=== PATIENT | male | born 1930 | race Caucasian/White ===

== ENCOUNTER → 2016-09-20 | Outpatient (CLI) | payer BC ==
[~2016-09-20] MED LIST: ALBU18002 INH; APIX1TAB3 PO; ASPEC81 PO; AZIT500T26 PO; Allegra PO; CHOL20009 PO; CRD30 PO; CYCL0.052 OP; DUTA0.5C PO; FEXO1TAB49 PO; FLNIN/ NAE; LEVO112T2 PO; MOME220A INH; MULT-190 PO; NTRSLP4 SL; OPTIRAY 320 IV PRN; POLY1SOL6 OP; POLYSOL4 OP; PRED0.12 OPL; TRMCR130WC TOP; Vit D PO; [UNRECOGNIZED DRUG - CODE] PO
--- NOTE | 2016-09-20 13:29 | DIAGNOSTIC IMAGING REPORT ---
CHEST CT WITH CONTRAST CT DOSE: HISTORY: Lymphoma CT TECHNIQUE: Multiaxial CT images of the chest were performed following the intravenous administration of contrast. COMPARISON: 15/10/2014 FINDINGS: The lungs are clear. The mediastinal vascular structures are within normal limits. No mediastinal or hilar lymphadenopathy. No pleural effusion or pneumothorax. Limited views of the upper abdomen demonstrate a normal liver and spleen. IMPRESSION: No significant abnormality identified within the chest. Improved from the prior study. Electronically signed by: Topher Mead M.D. 09/20/2016 1:28 PM Dictated Date/Time: 09/20/2016 1:20 PM
--- NOTE | 2016-09-20 14:01 | DIAGNOSTIC IMAGING REPORT ---
ABDOMEN AND PELVIS CT WITH IV AND ORAL CONTRAST CT DOSE: 643.14 mGy.cm HISTORY: Lymphoma. TECHNIQUE: Multiaxial CT images of the abdomen and pelvis were performed following the use of intravenous and oral contrast. COMPARISON STUDY: Abdomen and pelvis CT 04/19/2015. FINDINGS: The pericardial effusion and trace left pleural effusion have resolved. The heart remains borderline enlarged. There is a right total hip arthroplasty. No suspicious lytic or blastic osseous lesions. Cholecystectomy. There are few stable subcentimeter hypodense lesions within the liver. These are too small to characterize. The spleen is top normal in size measuring 12.5 cm in length. Small rind of soft tissue/fluid along the lateral aspect of the spleen remains unchanged. The adrenal glands and pancreas are unremarkable. Bilateral renal cysts are again noted. Stable mild prominence of the left intrahepatic bile ducts. No retroperitoneal or mesenteric lymphadenopathy. No pelvic or inguinal lymphadenopathy. Mild bladder wall thickening with a few bladder diverticula. This is likely chronic. Evidence for prior right inguinal hernia repair. The prostate gland is mildly enlarged. Colonic diverticulosis. No bowel wall thickening or obstruction. IMPRESSION: 1. The pericardial effusion and trace left pleural effusion have resolved in the interval. 2. Otherwise, no significant change within the appearance of the abdomen/pelvis. 3. Small rind of soft tissue/fluid along the lateral aspect of the spleen remains stable. 4. No lymphadenopathy within the abdomen or pelvis. Electronically signed by: Nate Lomeli M.D. 09/20/2016 2:00 PM Dictated Date/Time: 09/20/2016 1:52 PM
== END | disposition home or self-care (01) ==
LOC: C.CTS 12:40
PROVIDERS: ATTEND Nurse Practitioner Family
DX: C85.10 Unspecified B-cell lymphoma, unspecified site (principal)

== ENCOUNTER 2016-10-01 13:30 | Observation (INO) | payer BC ==
[~2016-10-01] VITALS: Ht 190.5 cm; Wt 78.9 kg
[~2016-10-01 13:30] MED LIST changes: -ALBU18002 INH; -APIX1TAB3 PO; -AZIT500T26 PO; -CHOL20009 PO; -CRD30 PO; -CYCL0.052 OP; -FEXO1TAB49 PO; -FLNIN/ NAE; -MOME220A INH; -MULT-190 PO; -OPTIRAY 320 IV PRN; -POLY1SOL6 OP; -[UNRECOGNIZED DRUG - CODE] PO
[2016-10-01] MEDS ORDERED: ASPIRIN 81 MG CHEW PO STA (13:49)
[2016-10-01] MEDS ORDERED: FLNIN/ NAE (13:57)
[2016-10-01] MEDS ORDERED: MOME220A INH (13:57)
[2016-10-01] MEDS ORDERED: CHOL20009 PO (13:57)
[2016-10-01] MEDS ORDERED: FEXO1TAB49 PO (13:57)
[2016-10-01] MEDS ORDERED: POLY1SOL6 OP (13:57)
[2016-10-01] MEDS ORDERED: [UNRECOGNIZED DRUG - CODE] PO (13:57)
[2016-10-01] MEDS ORDERED: ALBU18002 INH (13:57)
[2016-10-01 14:06] LABS: BASO % 0.2 %; BASO ABS # 0.01 K/uL (0-0.2); COMPLETE YES; EOS % 14.2 %; HEMATOCRIT 43.6 % (42-52); IG% 0.7 %; LYMPH % 19.9 %; LYMPH ABS # 0.88 K/uL (1.2-3.4); MEAN CELL VOLUME 92.2 fL (80-100); MEAN CORPUSCULAR HEMOGLOBIN 32.8 pg (25-34); MEAN CORPUSCULAR HGB CONC 35.6 g/dl (32-36); MEAN PLATELET VOLUME 9.6 fL (7.4-10.4); MONO % 12.6 %; NEUT % 52.4 %; PLATELET COUNT 101 K/uL (130-400); RED BLOOD COUNT 4.73 M/uL (4.7-6.1); WHITE BLOOD COUNT 4.43 K/uL (4.8-10.8)
--- NOTE | 2016-10-01 14:14 | DIAGNOSTIC IMAGING REPORT ---
CHEST ONE VIEW PORTABLE CLINICAL HISTORY: Atypical chest pain COMPARISON STUDY: 11/29/2015 FINDINGS: The heart is the upper limits of normal in size. There is no failure. There is no focal pulmonary consolidation. There are no pleural effusions. Degenerative changes are present within the shoulders.[ IMPRESSION: No active disease in the chest. Electronically signed by: Isra Patel M.D. 10/01/2016 2:13 PM Dictated Date/Time: 10/01/2016 2:09 PM
[2016-10-01 14:26] LABS: BLOOD UREA NITROGEN 11 mg/dl (7-18); BUN/CREATININE RATIO 12.9 (10-20); CALCIUM 9.5 mg/dl (8.5-10.1); CARBON DIOXIDE 30 mmol/L (21-32); CHLORIDE 102 mmol/L (98-107); CREATININE 0.85 mg/dl (0.60-1.40); GLUCOSE 93 mg/dl (70-99); POTASSIUM 3.9 mmol/L (3.5-5.1); SODIUM 140 mmol/L (136-145)
[2016-10-01 14:31] LABS: CKMB/CK RATIO 6.1 (0-3.0)
[2016-10-01] MEDS ORDERED: ALUMINUM/MAGNESIUM/SIMETH (MAALOX MAX) 30 ML UDC PO PRN (15:30)
[2016-10-01] MEDS ORDERED: MoRPHine SULFATE 2 MG/ML CARP IV PRN (15:30)
[2016-10-01] MEDS ORDERED: POLYETHYLENE (MIRALAX) 17 GM PACK PO PRN (15:30)
[2016-10-01] MEDS ORDERED: ALBUTEROL HFA 8 GM INHALER INH PRN (15:30)
[2016-10-01] MEDS ORDERED: NITROGLYCERIN 0.4 MG SL PER TAB CHARGE SL PRN ×2 (15:30)
[2016-10-01] MEDS ORDERED: ZOLPIDEM TARTRATE 5 MG TAB PO PRN (15:30)
[2016-10-01] MEDS ORDERED: MAGNESIUM HYDROXIDE SUSP 30 ML UDC PO PRN (15:30)
[2016-10-01] MEDS ORDERED: ONDANSETRON INJ 2 MG/ML 2 ML VIAL IV PRN (15:30)
[2016-10-01] MEDS ORDERED: ACETAMINOPHEN 325 MG TAB PO PRN (15:30)
--- NOTE | 2016-10-01 15:42 | History and Physical ---
History & Physical Date of Service Oct 01, 2016. History & Physical chest pain, Aflutter, rate controlled, [id number]
--- NOTE | 2016-10-01 15:56 | EMERGENCY ROOM VISIT NOTE ---
History Report prepared by Nelson: Mariajose West Under the Supervision of: Dr. Hero Mendoza D.O. First contact with patient: 13:38 Chief Complaint: CARDIAC ASSESSMENT Stated Complaint: HEART PROBLEMS/NOT FUCTIONING NORMALLY SENT BY DOC History of Present Illness The patient is an 86 year old male who presents to the Emergency Room with complaints of intermittent chest pain that has been going on for the last several months. He currently rates his discomfort as a 1/10 in severity. The patient states that for the past several months he has been noticing intermittent left sided chest pain with exertion. He states that he has become short of breath with exertion as well. The patient notes that occasionally he notes pain radiating into his left arm, but denies it radiating into his jaw. He states that he experiences this discomfort every other day or less, but notes that his roman has become more frequent. The patient attributed his discomfort to his diet. He describes his discomfort as a burning pain. The patient states that he has been feeling lightheaded with changing position. He states that the last time he had the chest pain was yesterday. The patient states that he has a history of a previous CT in January 2015, noting that his discomfort today feels similar to his discomfort with his CT. The patient states that he went to his PCP's office today and mentioned his recent symptoms , and states that after having an EKG done he was found to be in atrial flutter. The patient denies any history of diabetes, hypertension or a previous stroke. Pt denies headache, change in vision, fevers, runny nose, cough, cold, chest pain, shortness of breath, nausea, vomiting, diarrhea, pain with urination, and melena. Source of History: patient Onset: last several months Position: chest Symptom Intensity: 1/10 Quality: burning Timing: intermittent Modifying Factors (Worsening): exertion Associated Symptoms: + SOB Note: Associated Symptoms: lightheaded with change in position Review of Systems See HPI for pertinent positives & negatives. A total of 10 systems reviewed and were otherwise negative. 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 (15) Venous Thrombosis Nos Family History Cancer Heart disease Hypertension Social History Smoking Status: Never Smoker Alcohol Use: none Drug Use: none Marital Status: Housing Status: lives with family Occupation Status: retired Current/Historical Medications Scheduled Aspirin (Aspirin EC Low Dose), 81 MG PO QAM Cholecalciferol (Vitamin D), 2,000 UNIT PO DAILY Dutasteride (Avodart), 0.5 MG PO HS Fexofenadine Hcl (Adriana Allergy), 180 MG PO DAILY Fluticasone Propionate (Fluticasone Propionate), 2 SPRAY GISELL DAILY Levothyroxine Sodium (Levo-T), 100 MCG PO DAILY Mometasone Furoate (Inhalation (Asmanex Twisthaler 120 Me), 1 PUFF INH BID Polyethylene Glycol-Propylene (Systane Ultra), 1 DROPS OP TID Prednisolone Acetate (Ophth) (Pred Mild 0.12%), 1 DROP OPL Q2D Scheduled PRN Albuterol Sulfate (Proair Respiclick), 2 PUFF INH Q4 PRN for SOB/Wheezing Nitroglycerin (Nitrostat), 0.4 MG SL UD PRN for Chest Pain Allergies Coded Allergies: Penicillins (Verified Allergy, Intermediate, Rash, 10/01/16) RASH Rofecoxib (Verified Allergy, Intermediate, Rash, 10/01/16) RASH Codeine (Verified Allergy, Unknown, 2000 codeine after gallbladder sug = rash, red, & swelled up, 10/01/16) Meperidine (Verified Allergy, Unknown, 10/01/16) Statins (Unverified Allergy, Unknown, unknown, 10/01/16) Physical Exam Vital Signs Date Time Temp Pulse Resp B/P Pulse Ox O2 Delivery O2 Flow Rate FiO2 10/01/16 15:31 67 18 119/74 97 Room Air 10/01/16 14:36 74 18 129/60 95 Room Air 10/01/16 14:02 95 Room Air 10/01/16 13:56 69 10/01/16 13:45 73 18 123/72 96 Room Air 10/01/16 13:45 95 Room Air 10/01/16 13:35 36.4 85 18 141/84 97 Room Air Physical Exam GENERAL: Standing in room, alert, well appearing, well nourished, no distress, non-toxic EYE EXAM: normal conjunctiva. OROPHARYNX: no exudate, no erythema, lips, buccal mucosa, and tongue normal and mucous membranes are moist NECK: supple, no nuchal rigidity, no adenopathy, non-tender LUNGS: Clear to auscultation. Normal chest wall mechanics HEART: Systolic ejection murmur. S1 normal and S2 normal ABDOMEN: abdomen soft, non-tender, normo-active bowel sounds, no masses, no rebound or guarding. BACK: Back is symmetrical on inspection and there is no deformity, no midline tenderness, no CVA tenderness. SKIN: no rashes and no bruising UPPER EXTREMITIES: upper extremities are grossly normal. LOWER EXTREMITIES: Faint pitting edema in the left lower quadrant NEURO EXAM: Normal sensorium, cranial nerves II-XII grossly intact, normal speech, no gross weakness of arms, no gross weakness of legs. Medical Decision & Procedures ER Provider Diagnostic Interpretation: Xray results per the radiologist and my interpretation. Other results have been interpreted by the radiologist and reviewed by me. CHEST ONE VIEW PORTABLE CLINICAL HISTORY: Atypical chest pain COMPARISON STUDY: 11/29/2015 FINDINGS: The heart is the upper limits of normal in size. There is no failure. There is no focal pulmonary consolidation. There are no pleural effusions. Degenerative changes are present within the shoulders.[ IMPRESSION: No active disease in the chest. Electronically signed by: Isra Patel M.D. 10/01/2016 2:13 PM Dictated Date/Time: 10/01/2016 2:09 PM Laboratory Results 10/01/16 14:00 Red Blood Count 4.73, Mean Corpuscular Volume 92.2, Mean Corpuscular Hemoglobin 32.8, Mean Corpuscular Hemoglobin Concent 35.6, Mean Platelet Volume 9.6, Neutrophils (%) (Auto) 52.4, Lymphocytes (%) (Auto) 19.9, Monocytes (%) (Auto) 12.6, Eosinophils (%) (Auto) 14.2, Basophils (%) (Auto) 0.2, Neutrophils # (Auto ) 2.32, Lymphocytes # (Auto) 0.88, Monocytes # (Auto) 0.56, Eosinophils # (Auto ) 0.63, Basophils # (Auto) 0.01 10/01/16 14:00 Test 10/01/16 14:00 White Blood Count 4.43 K/uL (4.8-10.8) Red Blood Count 4.73 M/uL (4.7-6.1) Hemoglobin 15.5 g/dL (14.0-18.0) Hematocrit 43.6 % (42-52) Mean Corpuscular Volume 92.2 fL (80-100) Mean Corpuscular Hemoglobin 32.8 pg (25-34) Mean Corpuscular Hemoglobin Concent 35.6 g/dl (32-36) Platelet Count 101 K/uL (130-400) Mean Platelet Volume 9.6 fL (7.4-10.4) Neutrophils (%) (Auto) 52.4 % Lymphocytes (%) (Auto) 19.9 % Monocytes (%) (Auto) 12.6 % Eosinophils (%) (Auto) 14.2 % Basophils (%) (Auto) 0.2 % Neutrophils # (Auto) 2.32 K/uL (1.4-6.5) Lymphocytes # (Auto) 0.88 K/uL (1.2-3.4) Monocytes # (Auto) 0.56 K/uL (0.11-0.59) Eosinophils # (Auto) 0.63 K/uL (0-0.5) Basophils # (Auto) 0.01 K/uL (0-0.2) RDW Standard Deviation 45.6 fL (36.4-46.3) RDW Coefficient of Variation 13.4 % (11.5-14.5) Immature Granulocyte % (Auto) 0.7 % Immature Granulocyte # (Auto) 0.03 K/uL (0.00-0.02) Anion Gap 8.0 mmol/L (3-11) Est Creatinine Clear Calc Drug Dose 73.8 ml/min Estimated GFR () 91.4 Estimated GFR (Non- 78.9 BUN/Creatinine Ratio 12.9 (10-20) Calcium Level 9.5 mg/dl (8.5-10.1) Total Creatine Kinase 41 U/L (39-308) Creatine Kinase MB 2.5 ng/ml (0.5-3.6) Creatine Kinase MB Ratio 6.1 (0-3.0) Troponin I < 0.015 ng/ml (0-0.045) Laboratory results per my review. Medications Administered Medications (Trade) Dose Ordered Sig/Rosario Route Start Time Stop Time Status Last Admin Dose Admin Aspirin (Aspirin Chew) 324 mg NOW STAT PO 10/01/16 13:49 10/01/16 13:50 DC 10/01/16 14:19 324 MG ECG Indication: chest pain Rate (beats per minute): 62 Rhythm: atrial flutter (variable block) Findings: Q waves (Septal), other (normal axis) ED Course ED COURSE: Vital signs were reviewed and showed normal vitals The patients medical record was reviewed The above diagnostic studies were performed and reviewed. ED treatments and interventions as stated above. 1339: The patient was evaluated in room A2. A complete history and physical examination was performed. 1349: Ordered Aspirin 324 mg PO. 1353: I discussed the patients case with Dr. Shultz, Family Medicine. He states that he wants the patient evaluated in the hospital for a cardiac work up. 1445: Upon reevaluation, the patient is resting comfortably.I discussed my findings with the patient and he understands and agrees with the treatment plan. Based on the patients age, coexisting illnesses, exam and lab findings the decision to treat as an inpatient was made. The patient remained stable while under my care. The patient will be evaluated for further management. 1506: I discussed the patients case with Dr. Lui [facility]. He is going to evaluate the patient for further treatment. 1507: I reevaluated the patient and he is in agreement with the treatment plan. Medical Decision Differential diagnoses includes but is not limited to acute coronary syndrome, myocardial infarction, pericarditis, pulmonary embolus, aortic dissection, pneumonia, pneumothorax, musculoskeletal, shingles, esophageal. Patient is an 86-year-old male referred in by his primary care doctor for worsening exertional chest pain and shortness of breath which feels like his previous CT over the past several weeks. He was also found to be in new onset A. fib flutter with variable block. Patient has no other complaints at this time. EKG does show a flutter with variable block. Labs show no significant leukocytosis or anemia. BMP along with troponin were negative. CK-MB was slightly elevated at 6.1. Patient is no other complaints at this time and he was admitted to internal medicine following an unremarkable chest x-ray. Consults Time Called: [phone] Consulting Physician: Dr. Shultz, Family Medicine Returned Call: [phone] I discussed the patients case with Dr. Shultz Family Medicine. He states that he wants the patient evaluated in the hospital for a cardiac work up. Additional Consults: Time Called: 1445 Consulted Physician: GABRIELLE Smith Returned Call: [phone] Additional Comments: I discussed the patients case with GABRIELLE Smith. He is going to evaluate the patient for further treatment. Impression Primary Impression: New onset atrial flutter Additional Impression: Exertional chest pain Scribe Attestation The scribe's documentation has been prepared under my direction and personally reviewed by me in its entirety. I confirm that the note above accurately reflects all work, treatment, procedures, and medical decision making performed by me. Departure Information Dispostion Being Evaluated By Hospitalist Ganesh Rodriguez D.O. Pulmonary (PCP) Patient Instructions [facility] Problem Qualifiers
[2016-10-01 16:00] LABS: INR 1.1 (0.9-1.1); PROTHROMBIN TIME (PATIENT) 11.6 SECONDS (9.0-12.0)
[2016-10-01] MEDS ORDERED: IV FLUIDS COMPLETED PRN (16:00)
[2016-10-01 16:13] VITALS: BP 132/69; PULSE 73; TEMP 36.4; O2SAT 98; Ht 190.5 cm; Wt 78.9 kg
[2016-10-01] MEDS ORDERED: ENOXAPARIN 40 MG/0.4 ML SYR SC SCH (18:00)
--- NOTE | 2016-10-01 18:14 | HISTORY & PHYSICAL EXAMINATION ---
DATE OF ADMISSION: 10/01/2016 This is level 3 observation H\T\P, 31 minutes. CHIEF COMPLAINT: Chest pain. HISTORY OF PRESENT ILLNESS: The patient is an 86-year-old white male with a significant past medical history of CAD, AL, GERD, dyslipidemia, hypertension, non-Hodgkins lymphoma, spinal stenosis, venous thrombosis, total hip replacement, coming into the hospital Emergency Room from PCP's office because of the above chief complaint. The patient reported he has been feeling intermittent chest pain, has been going on for several months. When he was in the Emergency Room the rate of pain was 1/10. In the past several months has feeling of intermittent left chest pain with exertion. He also becomes short of breath with exertion as well. He reported the chest pain occasionally radiation into his left arm, but denied any radiation to the neck or jaw. He reports almost experience discomfort every other day. Recently become more frequent. He described it as burning uncomfortable pain. Associated with mild lightheaded. When change position. Last time had chest pain was yesterday. He reported history of AL in the year of 2014. Today, he was seen in the PCP's office with the above symptoms. EKG was done which shows A-flutter. Therefore, coming to the hospital Emergency Room. When I interviewed with the patient, he is awake, alert and oriented, confirmed me the above information. Denied fever or chills. Denied cough, sputum, shortness of breath. Denied chest pain now. Denied nausea, vomiting, abdominal pain, diarrhea, or constipation. Denied dysuria, urgency, or frequencies. Denied facial droop, slurry speeches or local weakness. Denies skin rashes. REVIEW OF SYSTEMS: Please see HPI, otherwise 14-point organ system review were negative. PAST MEDICAL HISTORY: Include MIs, ACS, appendectomy, cholecystectomy, chronic proctitis, cornea transplant, cystic kidney disease, GERD, dyslipidemia, hypertension, non-Hodgkins lymphoma, spinal stenosis, total hip replacement, venous thrombosis. FAMILY HISTORY: Include cancer, heart disease and hypertension. SOCIAL HISTORY: Denied alcohol abuse disorder, denied illicit drug abuse. Denied tobacco abuse. The patient is , live with . in the bedside. CURRENT MEDICATIONS: Include aspirin 81 mg p.o. daily, vitamin D 2000 international units p.o. daily, Avodart 0.5 mg p.o. at bedtime, Adriana 180 mg p.o. daily, fluticasone 2 sprays every day, Levothyroxine 100 mcg p.o. daily, Asmanex 1 puff inhaled b.i.d., Systane 1 drop OP t.i.d., prednisolone acetate 1 drop OPL q. 2 days, albuterol ProAir two puffs inhaled q. 4 hours p.r.n. for shortness of breath and wheezing, nitroglycerin 0.4 mg sublingually use as directed p.r.n. for chest pain. ALLERGIES: PENICILLIN, ROFECOXIB, CODEINE, MEPERIDINE, STATIN. PHYSICAL EXAMINATION: VITAL SIGNS: Temperature is 36, pulse 85, respiration rate 18, blood pressure 141/84, pulse ox was 97% on room air. GENERAL: The patient is a white male, awake, alert and oriented, looking his age, is smart, sharp, conversational, follows all commands. No acute distress. HEAD: Normocephalic. EYES: Pupils equal, round responds to light. EARS: Normal. NOSE: Normal. NECK: Supple. Thyroid no enlargement. Trachea midline. No thyroid enlargement. No JVD. LUNGS: Decreased breathing sounds. There was no wheezing, rhonchi or crackles. HEART: Having systolic ejection murmur. S1, S2. ABDOMEN: Soft, nontender. Bowel sound was positive. BACK: Is symmetric. CVA was nontender. Skin has no rashes. UPPER AND LOWER EXTREMITIES: No swelling. Homans sign was negative. Calf was nontender. There was no clubbing, no cyanosis. Pulse was positive and symmetric. NEUROLOGICAL EVALUATION: Cranial nerves II through XII was intact. There was no local deficits. Moves upper and lower extremities. LABORATORY STUDIES: WBC 4.4, hemoglobin 15, platelet 101. Sodium 140, potassium 3.9, BUN 11, creatinine 0.8. Blood glucose 93. Troponin less than 0.015. EKG shows A-flutter, rate at 62 beats per minute. IMAGING STUDIES: Chest x-ray, no acute disease. ASSESSMENT AND PLAN: An 86-year-old white male with the conditions below: 1. Chest pain intermittent, comes and goes with atrial flutter was identified. There was no history of atrial flutter documented 2. Hypothyroidism. 3. Benign prostatic hypertrophy. 4. History of coronary artery disease myocardial infarction. 5. History of gastroesophageal reflux disease, dyslipidemia, non-Hodgkin's disease. 6. History of venous thrombosis. PLAN: Will be kept in observation tele monitor to rule out ACS. We will check cardiac enzyme troponin x2 sets more. Will have his cardiology consultation. I did order stress echo if cardiac enzyme troponin was negative x2 and if agreeable with automotive quality manager. The patient has new identified A-flutter discussed, about the stroke prevention. Risk and benefit of possible anticoagulation and choice of medications. The patient is think about it. He said he will talk to automotive quality manager to make a final decision. I feel possible Eliquis is one good option for him. His last echo was in 2014, LVEF was normal. If we think about his CHADS2-VASc score is 3, adjusted year risk of stroke is 3.2% per year, for now we do not know echo result yet. Therefore, we will need to continue to follow up. We will continue home medication. I will check TSH as well. For the hypothyroidism, we will continue levothyroxine. For possible asthma we will continue current inhaler. I will check fasting lipid panels to follow up tomorrow. Discussed with the patient and about the care plan, I answered all the questions, I did order n.p.o. midnight and stress echo if agree with dobutamine stress test if agree with automotive quality manager. ANJANA
[2016-10-01 19:31] VITALS: BP 125/73; PULSE 63; TEMP 36.7; O2SAT 99
[2016-10-01 20:00] VITALS: O2SAT 99
[2016-10-01] MEDS: MOMETASONE FUROATE 14 PUFF/1 INHALER INH SCH (20:13)
[2016-10-01] MEDS: ARTIFICIAL TEARS OP SOLN OP SCH ×2 (20:16)
[2016-10-01] MEDS ORDERED: DUTASTERIDE 0.5 MG CAP PO SCH (21:00)
[2016-10-01 22:03] LABS: CKMB/CK RATIO 5.7 (0-3.0)
[2016-10-01 23:59] VITALS: BP 103/55; PULSE 61; TEMP 36.5; O2SAT 96; O2SAT 99
[2016-10-02] VITALS (7 sets, daily range): BP systolic 111–130; BP diastolic 60–65; PULSE 64–90; TEMP 36.5–36.9; O2SAT 96–99
[2016-10-02] MEDS ORDERED: LEVOTHYROXINE 100 MCG TAB PO SCH (06:00)
[2016-10-02 06:56] LABS: BLOOD UREA NITROGEN 10 mg/dl (7-18); BUN/CREATININE RATIO 12.9 (10-20); CALCIUM 8.4 mg/dl (8.5-10.1); CARBON DIOXIDE 30 mmol/L (21-32); CHLORIDE 105 mmol/L (98-107); CHOLESTEROL 174 mg/dl (0-200); GLUCOSE 96 mg/dl (70-99); MAGNESIUM 2.2 mg/dl (1.8-2.4); POTASSIUM 4.1 mmol/L (3.5-5.1); SODIUM 144 mmol/L (136-145); TRIGLYCERIDES 147 mg/dl (0-150); VERY LOW DENSITY LIPOPROT CALC 29 mg/dl
[2016-10-02 07:00] LABS: CHOLESTEROL/HDL RATIO 4.8; HDL CHOLESTEROL 36 mg/dl; LDL CHOLESTEROL CALCULATED 109 mg/dl
[2016-10-02] MEDS ORDERED: METOPROLOL TARTRATE 1 MG/ML VIAL ONE (08:51)
[2016-10-02] MEDS ORDERED: ATROPINE SULFATE 0.1 MG/ML 5ML SYR ONE (08:51)
[2016-10-02] MEDS ORDERED: DOBUTamine HCL 12.5 MG/ML 20 ML VIAL ONE (08:51)
[2016-10-02] MEDS ORDERED: FLUTICASONE PROPIONATE NA SPR 16 GM BTL NAE SCH (09:00)
[2016-10-02] MEDS ORDERED: CHOLECALCIFEROL 1000 INTER.UNIT TAB PO SCH (09:00)
[2016-10-02] MEDS ORDERED: PANTOprazole SOD 40 MG TAB PO SCH (09:00)
[2016-10-02] MEDS ORDERED: FEXOFENADINE HCL 180 MG TAB PO SCH (09:00)
[2016-10-02] MEDS ORDERED: ASPIRIN 325 MG ECTAB PO SCH (09:00)
[2016-10-02] MEDS ORDERED: DILTIAZEM HCL 30 MG TAB PO ONE (09:21)
[2016-10-02] MEDS ORDERED: APIXABAN 2.5 MG TAB PO ONE (09:30)
[2016-10-02] MEDS: MOMETASONE FUROATE 14 PUFF/1 INHALER INH SCH (10:19)
[2016-10-02] MEDS: ARTIFICIAL TEARS OP SOLN OP SCH ×4 (10:31→14:05)
--- NOTE | 2016-10-02 10:36 | CARDIOLOGY CONSULTATION REPORT ---
DATE OF CONSULTATION: 10/02/2016 DATE OF CONSULTATION: 10/02/2016. REASON FOR CONSULTATION: 1. Chest pain in a patient with coronary artery disease. 2. Newly diagnosed atrial flutter. HISTORY OF PRESENT ILLNESS: Mr. Rivera is very pleasant and active 86-year-old white male who is well known to Dr. Almodovar and myself from both inpatient and outpatient visits. He has a history of B-cell non-Hodgkin's lymphoma, dyslipidemia, hypertension, chronic thrombocytopenia, and CAD with chronic stable angina pectoris. The patient's cardiac history dates back to 02/08/2015 when he presented to [facility] complaining of prolonged left sided chest pressure which radiated into his arm and lasted for 1-2 hours. No associated symptoms. Subsequently his troponin I level went from 0.169 ng/mL up to 3.80 ng/mL and also had an elevation of his CK and CK-MB levels. He was diagnosed with NSTEMI, but due to the fact that his EF was normal, no regional wall motion abnormalities were present, HI was completed, and he had thrombocytopenia ppresent -- further invasive workup was not undertaken. The patient did not want to undergo cardiac catheterization. Therefore he was started on the appropriate medical management and has been maintained on medical management since that time (although he developed a severe rash with metoprolol which forced the discontinuance of his beta josh and does not tolerate statins). The patient presented to his primary care physicians office yesterday for a routine check up. At that time he mentioned intermittent left sided exertional chest pain which had been present for several months, with some mild exertional dyspnea as well. Occasionally his chest pain radiated to his left arm, but did not radiate to this neck or jaw. It did not occur at rest, and was only associated with exertion. No prolonged episodes, lasted for only minutes at a time. In his PCP's office, he was noted to have newly diagnosed atrial flutter with a reasonably well controlled ventricular response rate. The patient as subsequently referred to the ER and admitted for further evaluation. Thus far his cardiac enzymes are negative. He remains in atrial flutter with a ventricular response rate in the 80s and 90s. He denies any further chest discomfort. His breathing is at baseline. He specifically denies any angina pectoris at the present time, shortness of breath, dyspnea on exertion, or any chest discomfort whatsoever. He has not had any syncope or near syncope. He denies any nausea, vomiting, diaphoresis, or dyspnea. The patient offers no other complaints or concerns. Denies any symptoms suggestive of stroke or mini stroke. He has not had any orthopnea or PND. No sensation of palpitations or tachypalpitations. MEDICATIONS: 1. Aspirin 325 mg daily. 2. Adriana 180 mg daily. 3. Flonase 2 sprays each nostril daily. 4. Vitamin D 2000 IU daily. 5. Protonix 40 mg daily. 6. Levothyroxine 100 mcg daily. 7. Asmanex 220 mcg 1 puff b.i.d. 8. Artificial Tears t.i.d. 9. Avodart 0.5 mg at bedtime. ALLERGIES: 1. METOPROLOL CAUSED A SEVERE RASH. 2. CODEINE. 3. MEPERIDINE. 4. PENICILLIN. 5. ROFECOXIB. 6. STATIN MEDICATIONS. PAST MEDICAL HISTORY: 1. B-cell non-Hodgkin's lymphoma. 2. Dyslipidemia. 3. Hypertension. 4. CAD status post NSTEMI 02/08/2015. 5. Chronic thrombocytopenia. 6. Has never had a cardiac cauterization. 7. Stress echocardiogram 02/10/2015 showed normal baseline LVEF 60% to 65%, moderate concentric LVH, mild to moderate aortic stenosis, mild AI, moderate pulmonic insufficiency, trace MR, trace TR. The patient exercised for 3 minutes and 45 seconds on a standard Juarez protocol obtaining 5.5 METS and 93% MPHR. No EKG change with exercise. Post stress echocardiogram suggested mid to distal LAD territory ischemia. 8. Asthma. 9. BPH. 10. Hearing loss. 11. History of remote CVA. 12. History of right inguinal hernia. 13. Hypothyroidism. 14. History of appendectomy. 15. History of blepharoplasty upper eyelid. 16. History of cataract surgery. 17. Status post cholecystectomy. 18. History of corneal transplant. 19. History of hip replacement. SOCIAL HISTORY: The patient is and lives with his locally. 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 He is a life-long nonsmoker. He drinks alcohol occasionally. FAMILY HISTORY: Significant for hypertension. PHYSICAL EXAMINATION: VITAL SIGNS: Temperature is 36.9 degrees Celsius, pulse is 85 to 90 and slightly irregular, respiratory rate is 16 and unlabored, blood pressure is 110/61. SpO2 is 99% on room air. GENERAL: The patient is in no acute distress. HEAD, EYES, EARS, NOSE, AND THROAT: Head is atraumatic, normocephalic. EOMs intact. Sclerae are anicteric. Face is symmetric. No perioral cyanosis. Mucous membranes moist. NECK: Without thyromegaly, adenopathy, or JVD. Carotid upstrokes are +2 bilaterally without obvious bruits. CHEST AND LUNGS: Clear to auscultation throughout all lung garza. No wheezes, rales, or rhonchi. CARDIOVASCULAR: S1 and S2 are slightly irregular with a grade I/ basal systolic murmur which radiates into the upper chest and left sternal border. No diastolic murmurs appreciated. No obvious gallops or rubs. PMI is nondisplaced. No lifts, heaves, or thrills. No abdominal aortic or renal bruits. ABDOMINAL EXAMINATION: Bowel sounds are present. No masses, organomegaly or tenderness. EXTREMITIES: Are without clubbing, cyanosis, or edema. Intact posterior tibial pulses bilaterally. Normal radial pulses bilaterally. NEUROLOGIC EXAMINATION: The patient is awake, alert and oriented, pleasant and cooperative. Answers questions appropriately. Speech is clear. Normal movement in all 4 extremities. Echocardiogram is pending. LABORATORY DATA: White blood cell count is 4.43. Hemoglobin 15.5 grams/dL, hematocrit 43.6%, platelet count is 101,000. Sodium is 144 mmol/L, potassium 4.1 mmol/L, BUN is 10 mg/dL, creatinine 0.80 mg/dL, random glucose is 96 mg/dL, magnesium level is 2.2 mg/dL. Total CKs are 23, 30, and 41 units per liter with respective CK-MBs of 1.6, 1.7 and 2.5 ng/mL. Troponin I is less than 0.015 ng/mL x3. TSH normal at 0.455. Total cholesterol is 174 with a HDL of 36 mg/dL and LDL of 109 mg/dL. Chest x-ray shows no acute processes. Current telemetry monitoring reveals atrial flutter with variable 3:1 and 4:1 AV conduction with rates relatively well controlled with good response rate. ASSESSMENT: 1. Left sided chest pain in a patient with known coronary artery disease, negative cardiac enzymes. 2. Newly diagnosed Atrial Flutter. 3. Mild to moderate aortic stenosis, mild aortic insufficiency, moderate PI-compensated 4. Moderate concentric left ventricular hypertrophy. 5. Mildly dilated left atrium on previous echocardiogram. 6. Preserved left ventricular systolic function. 7. Mid to distal left anterior descending territory ischemia on stress echocardiogram January 2015. 8. Currently asymptomatic. 9. No signs or symptoms of stroke or mini stroke. 10. No signs or symptoms of congestive heart failure. PLAN: 1. Discussed with Dr. De La Vega who will also meet with the patient. 2. I had a long discussion with the patient today regarding what atrial flutter is, and various treatment strategies. 3. As we do not know the duration of his atrial flutter, would recommend adding a negative chronotropic medication and anticoagulating for a minimum of 3.5 to 4 weeks before attempting any active cardioversion. 4. Begin Diltiazem 30 mg p.o. q. 6 hours to help control ventricular response rate. 5. Begin Eliquis 5 mg b.i.d. today. 6. Discontinue Lovenox after Eliquis is started. 7. He warned of potential side effects of these medications. 8. Echocardiogram will be done today. 9. We will plan on having the patient ambulate in the hallway today and if he remains asymptomatic, he is stable for discharge to home later today. 10. We will plan on following up with him in 3-4 weeks to discuss further treatment of underlying atrial dysrhythmia and to arrange for cardioversion. 11. The patient and his 's questions were answered to their satisfaction. 12. Our office will contact the patient with a hospital follow up appointment. Attending Agree with Mr. Ramos's assessment and plan. The patient demonstrated a significant bradycardia after one dose of diltiazem. That medication will be placed on hold. Stable for d/c. Follow up with Dr. Almodovar and Mr. Ramos. [facility] HOSPITALPhilippe
[2016-10-02] MEDS ORDERED: APIX1TAB3 PO (11:01)
[2016-10-02] MEDS ORDERED: CRD30 PO (11:01)
--- NOTE | 2016-10-02 11:13 | Discharge Instructions ---
Discharge Instructions Date of Service Oct 02, 2016. Admission Reason for Admission: Chest Pain, Aflutter, Rate Controlled Discharge Discharge Diagnosis / Problem: New atrial flutter, rates controlled Discharge Goals Goal(s): Improve function, Therapeutic intervention (plan for cardioversion) Activity Recommendations Activity Limitations: resume your previous activity Lifting Limitations: none Exercise/Sports Limitations: none May Resume Sexual Activity: when tolerated Shower/Bathe: no limitations Driving or Machine Use: no limitations . Instructions / Follow-Up Instructions / Follow-Up Medications: - ELIQUIS: 5mg twice a day, this is to thin your blood and prevent stroke in the setting of atrial flutter A script was sent to pharmacy for Diltiazem, however, after talking with Dr. De La Vega, we decided to NOT use this medications, do not fill this script Atrial flutter: this is a new diagnosis for you. Fortunately your HR is well controlled. Cardiology plans to attempt a cardioversion (shock your heart back to normal rhythm) but they need to wait 3-4 weeks while your blood is thin. You will follow up with cardiology in 3-4 weeks FOLLOW UP - call for follow up with Dr. Anderson in 5-7 days to discuss new diagnosis and treatment plan - you should receive a call from cardiology for follow up appointment in several weeks, if you do not hear from them in a few days, please call to get appointment Current Hospital Diet Patient's current hospital diet: AHA Diet (Heart Healthy) Discharge Diet Recommended Diet: AHA Diet (Heart Healthy) Pending Studies Studies pending at discharge: no Laboratory Results Last Resulted CBC 10/01/16 14:00 Red Blood Count 4.73, Mean Corpuscular Volume 92.2, Mean Corpuscular Hemoglobin 32.8, Mean Corpuscular Hemoglobin Concent 35.6, Mean Platelet Volume 9.6, Neutrophils (%) (Auto) 52.4, Lymphocytes (%) (Auto) 19.9, Monocytes (%) (Auto) 12.6, Eosinophils (%) (Auto) 14.2, Basophils (%) (Auto) 0.2, Neutrophils # (Auto ) 2.32, Lymphocytes # (Auto) 0.88, Monocytes # (Auto) 0.56, Eosinophils # (Auto ) 0.63, Basophils # (Auto) 0.01 Last Resulted BMP 10/02/16 06:10 Lipid Panel Test 10/02/16 06:10 Range/Units Triglycerides Level 147 0-150 mg/dl Cholesterol Level 174 0-200 mg/dl HDL Cholesterol 36 mg/dl Cholesterol/HDL Ratio 4.8 LDL Cholesterol, Calculated 109 mg/dl Medical Emergencies . Who to Call and When: Medical Emergencies: If at any time you feel your situation is an emergency, please call 911 immediately. . Non-Emergent Contact Non-Emergency issues call your: Primary Care Provider, Plant Packer Call Non-Emergent contact if: you have any medication questions . . "Provider Documentation" section prepared by Alexis Collins. VTE Core Measure Inpt VTE Proph given/why not?: Enoxaparin (Lovenox) [place] Drug Monitoring Program Search Results: no issues identified
[2016-10-02] MEDS ORDERED: DILTIAZEM HCL 30 MG TAB PO SCH (12:00)
--- NOTE | 2016-10-02 12:41 | ECHOCARDIOGRAM REPORT ---
*NOTICE TO RECEIVING [employer]Y This information is strictly Confidential and protected under [place] law. [place] law prohibits you from making any further disclosure of this information unless further disclosure is expressly permitted by the written consent of the person to whom it pertains or is authorized by law. A general authorization for the release of medical or other information is not sufficient for this purpose. Hospital accepts no responsibility if the information is made available to any other person, INCLUDING THE PATIENT. Interpretation Summary * Name: ILDEFONSO GUERRERO Study Date: 10/02/2016 09:31 AM BP: 111/61 mmHg * Patient Location: [facility] HR: 86 * : 1930 (M/d/yyyy) Gender: Male Height: 75 in * Age: 86 yrs Ethnicity: [place] Weight: 184 lb * Ordering Physician: Anthony Lui * Referring Physician: Ganesh Anderson D.O. Pulmonary * Performed By: Sulema Burks RDCS * * Reason For Study: A-flutter, CAD * BSA: 2.1 m2 * -- Conclusions -- * Left ventricular systolic function is normal. * No regional wall motion abnormalities noted. * Ejection Fraction = 55-60%. * There is mild concentric left ventricular hypertrophy. * Mild aortic regurgitation. * There is mild to moderate mitral regurgitation. * There is mild to moderate tricuspid regurgitation. Procedure Details * A complete two-dimensional transthoracic echocardiogram was performed (2D, M-mode, Doppler and color flow Doppler). Left Ventricle * The left ventricle is normal in size. * There is mild concentric left ventricular hypertrophy. * Left ventricular systolic function is normal. * Ejection Fraction = 55-60%. * No regional wall motion abnormalities noted. Right Ventricle * The right ventricle is normal size. * The right ventricular systolic function is normal as assessed by tricuspid annular plane systolic excursion (TAPSE) (normal >1.5 cm). Atria * The left atrium is moderately dilated. * The right atrium is mildly dilated. * No ASD detected; PFO is not assessed. Mitral Valve * The mitral valve is normal in structure and function. * There is mild to moderate mitral regurgitation. Tricuspid Valve * The tricuspid valve anatomy is normal. * There is mild to moderate tricuspid regurgitation. * Right ventricular systolic pressure is elevated at 30-40mmHg. Aortic Valve * The aortic valve is tricuspid. The leaflet thickness if normal. There is no aortic stenosis, and no significant insufficiency. * The aortic valve opens well. * Aortic valve sclerosis moderate, without significant aortic valvular stenosis. * Mild aortic regurgitation. Pulmonic Valve * The pulmonary valve is not well seen, but the Doppler examination is normal without significant regurgitation or stenosis. * Mild pulmonic valvular regurgitation. Great Vessels * The aortic root is normal size. * The pulmonary is not well visualized. Pericardium/Pleural * There is no pericardial effusion. Great Vessels * Normal inferior vena cava size and collapsability with sniff indicates a normal right atrial pressure of 3 mmHg MMode 2D Measurements and Calculations IVSd 1.2 cm LVIDd 4.1 cm LVIDs 2.8 cm LVPWd 1.3 cm IVS/LVPW 0.96 FS 32.2 % EDV(Teich) 74.4 ml ESV(Teich) 29.1 ml EF(Teich) 60.9 % EDV(cubed) 69.1 ml ESV(cubed) 21.5 ml EF(cubed) 68.8 % LV mass(C)d 177.6 grams LV mass(C)dI 83.9 grams/m\S\2 SV(Teich) 45.3 ml SI(Teich) 21.4 ml/m\S\2 SV(cubed) 47.6 ml SI(cubed) 22.5 ml/m\S\2 Ao root diam 2.9 cm Ao root area 6.5 cm\S\2 ACS 1.2 cm LA dimension 4.0 cm asc Aorta Diam 3.0 cm LA/Ao 1.4 LVOT diam 2.0 cm LVOT area 3.1 cm\S\2 LVAd ap4 23.1 cm\S\2 LVLd ap4 7.3 cm EDV(MOD-sp4) 59.8 ml EDV(sp4-el) 61.8 ml LVAs ap4 13.3 cm\S\2 LVLs ap4 6.3 cm ESV(MOD-sp4) 23.0 ml ESV(sp4-el) 23.6 ml EF(MOD-sp4) 61.5 % EF(sp4-el) 61.8 % LVAd ap2 24.8 cm\S\2 LVLd ap2 7.7 cm EDV(MOD-sp2) 69.8 ml EDV(sp2-el) 67.5 ml LVAs ap2 14.8 cm\S\2 LVLs ap2 6.6 cm ESV(MOD-sp2) 29.6 ml ESV(sp2-el) 28.4 ml EF(MOD-sp2) 57.6 % EF(sp2-el) 57.9 % LVLd %diff 5.2 % EDV(MOD-bp) 65.8 ml LVLs %diff 3.7 % ESV(MOD-bp) 26.1 ml EF(MOD-bp) 60.3 % SV(MOD-sp4) 36.8 ml SI(MOD-sp4) 17.4 ml/m\S\2 SV(MOD-sp2) 40.2 ml SI(MOD-sp2) 19.0 ml/m\S\2 SV(MOD-bp) 39.7 ml SI(MOD-bp) 18.7 ml/m\S\2 SV(sp4-el) 38.2 ml SI(sp4-el) 18.0 ml/m\S\2 SV(sp2-el) 39.1 ml SI(sp2-el) 18.5 ml/m\S\2 Doppler Measurements and Calculations MV E max demetrius 68.9 cm/sec MV dec time 0.28 sec Ao V2 max 161.6 cm/sec Ao max PG 10.4 mmHg Ao max PG (full) 9.1 mmHg Ao V2 mean 123.7 cm/sec Ao mean PG 6.8 mmHg Ao V2 VTI 30.4 cm AMELIA(V,A) 1.1 cm\S\2 AMELIA(V,D) 1.1 cm\S\2 AI max demetrius 360.1 cm/sec AI max PG 51.9 mmHg AI dec slope 159.3 cm/sec\S\2 AI P1/2t 662.3 msec LV V1 max PG 1.3 mmHg LV V1 max 57.0 cm/sec MR max demetrius 467.6 cm/sec MR max PG 87.5 mmHg MR mean demetrius 377.2 cm/sec MR mean PG 62.9 mmHg MR VTI 136.2 cm SV(Ao) 196.9 ml SI(Ao) 92.9 ml/m\S\2 PA V2 max 64.7 cm/sec PA max PG 1.7 mmHg PA acc slope 311.6 cm/sec\S\2 PA acc time 0.17 sec PI max demetrius 207.2 cm/sec PI max PG 17.2 mmHg PI dec slope 157.9 cm/sec\S\2 PI P1/2t 384.3 msec TR max demetrius 213.3 cm/sec PA pr(Accel) 1.9 mmHg
--- NOTE | 2016-10-02 13:49 | Discharge Summary ---
Discharge Summary Date of Service Oct 02, 2016. Discharge Summary Admission Date: Oct 01, 2016 at 15:26 Discharge Date: Oct 02, 2016 Discharge Disposition: Home Principal Diagnosis: Atrial flutter, new onset Problems/Secondary Diagnoses: H/o CAD with KS Chest pain BPH GERD h/o Non-Hodgkin's lymphoma Immunizations: Have You Had Influenza Vaccine: Yes Influenza Vaccine Date: May 12, 2006 History of Tetanus Vaccine?: Yes History of Pneumococcal: Yes Pneumococcal Date: May 12, 2006 History of Hepatitis B Vaccine: No Procedures: Echocardiogram - normal EF, mild Aortic regurgitation, mild MR Consultations: Cardiology - Dr De La Vega Medication Reconciliation New Medications: Apixaban (Eliquis) 5 Mg Tab 5 MG PO BID for 30 Days, #60 TAB Continued Medications: Albuterol Sulfate (Proair Respiclick) 108 Mcg/Act Aer 2 PUFF INH Q4 PRN for SOB/Wheezing Aspirin (Aspirin EC Low Dose) 81 Mg Ectab 81 MG PO QAM for 30 Days, 3 Refills Cholecalciferol (Vitamin D) 2,000 Unit Tab 2000 UNIT PO DAILY Dutasteride (Avodart) 0.5 Mg Cap 0.5 MG PO HS, CAP Fexofenadine Hcl (Adriana Allergy) 180 Mg Tab 180 MG PO DAILY, TAB Fluticasone Propionate (Fluticasone Propionate) 120 Sprays/6000 Mcg Inha 2 SPRAY GISELL DAILY, #16 Levothyroxine Sodium (Levo-T) 100 Mcg Tab 100 MCG PO DAILY Mometasone Furoate (Inhalation (Asmanex Twisthaler 120 Me) 220 Mcg/Inh Aer 1 PUFF INH BID Nitroglycerin (Nitrostat) 0.4 Mg/1 Tab Subl 0.4 MG SL UD PRN for Chest Pain, #10 Polyethylene Glycol-Propylene (Systane Ultra) 1 Annette Annette 1 DROPS OP TID, #15 ML 1 Refill Prednisolone Acetate (Ophth) (Pred Mild 0.12%) 0.12 % Aye 1 DROP OPL Q2D Discharge Exam Patient without chest pain, no complaints, eating well. Ambulated around the RN station without any chest pain or dyspnea. On the monitor his HR dropped into the 30-40's while resting, no symptoms. Discussed with cardiology, recommended holding on the plan to start Diltiazem. Will go home on Eliquis. Review of Systems: Constitutional: No chills, No fatigue, No fever, No problem reported, No sweats, No weakness, No weight loss Eyes: No diplopia, No discharge, No eye pain, No problem reported, No redness, No worsening of vision ENT: No dental problems, No hearing loss, No nasal symptoms, No problem reported, No sore throat, No tinnitus, No trouble swallowing, No unusual epistaxis Respiratory: No cough, No dyspnea at rest, No dyspnea on exertion, No hemoptysis, No problem reported, No shortness of breath, No sputum, No wheezing Cardiovascular: No PND, No chest pain, No claudication, No edema, No orthopnea, No palpitations, No problem reported Abdomen: No GI bleeding, No constipation, No diarrhea, No nausea, No pain, No problem reported, No vomiting Musculoskeletal: No calf pain, No joint pain, No muscle pain, No problem reported, No swelling Genitourinary - Male: No dysuria, No hematuria, No urinary frequency, No urinary urgency Neurologic: No balance problems, No memory loss, No numbness/tingling, No paralysis, No problem reported, No vertigo, No weakness Psychiatric: No anhedonism, No anxiety, No depression symptoms, No insomnia , No problem reported, No substance abuse Endocrine: No excessive thirst, No excessive urination, No fatigue, No problem reported Hematologic / Lymphatic: No abnormal bleeding/bruising, No clotting problems , No night sweats, No problem reported, No swollen lymph nodes Integumentary: No bleeding, No color change, No itch, No new/changing skin lesions, No problem reported, No rash Physical Exam: General Appearance: WD/WN, no apparent distress Eyes: normal inspection, EOMI, sclerae normal ENT: normal ENT inspection, hearing grossly normal, pharynx normal Neck: supple, no adenopathy, no JVD, trachea midline Respiratory/Chest: chest non-tender, lungs clear, normal breath sounds, no respiratory distress, no accessory muscle use Cardiovascular: no edema, no gallop, no JVD, no murmur, normal peripheral pulses, + irregularly irregular (occasional irregular beat, normal rate) Abdomen / GI: normal bowel sounds, non tender, soft, no organomegaly Extremities: normal inspection, no calf tenderness, normal capillary refill , no pedal edema, normal range of motion, pelvis stable Neurologic/Psychiatric: electromechanical engineer II-XII nml as tested, no motor/sensory deficits , alert, normal mood/affect, normal reflexes, oriented x 3 Skin: normal color, warm/dry, no rash Lymphatic: no adenopathy Hospital Course 86 yo male with history of CAD with an KS, presented with some chest pain. Found to be in atrial flutter on EKG which was a new diagnosis, never had RVR, rates in the 70-80's on admission. Observed on telemetry, no episodes of RVR, troponin negative x 3. Evaluated by cardiology, recommended anticoagulation and will consider cardioversion in 3-4 weeks. - Atrial flutter, rate controlled was started on Cardizem 30mg q6, however, had some bradycardia in 30-40's after only one dose d/w cardiology, decided against adding Cardizem, patient has beta josh allergy so options limited at risk for stroke, will anticoagulate with Eliquis 5mg BID plan to follow up with cardiology in 3-4 weeks to discuss cardioversion echocardiogram: normal EF, mild aortic regurgitation, mild MR - Chest pain: no evidence of ischemia, troponin negative x 3, no ischemic changes on EKG GERD, dyslipidemia, non-Hodgkin's lymphoma, hypothyroidism, BPH: all chronic and stable d/c home with cardiology follow up Total Time Spent: Greater than 30 minutes This includes examination of the patient, discharge planning, medication reconciliation, and communication with other providers. Discharge Instructions Please refer to the electronic Patient Visit Report (Discharge Instructions) for additional information. Follow-Up Dr. De La Vega in 3-4 weeks Additional Copies To Alex De La Vega M.D.; Ganesh Anderson D.O. Pulmonary
[2016-10-02] MEDS ORDERED: AVODART - ORDER AWAITING ACTION SCH (16:00)
[2016-10-02] MEDS ORDERED: APIXABAN 2.5 MG TAB PO SCH (21:00)
== END 2016-10-02 15:29 | disposition home or self-care (01) ==
LOC: ENRESERVDT → ENRESERVTM → C.EDB 13:33 → C.2E 15:26
PROVIDERS: ADMIT Hospitalist; ATTEND Internal Medicine
DX: I48.92 Unspecified atrial flutter (principal); I25.10 Atherosclerotic heart disease of native coronary artery without angina pectoris; C85.90 Non-Hodgkin lymphoma, unspecified, unspecified site; E78.5 Hyperlipidemia, unspecified; I10 Essential (primary) hypertension; K21.9 Gastro-esophageal reflux disease without esophagitis; E03.9 Hypothyroidism, unspecified; N40.0 Benign prostatic hyperplasia without lower urinary tract symptoms; D69.6 Thrombocytopenia, unspecified; I25.2 Old myocardial infarction; Z79.82 Long term (current) use of aspirin; Z88.5 Allergy status to narcotic agent; Z88.0 Allergy status to penicillin; Z86.73 Personal history of transient ischemic attack (TIA), and cerebral infarction without residual deficits; Z86.718 Personal history of other venous thrombosis and embolism; Z90.49 Acquired absence of other specified parts of digestive tract; Z96.649 Presence of unspecified artificial hip joint; Z94.7 Corneal transplant status

== ENCOUNTER → 2017-01-09 | Outpatient (CLI) | payer BC ==
[~2017-01-09] MED LIST changes: +ALBU18002 INH; +APIX1TAB3 PO; +AZIT500T26 PO; -Allegra PO; +CHOL20009 PO; +CYCL0.052 OP; +FEXO1TAB49 PO; +FLNIN/ NAE; -LEVO112T2 PO; +MOME220A INH; +MULT-190 PO; +POLY1SOL6 OP; -POLYSOL4 OP; -TRMCR130WC TOP; -Vit D PO; +[UNRECOGNIZED DRUG - CODE] PO
[2017-01-09 12:15] LABS: HEMATOCRIT 43.2 % (42-52); MEAN CELL VOLUME 92.9 fL (80-100); MEAN CORPUSCULAR HGB CONC 33.3 g/dl (32-36); MEAN PLATELET VOLUME 10.3 fL (7.4-10.4); PLATELET COUNT 104 K/uL (130-400); RED BLOOD COUNT 4.65 M/uL (4.7-6.1); WHITE BLOOD COUNT 5.54 K/uL (4.8-10.8)
[2017-01-09 12:25] LABS: ALT/SGPT 19 U/L (12-78); AST/SGOT 17 U/L (15-37); BLOOD UREA NITROGEN 13 mg/dl (7-18); BUN/CREATININE RATIO 17.3 (10-20); CALCIUM 8.6 mg/dl (8.5-10.1); CARBON DIOXIDE 29 mmol/L (21-32); CHLORIDE 106 mmol/L (98-107); CREATININE 0.77 mg/dl (0.60-1.40); GLUCOSE 85 mg/dl (70-99); POTASSIUM 4.2 mmol/L (3.5-5.1); SODIUM 141 mmol/L (136-145)
[2017-01-09 12:36] LABS: ALB/GLOB RATIO 1.3 (0.9-2); ALKALINE PHOSPHATASE 90 U/L (45-117); THYROID STIMULATING HORMONE 0.315 uIu/ml (0.300-4.500)
== END | disposition home or self-care (01) ==
LOC: C.LAB1850 10:56
PROVIDERS: ATTEND Physician Assistant
DX: R53.83 Other fatigue (principal)

== ENCOUNTER 2017-02-20 04:34 | Emergency (ER) | payer BC ==
[~2017-02-20] VITALS: Ht 190.5 cm; Wt 80.8 kg
[~2017-02-20 04:34] MED LIST changes: -APIX1TAB3 PO; -AZIT500T26 PO; -CYCL0.052 OP; -MULT-190 PO
[2017-02-20 04:36] VITALS: Ht 190.5 cm; Wt 80.8 kg
[2017-02-20 04:53] VITALS: O2SAT 98
--- NOTE | 2017-02-20 05:05 | EMERGENCY ROOM VISIT NOTE ---
History Report prepared by Nelson: Silas Cooper Under the Supervision of: Dr. Brittany Nathan D.O. First contact with patient: 04:47 Chief Complaint: COUGH Stated Complaint: TERRIBLE COUGH,PAINS IN CHEST,HEADACHE History of Present Illness The patient is an 86 year old male who presents to the Emergency Room with complaints of a persistent cough that the patient has been dealing with for the past 12 days. The patient states that the cough was initially producing a mucous , but is non-producing over the past couple of days. He also complains of pain in his chest, central abdomen, and right upper quadrant when he does strain to cough. These pains are only present with the cough. He also notes experiencing some shortness of breath upon exertion over the past couple of days, especially while walking up the steps. He denies any vomiting, or smoking history. The patient has had pneumonia in the past. He also has a history of atrial fibrillation and started Eliquis and Baby Aspirin two months ago. Source of History: patient Onset: 12 days Position: chest Quality: other (Cough) Timing: other (Persistent) Associated Symptoms: + chest pain, + SOB, + abdominal pain, No vomiting Review of Systems See HPI for pertinent positives & negatives. A total of 10 systems reviewed and were otherwise negative. 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 (15) Venous Thrombosis Nos Family History Cancer Heart disease Hypertension Social History Smoking Status: Never Smoker Alcohol Use: none Drug Use: none Marital Status: Housing Status: lives with family Occupation Status: retired Current/Historical Medications Scheduled Apixaban (Eliquis), 5 MG PO BID Aspirin (Aspirin EC Low Dose), 81 MG PO QAM Azithromycin (Zithromax), 500 MG PO DAILY Cholecalciferol (Vitamin D), 2,000 UNIT PO DAILY Cyclosporine (Ophth) (Restasis), 1 DROP OP BID Dutasteride (Avodart), 0.5 MG PO HS Fexofenadine Hcl (Adriana Allergy), 180 MG PO DAILY Fluticasone Propionate (Fluticasone Propionate), 2 SPRAY GISELL DAILY Levothyroxine Sodium (Levo-T), 100 MCG PO DAILY Mometasone Furoate (Inhalation (Asmanex Twisthaler 120 Me), 1 PUFF INH BID Ocuvite Preservision (Ocuvite Preservision), 1 TAB PO BID Polyethylene Glycol-Propylene (Systane Ultra), 1 DROPS OP BID Prednisolone Acetate (Ophth) (Pred Mild 0.12%), 1 DROP OPL 3XWK Scheduled PRN Albuterol Sulfate (Proair Respiclick), 2 PUFF INH Q4 PRN for SOB/Wheezing Nitroglycerin (Nitrostat), 0.4 MG SL UD PRN for Chest Pain Allergies Coded Allergies: Penicillins (Verified Allergy, Intermediate, Rash, 02/20/17) RASH Rofecoxib (Verified Allergy, Intermediate, Rash, 02/20/17) RASH Codeine (Verified Allergy, Unknown, 2000 codeine after gallbladder sug = rash, red, & swelled up, 02/20/17) Meperidine (Verified Allergy, Unknown, 02/20/17) Statins (Unverified Allergy, Unknown, unknown, 02/20/17) Physical Exam Vital Signs Date Time Temp Pulse Resp B/P (MAP) Pulse Ox O2 Delivery O2 Flow Rate FiO2 02/20/17 06:16 71 18 109/66 97 Room Air 02/20/17 06:00 37.5 02/20/17 05:36 97 124/75 96 02/20/17 05:19 71 22 98 02/20/17 05:04 74 23 98 02/20/17 05:01 124/55 02/20/17 04:53 98 Nasal Cannula 2.0 02/20/17 04:52 97 02/20/17 04:50 97 Room Air 02/20/17 04:50 101 02/20/17 04:49 87 24 95 02/20/17 04:47 127/67 02/20/17 04:45 97 Room Air 02/20/17 04:36 37.4 100 20 115/64 93 Room Air Physical Exam HEENT: Head - normocephalic and atraumatic Pupils are equal, round, and reactive to light. Extraocular eye muscles are intact, and sclera are anicteric. Nose - moist nasal mucosa without discharge. Mouth - moist buccal mucosa. Oropharynx is nonerythematous and there is no tonsillar exudate or edema noted. Neck: Supple; no JVD, nuchal rigidity, cervical lymphadenopathy, or auscultated bruits. Heart: Regular rate and rhythm. There is a normal S1 and S2 with no murmurs, clicks, or gallops appreciated. Lungs: There are rhonchi in the left upper and lower lung garza. Abdomen: Soft, completely nontender, nondistended, with good bowel sounds. There are no palpable pulsatile masses or hepatosplenomegaly. There is no guarding, rigidity, or rebound noted. Extremities: No evidence of cyanosis, clubbing, or edema. There are easily palpable peripheral pulses. Skin: warm and dry with good turgor and no rashes. Medical Decision & Procedures ER Provider Diagnostic Interpretation: Radiology results as stated below per my review and the radiologist's interpretation: 2 VIEW CHEST X-RAY: No cardiomegaly, no obvious pulmonary infiltrates. Unchanged from Nov, 2015. Laboratory Results 02/20/17 05:00 Red Blood Count 4.38, Mean Corpuscular Volume 91.8, Mean Corpuscular Hemoglobin 30.4, Mean Corpuscular Hemoglobin Concent 33.1, Mean Platelet Volume 10.6, Neutrophils (%) (Auto) 62.8, Lymphocytes (%) (Auto) 15.2, Monocytes (%) (Auto) 18.3, Eosinophils (%) (Auto) 3.1, Basophils (%) (Auto) 0.2, Neutrophils # (Auto ) 3.06, Lymphocytes # (Auto) 0.74, Monocytes # (Auto) 0.89, Eosinophils # (Auto ) 0.15, Basophils # (Auto) 0.01 02/20/17 05:00 Test 02/20/17 05:00 02/20/17 05:15 White Blood Count 4.87 K/uL (4.8-10.8) Red Blood Count 4.38 M/uL (4.7-6.1) Hemoglobin 13.3 g/dL (14.0-18.0) Hematocrit 40.2 % (42-52) Mean Corpuscular Volume 91.8 fL (80-100) Mean Corpuscular Hemoglobin 30.4 pg (25-34) Mean Corpuscular Hemoglobin Concent 33.1 g/dl (32-36) Platelet Count 104 K/uL (130-400) Mean Platelet Volume 10.6 fL (7.4-10.4) Neutrophils (%) (Auto) 62.8 % Lymphocytes (%) (Auto) 15.2 % Monocytes (%) (Auto) 18.3 % Eosinophils (%) (Auto) 3.1 % Basophils (%) (Auto) 0.2 % Neutrophils # (Auto) 3.06 K/uL (1.4-6.5) Lymphocytes # (Auto) 0.74 K/uL (1.2-3.4) Monocytes # (Auto) 0.89 K/uL (0.11-0.59) Eosinophils # (Auto) 0.15 K/uL (0-0.5) Basophils # (Auto) 0.01 K/uL (0-0.2) RDW Standard Deviation 44.8 fL (36.4-46.3) RDW Coefficient of Variation 13.3 % (11.5-14.5) Immature Granulocyte % (Auto) 0.4 % Immature Granulocyte # (Auto) 0.02 K/uL (0.00-0.02) Toxic Vacuolation 1+ Prothrombin Time 12.7 SECONDS (9.0-12.0) Prothromb Time International Ratio 1.2 (0.9-1.1) Activated Partial Thromboplast Time 30.0 SECONDS (21.0-31.0) Partial Thromboplastin Ratio 1.2 Anion Gap 3.0 mmol/L (3-11) Est Creatinine Clear Calc Drug Dose 69.7 ml/min Estimated GFR () 90.6 Estimated GFR (Non- 78.1 BUN/Creatinine Ratio 19.5 (10-20) Calcium Level 8.7 mg/dl (8.5-10.1) Total Bilirubin 0.7 mg/dl (0.2-1) Aspartate Amino Transf (AST/SGOT) 13 U/L (15-37) Alanine Aminotransferase (ALT/SGPT) 17 U/L (12-78) Alkaline Phosphatase 85 U/L (45-117) Total Protein 6.3 gm/dl (6.4-8.2) Albumin 3.4 gm/dl (3.4-5.0) Globulin 2.9 gm/dl (2.5-4.0) Albumin/Globulin Ratio 1.2 (0.9-2) Bedside Lactic Acid Venous 0.75 mmol/L (0.90-1.70) Laboratory results per my review. Medications Administered Medications (Trade) Dose Ordered Sig/Rosario Route Start Time Stop Time Status Last Admin Dose Admin Azithromycin (Zithromax Tab) 500 mg NOW STAT PO 02/20/17 06:15 02/20/17 06:16 DC 02/20/17 06:23 500 MG ECG Indication: SOB/dyspnea Rate (beats per minute): 73 Rhythm: atrial flutter (varying block) Findings: no acute ischemic change, no ectopy ED Course 0451: Past medical records reviewed. The patient was evaluated in room B6. A complete history and physical exam was performed. Laboratory studies were drawn as above. A septic protocol was performed. The patient had chest x-ray which was unremarkable. 0605: The patient's repeat temperature was 37.5 degrees. 0613: Upon reevaluation, the patient is feeling well. I discussed findings and results with him. He will get a dosage of Zitrhomax and is ready to go home. He verbalized agreement of the treatment plan. The patient was discharged home. 0615: Ordered Zithromax Tab 500 mg PO. Medical Decision The patient is an 86 year old male who presents to the Emergency Department for a persistent cough. Differential Diagnosis includes; Pneumonia, bronchitis, empyema, and sepsis. Laboratory Results were reviewed and show; No Leukocytosis, mild anemia with hemoglobin of 13.3, normal lactic acid, glucose of 108, normal renal functions and LFTs, INR 12.2 Chest x-ray revealed no evidence of an acute pulmonary infiltrate or pneumonia. His symptoms seemed consistent with acute bronchitis. Because the symptoms have been ongoing for quite some time, we will start him on a Zithromax Tri- Иван. The patient is scheduled to see Dr. Cobos as an outpatient in February. I've asked him to keep that appointment. If his symptoms worsen in anyway, he was encouraged to return to the emergency department. Medication Reconcilliation Current Medication List: was personally reviewed by me Blood Pressure Screening Patient's blood pressure: Normal blood pressure Impression Primary Impression: Acute bronchitis Scribe Attestation The scribe's documentation has been prepared under my direction and personally reviewed by me in its entirety. I confirm that the note above accurately reflects all work, treatment, procedures, and medical decision making performed by me. Departure Information Dispostion Home / Self-Care Prescriptions Azithromycin (Zithromax) 500 Mg Tab 500 MG PO DAILY, #2 TAB Prov: Brittany Nathan D.O. 02/20/17 Referrals No Doctor, Assigned (PCP) Forms HOME CARE DOCUMENTATION FORM, IMPORTANT VISIT INFORMATION Patient Instructions My [facility] Additional Instructions Rest Take zithromax daily for next 2 days starting tomorrow. Return to the ER for any worsening symptoms such as increased shortness of breath, fever, or weakness follow up with Dr. Cobos.
[2017-02-20 05:29] LABS: HEMATOCRIT 40.2 % (42-52); MEAN CELL VOLUME 91.8 fL (80-100); MEAN CORPUSCULAR HEMOGLOBIN 30.4 pg (25-34); MEAN CORPUSCULAR HGB CONC 33.1 g/dl (32-36); MEAN PLATELET VOLUME 10.6 fL (7.4-10.4); PLATELET COUNT 104 K/uL (130-400); RED BLOOD COUNT 4.38 M/uL (4.7-6.1); WHITE BLOOD COUNT 4.87 K/uL (4.8-10.8)
[2017-02-20 05:40] LABS: INR 1.2 (0.9-1.1); PARTIAL THROMBOPLASTIN RATIO 1.2; PROTHROMBIN TIME (PATIENT) 12.7 SECONDS (9.0-12.0)
[2017-02-20 05:43] LABS: BUN/CREATININE RATIO 19.5 (10-20); CALCIUM 8.7 mg/dl (8.5-10.1); CREATININE 0.87 mg/dl (0.60-1.40); POTASSIUM 4.3 mmol/L (3.5-5.1)
[2017-02-20 05:46] LABS: ALB/GLOB RATIO 1.2 (0.9-2)
[2017-02-20 06:00] VITALS: TEMP 37.5
[2017-02-20] MEDS ORDERED: CYCL0.052 OP (06:04)
[2017-02-20] MEDS ORDERED: MULT-190 PO (06:04)
[2017-02-20] MEDS ORDERED: APIX1TAB3 PO (06:04)
[2017-02-20] MEDS ORDERED: AZITHROMYCIN 250 MG TAB PO STA (06:15)
[2017-02-20 06:16] VITALS: BP 109/66; PULSE 71; O2SAT 97
[2017-02-20 06:16] LABS: BASO % 0.2 %; BASO ABS # 0.01 K/uL (0-0.2); COMPLETE YES; EOS % 3.1 %; IG% 0.4 %; LYMPH % 15.2 %; LYMPH ABS # 0.74 K/uL (1.2-3.4); MONO % 18.3 %; NEUT % 62.8 %; VACUOLIZATION 1+
[2017-02-20] MEDS ORDERED: AZIT500T26 PO (06:22)
--- NOTE | 2017-02-20 06:32 | DIAGNOSTIC IMAGING REPORT ---
CHEST 2 VIEWS ROUTINE CLINICAL HISTORY: sob dyspnea COMPARISON STUDY: 10/01/2016 FINDINGS: The bones soft tissues and hemidiaphragms are normal. The cardiomediastinal silhouette is normal. The lungs are clear. The pulmonary vasculature is normal. IMPRESSION: Negative chest. The above report was generated using voice recognition software. It may contain grammatical, syntax or spelling errors. Electronically signed by: Topher Mead M.D. 02/20/2017 6:31 AM Dictated Date/Time: 02/20/2017 6:26 AM
== END 2017-02-20 06:32 | disposition home or self-care (01) ==
LOC: C.EDB 04:36
DX: J20.9 Acute bronchitis, unspecified (principal); Z87.01 Personal history of pneumonia (recurrent); I48.91 Unspecified atrial fibrillation; Z79.01 Long term (current) use of anticoagulants; Z79.82 Long term (current) use of aspirin; Z90.49 Acquired absence of other specified parts of digestive tract; Z94.7 Corneal transplant status; K21.9 Gastro-esophageal reflux disease without esophagitis; E78.5 Hyperlipidemia, unspecified; I10 Essential (primary) hypertension; Z85.72 Personal history of non-Hodgkin lymphomas; Z96.649 Presence of unspecified artificial hip joint; Z86.718 Personal history of other venous thrombosis and embolism; Z80.9 Family history of malignant neoplasm, unspecified; Z82.49 Family history of ischemic heart disease and other diseases of the circulatory system; Z79.899 Other long term (current) drug therapy

== ENCOUNTER → 2017-05-01 | Outpatient (CLI) | payer BC ==
[~2017-05-01] MED LIST changes: +APIX1TAB3 PO; +AZIT500T26 PO; +CYCL0.052 OP; +MULT-190 PO
--- NOTE | 2017-05-01 16:32 | ECHOCARDIOGRAM REPORT ---
*NOTICE TO RECEIVING [employer] This information is strictly Confidential and protected under [place] law. [place] law prohibits you from making any further disclosure of this information unless further disclosure is expressly permitted by the written consent of the person to whom it pertains or is authorized by law. A general authorization for the release of medical or other information is not sufficient for this purpose. Hospital accepts no responsibility if the information is made available to any other person, INCLUDING THE PATIENT. Interpretation Summary * Name: ILDEFONSO GUERRERO Study Date: 05/01/2017 01:26 PM BP: 114/63 mmHg * Patient Location: [facility] HR: 78 * : 1930 (M/d/yyyy) Gender: Male Height: 75 in * Age: 86 yrs Ethnicity: [place] Weight: 159 lb * Ordering Physician: Alex Guevara * Referring Physician: Alex Guevara * Performed By: Mariajose Stevens RDCS * * Reason For Study: AFIB, COUGH, HTN * BSA: 2.0 m2 * Normal biventricular systolic function. * Moderate concentric left ventricular hypertrophy. * Moderate left and mild right atrial dilatation. * Mild calcific aortic stenosis. * Mild aortic regurgitation. * Mild to moderate pulmonic regurgitation. * Moderate mitral and tricuspid regurgitation. * Mild elevation estimated right ventricular systolic pressure. * Normal central venous pressure. * Compared to an echocardiogram of October 02, 2016 there is no significant interval change. The echocardiogram on October 02, 2016 was performed for new onset atrial flutter. The patient is in atrial flutter on this current study. * -- Conclusions -- * Aortic valve sclerosis moderate, without significant aortic valvular stenosis. Procedure Details * A complete two-dimensional transthoracic echocardiogram was performed (2D, M-mode, Doppler and color flow Doppler). Left Ventricle * The left ventricle is normal in size. * There is moderate concentric left ventricular hypertrophy. * Ejection Fraction = 55-60%. * Left ventricular systolic function is normal. * The left ventricular wall motion is normal. Right Ventricle * The right ventricular systolic function is normal as assessed by tricuspid annular plane systolic excursion (TAPSE) (normal >1.5 cm). Atria * The left atrium is moderately dilated. * The right atrium is mildly dilated. * No ASD detected; PFO is not assessed. Mitral Valve * There is mild mitral annular calcification. * There is no mitral valve stenosis. * There is moderate mitral regurgitation. Tricuspid Valve * The tricuspid valve is normal. * There is no tricuspid stenosis. * There is moderate tricuspid regurgitation. * Right ventricular systolic pressure is elevated at 30-40mmHg. Aortic Valve * The aortic valve is trileaflet. * The aortic valve opens well. * Aortic valve sclerosis moderate, without significant aortic valvular stenosis. * Mild valvular aortic stenosis. * Mild aortic regurgitation. Pulmonic Valve * The pulmonic valve is not well seen, but is grossly normal. * There is no pulmonic valvular stenosis. * Mild to moderate pulmonic valvular regurgitation. Great Vessels * The aortic root is normal size. Pericardium/Pleural * There is no pericardial effusion. Great Vessels * Normal inferior vena cava diameter and respiratory variation suggests normal central venous pressure. MMode 2D Measurements and Calculations IVSd 1.5 cm IVSs 1.7 cm LVIDd 4.2 cm LVIDs 2.9 cm LVPWd 1.5 cm LVPWs 1.9 cm IVS/LVPW 0.99 FS 29.2 % EDV(Teich) 76.9 ml ESV(Teich) 33.5 ml EF(Teich) 56.5 % EDV(cubed) 72.1 ml ESV(cubed) 25.6 ml EF(cubed) 64.6 % % IVS thick 13.1 % % LVPW thick 24.3 % LV mass(C)d 243.3 grams LV mass(C)dI 122.2 grams/m\S\2 LV mass(C)s 205.6 grams LV mass(C)sI 103.3 grams/m\S\2 SV(Teich) 43.5 ml SI(Teich) 21.8 ml/m\S\2 SV(cubed) 46.6 ml SI(cubed) 23.4 ml/m\S\2 Ao root diam 3.1 cm Ao root area 7.5 cm\S\2 LA dimension 5.1 cm LA/Ao 1.7 LVAd ap4 25.6 cm\S\2 LVLd ap4 7.4 cm EDV(MOD-sp4) 74.6 ml EDV(sp4-el) 75.6 ml LVAs ap4 16.1 cm\S\2 LVLs ap4 6.2 cm ESV(MOD-sp4) 37.6 ml ESV(sp4-el) 35.6 ml EF(MOD-sp4) 49.5 % EF(sp4-el) 52.8 % LVAd ap2 31.3 cm\S\2 LVLd ap2 9.1 cm EDV(MOD-sp2) 87.3 ml EDV(sp2-el) 91.2 ml LVAs ap2 19.7 cm\S\2 LVLs ap2 8.1 cm ESV(MOD-sp2) 39.7 ml ESV(sp2-el) 40.4 ml EF(MOD-sp2) 54.6 % EF(sp2-el) 55.7 % LVLd %diff 18.9 % EDV(MOD-bp) 88.6 ml LVLs %diff 23.6 % ESV(MOD-bp) 44.2 ml EF(MOD-bp) 50.1 % SV(MOD-sp4) 36.9 ml SI(MOD-sp4) 18.5 ml/m\S\2 SV(MOD-sp2) 47.6 ml SI(MOD-sp2) 23.9 ml/m\S\2 SV(MOD-bp) 44.4 ml SI(MOD-bp) 22.3 ml/m\S\2 SV(sp4-el) 39.9 ml SI(sp4-el) 20.1 ml/m\S\2 SV(sp2-el) 50.8 ml SI(sp2-el) 25.5 ml/m\S\2 Doppler Measurements and Calculations MV E max demetrius 83.4 cm/sec MV dec time 0.19 sec Ao V2 max 192.7 cm/sec Ao max PG 14.9 mmHg Ao max PG (full) 12.9 mmHg AI max demetrius 407.7 cm/sec AI max PG 66.5 mmHg AI dec slope 200.4 cm/sec\S\2 AI P1/2t 595.9 msec LV V1 max PG 2.0 mmHg LV V1 max 69.8 cm/sec TR max demetrius 259.3 cm/sec
== END | disposition home or self-care (01) ==
LOC: C.CPL 13:21
PROVIDERS: ATTEND Internal Medicine Pulmonary Disease
DX: I48.91 Unspecified atrial fibrillation (principal); R05 Cough; I10 Essential (primary) hypertension

== ENCOUNTER → 2017-07-12 | Outpatient (CLI) | payer BC ==
[~2017-07-12] MED LIST changes: +ASPI-232 PO; +DEXA6TAB PO; +DXM/4 PO; +MAGN400C2 PO; +NTRGSL/4 UT; +XRL10 PO
[2017-07-12 17:03] LABS: INR 1.1 (0.9-1.1); PARTIAL THROMBOPLASTIN RATIO 1.1; PROTHROMBIN TIME (PATIENT) 11.5 SECONDS (9.0-12.0)
[2017-07-12 18:15] LABS: HEMATOCRIT 34.6 % (42-52); MEAN CELL VOLUME 89.6 fL (80-100); MEAN CORPUSCULAR HEMOGLOBIN 29.5 pg (25-34); MEAN CORPUSCULAR HGB CONC 32.9 g/dl (32-36); PLATELET COUNT 9 K/uL (130-400); RED BLOOD COUNT 3.86 M/uL (4.7-6.1); WHITE BLOOD COUNT 5.77 K/uL (4.8-10.8)
[2017-07-12 18:16] LABS: BASO % 0.5 %; BASO ABS # 0.03 K/uL (0-0.2); COMPLETE YES; EOS % 9.9 %; IG% 1.4 %; LYMPH % 15.6 %; MONO % 14.2 %; NEUT % 58.4 %; PLT ESTIMATE SIGNIFIC DECREASED
== END | disposition home or self-care (01) ==
LOC: C.LABBC 13:43
PROVIDERS: ATTEND Internal Medicine
DX: D69.6 Thrombocytopenia, unspecified (principal)

== ENCOUNTER 2017-07-15 12:21 | Inpatient (IN) | payer BC, OTHER ==
[~2017-07-15] VITALS: Ht 190.5 cm; Wt 79.2 kg
[~2017-07-15 12:21] MED LIST changes: -ASPI-232 PO; -DEXA6TAB PO; -DXM/4 PO; -MAGN400C2 PO; -NTRGSL/4 UT; -XRL10 PO
[2017-07-15 12:25] VITALS: Ht 190.5 cm; Wt 79.2 kg
[2017-07-15 13:28] LABS: HEMATOCRIT 34.2 % (42-52); MEAN CELL VOLUME 89.5 fL (80-100); MEAN CORPUSCULAR HEMOGLOBIN 29.6 pg (25-34); RED BLOOD COUNT 3.82 M/uL (4.7-6.1); WHITE BLOOD COUNT 5.05 K/uL (4.8-10.8)
[2017-07-15 13:41] LABS: BUN/CREATININE RATIO 22.8 (10-20); CALCIUM 9.2 mg/dl (8.5-10.1); CREATININE 0.79 mg/dl (0.60-1.40); POTASSIUM 4.1 mmol/L (3.5-5.1)
[2017-07-15 13:42] LABS: PLATELET COUNT 4 K/uL (130-400)
[2017-07-15 13:49] LABS: BASO % 0.4 %; BASO ABS # 0.02 K/uL (0-0.2); COMPLETE YES; EOS % 10.7 %; IG% 0.6 %; LARGE PLATELETS 3+; LYMPH % 15.2 %; LYMPH ABS # 0.77 K/uL (1.2-3.4); MONO % 14.1 %; PLT ESTIMATE SIGNIFIC DECREASED
[2017-07-15] MEDS ORDERED: DEXAMETHASONE **PF** INJ 10 MG/ML VIAL PO SCH (14:15)
[2017-07-15] MEDS ORDERED: XRL10 PO (14:17)
[2017-07-15] MEDS ORDERED: MAGN400C2 PO (14:17)
[2017-07-15] MEDS ORDERED: ASPI-232 PO (14:20)
[2017-07-15] MEDS ORDERED: NTRGSL/4 UT (14:24)
[2017-07-15] MEDS ORDERED: ACETAMINOPHEN 325 MG TAB PO PRN (15:15)
[2017-07-15] MEDS ORDERED: ONDANSETRON INJ 2 MG/ML 2 ML VIAL IV PRN (15:15)
[2017-07-15] MEDS ORDERED: MAGNESIUM HYDROXIDE SUSP 30 ML UDC PO PRN (15:15)
[2017-07-15] MEDS ORDERED: POLYETHYLENE (MIRALAX) 17 GM PACK PO PRN (15:15)
[2017-07-15] MEDS ORDERED: ALUMINUM/MAGNESIUM/SIMETH (MAALOX MAX) 30 ML UDC PO PRN (15:15)
--- NOTE | 2017-07-15 15:51 | History and Physical ---
History & Physical Date & Time of Service: Jul 15, 2017 at 15:27 Chief Complaint: Abnormal Lab Work - Ref By Primary Care Physician: Gus Cobos M.D. History of Present Illness Source: patient Mr. Rivera is an 86 year old gentleman with a past medical history of non- Hodgkin's lymphoma, atrial flutter, dyslipidemia, hypertension, CAD s/p NSTEMI ( January 2015) who was sent to [facility] due to thrombocytopenia. His PCP checked his platelet count last week due to the fact that Mr. Rivera had multiple bruises over his hands and arms, and was bleeding from his mouth. His platelet count last week was 9000, it was rechecked this morning at the [facility] lab and was found to be 5000, and then rechecked again in the ED and found to be 4000. He is also on aspirin and apixaban daily for his rate controlled atrial flutter. Mr. Rivera states that other than the bruising, he feels well. He denies hemoptysis, hematemesis, hematuria or melena. He states he normally has bruising over his hands and arms, but that this is the worst it has ever been. Of note, Mr. Rivera has a history of non-Hodgkin's lymphoma that was diagnosed 6 -7 years ago. He received rituxin for 2 and a half years and at this time had a low platelet count as well. He states this is the lowest his platelets have ever been. He was seeing Dr. Guevara in the outpatient setting to work up his new onset breathing problems that occurred after a recent bout of bronchitis, and had just been placed on 2L of oxygen overnight. Dr. Guevara had ordered a PET scan, but unfortunately Mr. Rivera's insurance denied this request. Past Medical/Surgical History Medical Problems: (1) ACS (acute coronary syndrome) Status: Resolved (2) Acute generalized exanthematous pustulosis Status: Resolved (3) Appendectomy Status: Resolved (4) Cholecystectomy Status: Resolved (5) Chronic prostatitis Status: Chronic (6) Corneal transplant Status: Resolved (7) Cystic Kidney Disease, Unspecified Status: Resolved (8) Esophageal Reflux Status: Chronic (9) Hyperlipidemia Nec/Nos Status: Chronic (10) Hypertension Status: Chronic (11) Non-Hodgkin's lymphoma Status: Chronic (12) Spinal stenosis Status: Chronic (13) Total replacement of hip Status: Resolved (14) Venous Thrombosis Nos Status: Resolved Family History Cancer Heart disease Hypertension Social History Smoking Status: Never Smoker Drug Use: none Marital Status: Housing status: lives with family Occupational Status: retired Immunizations History of Influenza Vaccine: Yes Influenza Vaccine Date: May 12, 2006 History of Tetanus Vaccine?: Yes History of Pneumococcal: Yes Pneumococcal Date: May 12, 2006 History of Hepatitis B Vaccine: No Multi-Drug Resistant Organisms History of MDRO: No Allergies Coded Allergies: Penicillins (Verified Allergy, Intermediate, Rash, 07/15/17) RASH Rofecoxib (Verified Allergy, Intermediate, Rash, 07/15/17) RASH Codeine (Verified Allergy, Unknown, 2000 codeine after gallbladder sug = rash, red, & swelled up, 07/15/17) Meperidine (Verified Allergy, Unknown, 02/20/17) Statins (Unverified Allergy, Unknown, unknown, 07/15/17) Home Medications Scheduled Aspirin (Aspir-81), 1 TAB PO DAILY Cholecalciferol (Vitamin D), 2,000 UNIT PO DAILY Cyclosporine (Ophth) (Restasis), 1 DROP OP BID Dutasteride (Avodart), 0.5 MG PO HS Fexofenadine Hcl (Adriana Allergy), 180 MG PO PM Fluticasone Propionate (Fluticasone Propionate), 2 SPRAY GISELL DAILY Levothyroxine Sodium (Levo-T), 100 MCG PO DAILY Magnesium Oxide (Magnesium Oxide), 1 CAP PO DAILY Nitroglycerin (Nitrostat), 0.4 MG UT PRN Ocuvite Preservision (Ocuvite Preservision), 1 TAB PO PM Polyethylene Glycol-Propylene (Systane Ultra), 1 DROPS OP BID Prednisolone Acetate (Ophth) (Pred Mild 0.12%), 1 DROP OPL 3XWK Rivaroxaban (Xarelto), 1 TAB PO DAILY Scheduled PRN Albuterol Sulfate (Proair Respiclick), 2 PUFF INH Q4 PRN for SOB/Wheezing Review of Systems Constitutional: No fever, No chills Respiratory: No cough, No sputum, No wheezing, No shortness of breath Cardiovascular: No chest pain Abdomen: No pain, No nausea, No vomiting, No diarrhea, No constipation Genitourinary - Male: No hematuria Hematologic / Lymphatic: + abnormal bleeding/bruising Physical Exam Vital Signs Date Time Temp Pulse Resp B/P (MAP) Pulse Ox O2 Delivery O2 Flow Rate FiO2 07/15/17 15:06 63 17 130/66 97 07/15/17 14:00 83 19 131/63 96 07/15/17 12:25 36.3 99 20 123/74 100 Room Air General Appearance: WD/WN, no apparent distress, + pertinent finding (several bruises over hands and arms) Respiratory/Chest: chest non-tender, lungs clear, normal breath sounds, no respiratory distress, no accessory muscle use Cardiovascular: regular rate, rhythm, no edema, no gallop, no JVD, no murmur, normal peripheral pulses Abdomen/GI: normal bowel sounds, non tender, soft, no organomegaly, no pulsatile mass Back: normal inspection, no CVA tenderness Extremities/Musculoskelatal: no calf tenderness, normal capillary refill, no pedal edema Neurologic/Psych: alert, normal mood/affect, oriented x 3 Diagnostics Laboratory Results Results Past 24 Hours Test 07/15/17 13:05 Range/Units White Blood Count 5.05 4.8-10.8 K/uL Red Blood Count 3.82 4.7-6.1 M/uL Hemoglobin 11.3 14.0-18.0 g/dL Hematocrit 34.2 42-52 % Mean Corpuscular Volume 89.5 80-100 fL Mean Corpuscular Hemoglobin 29.6 25-34 pg Mean Corpuscular Hemoglobin Concent 33.0 32-36 g/dl Platelet Count 4 130-400 K/uL Neutrophils (%) (Auto) 59.0 % Lymphocytes (%) (Auto) 15.2 % Monocytes (%) (Auto) 14.1 % Eosinophils (%) (Auto) 10.7 % Basophils (%) (Auto) 0.4 % Neutrophils # (Auto) 2.98 1.4-6.5 K/uL Lymphocytes # (Auto) 0.77 1.2-3.4 K/uL Monocytes # (Auto) 0.71 0.11-0.59 K/uL Eosinophils # (Auto) 0.54 0-0.5 K/uL Basophils # (Auto) 0.02 0-0.2 K/uL RDW Standard Deviation 50.1 36.4-46.3 fL RDW Coefficient of Variation 15.7 11.5-14.5 % Immature Granulocyte % (Auto) 0.6 % Immature Granulocyte # (Auto) 0.03 0.00-0.02 K/uL Platelet Estimate SIGNIFIC DECREASED Large Platelets 3+ Sodium Level 140 136-145 mmol/L Potassium Level 4.1 3.5-5.1 mmol/L Chloride Level 105 98-107 mmol/L Carbon Dioxide Level 30 21-32 mmol/L Anion Gap 5.0 3-11 mmol/L Blood Urea Nitrogen 18 7-18 mg/dl Creatinine 0.79 0.60-1.40 mg/dl Est Creatinine Clear Calc Drug Dose 75.2 ml/min Estimated GFR () 94.2 Estimated GFR (Non- 81.3 BUN/Creatinine Ratio 22.8 10-20 Random Glucose 94 70-99 mg/dl Calcium Level 9.2 8.5-10.1 mg/dl Total Bilirubin 0.7 0.2-1 mg/dl Direct Bilirubin 0.2 0-0.2 mg/dl Aspartate Amino Transf (AST/SGOT) 18 15-37 U/L Alanine Aminotransferase (ALT/SGPT) 18 12-78 U/L Alkaline Phosphatase 93 45-117 U/L Total Protein 6.3 6.4-8.2 gm/dl Albumin 3.5 3.4-5.0 gm/dl Lipase 79 73-393 U/L Impression Assessment and Plan Mr. Rivera is an 86 year old gentleman with a past medical history of non- Hodgkin's lymphoma, atrial flutter, dyslipidemia, hypertension, CAD s/p NSTEMI ( January 2015) who was sent to [facility] due to thrombocytopenia. Thrombocytopenia - thank you to Dr. 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 - peripheral smear unremarkable except for low platelets - dexamethasone 40mg daily x 4 days - if he has any acute episodes of bleeding - IVIg - hold antiplatelet and anticoagulants - platelets currently 4000, will monitor with daily CBCs CAD s/p ACS - hold aspirin Atrial flutter - hold xarelto BPH - continue dutasteride Allergies - continue fexofenadine and flonase spray Respiratory symptoms - continue pro-air - continue overnight oxygen at 2L Hypothyroidism - continue levothyroxine Code: Level 3 - full, no mechanical ventilation DVT prophylaxis: SCDs Disposition: admitted to telemetry Resident Physician Supervision Note: I interviewed and examined the patient. Discussed with Dr. Jagdeep Fajardo and agree with findings and plan as documented in the note. Any exceptions or clarifications are listed here: None This patient is treated for non-Hodgkin's lymphoma followed by Dr. Fleming. He's been followed as an outpatient for declining platelet count and he's been having some purpura and bruising but no melena epistaxis or gingival bleeding. He was called after repeat outpatient testing showed his platelet count to be 5000 in the ER was 4000. In the ER is given dexamethasone. Vital signs are otherwise stable This patient has some purpura on his ears his lip is mucosal membranes his Kwasi exam is regular lungs are clear abdomen is normoactive bowel sounds and soft Symptomatically from cytopenia with concern for ITP, patient will have eczema at the zone will have his antiplatelet and anticoagulants held for which he usually takes for cardiovascular past history. We'll follow his platelet count and consult Dr. Fleming Documented By: Dennis Heath VTE Prophylaxis VTE Risk Assessment Done? Y/N: Yes Risk Level: Low Given or contraindicated: Contraindicated Resident Tracking Resident Involvement: Resident Care Provided Care Provided: Adult Hospital Medicine
--- NOTE | 2017-07-15 16:30 | EMERGENCY ROOM VISIT NOTE ---
History Report prepared by Nelson: Dennis Montano Under the Supervision of: Dash WashingtonO. First contact with patient: 12:42 Chief Complaint: ABNORMAL LABS Stated Complaint: ABNORMAL LAB WORK - REF BY History of Present Illness The patient is a 86 year old male who presents to the Emergency Room with complaints of thrombocytopenia. Patient is a history of non-Hodgkin's lymphoma and has not been treated for the past 3 years. He has been in remission. Recently he had blood work and his platelets were in the low teens. This was repeated today and was 5. Patient has been having bruising and bleeding from his gums. He does take a Xa inhibitor but stopped taking this 5 days ago. Patient denies any chest pain, shortness breath, nausea vomiting or diarrhea. No blood in stool. No headaches or change in vision. Source of History: patient Quality: other (thrombocytopenia) Associated Symptoms: No headache, No chest pain, No SOB, No nausea Review of Systems See HPI for pertinent positives & negatives. A total of 10 systems reviewed and were otherwise negative. 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 (18) Venous Thrombosis Nos Family History Cancer Heart disease Hypertension Social History Smoking Status: Never Smoker Alcohol Use: none Drug Use: none Marital Status: Housing Status: lives with family Occupation Status: retired Current/Historical Medications Scheduled Aspirin (Aspir-81), 1 TAB PO DAILY Cholecalciferol (Vitamin D), 2,000 UNIT PO DAILY Cyclosporine (Ophth) (Restasis), 1 DROP OP BID Dutasteride (Avodart), 0.5 MG PO HS Fexofenadine Hcl (Adriana Allergy), 180 MG PO PM Fluticasone Propionate (Fluticasone Propionate), 2 SPRAY GISELL DAILY Levothyroxine Sodium (Levo-T), 100 MCG PO DAILY Magnesium Oxide (Magnesium Oxide), 1 CAP PO DAILY Nitroglycerin (Nitrostat), 0.4 MG UT PRN Ocuvite Preservision (Ocuvite Preservision), 1 TAB PO PM Polyethylene Glycol-Propylene (Systane Ultra), 1 DROPS OP BID Prednisolone Acetate (Ophth) (Pred Mild 0.12%), 1 DROP OPL 3XWK Rivaroxaban (Xarelto), 1 TAB PO DAILY Scheduled PRN Albuterol Sulfate (Proair Respiclick), 2 PUFF INH Q4 PRN for SOB/Wheezing Allergies Coded Allergies: Penicillins (Verified Allergy, Intermediate, Rash, 07/15/17) RASH Rofecoxib (Verified Allergy, Intermediate, Rash, 07/15/17) RASH Codeine (Verified Allergy, Unknown, 2000 codeine after gallbladder sug = rash, red, & swelled up, 07/15/17) Meperidine (Verified Allergy, Unknown, 02/20/17) Statins (Unverified Allergy, Unknown, unknown, 07/15/17) Physical Exam Vital Signs Date Time Temp Pulse Resp B/P (MAP) Pulse Ox O2 Delivery O2 Flow Rate FiO2 07/15/17 15:06 63 17 130/66 97 07/15/17 14:00 83 19 131/63 96 07/15/17 12:25 36.3 99 20 123/74 100 Room Air Physical Exam GENERAL: Sitting up in bed, alert, chronically-ill appearing, well nourished, no distress, non-toxic EYE EXAM: normal conjunctiva. OROPHARYNX: no exudate, no erythema, lips, buccal mucosa, and tongue normal and mucous membranes are moist NECK: supple, no nuchal rigidity, no adenopathy, non-tender LUNGS: Clear to auscultation. Normal chest wall mechanics HEART: Systolic ejaculatory murmur, S1 normal and S2 normal ABDOMEN: abdomen soft, non-tender, normo-active bowel sounds, no masses, no rebound or guarding. BACK: Back is symmetrical on inspection and there is no deformity, no midline tenderness, no CVA tenderness. SKIN: Emits fusion UPPER EXTREMITIES: upper extremities are grossly normal. LOWER EXTREMITIES: No pitting edema. NEURO EXAM: Normal sensorium, cranial nerves II-XII grossly intact, normal speech, no gross weakness of arms, no gross weakness of legs. Medical Decision & Procedures Laboratory Results 07/15/17 13:05 Red Blood Count 3.82, Mean Corpuscular Volume 89.5, Mean Corpuscular Hemoglobin 29.6, Mean Corpuscular Hemoglobin Concent 33.0, Neutrophils (%) (Auto) 59.0, Lymphocytes (%) (Auto) 15.2, Monocytes (%) (Auto) 14.1, Eosinophils (%) (Auto) 10.7, Basophils (%) (Auto) 0.4, Neutrophils # (Auto) 2.98, Lymphocytes # (Auto) 0.77, Monocytes # (Auto) 0.71, Eosinophils # (Auto) 0.54, Basophils # (Auto) 0.02 07/15/17 13:05 Test 07/15/17 13:05 White Blood Count 5.05 K/uL (4.8-10.8) Red Blood Count 3.82 M/uL (4.7-6.1) Hemoglobin 11.3 g/dL (14.0-18.0) Hematocrit 34.2 % (42-52) Mean Corpuscular Volume 89.5 fL (80-100) Mean Corpuscular Hemoglobin 29.6 pg (25-34) Mean Corpuscular Hemoglobin Concent 33.0 g/dl (32-36) Platelet Count 4 K/uL (130-400) Neutrophils (%) (Auto) 59.0 % Lymphocytes (%) (Auto) 15.2 % Monocytes (%) (Auto) 14.1 % Eosinophils (%) (Auto) 10.7 % Basophils (%) (Auto) 0.4 % Neutrophils # (Auto) 2.98 K/uL (1.4-6.5) Lymphocytes # (Auto) 0.77 K/uL (1.2-3.4) Monocytes # (Auto) 0.71 K/uL (0.11-0.59) Eosinophils # (Auto) 0.54 K/uL (0-0.5) Basophils # (Auto) 0.02 K/uL (0-0.2) RDW Standard Deviation 50.1 fL (36.4-46.3) RDW Coefficient of Variation 15.7 % (11.5-14.5) Immature Granulocyte % (Auto) 0.6 % Immature Granulocyte # (Auto) 0.03 K/uL (0.00-0.02) Platelet Estimate SIGNIFIC DECREASED Large Platelets 3+ Anion Gap 5.0 mmol/L (3-11) Est Creatinine Clear Calc Drug Dose 75.2 ml/min Estimated GFR () 94.2 Estimated GFR (Non- 81.3 BUN/Creatinine Ratio 22.8 (10-20) Calcium Level 9.2 mg/dl (8.5-10.1) Total Bilirubin 0.7 mg/dl (0.2-1) Direct Bilirubin 0.2 mg/dl (0-0.2) Aspartate Amino Transf (AST/SGOT) 18 U/L (15-37) Alanine Aminotransferase (ALT/SGPT) 18 U/L (12-78) Alkaline Phosphatase 93 U/L (45-117) Total Protein 6.3 gm/dl (6.4-8.2) Albumin 3.5 gm/dl (3.4-5.0) Lipase 79 U/L (73-393) Laboratory results per my review. Medications Administered Medications (Trade) Dose Ordered Sig/Rosario Route Start Time Stop Time Status Last Admin Dose Admin Dexamethasone Sodium Phosphate (Dexamethasone Inj Pf) 40 mg ONE PO 07/15/17 14:15 07/15/17 17:29 DC 07/15/17 15:07 40 MG ED Course ED COURSE: Vital signs were reviewed and appeared normal. The patients medical record was reviewed The above diagnostic studies were performed and reviewed. ED treatments and interventions as stated above. 1248: The patient was evaluated in room C4. A complete history and physical examination was performed. 1347: I checked up on the patient and he is resting comfortably. 1415: Dexamethasone Sodium Phosphate 40mg PO 1500: Upon reevaluation, the patient is resting comfortably.I discussed my findings with the patient and he understands and agrees with the treatment plan. Based on the patients age, coexisting illnesses, exam and lab findings the decision to treat as an inpatient was made. The patient remained stable while under my care. The patient will be evaluated for further management. Medical Decision Differential Diagnosis includes but is not limited to dehydration, stroke, anemia, hypoglycemia, hyponatremia, hypernatremia, urinary tract infection, pneumonia, bronchitis, sepsis, gastroenteritis, additional abdominal pathology, metabolic abnormalities and infections. Patient is an 86-year-old male who is referred in by PCP for thrombocytopenia. He has a past medical history of non-Hodgkin's lymphoma and has been in remission for the past 3 years. No recent chemotherapy. He notes he has been bleeding from the gums intermittently and increased bruising. He stopped his Xa inhibitor for the past 5 days. Patient has no other complaints at this time. CBC shows a mild anemia at 11. Thrombocytopenia 4. BMP all within LFTs , bilirubin lipase is normal. Question ITP but uncertain at this time. Discussed with hematology. Recommended IV steroids. Patient was updated bedside. Discussed with internal medicine. Patient was admitted for further workup. Medication Reconcilliation Current Medication List: was personally reviewed by me Blood Pressure Screening Patient's blood pressure: Normal blood pressure Blood pressure disposition: Did not require urgent referral Consults Time Called: 1420 Consulting Physician: Dr. Amada ANTHONY Returned Call: [phone] I reviewed the patient's case with Dr. Amada ANTHONY. She will evaluate the patient for further management. Impression Primary Impression: Thrombocytopenia Additional Impression: Anemia Scribe Attestation The scribe's documentation has been prepared under my direction and personally reviewed by me in its entirety. I confirm that the note above accurately reflects all work, treatment, procedures, and medical decision making performed by me. Departure Information Dispostion Being Evaluated By Hospitalist (Dr. Amada ANTHONY) Referrals Gus Cobos M.D. (PCP) Forms HOME CARE DOCUMENTATION FORM, IMPORTANT VISIT INFORMATION, WORK / SCHOOL INSTRUCTIONS Patient Instructions My [facility] Problem Qualifiers Additional Impression: Anemia Anemia type: unspecified type Qualified Codes: D64.9 - Anemia, unspecified
[2017-07-15 16:39] VITALS: BP 127/66; PULSE 78; TEMP 36.5; O2SAT 96
[2017-07-15] MEDS ORDERED: NITROGLYCERIN 0.4 MG SL PER TAB CHARGE UT SCH (17:00)
[2017-07-15] MEDS ORDERED: ALBUTEROL HFA 8 GM INHALER INH PRN (17:00)
--- NOTE | 2017-07-15 17:19 | Oncology Consultation ---
Oncology/Heme Consultation Date of Consultation: Jul 15, 2017. Attending Physician: Dennis Heath M.D. Reason for Consultation: Thrombocytopenia History of Marginal Zone lymphoma History of Present Illness Mr. 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 He was treated with Cladribine and Rituxan for 4 cycles and then 2 years of maintenance Rituxan. He completed all therapy in late 2013. His platelets have been consistently low since his diagnosis, mostly ranging from 74-104 up until January of this year. Interestingly, his platelet counts had actually been low for years prior to his lymphoma diagnosis, as far back as 2005, and a CT of his abdomen from 2007 revealed marked splenomegaly and lymphadenopathy, suggesting this disease had actually been present for many years before he was finally diagnosed and treated in 2011. His PCP ordered blood work last week because of easy bruising and a recent history of oral "blood blisters." It revealed a platelet count of 9K. Repeat today revealed a platelet count of 4K and so he was sent to the ER. He is not bleeding at present, though he does have scattered petechiae on his legs bilaterally. He reports a few months' history of increasing fatigue and weakness. He denies any night sweats, lymphadenopathy, or pain. He's gradually lost around 30 lb over the last few years, since his lymphoma diagnosis, but has not noted an acute change recently. He also denies any infectious or inflammatory symptoms. Past Medical/Surgical History Medical Problems: (1) Acute bronchitis Status: Acute (2) Exertional chest pain Status: Acute (3) New onset atrial flutter Status: Acute Family History Cancer Heart disease Hypertension Social History Smoking Status: Never Smoker Drug Use: none Marital Status: Housing Status: lives with family Occupation Status: retired Allergies Coded Allergies: Penicillins (Verified Allergy, Intermediate, Rash, 07/15/17) RASH Rofecoxib (Verified Allergy, Intermediate, Rash, 07/15/17) RASH Codeine (Verified Allergy, Unknown, 2000 codeine after gallbladder sug = rash, red, & swelled up, 07/15/17) Meperidine (Verified Allergy, Unknown, 02/20/17) Statins (Unverified Allergy, Unknown, unknown, 07/15/17) Home Medications Scheduled Aspirin (Aspir-81), 1 TAB PO DAILY Cholecalciferol (Vitamin D), 2,000 UNIT PO DAILY Cyclosporine (Ophth) (Restasis), 1 DROP OP BID Dutasteride (Avodart), 0.5 MG PO HS Fexofenadine Hcl (Adriana Allergy), 180 MG PO PM Fluticasone Propionate (Fluticasone Propionate), 2 SPRAY GISELL DAILY Levothyroxine Sodium (Levo-T), 100 MCG PO DAILY Magnesium Oxide (Magnesium Oxide), 1 CAP PO DAILY Nitroglycerin (Nitrostat), 0.4 MG UT PRN Ocuvite Preservision (Ocuvite Preservision), 1 TAB PO PM Polyethylene Glycol-Propylene (Systane Ultra), 1 DROPS OP BID Prednisolone Acetate (Ophth) (Pred Mild 0.12%), 1 DROP OPL 3XWK Rivaroxaban (Xarelto), 1 TAB PO DAILY Scheduled PRN Albuterol Sulfate (Proair Respiclick), 2 PUFF INH Q4 PRN for SOB/Wheezing Current Inpatient Medications Current Inpatient Medications Medications (Trade) Dose Ordered Sig/Rosario Route Start Time Stop Time Status Last Admin Dose Admin Dexamethasone Sodium Phosphate (Dexamethasone Inj Pf) 40 mg ONE PO 07/15/17 14:15 08/14/17 14:14 07/15/17 15:07 40 MG Acetaminophen (Tylenol Tab) 650 mg Q4H PRN PO 07/15/17 15:15 08/14/17 15:14 Al Hydrox/Mg Hydrox/Simethicone (Maalox Max Susp) 15 ml Q4H PRN PO 07/15/17 15:15 08/14/17 15:14 Magnesium Hydroxide (Milk Of Magnesia Susp) 30 ml Q12H PRN PO 07/15/17 15:15 08/14/17 15:14 Ondansetron HCl (Zofran Inj) 4 mg Q6H PRN IV 07/15/17 15:15 08/14/17 15:14 Polyethylene (Miralax Powder Packet) 17 gm DAILY PRN PO 07/15/17 15:15 08/14/17 15:14 Fexofenadine HCl (Adriana Tab) 180 mg PM PO 07/15/17 21:00 08/14/17 20:59 UNV Fluticasone Propionate (Flonase Nasal [place]) DAILY GISELL 07/16/17 09:00 08/15/17 08:59 UNV Levothyroxine Sodium (Synthroid Tab) 100 mcg DAILY PO 07/16/17 09:00 08/15/17 08:59 UNV Nitroglycerin (Nitrostat Tab) 0.4 mg PRN UT 07/15/17 17:00 08/14/17 16:59 UNV Multivitamins/ Minerals (Multivitamin W/ Minerals Tab) 1 tab PM PO 07/15/17 21:00 08/14/17 20:59 UNV Non-Formulary Medication (Albuterol Sulfate (Proair Respiclick)) 2 puff Q4 PRN INH 07/15/17 17:00 08/14/17 16:59 UNV Non-Formulary Medication (Cholecalciferol (Vitamin D)) 2,000 unit DAILY PO 07/16/17 09:00 08/15/17 08:59 UNV Non-Formulary Medication (Cyclosporine (Ophth) (Restasis)) 1 drop BID OP 07/15/17 21:00 08/14/17 20:59 UNV Non-Formulary Medication (Dutasteride (Avodart)) 0.5 mg HS PO 07/15/17 21:00 08/14/17 20:59 UNV Non-Formulary Medication (Magnesium Oxide ) 1 cap DAILY PO 07/16/17 09:00 08/15/17 08:59 UNV Non-Formulary Medication (Polyethylene Glycol-Propylene (Systane Ultra)) 1 drops BID OP 07/15/17 21:00 08/14/17 20:59 UNV Non-Formulary Medication (Prednisolone Acetate (Ophth) (Pred Mild 0.12%)) 1 drop 3XWK OPL 07/15/17 17:00 08/14/17 16:59 UNV Dexamethasone Sodium Phosphate (Decadron Inj) 40 mg DAILY IV 07/16/17 09:00 07/19/17 08:59 UNV Review of Systems Constitutional: + weight loss, + fatigue, No fever, No chills ENT: + problem reported (oral "blood blisters"), No unusual epistaxis Respiratory: No cough, No shortness of breath, No hemoptysis Cardiovascular: No chest pain Abdomen: No pain, No nausea, No GI bleeding Genitourinary - Male: No hematuria, No dysuria Hematologic / Lymphatic: + abnormal bleeding/bruising, No swollen lymph nodes, No night sweats Physical Exam Date Time Temp Pulse Resp B/P (MAP) Pulse Ox O2 Delivery O2 Flow Rate FiO2 07/15/17 16:39 36.5 78 22 127/66 (86) 96 Room Air 07/15/17 16:25 80 17 128/64 96 07/15/17 15:06 63 17 130/66 97 07/15/17 14:00 83 19 131/63 96 07/15/17 12:25 36.3 99 20 123/74 100 Room Air General Appearance: no apparent distress, + thin, + pertinent finding ( comfortable elderly gentleman) Eyes: EOMI ENT: pharynx normal Respiratory/Chest: lungs clear Cardiovascular: regular rate, rhythm, no murmur Abdomen/GI: non tender, soft Extremities/Musculoskelatal: no pedal edema Neurologic/Psych: alert, oriented x 3 Skin: + pertinent finding (large ecchymoses on his hands and arms, scattered petechiae on his legs bilaterally) Lymphatic: no adenopathy Laboratory Results Last 24 Hours Test 07/15/17 13:05 White Blood Count 5.05 K/uL Red Blood Count 3.82 M/uL Hemoglobin 11.3 g/dL Hematocrit 34.2 % Mean Corpuscular Volume 89.5 fL Mean Corpuscular Hemoglobin 29.6 pg Mean Corpuscular Hemoglobin Concent 33.0 g/dl Platelet Count 4 K/uL Neutrophils (%) (Auto) 59.0 % Lymphocytes (%) (Auto) 15.2 % Monocytes (%) (Auto) 14.1 % Eosinophils (%) (Auto) 10.7 % Basophils (%) (Auto) 0.4 % Neutrophils # (Auto) 2.98 K/uL Lymphocytes # (Auto) 0.77 K/uL Monocytes # (Auto) 0.71 K/uL Eosinophils # (Auto) 0.54 K/uL Basophils # (Auto) 0.02 K/uL RDW Standard Deviation 50.1 fL RDW Coefficient of Variation 15.7 % Immature Granulocyte % (Auto) 0.6 % Immature Granulocyte # (Auto) 0.03 K/uL Platelet Estimate SIGNIFIC DECREASED Large Platelets 3+ Sodium Level 140 mmol/L Potassium Level 4.1 mmol/L Chloride Level 105 mmol/L Carbon Dioxide Level 30 mmol/L Anion Gap 5.0 mmol/L Blood Urea Nitrogen 18 mg/dl Creatinine 0.79 mg/dl Est Creatinine Clear Calc Drug Dose 75.2 ml/min Estimated GFR () 94.2 Estimated GFR (Non- 81.3 BUN/Creatinine Ratio 22.8 Random Glucose 94 mg/dl Calcium Level 9.2 mg/dl Total Bilirubin 0.7 mg/dl Direct Bilirubin 0.2 mg/dl Aspartate Amino Transf (AST/SGOT) 18 U/L Alanine Aminotransferase (ALT/SGPT) 18 U/L Alkaline Phosphatase 93 U/L Total Protein 6.3 gm/dl Albumin 3.5 gm/dl Lipase 79 U/L Assessment & Plan Mr. Rivera is an 86 year old man with a history of marginal zone lymphoma with splenomegaly treated in 2011 with R-cladribine followed by 2 years of Rituxan maintenance. He has been chronically thrombocytopenic, both before treatment and following, likely related to splenomegaly. He presented to his PCP with large ecchymoses on his hands and a history of oral bleeding. A CBC revealed a platelet count of 9K which was repeated today, revealing 4K platelets. His other counts are normal and he does not appear to be actively bleeding. 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 His peripheral smear was notable for low platelets but otherwise was unremarkable. I suggested the ER start an empiric course of Dexamethasone 40 mg daily for 4 days. If he should start to bleed, I would give him an urgent dose of IVIg. I would also obviously hold his antiplatelet and anticoagulant agents. I would not transfuse platelets, as such transfusions are ineffective in ITP. However, in a life-threatening emergency, I would consider it as a temporizing measure to allow another intervention, like IVIg, to work. As for the trigger for his ITP, it may be related to relapse of his lymphoma. This is supported by gradually increasing fatigue and modest constitutional symptoms. Once he is stabilized, I would arrange for CTs of his chest, abdomen, and pelvis to evaluate for progressive lymphadenopathy.
[2017-07-15 17:24] VITALS: O2SAT 98
[2017-07-15 18:22] LABS: URINE APPEARANCE CLEAR (CLEAR); URINE BILIRUBIN NEG (NEG); URINE COLOR YELLOW; URINE EPITHELIAL CELL AUTO 0-5 /lpf (0-5); URINE NITRITE NEG (NEG); URINE PH 6.5 (4.5-7.5); URINE SPECIFIC GRAVITY 1.017 (1.000-1.030); UROBILINOGEN NEG (NEG); ZZUR CULT IF INDIC CLEAN CATCH NO
[2017-07-15 18:24] LABS: MANUAL MICROSCOPIC REQUIRED? NO; REVIEW REQ? NO
[2017-07-15 18:27] VITALS: O2SAT 98
[2017-07-15 19:30] VITALS: BP 131/68; PULSE 72; TEMP 36.5; O2SAT 92
[2017-07-15] MEDS: PREDNISOLONE ACETATE SCH (20:30)
[2017-07-15] MEDS: ARTIFICIAL TEARS OP SOLN OP SCH ×2 (21:00)
[2017-07-15] MEDS: FEXOFENADINE HCL 180 MG TAB PO SCH (21:41)
[2017-07-15] MEDS: CEROVITE ADV FORMULA TAB PO SCH (21:41)
[2017-07-15 23:33] VITALS: BP 114/69; PULSE 80; TEMP 36.5; O2SAT 97
[2017-07-16] MEDS: PREDNISOLONE ACETATE SCH
[2017-07-16 03:50] VITALS: BP 106/52; PULSE 80; TEMP 36.8; O2SAT 97
[2017-07-16] MEDS: LEVOTHYROXINE 100 MCG TAB PO SCH (05:47)
[2017-07-16 07:23] VITALS: BP 124/66; PULSE 83; TEMP 36.6; O2SAT 96
[2017-07-16 08:03] LABS: INR 1.1 (0.9-1.1); PROTHROMBIN TIME (PATIENT) 11.7 SECONDS (9.0-12.0)
[2017-07-16 08:15] LABS: HEMATOCRIT 34.8 % (42-52); MEAN CORPUSCULAR HEMOGLOBIN 29.4 pg (25-34); RED BLOOD COUNT 3.91 M/uL (4.7-6.1); WHITE BLOOD COUNT 6.57 K/uL (4.8-10.8)
[2017-07-16 08:20] LABS: PLATELET COUNT 13 K/uL (130-400)
[2017-07-16 08:21] LABS: COMPLETE YES; IG% 6.2 %; LARGE PLATELETS 1+; LYMPH % 10.5 %; LYMPH ABS # 0.69 K/uL (1.2-3.4); NEUT % 78.3 %; PLT ESTIMATE SIGNIFIC DECREASED
[2017-07-16] MEDS: FLUTICASONE PROPIONATE NA SPR 16 GM BTL NAE SCH (08:53)
[2017-07-16] MEDS ORDERED: DEXAMETHASONE SOD INJ 4 MG/ML 5 ML VIAL IV SCH (09:00)
--- NOTE | 2017-07-16 09:12 | Family Medicine Progress Note ---
Progress Note Date of Service Jul 16, 2017. Subjective Pt evaluation today including: conversation w/ patient, physical exam, chart review, lab review, review of inpatient medication list Pain: No pain reported PO Intake: Tolerating PO intake Voiding: no voiding problems Mr. Rivera reports he feels well today. He states he has not had any more episodes of gum bleeding or bleeding elsewhere overnight. He denies chest pain, SOB, n/v, or abdominal pain. Constitutional: No fever, No chills Respiratory: No cough, No sputum, No wheezing, No shortness of breath Cardiovascular: No chest pain Abdomen: No pain, No nausea, No vomiting, No diarrhea, No constipation All Other Systems: Reviewed and Negative Medications Current Inpatient Medications Medications (Trade) Dose Ordered Sig/Rosario Route Start Time Stop Time Status Last Admin Dose Admin Acetaminophen (Tylenol Tab) 650 mg Q4H PRN PO 07/15/17 15:15 08/14/17 15:14 Al Hydrox/Mg Hydrox/Simethicone (Maalox Max Susp) 15 ml Q4H PRN PO 07/15/17 15:15 08/14/17 15:14 Magnesium Hydroxide (Milk Of Magnesia Susp) 30 ml Q12H PRN PO 07/15/17 15:15 08/14/17 15:14 Ondansetron HCl (Zofran Inj) 4 mg Q6H PRN IV 07/15/17 15:15 08/14/17 15:14 Polyethylene (Miralax Powder Packet) 17 gm DAILY PRN PO 07/15/17 15:15 08/14/17 15:14 Fexofenadine HCl (Adriana Tab) 180 mg PM PO 07/15/17 21:00 08/14/17 20:59 07/15/17 21:41 180 MG Fluticasone Propionate (Flonase Nasal [place]) 1 sprays DAILY GISELL 07/16/17 09:00 08/15/17 08:59 Levothyroxine Sodium (Synthroid Tab) 100 mcg DAILYBB PO 07/16/17 06:00 08/15/17 05:59 07/16/17 05:47 100 MCG Nitroglycerin (Nitrostat Tab) 0.4 mg PRN UT 07/15/17 17:00 08/14/17 16:59 Multivitamins/ Minerals (Multivitamin W/ Minerals Tab) 1 tab PM PO 07/15/17 21:00 08/14/17 20:59 07/15/17 21:41 1 TAB Albuterol (Ventolin Hfa Inhaler) 2 puffs Q4 PRN INH 07/15/17 17:00 08/14/17 16:59 Cholecalciferol (Vitamin D Tab) 2,000 inter.unit DAILY PO 07/16/17 09:00 08/15/17 08:59 Miscellaneous Information (Order Awaiting Action) 1 ea QS N/A 07/15/17 20:30 08/14/17 20:29 Magnesium Oxide (Mag-Ox Tab) 400 mg DAILY PO 07/16/17 09:00 08/15/17 08:59 Artificial Tears (Artificial Tears) 1 drops BID OP 07/15/17 21:00 08/14/17 20:59 07/15/17 21:00 1 DROPS Dexamethasone Sodium Phosphate 40 mg/Dextrose 54 ml @ 50 mls/hr DAILY@0900 IV 07/16/17 09:00 07/18/17 10:05 Cyclosporine (Restasis) 1 drops BID OPB 07/16/17 09:00 08/15/17 08:59 Objective Vital Signs Date Time Temp Pulse Resp B/P (MAP) Pulse Ox O2 Delivery O2 Flow Rate FiO2 07/16/17 08:00 Room Air 07/16/17 07:23 36.6 83 16 124/66 (85) 96 07/16/17 04:00 Room Air 07/16/17 03:50 36.8 80 18 106/52 (70) 97 Room Air 07/15/17 23:59 Room Air 07/15/17 23:33 36.5 80 17 114/69 (84) 97 Room Air 07/15/17 19:35 Room Air 07/15/17 19:30 36.5 72 20 131/68 (89) 92 Room Air 07/15/17 18:27 98 Room Air 07/15/17 17:24 98 Room Air 07/15/17 16:39 36.5 78 22 127/66 (86) 96 Room Air 07/15/17 16:25 80 17 128/64 96 07/15/17 15:06 63 17 130/66 97 07/15/17 14:00 83 19 131/63 96 07/15/17 12:25 36.3 99 20 123/74 100 Room Air Physical Exam General Appearance: WD/WN, no apparent distress Respiratory/Chest: chest non-tender, lungs clear, normal breath sounds, no respiratory distress, no accessory muscle use Cardiovascular: regular rate, rhythm, no edema, no gallop, no JVD, no murmur Abdomen: normal bowel sounds, non tender, soft, no organomegaly, no pulsatile mass Extremities: + pertinent finding (bruising over hands and arms) Laboratory Results Last 24 Hours Test 07/15/17 13:05 07/15/17 18:05 07/16/17 07:33 White Blood Count 5.05 K/uL 6.57 K/uL Red Blood Count 3.82 M/uL 3.91 M/uL Hemoglobin 11.3 g/dL 11.5 g/dL Hematocrit 34.2 % 34.8 % Mean Corpuscular Volume 89.5 fL 89.0 fL Mean Corpuscular Hemoglobin 29.6 pg 29.4 pg Mean Corpuscular Hemoglobin Concent 33.0 g/dl 33.0 g/dl Platelet Count 4 K/uL 13 K/uL Neutrophils (%) (Auto) 59.0 % 78.3 % Lymphocytes (%) (Auto) 15.2 % 10.5 % Monocytes (%) (Auto) 14.1 % 5.0 % Eosinophils (%) (Auto) 10.7 % 0.0 % Basophils (%) (Auto) 0.4 % 0.0 % Neutrophils # (Auto) 2.98 K/uL 5.14 K/uL Lymphocytes # (Auto) 0.77 K/uL 0.69 K/uL Monocytes # (Auto) 0.71 K/uL 0.33 K/uL Eosinophils # (Auto) 0.54 K/uL 0.00 K/uL Basophils # (Auto) 0.02 K/uL 0.00 K/uL RDW Standard Deviation 50.1 fL 49.5 fL RDW Coefficient of Variation 15.7 % 15.5 % Immature Granulocyte % (Auto) 0.6 % 6.2 % Immature Granulocyte # (Auto) 0.03 K/uL 0.41 K/uL Platelet Estimate SIGNIFIC DECREASED SIGNIFIC DECREASED Large Platelets 3+ 1+ Sodium Level 140 mmol/L Potassium Level 4.1 mmol/L Chloride Level 105 mmol/L Carbon Dioxide Level 30 mmol/L Anion Gap 5.0 mmol/L Blood Urea Nitrogen 18 mg/dl Creatinine 0.79 mg/dl Est Creatinine Clear Calc Drug Dose 75.2 ml/min Estimated GFR () 94.2 Estimated GFR (Non- 81.3 BUN/Creatinine Ratio 22.8 Random Glucose 94 mg/dl Calcium Level 9.2 mg/dl Total Bilirubin 0.7 mg/dl Direct Bilirubin 0.2 mg/dl Aspartate Amino Transf (AST/SGOT) 18 U/L Alanine Aminotransferase (ALT/SGPT) 18 U/L Alkaline Phosphatase 93 U/L Total Protein 6.3 gm/dl Albumin 3.5 gm/dl Lipase 79 U/L Urine Color YELLOW Urine Appearance CLEAR Urine pH 6.5 Urine Specific [place] 1.017 Urine Protein NEG Urine Glucose (UA) NEG Urine Ketones NEG Urine Occult Blood NEG Urine Nitrite NEG Urine Bilirubin NEG Urine Urobilinogen NEG Urine Leukocyte Esterase NEG Urine WBC (Auto) 1-5 /hpf Urine RBC (Auto) 0-4 /hpf Urine Hyaline Casts (Auto) 0 /lpf Urine Epithelial Cells (Auto) 0-5 /lpf Urine Bacteria (Auto) NEG Prothrombin Time 11.7 SECONDS Prothromb Time International Ratio 1.1 Assessment and Plan Mr. Rivera is an 86 year old gentleman with a past medical history of non- Hodgkin's lymphoma, atrial flutter, dyslipidemia, hypertension, CAD s/p NSTEMI ( January 2015) who was sent to [facility] due to thrombocytopenia. Thrombocytopenia - thank you to Dr. 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 - continue dexamethasone 40mg daily x 4 days - today is day 2 - if he has any acute episodes of bleeding - IVIg - hold antiplatelet and anticoagulants - CT thorax, abdomen and pelvis ordered to check for adenopathy given history of non-Hodgkin's lymphoma - platelets improved from 4 to 13, will monitor with daily CBCs - blood sugar checks AC and HS while on high dose steroids CAD s/p ACS - hold aspirin Atrial flutter - hold xarelto BPH - continue dutasteride Allergies - continue fexofenadine and flonase spray Respiratory symptoms - continue pro-air - continue overnight oxygen at 2L Hypothyroidism - continue levothyroxine Code: Level 3 - full, no mechanical ventilation DVT prophylaxis: SCDs Disposition: stable for transfer to med/surg Resident Physician Supervision Note: I interviewed and examined the patient. Discussed with Dr. Jagdeep Fajardo and agree with findings and plan as documented in the note. Any exceptions or clarifications are listed here: None this pt is feeling well, has no bruising or bleeding, platelet count has risen with steroids, oncology feels peripheral smear is most consistent with ITP vitals are stable no new purpura, car is regular, lungs are clear Likely ITP in setting of NHL, will continue decadron, hold xarelto and aspirin, oncology is recommending CT of Chest abdomen and pelvis Documented By: Dennis Heath Resident Tracking Resident Involvement: Resident Care Provided Care Provided: Adult Hospital Medicine
[2017-07-16] MEDS: ARTIFICIAL TEARS OP SOLN OP SCH ×4 (09:30→20:01)
[2017-07-16] MEDS: DEXAMETHASONE INJ 40 MG in DEXTROSE 5% 50ML 50 ML IV SCH (09:31)
[2017-07-16] MEDS: [UNRECOGNIZED DRUG - OTHER] OPB SCH ×2 (09:31→20:01)
[2017-07-16] MEDS: CHOLECALCIFEROL 1000 INTER.UNIT TAB PO SCH (09:31)
[2017-07-16] MEDS: MAGNESIUM OXIDE 400 MG TAB PO SCH (09:31)
[2017-07-16 11:48] VITALS: BP 107/57; PULSE 84; TEMP 36.8; O2SAT 96
--- NOTE | 2017-07-16 13:24 | Hematology/Oncology Prog Note ---
Hematology/Onc Progress Note Date of Service Jul 16, 2017. Diagnoses Thrombocytopenia History of marginal zone lymphoma Medications Medications Administered Medications (Trade) Dose Ordered Sig/Rosario Route Start Time Stop Time Status Last Admin Dose Admin Dexamethasone Sodium Phosphate (Dexamethasone Inj Pf) 40 mg ONE PO 07/15/17 14:15 07/15/17 17:29 DC 07/15/17 15:07 40 MG Fexofenadine HCl (Adriana Tab) 180 mg PM PO 07/15/17 21:00 08/14/17 20:59 07/15/17 21:41 180 MG Levothyroxine Sodium (Synthroid Tab) 100 mcg DAILYBB PO 07/16/17 06:00 08/15/17 05:59 07/16/17 05:47 100 MCG Multivitamins/ Minerals (Multivitamin W/ Minerals Tab) 1 tab PM PO 07/15/17 21:00 08/14/17 20:59 07/15/17 21:41 1 TAB Cholecalciferol (Vitamin D Tab) 2,000 inter.unit DAILY PO 07/16/17 09:00 08/15/17 08:59 07/16/17 09:31 2,000 INTER.UNIT Magnesium Oxide (Mag-Ox Tab) 400 mg DAILY PO 07/16/17 09:00 08/15/17 08:59 07/16/17 09:31 400 MG Artificial Tears (Artificial Tears) 1 drops BID OP 07/15/17 21:00 08/14/17 20:59 07/16/17 09:30 1 DROPS Dexamethasone Sodium Phosphate 40 mg/Dextrose 54 ml @ 50 mls/hr DAILY@0900 IV 07/16/17 09:00 07/18/17 10:05 07/16/17 09:31 50 MLS/HR Cyclosporine (Restasis) 1 drops BID OPB 07/16/17 09:00 08/15/17 08:59 07/16/17 09:31 1 DROPS Subjective Mr. Rivera looks good today. He had no bleeding or new bruising overnight. He remains fatigued, but has no other localizing symptoms. Review of Systems: Constitutional: + weakness, + fatigue, No fever, No chills Eyes: No worsening of vision ENT: No unusual epistaxis Respiratory: No cough, No hemoptysis Cardiovascular: No chest pain Abdomen: No pain, No GI bleeding Male : No dysuria, No hematuria Heme: + abnormal bleeding/bruising, No swollen lymph nodes, No night sweats Vital Signs Vital Signs Past 12 Hours Date Time Temp Pulse Resp B/P (MAP) Pulse Ox O2 Delivery O2 Flow Rate FiO2 07/16/17 12:00 Room Air 07/16/17 11:48 36.8 84 18 107/57 (74) 96 07/16/17 08:00 Room Air 07/16/17 07:23 36.6 83 16 124/66 (85) 96 07/16/17 04:00 Room Air 07/16/17 03:50 36.8 80 18 106/52 (70) 97 Room Air Physical Exam Constitutional: General Apperance: too thin Level of Distress: NAD Psychiatric: Mental Status: active & alert Orientation: oriented except where noted ENMT: pharynx normal Lungs: Auscuitation: breath sounds normal Cardiovascular: Heart Auscultation: RRR Abdomen: Inspection & Palpation: soft, no tenderness, guarding & rebound Extremities: no edema Laboratory Last 24 Hours Test 07/15/17 18:05 07/16/17 07:33 Urine Color YELLOW Urine Appearance CLEAR Urine pH 6.5 Urine Specific [place] 1.017 Urine Protein NEG Urine Glucose (UA) NEG Urine Ketones NEG Urine Occult Blood NEG Urine Nitrite NEG Urine Bilirubin NEG Urine Urobilinogen NEG Urine Leukocyte Esterase NEG Urine WBC (Auto) 1-5 /hpf Urine RBC (Auto) 0-4 /hpf Urine Hyaline Casts (Auto) 0 /lpf Urine Epithelial Cells (Auto) 0-5 /lpf Urine Bacteria (Auto) NEG White Blood Count 6.57 K/uL Red Blood Count 3.91 M/uL Hemoglobin 11.5 g/dL Hematocrit 34.8 % Mean Corpuscular Volume 89.0 fL Mean Corpuscular Hemoglobin 29.4 pg Mean Corpuscular Hemoglobin Concent 33.0 g/dl Platelet Count 13 K/uL Neutrophils (%) (Auto) 78.3 % Lymphocytes (%) (Auto) 10.5 % Monocytes (%) (Auto) 5.0 % Eosinophils (%) (Auto) 0.0 % Basophils (%) (Auto) 0.0 % Neutrophils # (Auto) 5.14 K/uL Lymphocytes # (Auto) 0.69 K/uL Monocytes # (Auto) 0.33 K/uL Eosinophils # (Auto) 0.00 K/uL Basophils # (Auto) 0.00 K/uL RDW Standard Deviation 49.5 fL RDW Coefficient of Variation 15.5 % Immature Granulocyte % (Auto) 6.2 % Immature Granulocyte # (Auto) 0.41 K/uL Platelet Estimate SIGNIFIC DECREASED Large Platelets 1+ Prothrombin Time 11.7 SECONDS Prothromb Time International Ratio 1.1 Assessment & Plan Today is day 2/4 of high-dose dexamethasone and his platelet count is up a bit. We should continue it for now. In the meantime, given his history of MZL, his constitutional symptoms, and new-onset ITP, I'm concerned this may represent a relapse of his lymphoma. Please get a CT of his chest, abdomen, and pelvis to evaluate for adenopathy. Otherwise, continue with supportive care as needed. Once his platelets are above 30K and he is not bleeding, he could potentially leave.
[2017-07-16] MEDS ORDERED: OPTIRAY 320 IV PRN (14:45)
[2017-07-16 15:13] VITALS: BP 109/58; PULSE 76; TEMP 36.8; O2SAT 98
[2017-07-16 16:14] VITALS: BP 117/61; PULSE 87; TEMP 36.1; O2SAT 95
[2017-07-16 16:15] VITALS: O2SAT 95
--- NOTE | 2017-07-16 18:32 | DIAGNOSTIC IMAGING REPORT ---
CT OF THE CHEST WITH IV CONTRAST CLINICAL HISTORY: Lymphoma. Anemia. Evaluate for adenopathy. COMPARISON STUDY: Chest CT September 20, 2016 and chest radiograph February 20, 2017. TECHNIQUE: Following IV administration of 119 mL of Optiray-320, helical axial images of the chest were obtained. Sagittal and coronal reconstructions were viewed as well as maximal intensity projections on an independent 3-D workstation. A dose lowering technique was utilized adhering to the principles of ALARA. CT DOSE: 887.35 mGycm FINDINGS: No enlarged axillary, mediastinal or hilar lymph nodes are present. The heart is moderately enlarged. There is extensive coronary artery calcification. There is no pericardial effusion. No pneumothorax is present. There is a trace left pleural effusion. Scattered mild tree-in-bud nodules within the right upper lobe, right middle lobe and right lower lobe are noted. No suspicious thyroid nodules are present. There are no suspicious osseous lesions. The abdomen and pelvis will be reported separately however, a rind of soft tissue along the lateral capsule of the spleen remains unchanged. IMPRESSION: 1. No evidence of recurrent lymphoma within the chest. No thoracic lymphadenopathy. 2. Trace left pleural effusion. 3. Minimal multifocal tree-in-bud nodules within the right lung which favors bronchiolitis. Electronically signed by: Sharan Fisher M.D. 07/16/2017 6:30 PM Dictated Date/Time: 07/16/2017 6:20 PM
--- NOTE | 2017-07-16 18:46 | DIAGNOSTIC IMAGING REPORT ---
CT OF THE ABDOMEN AND PELVIS WITH CONTRAST CLINICAL HISTORY: History of lymphoma. Evaluate for adenopathy. COMPARISON STUDY: CT of the abdomen and pelvis September 20, 2016. TECHNIQUE: Following IV administration of 119 mL of Optiray-320, axial images of the abdomen and pelvis were obtained from the lung bases to the proximal femurs. Images were reviewed in the axial, sagittal, and coronal planes. IV contrast was administered without complication. A dose lowering technique was utilized adhering to the principles of ALARA. Oral contrast was administered. FINDINGS: The chest will be reported separately. However, there are mild tree-in-bud nodules within the right middle and right lower lobes which favors bronchiolitis. No pneumatosis, free air or portal venous gas is present. Several subcentimeter hepatic lesions likely reflect cysts. There is no significant biliary ductal dilatation status post cholecystectomy. A thin rind of soft tissue along the lateral capsule the spleen is unchanged. Borderline splenomegaly is unchanged. The adrenal glands and pancreas are unremarkable. Numerous bilateral renal cysts are noted as well as scarring within the lower pole of the left kidney. There is a 4 mm right renal calculus. The bladder wall is thickened and irregular with trabeculations. The prostate is enlarged. The findings may reflect chronic bladder obstruction. There is a possible 1.7 cm lesion within the left posterior aspect of the bladder at the insertion of the left ureter without significant hydronephrosis. A right hip arthroplasty is noted. This colonic diverticulosis without evidence for acute diverticulitis. No abdominal or pelvic lymphadenopathy is present. Sensitivity for detection of mucosal lesions is diminished given CT technique. IMPRESSION: 1. No abdominal or pelvic lymphadenopathy. 2. No change in a thin rind of hypodense soft tissue along the lateral capsule of the spleen since prior study. This suggests treated lymphoma. 3. Possible 1.7 cm partially calcified lesion within the left posterior aspect of the bladder at the insertion of the left ureter. This could reflect a urothelial lesion and urologic consultation for consideration for cystoscopy is recommended. 4. Minimal tree-in-bud nodules within the right middle and lower lobes which suggests bronchitis. 5. Chronic bladder wall irregularity and trabeculation, possibly on the basis of bladder outlet obstruction given prostate enlargement. Electronically signed by: Sharan Fisher M.D. 07/16/2017 6:45 PM Dictated Date/Time: 07/16/2017 6:30 PM
[2017-07-16] MEDS: FEXOFENADINE HCL 180 MG TAB PO SCH (20:02)
[2017-07-16] MEDS: CEROVITE ADV FORMULA TAB PO SCH (20:03)
[2017-07-17 00:01] VITALS: BP 109/66; PULSE 63; TEMP 36.3; O2SAT 98
[2017-07-17] MEDS: LEVOTHYROXINE 100 MCG TAB PO SCH (06:30)
[2017-07-17 07:22] VITALS: BP 108/61; PULSE 63; TEMP 36.5; O2SAT 99
[2017-07-17] MEDS: MAGNESIUM OXIDE 400 MG TAB PO SCH (07:38)
[2017-07-17] MEDS: CHOLECALCIFEROL 1000 INTER.UNIT TAB PO SCH (07:38)
[2017-07-17] MEDS: [UNRECOGNIZED DRUG - OTHER] OPB SCH (07:38)
[2017-07-17] MEDS: ARTIFICIAL TEARS OP SOLN OP SCH ×2 (07:38)
[2017-07-17] MEDS: FLUTICASONE PROPIONATE NA SPR 16 GM BTL NAE SCH (07:39)
[2017-07-17 08:00] VITALS: O2SAT 99
[2017-07-17] MEDS: DEXAMETHASONE INJ 40 MG in DEXTROSE 5% 50ML 50 ML IV SCH (08:07)
[2017-07-17 08:47] LABS: HEMATOCRIT 34.2 % (42-52); MEAN CELL VOLUME 90.5 fL (80-100); MEAN CORPUSCULAR HEMOGLOBIN 29.4 pg (25-34); MEAN CORPUSCULAR HGB CONC 32.5 g/dl (32-36); RED BLOOD COUNT 3.78 M/uL (4.7-6.1); WHITE BLOOD COUNT 6.94 K/uL (4.8-10.8)
[2017-07-17] MEDS ORDERED: PREDNISOLONE ACETATE 0.12% OP SCH ×2 (09:00)
[2017-07-17 09:08] LABS: BASO % 0.1 %; BASO ABS # 0.01 K/uL (0-0.2); COMPLETE YES; LYMPH ABS # 0.97 K/uL (1.2-3.4); MEAN PLATELET VOLUME 11.4 fL (7.4-10.4); MONO % 13.5 %; NEUT % 67.4 %; PLATELET COUNT 33 K/uL (130-400); PLT ESTIMATE DECREASED
[2017-07-17 10:48] VITALS: BP 108/61; PULSE 63; TEMP 36.5; O2SAT 99
--- NOTE | 2017-07-17 11:07 | Discharge Instructions ---
Discharge Instructions Date of Service Jul 17, 2017. Admission Reason for Admission: Anemia, Non-Hodgkin Lymphoma, Discharge Discharge Diagnosis / Problem: Low Platelets Discharge Goals Goal(s): Improve disease control Activity Recommendations Activity Limitations: resume your previous activity . Instructions / Follow-Up Instructions / Follow-Up You were admitted to [facility] due to a platelet count of 4,000, which is very low. You were seen by our elastic assembler, Dr. Fleming, who felt your low platelet count was due to to a condition called ITP (immune thrombocytopenic purpura) as opposed to a relapse of your non-Hodgkin's lymphoma. You were treated with 3 days of IV dexamethasone, which is a steroid that helps stop the destruction of your platelets and allows you to make new platelets. You will be discharged on one more dose of oral steroids that you can take tomorrow. Your platelet count nehemiah from 4000 to 33,000 while in the hospital. Please have a repeat CBC on Saturday to ensure that your platelet count has continued to improve. We have also scheduled you for follow up appointments with Dr. Cobos and Dr. Fleming next week. In the interim, please do not take your Xarelto, aspirin or any anti- inflammatory medications such as ibuprofen/Advil as this can thin your blood. If you require pain medication, Tylenol is safe to take. Lastly, we discussed your CT scan results. There was no sign of enlarged lymph nodes to suggest a return of your non-Hodgkin's lymphoma however you did have a small lesion in your bladder. We recommend that you see your urologist in the clinic to further investigate this. If you have any episodes of bleeding, whether you're coughing up blood, throwing up blood, have blood in your stools or are bleeding from your nose or mouth, please seek medical attention. Current Hospital Diet Patient's current hospital diet: AHA Diet (Heart Healthy) Discharge Diet Recommended Diet: Regular Diet Pending Studies Studies pending at discharge: no Medical Emergencies . Who to Call and When: Medical Emergencies: If at any time you feel your situation is an emergency, please call 911 immediately. . Non-Emergent Contact Non-Emergency issues call your: Primary Care Provider . . "Provider Documentation" section prepared by Jagdeep Fajardo. . VTE Core Measure Inpt VTE Proph given/why not?: Contraindicated
[2017-07-17] MEDS ORDERED: DEXA6TAB PO (11:12)
[2017-07-17] MEDS ORDERED: DXM/4 PO (11:24)
--- NOTE | 2017-07-17 17:46 | Discharge Summary ---
Discharge Summary Date of Service Jul 17, 2017. Discharge Summary Admission Date: Jul 15, 2017 at 15:14 Discharge Date: Jul 17, 2017 Discharge Disposition: Home Principal Diagnosis: Thrombocytopenia Immunizations: Have You Had Influenza Vaccine: Yes Influenza Vaccine Date: May 12, 2006 History of Tetanus Vaccine?: Yes History of Pneumococcal: Yes Pneumococcal Date: May 12, 2006 History of Hepatitis B Vaccine: No Procedures: CT OF THE CHEST WITH IV CONTRAST CLINICAL HISTORY: Lymphoma. Anemia. Evaluate for adenopathy. COMPARISON STUDY: Chest CT September 20, 2016 and chest radiograph February 20, 2017. TECHNIQUE: Following IV administration of 119 mL of Optiray-320, helical axial images of the chest were obtained. Sagittal and coronal reconstructions were viewed as well as maximal intensity projections on an independent 3-D workstation. A dose lowering technique was utilized adhering to the principles of ALARA. CT DOSE: 887.35 mGycm FINDINGS: No enlarged axillary, mediastinal or hilar lymph nodes are present. The heart is moderately enlarged. There is extensive coronary artery calcification. There is no pericardial effusion. No pneumothorax is present. There is a trace left pleural effusion. Scattered mild tree-in-bud nodules within the right upper lobe, right middle lobe and right lower lobe are noted. No suspicious thyroid nodules are present. There are no suspicious osseous lesions. The abdomen and pelvis will be reported separately however, a rind of soft tissue along the lateral capsule of the spleen remains unchanged. IMPRESSION: 1. No evidence of recurrent lymphoma within the chest. No thoracic lymphadenopathy. 2. Trace left pleural effusion. 3. Minimal multifocal tree-in-bud nodules within the right lung which favors bronchiolitis. CT OF THE ABDOMEN AND PELVIS WITH CONTRAST CLINICAL HISTORY: History of lymphoma. Evaluate for adenopathy. COMPARISON STUDY: CT of the abdomen and pelvis September 20, 2016. TECHNIQUE: Following IV administration of 119 mL of Optiray-320, axial images of the abdomen and pelvis were obtained from the lung bases to the proximal femurs. Images were reviewed in the axial, sagittal, and coronal planes. IV contrast was administered without complication. A dose lowering technique was utilized adhering to the principles of ALARA. Oral contrast was administered. FINDINGS: The chest will be reported separately. However, there are mild tree-in-bud nodules within the right middle and right lower lobes which favors bronchiolitis. No pneumatosis, free air or portal venous gas is present. Several subcentimeter hepatic lesions likely reflect cysts. There is no significant biliary ductal dilatation status post cholecystectomy. A thin rind of soft tissue along the lateral capsule the spleen is unchanged. Borderline splenomegaly is unchanged. The adrenal glands and pancreas are unremarkable. Numerous bilateral renal cysts are noted as well as scarring within the lower pole of the left kidney. There is a 4 mm right renal calculus. The bladder wall is thickened and irregular with trabeculations. The prostate is enlarged. The findings may reflect chronic bladder obstruction. There is a possible 1.7 cm lesion within the left posterior aspect of the bladder at the insertion of the left ureter without significant hydronephrosis. A right hip arthroplasty is noted. This colonic diverticulosis without evidence for acute diverticulitis. No abdominal or pelvic lymphadenopathy is present. Sensitivity for detection of mucosal lesions is diminished given CT technique. IMPRESSION: 1. No abdominal or pelvic lymphadenopathy. 2. No change in a thin rind of hypodense soft tissue along the lateral capsule of the spleen since prior study. This suggests treated lymphoma. 3. Possible 1.7 cm partially calcified lesion within the left posterior aspect of the bladder at the insertion of the left ureter. This could reflect a urothelial lesion and urologic consultation for consideration for cystoscopy is recommended. 4. Minimal tree-in-bud nodules within the right middle and lower lobes which suggests bronchitis. 5. Chronic bladder wall irregularity and trabeculation, possibly on the basis of bladder outlet obstruction given prostate enlargement. Consultations: Hematology/Oncology - Dr. Fleming Medication Reconciliation New Medications: Dexamethasone (Decadron) 4 Mg Tab 40 MG PO UD for 1 Day, #10 TAB Please take 40mg on 07/18/2017. Continued Medications: Albuterol Sulfate (Proair Respiclick) 108 Mcg/Act Aer 2 PUFF INH Q4 PRN for SOB/Wheezing Cholecalciferol (Vitamin D) 2,000 Unit Tab 2000 UNIT PO DAILY Cyclosporine (Ophth) (Restasis) 0.05 % Emu 1 DROP OP BID, BTL Dutasteride (Avodart) 0.5 Mg Cap 0.5 MG PO HS, CAP Fexofenadine Hcl (Adriana Allergy) 180 Mg Tab 180 MG PO PM, TAB Fluticasone Propionate (Fluticasone Propionate) 120 Sprays/6000 Mcg Inha 2 SPRAY GISELL DAILY, #16 Levothyroxine Sodium (Levo-T) 100 Mcg Tab 100 MCG PO DAILY Magnesium Oxide (Magnesium Oxide) 400 Mg Cap 1 CAP PO DAILY for 90 Days, #90 CAP 3 Refills Nitroglycerin (Nitrostat) 0.4 Mg Tab 0.4 MG UT PRN, BTL Ocuvite Preservision (Ocuvite Preservision) 1 Tab Tab 1 TAB PO PM, TAB Polyethylene Glycol-Propylene (Systane Ultra) 1 Annette Annette 1 DROPS OP BID, 1 Refill Prednisolone Acetate (Ophth) (Pred Mild 0.12%) 0.12 % Aye 1 DROP OPL 3XWK USE ON MON/SAT/FRI Discontinued Medications: Aspirin (Aspir-81) 81 Mg Tab 1 TAB PO DAILY Rivaroxaban (Xarelto) 10 Mg Tab 1 TAB PO DAILY for 7 Days, #7 TAB Discharge Exam Mr. Rivera reports he feels well today. He denies any new episodes of bleeding, chest pain, SOB, n/v. Review of Systems: Constitutional: No fever, No chills ENT: No unusual epistaxis Cardiovascular: No chest pain Abdomen: No pain, No nausea, No vomiting Genitourinary - Male: No hematuria Physical Exam: General Appearance: WD/WN, no apparent distress Respiratory/Chest: chest non-tender, lungs clear, normal breath sounds, no respiratory distress, no accessory muscle use Cardiovascular: regular rate, rhythm, no edema, no gallop, no JVD, no murmur , normal peripheral pulses Abdomen / GI: normal bowel sounds, non tender, soft, no organomegaly, no pulsatile mass Extremities: + pertinent finding (multiple bruises over arms ) Hospital Course Mr. Rivera is an 86 year old gentleman with a past medical history of non- Hodgkin's lymphoma, atrial flutter, dyslipidemia, hypertension, CAD s/p NSTEMI ( January 2015) who was sent to [facility] due to thrombocytopenia. Thrombocytopenia - Hematology/Oncology (Dr. Fleming) was consulted - likely due to ITP - peripheral smear unremarkable except for low platelets - dexamethasone 40mg daily x 4 days - he was given IV for first 3 days and discharged home on 1 dose of oral dexamethasone - platelets were initially 4000 and then came up to 33,000 - CBC on 07/23 to ensure his platelets remain stable, and CBC weekly after that - close follow up with Dr. Cobos and Dr. Fleming in clinic - CT scan of chest/abdomen/pelvis did not show lymphadenopathy to suggest recurrence of his non-Hodgkin's lymphoma Bladder Lesion - His CT abdomen revealed a lesion in his bladder that requires urological follow up - this was discussed with the patient CAD s/p ACS - hold aspirin - will defer decision to PCP as to when to restart based on platelet levels Atrial flutter - hold xarelto - will defer decision to PCP as to when to restart based on platelet levels BPH - continue dutasteride Allergies - continue fexofenadine and flonase spray Respiratory symptoms - continue pro-air - continue overnight oxygen at 2L Hypothyroidism - continue levothyroxine He was told to return to the emergency department if he developed any acute episodes of bleeding. Total Time Spent: Greater than 30 minutes This includes examination of the patient, discharge planning, medication reconciliation, and communication with other providers. Discharge Instructions Please refer to the electronic Patient Visit Report (Discharge Instructions) for additional information. Additional Copies To Gus Cobos M.D. Resident Tracking Resident Involvement: Resident Care Provided Care Provided: Adult [facility]
== END 2017-07-17 13:18 | disposition home or self-care (01) | DRG 813 ==
LOC: C.EDB 12:24 → C.2T 15:14 → ENRESERV 15:40 → C.MS4W 07-16 16:00
PROVIDERS: ADMIT Internal Medicine; ATTEND Internal Medicine
DX: D69.3 Immune thrombocytopenic purpura (principal); I48.92 Unspecified atrial flutter; N18.9 Chronic kidney disease, unspecified; Z85.72 Personal history of non-Hodgkin lymphomas; N32.9 Bladder disorder, unspecified; I12.9 Hypertensive chronic kidney disease with stage 1 through stage 4 chronic kidney disease, or unspecified chronic kidney disease; Z94.7 Corneal transplant status; Z96.649 Presence of unspecified artificial hip joint; Z88.0 Allergy status to penicillin; I25.10 Atherosclerotic heart disease of native coronary artery without angina pectoris; I25.2 Old myocardial infarction; N40.0 Benign prostatic hyperplasia without lower urinary tract symptoms; E03.9 Hypothyroidism, unspecified; Z79.01 Long term (current) use of anticoagulants; E78.5 Hyperlipidemia, unspecified

== ENCOUNTER → 2017-07-15 | Outpatient (CLI) | payer BC ==
[2017-07-15 10:05] LABS: ALT/SGPT 17 U/L (12-78); BLOOD UREA NITROGEN 15 mg/dl (7-18); BUN/CREATININE RATIO 19.8 (10-20); CALCIUM 9.1 mg/dl (8.5-10.1); CARBON DIOXIDE 31 mmol/L (21-32); CHLORIDE 104 mmol/L (98-107); CREATININE 0.76 mg/dl (0.60-1.40); GLUCOSE 101 mg/dl (70-99); POTASSIUM 4.1 mmol/L (3.5-5.1); SODIUM 140 mmol/L (136-145)
[2017-07-15 10:08] LABS: ALB/GLOB RATIO 1.2 (0.9-2); ALKALINE PHOSPHATASE 92 U/L (45-117); AST/SGOT 16 U/L (15-37)
[2017-07-15 10:17] LABS: MEAN CELL VOLUME 90.9 fL (80-100); MEAN CORPUSCULAR HEMOGLOBIN 29.5 pg (25-34); MEAN CORPUSCULAR HGB CONC 32.5 g/dl (32-36); RED BLOOD COUNT 3.96 M/uL (4.7-6.1); WHITE BLOOD COUNT 5.52 K/uL (4.8-10.8)
[2017-07-15 10:30] LABS: PLATELET COUNT 5 K/uL (130-400)
[2017-07-15 10:31] LABS: BASO % 0.4 %; BASO ABS # 0.02 K/uL (0-0.2); COMPLETE YES; EOS % 10.5 %; IG% 1.1 %; LYMPH % 19.7 %; LYMPH ABS # 1.09 K/uL (1.2-3.4); NEUT % 56.3 %; PLT ESTIMATE SIGNIFIC DECREASED
== END | disposition home or self-care (01) ==
LOC: C.LAB 07:02
PROVIDERS: ATTEND Internal Medicine
DX: C85.10 Unspecified B-cell lymphoma, unspecified site (principal); I10 Essential (primary) hypertension; R53.83 Other fatigue

== ENCOUNTER → 2017-07-23 | Outpatient (CLI) | payer BC ==
[~2017-07-23] MED LIST changes: -APIX1TAB3 PO; -ASPEC81 PO; -AZIT500T26 PO; +MAGN400C2 PO; -MOME220A INH; +NTRGSL/4 UT; -NTRSLP4 SL
[2017-07-23 09:36] LABS: HEMATOCRIT 39.4 % (42-52); MEAN CORPUSCULAR HEMOGLOBIN 29.8 pg (25-34); RED BLOOD COUNT 4.33 M/uL (4.7-6.1); WHITE BLOOD COUNT 6.74 K/uL (4.8-10.8)
[2017-07-23 09:42] LABS: MEAN CORPUSCULAR HGB CONC 32.7 g/dl (32-36); MEAN PLATELET VOLUME 9.8 fL (7.4-10.4); PLATELET COUNT 89 K/uL (130-400)
[2017-07-23 09:59] LABS: PLT ESTIMATE DECREASED
== END | disposition home or self-care (01) ==
LOC: C.LAB 09:23
PROVIDERS: ATTEND Physician Assistant Medical
DX: D69.6 Thrombocytopenia, unspecified (principal)

== ENCOUNTER → 2017-07-31 | Outpatient (CLI) | payer BC ==
[~2017-07-31] MED LIST changes: -CYCL0.052 OP; +CYCL0.052 OPB; +DXM4 PO; +LEVO-366 PO; +NITR1CAP33 PO; -POLY1SOL6 OP; +POLY1SOL6 OPB; +TRMO2580 TOP
[2017-07-31 14:18] LABS: HEMOGLOBIN 12.1 g/dL (14.0-18.0); MEAN CORPUSCULAR HEMOGLOBIN 29.3 pg (25-34); MEAN CORPUSCULAR HGB CONC 31.8 g/dl (32-36); RED CELL DISTRIBUTION WIDTH CV 15.4 % (11.5-14.5); RED CELL DISTRIBUTION WIDTH SD 52.2 fL (36.4-46.3); WHITE BLOOD COUNT 5.46 K/uL (4.8-10.8)
[2017-07-31 14:20] LABS: MEAN PLATELET VOLUME 11.8 fL (7.4-10.4); PLATELET COUNT 57 K/uL (130-400)
[2017-07-31 14:38] LABS: BASO % 0.2 %; BASO ABS # 0.01 K/uL (0-0.2); EOS % 7.9 %; EOS ABS # 0.43 K/uL (0-0.5); IG# 0.03 K/uL (0.00-0.02); LYMPH % 13.6 %; LYMPH ABS # 0.74 K/uL (1.2-3.4); MONO % 12.8 %; NEUT ABS # 3.55 K/uL (1.4-6.5)
== END | disposition home or self-care (01) ==
LOC: C.LABBC 09:22
PROVIDERS: ATTEND Internal Medicine Hematology & Oncology
DX: C85.10 Unspecified B-cell lymphoma, unspecified site (principal)

== ENCOUNTER → 2017-08-07 | Outpatient (CLI) | payer BC ==
[~2017-08-07] MED LIST changes: +CYCL0.052 OP; -CYCL0.052 OPB; -DXM4 PO; -LEVO-366 PO; -NITR1CAP33 PO; +POLY1SOL6 OP; -POLY1SOL6 OPB; -TRMO2580 TOP
[2017-08-07 11:04] LABS: HEMATOCRIT 37.1 % (42-52); MEAN CELL VOLUME 91.6 fL (80-100); MEAN CORPUSCULAR HEMOGLOBIN 29.6 pg (25-34); MEAN CORPUSCULAR HGB CONC 32.3 g/dl (32-36); RED CELL DISTRIBUTION WIDTH CV 14.9 % (11.5-14.5); RED CELL DISTRIBUTION WIDTH SD 50.6 fL (36.4-46.3); WHITE BLOOD COUNT 4.77 K/uL (4.8-10.8)
[2017-08-07 11:09] LABS: MEAN PLATELET VOLUME 11.1 fL (7.4-10.4); PLATELET COUNT 57 K/uL (130-400)
== END | disposition home or self-care (01) ==
LOC: C.LABBC 07:31
PROVIDERS: ATTEND Physician Assistant Medical
DX: D69.6 Thrombocytopenia, unspecified (principal)

== ENCOUNTER → 2017-08-14 | Outpatient (CLI) | payer BC ==
[2017-08-14 13:16] LABS: HEMATOCRIT 39.7 % (42-52); HEMOGLOBIN 12.6 g/dL (14.0-18.0); MEAN CORPUSCULAR HEMOGLOBIN 28.6 pg (25-34); MEAN CORPUSCULAR HGB CONC 31.7 g/dl (32-36); RED CELL DISTRIBUTION WIDTH CV 14.5 % (11.5-14.5); RED CELL DISTRIBUTION WIDTH SD 47.8 fL (36.4-46.3)
[2017-08-14 13:18] LABS: MEAN PLATELET VOLUME 11.8 fL (7.4-10.4); PLATELET COUNT 31 K/uL (130-400)
== END | disposition home or self-care (01) ==
LOC: C.LABBC 09:13
PROVIDERS: ATTEND Physician Assistant Medical
DX: D69.6 Thrombocytopenia, unspecified (principal)

== ENCOUNTER 2017-08-28 18:06 | Emergency (ER) | payer BC ==
[~2017-08-28] VITALS: Ht 190.5 cm; Wt 78.6 kg
[2017-08-28 18:12] VITALS: Ht 190.5 cm; Wt 78.6 kg
[2017-08-28] MEDS ORDERED: SODIUM CHLORIDE 0.9% 1000ML 1,000 ML IV STA (18:22)
[2017-08-28] MEDS ORDERED: ACETAMINOPHEN 325 MG TAB PO STA (18:22)
--- NOTE | 2017-08-28 18:26 | EMERGENCY ROOM VISIT NOTE ---
History Report prepared by Nelson: Yuki Longoria Under the Supervision of: Dr. Romel Penaloza M.D. First contact with patient: 18:12 Chief Complaint: FLU LIKE SX Stated Complaint: FLU LIKE SX History of Present Illness The patient is an 87 year old white male with a past medical history of ACS, anemia, hypertension, non-Hodgkin's Lymphoma, who presents to the ED with a cc of flu like symptoms beginning approximately 1 week ago. He was brought to the ED via EMS. Positive cough, fever, chills. Negative chest pain, shortness of breath, abdominal pain, diarrhea or urinary symptoms. His states he was very shaky and developed a fever this afternoon, so they called EMS. The patient has not been on any recent antibiotics. He denies any recent sick contacts. 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 A total of ten systems were reviewed and were otherwise negative. 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 (18) Venous Thrombosis Nos Family History Cancer Heart disease Hypertension Social History Smoking Status: Never Smoker Alcohol Use: none Drug Use: none Marital Status: Housing Status: lives with family Occupation Status: retired Current/Historical Medications Scheduled Cholecalciferol (Vitamin D), 2,000 UNIT PO DAILY Cyclosporine (Ophth) (Restasis), 1 DROP OP BID Dutasteride (Avodart), 0.5 MG PO HS Fexofenadine Hcl (Adriana Allergy), 180 MG PO PM Fluticasone Propionate (Fluticasone Propionate), 2 SPRAY GISELL DAILY Levofloxacin (Levaquin), 750 MG PO DAILY Levothyroxine Sodium (Levo-T), 100 MCG PO DAILY Magnesium Oxide (Magnesium Oxide), 1 CAP PO DAILY Nitroglycerin (Nitrostat), 0.4 MG UT PRN Ocuvite Preservision (Ocuvite Preservision), 1 TAB PO PM Polyethylene Glycol-Propylene (Systane Ultra), 1 DROPS OP BID Prednisolone Acetate (Ophth) (Pred Mild 0.12%), 1 DROP OPL 3XWK Scheduled PRN Albuterol Sulfate (Proair Respiclick), 2 PUFF INH Q4 PRN for SOB/Wheezing Allergies Coded Allergies: Penicillins (Verified Allergy, Intermediate, Rash, 07/15/17) RASH Rofecoxib (Verified Allergy, Intermediate, Rash, 07/15/17) RASH Codeine (Verified Allergy, Unknown, 2000 codeine after gallbladder sug = rash, red, & swelled up, 07/15/17) Meperidine (Verified Allergy, Unknown, 02/20/17) Statins (Unverified Allergy, Unknown, unknown, 07/15/17) Physical Exam Vital Signs Date Time Temp Pulse Resp B/P (MAP) Pulse Ox O2 Delivery O2 Flow Rate FiO2 08/28/17 19:52 38.7 84 18 102/53 92 Room Air 08/28/17 19:19 95 08/28/17 19:08 94 Room Air 08/28/17 18:12 39.6 98 20 139/61 88 Room Air Physical Exam GENERAL: Awake, alert, well-appearing, NAD, appears stated age, NT HENT: Normocephalic, atraumatic. EYES: Normal conjunctiva. Sclera non-icteric. NECK: Supple. No nuchal rigidity. FROM. RESPIRATORY: CTAB, no rhonchi, wheezing, crackles CARDIAC: RRR, no MRG ABDOMEN: Soft, NTND, BS+, non-surgical abdomen MSK: No chest wall TTP, no LE edema NEURO: GCS 15, CN 2-12 intact, moves all 4s on command SKIN: No rash or jaundice noted. Medical Decision & Procedures ER Provider Diagnostic Interpretation: Radiology results as stated below per my review and radiologist interpretation: CHEST ONE VIEW PORTABLE HISTORY: Evaluate Fever/Sepsis COMPARISON: Chest 02/20/2017. FINDINGS: No pleural effusions. No pneumothorax. The heart is normal in size. The left lung is clear. Patchy airspace opacity within the right medial lung base. IMPRESSION: There is a new right medial lung base airspace opacity consistent with a pneumonia. Recommend one month chest x-ray follow-up to ensure resolution. Electronically signed by: Nate Lomeli M.D. 08/28/2017 6:43 PM Laboratory Results 08/28/17 18:15 Red Blood Count 4.63, Mean Corpuscular Volume 87.0, Mean Corpuscular Hemoglobin 28.5, Mean Corpuscular Hemoglobin Concent 32.8, Mean Platelet Volume 10.8, Neutrophils (%) (Auto) 76.9, Lymphocytes (%) (Auto) 9.4, Monocytes (%) (Auto) 10.3, Eosinophils (%) (Auto) 2.5, Basophils (%) (Auto) 0.2, Neutrophils # (Auto ) 3.35, Lymphocytes # (Auto) 0.41, Monocytes # (Auto) 0.45, Eosinophils # (Auto ) 0.11, Basophils # (Auto) 0.01 08/28/17 18:15 Test 08/28/17 18:15 08/28/17 18:40 08/28/17 19:05 White Blood Count 4.36 K/uL (4.8-10.8) Red Blood Count 4.63 M/uL (4.7-6.1) Hemoglobin 13.2 g/dL (14.0-18.0) Hematocrit 40.3 % (42-52) Mean Corpuscular Volume 87.0 fL (80-100) Mean Corpuscular Hemoglobin 28.5 pg (25-34) Mean Corpuscular Hemoglobin Concent 32.8 g/dl (32-36) Platelet Count 92 K/uL (130-400) Mean Platelet Volume 10.8 fL (7.4-10.4) Neutrophils (%) (Auto) 76.9 % Lymphocytes (%) (Auto) 9.4 % Monocytes (%) (Auto) 10.3 % Eosinophils (%) (Auto) 2.5 % Basophils (%) (Auto) 0.2 % Neutrophils # (Auto) 3.35 K/uL (1.4-6.5) Lymphocytes # (Auto) 0.41 K/uL (1.2-3.4) Monocytes # (Auto) 0.45 K/uL (0.11-0.59) Eosinophils # (Auto) 0.11 K/uL (0-0.5) Basophils # (Auto) 0.01 K/uL (0-0.2) RDW Standard Deviation 45.4 fL (36.4-46.3) RDW Coefficient of Variation 14.2 % (11.5-14.5) Immature Granulocyte % (Auto) 0.7 % Immature Granulocyte # (Auto) 0.03 K/uL (0.00-0.02) Platelet Estimate DECREASED Prothrombin Time 11.7 SECONDS (9.0-12.0) Prothromb Time International Ratio 1.1 (0.9-1.1) Activated Partial Thromboplast Time 26.4 SECONDS (21.0-31.0) Partial Thromboplastin Ratio 1.0 Anion Gap 5.0 mmol/L (3-11) Est Creatinine Clear Calc Drug Dose 64.3 ml/min Estimated GFR () 88.7 Estimated GFR (Non- 76.5 BUN/Creatinine Ratio 15.2 (10-20) Calcium Level 9.1 mg/dl (8.5-10.1) Total Bilirubin 0.6 mg/dl (0.2-1) Direct Bilirubin 0.2 mg/dl (0-0.2) Aspartate Amino Transf (AST/SGOT) 13 U/L (15-37) Alanine Aminotransferase (ALT/SGPT) 15 U/L (12-78) Alkaline Phosphatase 88 U/L (45-117) Troponin I < 0.015 ng/ml (0-0.045) Total Protein 6.9 gm/dl (6.4-8.2) Albumin 3.4 gm/dl (3.4-5.0) Lipase 68 U/L (73-393) Influenza Type A Antigen Neg for Influ A (NEG) Influenza Type B Antigen Neg for Influ B (NEG) Venous Blood pH 7.47 (7.36-7.41) Venous Blood Partial Pressure CO2 36 mmHg (38.0-50.0) Venous Blood Partial Pressure O2 49 mmHg Venous Blood HCO3 25 mmol/L Venous Blood Oxygen Saturation 84.0 % Venous Blood Base Excess 1.9 mEq/L Lactic Acid Level 1.3 mmol/L (0.4-2.0) Urine Color YELLOW Urine Appearance CLEAR (CLEAR) Urine pH 5.5 (4.5-7.5) Urine Specific [place] 1.016 (1.000-1.030) Urine Protein NEG (NEG) Urine Glucose (UA) NEG (NEG) Urine Ketones TRACE (NEG) Urine Occult Blood 2+ (NEG) Urine Nitrite NEG (NEG) Urine Bilirubin NEG (NEG) Urine Urobilinogen NEG (NEG) Urine Leukocyte Esterase NEG (NEG) Urine WBC (Auto) 1-5 /hpf (0-5) Urine RBC (Auto) 10-30 /hpf (0-4) Urine Hyaline Casts (Auto) 0 /lpf (0-5) Urine Epithelial Cells (Auto) 0-5 /lpf (0-5) Urine Bacteria (Auto) NEG (NEG) Laboratory results reviewed by me Medications Administered Medications (Trade) Dose Ordered Sig/Rosario Route Start Time Stop Time Status Last Admin Dose Admin Sodium Chloride 1,000 ml @ 999 mls/hr Q1H1M STAT IV 08/28/17 18:22 08/28/17 19:22 DC 08/28/17 19:04 999 MLS/HR Acetaminophen (Tylenol Tab) 650 mg NOW STAT PO 08/28/17 18:22 08/28/17 18:25 DC 08/28/17 19:01 650 MG Levofloxacin (Levaquin Tab) 750 mg NOW STAT PO 08/28/17 19:41 08/28/17 19:44 DC 08/28/17 19:54 750 MG ECG Indication: weakness Rate (beats per minute): 91 Rhythm: sinus rhythm Findings: 1st degree AV block, other (normal QRS and QTC, questionable depression in lead 2, not in contiguous leads) Change: This patients EKG was interpreted by me. ED Course 1816: The patient was evaluated in room A2. A complete history and physical exam was performed. 1934: I reevaluated the patient. He is feeling well and feels ready to go home. 2024: I revaluated the patient. He is resting comfortably. I discussed his results and discharge instructions and he verbalized complete understanding and agreement. Medical Decision The patient is an 87 year old white male with a past medical history of ACS, anemia, hypertension, non-Hodgkin's Lymphoma, who presents to the ED with a cc of flu like symptoms beginning approximately 1 week ago. Triage Nursing notes reviewed. The patient's presentation and history were concerning for fever. Differential diagnosis: Etiologies such as viral syndrome, otitis, pharyngitis, pneumonia, influenza, meningitis, urinary tract infection, sepsis, bacteremia, as well as others were entertained. Patient was seen and evaluated the bedside. Patient is a prior history of non- Hodgkin's lymphoma but is in remission. Patient of note was complaining of some what he described shakes which may be interpreted as Reiger's. Patient did have fever here. Patient was complaining of some flulike symptoms. Patient had a noted pneumonia seen on chest x-ray. Patient white blood cell count was 4000. His other lower torso is fairly unremarkable. Patient's heart rate improved and does not require any oxygen at the bedside. I did discuss inpatient versus outpatient treatment with close follow-up. Patient has a curb 65 score 1 given his age. Believe the patient is suitable for patient follow up and treatment. Patient was given a prescription as well as a first dose of antibiotics or hospital. Patient was given strict follow-up, discharge, and return precautions. All questions were answered. Patient was deemed suitable for outpatient follow-up at this time. Patient agreed with the plan of care and was safely discharged home. The chart was completed utilizing doo Speech voice recognition software. Grammatical errors, random word insertions, pronoun errors, and incomplete sentences are an occasional consequence of this system due to software limitations, ambient noise, and hardware issues. Any formal questions or concerns about the content, text, or information contained within the body of this dictation should be directly addressed to the physician for clarification. Medication Reconcilliation Current Medication List: was personally reviewed by me Blood Pressure Screening Patient's blood pressure: Low blood pressure Impression Primary Impression: Pneumonia Scribe Attestation The scribe's documentation has been prepared under my direction and personally reviewed by me in its entirety. I confirm that the note above accurately reflects all work, treatment, procedures, and medical decision making performed by me. Departure Information Dispostion Home / Self-Care Prescriptions Levofloxacin (Levaquin) 500 Mg Tab 750 MG PO DAILY for 7 Days, #11 TAB Prov: Romel Penaloza M.D. 08/28/17 Referrals Gus Cobos M.D. (PCP) Patient Instructions Deep Breathing, My [facility], Pneumonia Additional Instructions Please return to the emergency department if you have worsening or recurrent symptoms not amenable to at-home treatment. Please call for a follow-up appointment with her primary care physician. Please take your medications as prescribed. If you have other concerns and/or complaints please feel free to also call your primary care physician's office or return the ED for further evaluation, management, and treatment. Please follow-up with your primary care physician. If you have worsening symptoms please return to the emergency department. You may take tylenol 650 mg every 6 hours as needed for pain/fever. Take your medications as prescribed. If taking an antibiotic consider taking a probiotic and/or eating yogurt, but at the least, please take with food as it can cause upset stomach. If culture results are not available at discharge, if they are positive for concern of infection, you will be informed of the results as soon as they are available. If you were seen between 11pm and 7AM all radiology reads will be re-read by our in house staff. If any major discrepancies are discovered, you will be notified. You have been examined and treated today on an emergency basis only. This is not a substitute for, or an effort to provide, complete comprehensive medical care. It is impossible to recognize and treat all injuries or illnesses in a single emergency department visit. It is therefore important that you follow up closely with [facility], your PCP, and/or your specialist(s). Call as soon as possible for an appointment. Thank you for your time and consideration. I look forward to speaking with you again soon. Please don't hesitate to call us if you have any questions.
[2017-08-28 18:38] LABS: HEMATOCRIT 40.3 % (42-52); HEMOGLOBIN 13.2 g/dL (14.0-18.0); MEAN CORPUSCULAR HEMOGLOBIN 28.5 pg (25-34); MEAN CORPUSCULAR HGB CONC 32.8 g/dl (32-36); RED CELL DISTRIBUTION WIDTH CV 14.2 % (11.5-14.5); RED CELL DISTRIBUTION WIDTH SD 45.4 fL (36.4-46.3); WHITE BLOOD COUNT 4.36 K/uL (4.8-10.8)
--- NOTE | 2017-08-28 18:44 | DIAGNOSTIC IMAGING REPORT ---
CHEST ONE VIEW PORTABLE HISTORY: Evaluate Fever/Sepsis COMPARISON: Chest 02/20/2017. FINDINGS: No pleural effusions. No pneumothorax. The heart is normal in size. The left lung is clear. Patchy airspace opacity within the right medial lung base. IMPRESSION: There is a new right medial lung base airspace opacity consistent with a pneumonia. Recommend one month chest x-ray follow-up to ensure resolution. Electronically signed by: Nate Lomeli M.D. 08/28/2017 6:43 PM Dictated Date/Time: 08/28/2017 6:40 PM
[2017-08-28 18:57] LABS: ALBUMIN 3.4 gm/dl (3.4-5.0); ALT/SGPT 15 U/L (12-78); AST/SGOT 13 U/L (15-37); BASO % 0.2 %; BASO ABS # 0.01 K/uL (0-0.2); BLOOD UREA NITROGEN 14 mg/dl (7-18); CALCIUM 9.1 mg/dl (8.5-10.1); CARBON DIOXIDE 29 mmol/L (21-32); EOS % 2.5 %; EOS ABS # 0.11 K/uL (0-0.5); GLUCOSE 101 mg/dl (70-99); IG# 0.03 K/uL (0.00-0.02); LIPASE 68 U/L (73-393); LYMPH % 9.4 %; LYMPH ABS # 0.41 K/uL (1.2-3.4); MEAN PLATELET VOLUME 10.8 fL (7.4-10.4); MONO % 10.3 %; MONO ABS # 0.45 K/uL (0.11-0.59); NEUT % 76.9 %; NEUT ABS # 3.35 K/uL (1.4-6.5); PLATELET COUNT 92 K/uL (130-400); POTASSIUM 4.1 mmol/L (3.5-5.1); SODIUM 135 mmol/L (136-145)
[2017-08-28 19:01] LABS: ALKALINE PHOSPHATASE 88 U/L (45-117); TOTAL PROTEIN 6.9 gm/dl (6.4-8.2)
[2017-08-28 19:02] LABS: INFLUENZA B ANTIGEN Neg for Influ B (NEG)
[2017-08-28 19:03] LABS: INR 1.1 (0.9-1.1); PTT PATIENT 26.4 SECONDS (21.0-31.0)
[2017-08-28 19:08] VITALS: O2SAT 94
[2017-08-28] MEDS ORDERED: CEFTRIAXONE SOD INJ 1 GM ADDVIAL IV STA (19:31)
[2017-08-28] MEDS ORDERED: LEVOFLOXACIN 250 MG TAB PO STA (19:41)
[2017-08-28] MEDS ORDERED: AZITHROMYCIN 250 MG TAB PO ONE (19:45)
[2017-08-28 19:52] VITALS: BP 102/53; PULSE 84; TEMP 38.7; O2SAT 92
[2017-08-28] MEDS ORDERED: LEVO-366 PO (20:16)
== END 2017-08-28 20:35 | disposition home or self-care (01) ==
LOC: EDBD 18:06 → C.EDA 18:07
DX: J18.9 Pneumonia, unspecified organism (principal); I24.9 Acute ischemic heart disease, unspecified; N18.9 Chronic kidney disease, unspecified; K21.9 Gastro-esophageal reflux disease without esophagitis; R78.5 Finding of other psychotropic drug in blood; I10 Essential (primary) hypertension; C85.90 Non-Hodgkin lymphoma, unspecified, unspecified site; Z82.49 Family history of ischemic heart disease and other diseases of the circulatory system

== ENCOUNTER → 2017-09-02 | Outpatient (CLI) | payer BC ==
[~2017-09-02] MED LIST changes: +LEVO-366 PO
--- NOTE | 2017-09-02 12:27 | DIAGNOSTIC IMAGING REPORT ---
CHEST 2 VIEWS ROUTINE CLINICAL HISTORY: D69.3 Idiopathic thrombocytopenic [id number] Community acquire dyspnea COMPARISON STUDY: 08/28/2017 FINDINGS: Infiltrate medial right base similar as compared to the prior study. Lungs otherwise show moderate emphysematous change. Diaphragms smooth. Costophrenic angles are sharp. IMPRESSION: Parenchymal infiltrate medial right base unchanged from the prior study. A 4 week follow-up is suggested. The above report was generated using voice recognition software. It may contain grammatical, syntax or spelling errors. Electronically signed by: Topher Mead M.D. 09/02/2017 12:25 PM Dictated Date/Time: 09/02/2017 12:24 PM
[2017-09-02 13:27] LABS: HEMATOCRIT 40.5 % (42-52); MEAN CELL VOLUME 88.4 fL (80-100); MEAN CORPUSCULAR HEMOGLOBIN 28.4 pg (25-34); MEAN CORPUSCULAR HGB CONC 32.1 g/dl (32-36); RED CELL DISTRIBUTION WIDTH CV 14.2 % (11.5-14.5); RED CELL DISTRIBUTION WIDTH SD 46.2 fL (36.4-46.3); WHITE BLOOD COUNT 4.21 K/uL (4.8-10.8)
[2017-09-02 13:30] LABS: MEAN PLATELET VOLUME 10.4 fL (7.4-10.4); PLATELET COUNT 96 K/uL (130-400)
== END | disposition home or self-care (01) ==
LOC: C.LABBC 10:28
PROVIDERS: ATTEND Physician Assistant Medical
DX: J18.9 Pneumonia, unspecified organism (principal); D69.3 Immune thrombocytopenic purpura

== ENCOUNTER 2017-09-30 14:32 | Inpatient (IN) | payer BC, OTHER ==
[~2017-09-30] VITALS: Ht 190.5 cm; Wt 78.8 kg
[~2017-09-30 14:32] MED LIST changes: -DXM4 PO
[2017-09-30] MEDS ORDERED: METHYLPREDNISOLONE IV 80 MG in SYRINGE 0 ML IV STA (15:20)
[2017-09-30 16:06] LABS: INR 1.1 (0.9-1.1); PTT PATIENT 28.9 SECONDS (21.0-31.0)
[2017-09-30 16:27] LABS: POTASSIUM 4.1 mmol/L (3.5-5.1)
[2017-09-30 16:30] LABS: ALBUMIN 3.4 gm/dl (3.4-5.0); CALCIUM 8.6 mg/dl (8.5-10.1); CREATININE 0.77 mg/dl (0.60-1.40); TOTAL PROTEIN 6.4 gm/dl (6.4-8.2)
[2017-09-30] MEDS ORDERED: PNEUMOCOCCAL POLYSACCHARIDES 25 MCG/0.5 ML VIAL/SYR IM. ONE (18:00)
[2017-09-30] MEDS ORDERED: INFLUENZA VIRUS QUAD VACCINE 0.5 ML SYR IM. ONE (18:00)
--- NOTE | 2017-09-30 19:02 | History and Physical ---
History & Physical Date & Time of Service: Sep 30, 2017 at 19:02 Chief Complaint: Platelets Primary Care Physician: Gus Cobos M.D. History of Present Illness Source: patient 87 yo patient with history of ITP around [place] of this past year returns to the ED due to abnomarl labs. He reports that his paltelet count is now 3000. Yesterday he noticed "blood blisters in his mouth. And he notices petechia around his legs and right arm. He denies any otehr symptoms of fatigues, headache, neck pain, chest pain, SOB, N/V melena, hematochezia. He is not taking any medicine for this condition currently. Past Medical/Surgical History (1) ACS (acute coronary syndrome) Status: Resolved (2) Acute generalized exanthematous pustulosis Status: Resolved (3) Appendectomy Status: Resolved (4) Cholecystectomy Status: Resolved (5) Chronic prostatitis Status: Chronic (6) Corneal transplant Status: Resolved (7) Cystic Kidney Disease, Unspecified Status: Resolved (8) Esophageal Reflux Status: Chronic (9) Hyperlipidemia Nec/Nos Status: Chronic (10) Hypertension Status: Chronic (11) Non-Hodgkin's lymphoma Status: Chronic (12) Spinal stenosis Status: Chronic (13) Total replacement of hip Status: Resolved (14) Venous Thrombosis Nos Status: Resolved (15) Bladder cancer Family History Cancer Heart disease Hypertension Social History Smoking Status: Never Smoker Drug Use: none Marital Status: Housing status: lives with family Occupational Status: retired Immunizations History of Influenza Vaccine: Yes Influenza Vaccine Date: May 12, 2006 History of Tetanus Vaccine?: Yes History of Pneumococcal: Yes Pneumococcal Date: May 12, 2006 History of Hepatitis B Vaccine: No Allergies Coded Allergies: Linezolid (Unverified Allergy, Intermediate, ., 09/30/17) Penicillins (Verified Allergy, Intermediate, Rash, 09/30/17) RASH Rofecoxib (Verified Allergy, Intermediate, Rash, 09/30/17) RASH Codeine (Verified Allergy, Unknown, 2000 codeine after gallbladder sug = rash, red, & swelled up, 09/30/17) Meperidine (Verified Allergy, Unknown, 09/30/17) Statins (Unverified Allergy, Unknown, unknown, 09/30/17) Home Medications Scheduled Cholecalciferol (Vitamin D), 2,000 UNIT PO DAILY Cyclosporine (Ophth) (Restasis), 1 DROP OPB BID Dutasteride (Avodart), 0.5 MG PO HS Fexofenadine Hcl (Adriana Allergy), 180 MG PO DAILY Fluticasone Propionate (Fluticasone Propionate), 2 SPRAY GISELL DAILY Levothyroxine Sodium (Levo-T), 100 MCG PO DAILY Magnesium Oxide (Magnesium Oxide), 1 CAP PO DAILY Nitroglycerin (Nitrostat), 0.4 MG UT PRN Ocuvite Preservision (Ocuvite Preservision), 1 TAB PO PM Polyethylene Glycol-Propylene (Systane Ultra), 1 DROPS OPB BID Prednisolone Acetate (Ophth) (Pred Mild 0.12%), 1 DROP OPL 3XWK Scheduled PRN Albuterol Sulfate (Proair Respiclick), 2 PUFF INH Q4 PRN for SOB/Wheezing Review of Systems Constitutional: No fever, No chills Eyes: No worsening of vision ENT: No hearing loss Respiratory: No cough Cardiovascular: No chest pain Abdomen: No pain Musculoskeletal: No joint pain Genitourinary - Male: No hematuria Neurologic: No memory loss Psychiatric: No depression symptoms Endocrine: No fatigue Hematologic / Lymphatic: + abnormal bleeding/bruising Integumentary: + new/changing skin lesions, + bleeding, No rash Allergic / Immunologic: No environmental allergies Physical Exam Vital Signs Date Time Temp Pulse Resp B/P (MAP) Pulse Ox O2 Delivery O2 Flow Rate FiO2 09/30/17 18:12 67 18 149/84 96 Room Air 09/30/17 17:05 60 18 141/71 96 Room Air 09/30/17 16:21 67 09/30/17 15:41 64 20 117/62 97 Room Air 09/30/17 15:17 97 Room Air 09/30/17 14:34 36.3 105 18 155/87 96 Room Air General Appearance: WD/WN, no apparent distress Head: normocephalic Eyes: normal inspection ENT: normal ENT inspection, + pertinent finding (small petechia noticed in mouth) Neck: supple, no adenopathy Respiratory/Chest: chest non-tender, lungs clear, normal breath sounds Cardiovascular: no edema, no JVD, no murmur, + irregularly irregular Abdomen/GI: normal bowel sounds, non tender, soft Extremities/Musculoskelatal: normal inspection Neurologic/Psych: alert, oriented x 3 Skin: normal color, + pertinent finding (petechia noticed on right arm and bilateral legs. No active bleeding noted) Lymphatic: no adenopathy Diagnostics Laboratory Results Results Past 24 Hours Test 09/30/17 15:38 09/30/17 15:46 Range/Units Prothrombin Time 12.0 9.0-12.0 SECONDS Prothromb Time International Ratio 1.1 0.9-1.1 Activated Partial Thromboplast Time 28.9 21.0-31.0 SECONDS Partial Thromboplastin Ratio 1.1 Sodium Level 140 136-145 mmol/L Potassium Level 4.1 3.5-5.1 mmol/L Chloride Level 105 98-107 mmol/L Carbon Dioxide Level 29 21-32 mmol/L Anion Gap 6.0 3-11 mmol/L Blood Urea Nitrogen 13 7-18 mg/dl Creatinine 0.77 0.60-1.40 mg/dl Est Creatinine Clear Calc Drug Dose 77.4 ml/min Estimated GFR () 94.6 Estimated GFR (Non- 81.6 BUN/Creatinine Ratio 16.6 10-20 Random Glucose 84 70-99 mg/dl Calcium Level 8.6 8.5-10.1 mg/dl Magnesium Level 2.3 1.8-2.4 mg/dl Total Bilirubin 0.7 0.2-1 mg/dl Direct Bilirubin 0.2 0-0.2 mg/dl Aspartate Amino Transf (AST/SGOT) 19 15-37 U/L Alanine Aminotransferase (ALT/SGPT) 20 12-78 U/L Alkaline Phosphatase 105 45-117 U/L Total Protein 6.4 6.4-8.2 gm/dl Albumin 3.4 3.4-5.0 gm/dl Lipase 88 73-393 U/L Thyroid Stimulating Hormone (TSH) 0.785 0.300-4.500 uIu/ml Urine Color YELLOW Urine Appearance CLEAR CLEAR Urine pH 6.5 4.5-7.5 Urine Specific [place] 1.014 1.000-1.030 Urine Protein NEG NEG Urine Glucose (UA) NEG NEG Urine Ketones NEG NEG Urine Occult Blood 1+ NEG Urine Nitrite NEG NEG Urine Bilirubin NEG NEG Urine Urobilinogen NEG NEG Urine Leukocyte Esterase NEG NEG Urine WBC (Auto) 1-5 0-5 /hpf Urine RBC (Auto) 5-10 0-4 /hpf Urine Hyaline Casts (Auto) 0 0-5 /lpf Urine Epithelial Cells (Auto) 0-5 0-5 /lpf Urine Bacteria (Auto) NEG NEG Microbiology Results 09/30/17 Urine Culture, Received Pending Impression Assessment and Plan Assessment and Plan Mr. Rivera is an 86 year old gentleman with a past medical history of non- Hodgkin's lymphoma, atrial flutter, dyslipidemia, hypertension, CAD s/p NSTEMI ( January 2015) who was sent to [facility] due to thrombocytopenia. 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 currently a level 1. DVT prophylaxis: none currently Disposition: admitted to telemetry Advanced Directives Existing Advance Directive: No Existing Living Will: No Existing Power of Industrial Automation Specialist: No Existing Health Care Proxy: No Resuscitation Status VTE Prophylaxis Will order VTE Prophylaxis: No Reason for no VTE drug order: Contraindicated Reason no Mechanical VTE Order: Contraindicated
--- NOTE | 2017-09-30 19:17 | EMERGENCY ROOM VISIT NOTE ---
History Report prepared by Nelson: Vandana Boggs Under the Supervision of: Dr. Josh Buckner M.D. First contact with patient: 14:43 Chief Complaint: ABNORMAL LABS Stated Complaint: PLATELETS History of Present Illness The patient is a 87 year old male who presents to the Emergency Room with complaints of abnormal labs. 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 His platelet count is low at around 3000. He said this happened once over [place]. Yesterday he noticed some blood blisters in his mouth and some discoloration on his right arm. He took no medication for his symptoms. He feels well otherwise. Pt denies LOC, headache, fevers, chills, diaphoresis, visual changes, neck pain, chest pain, breathing difficulties, nausea, vomiting, abdominal pain, back pain, melena, hematochezia, urinary symptoms, numbness, weakness, lymphadenopathy, rash, or other complaints. 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 Review of Systems See HPI for pertinent positives and negatives. A total of ten systems were reviewed and were otherwise negative. 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 (19) Venous Thrombosis Nos Family History Cancer Heart disease Hypertension Social History Smoking Status: Never Smoker Alcohol Use: none Drug Use: none Marital Status: Housing Status: lives with family Occupation Status: retired Current/Historical Medications Scheduled Cholecalciferol (Vitamin D), 2,000 UNIT PO DAILY Cyclosporine (Ophth) (Restasis), 1 DROP OPB BID Dutasteride (Avodart), 0.5 MG PO HS Fexofenadine Hcl (Adriana Allergy), 180 MG PO DAILY Fluticasone Propionate (Fluticasone Propionate), 2 SPRAY GISELL DAILY Levothyroxine Sodium (Levo-T), 100 MCG PO DAILY Magnesium Oxide (Magnesium Oxide), 1 CAP PO DAILY Nitroglycerin (Nitrostat), 0.4 MG UT PRN Ocuvite Preservision (Ocuvite Preservision), 1 TAB PO PM Polyethylene Glycol-Propylene (Systane Ultra), 1 DROPS OPB BID Prednisolone Acetate (Ophth) (Pred Mild 0.12%), 1 DROP OPL 3XWK Scheduled PRN Albuterol Sulfate (Proair Respiclick), 2 PUFF INH Q4 PRN for SOB/Wheezing Allergies Coded Allergies: Linezolid (Unverified Allergy, Intermediate, ., 09/30/17) Penicillins (Verified Allergy, Intermediate, Rash, 09/30/17) RASH Rofecoxib (Verified Allergy, Intermediate, Rash, 09/30/17) RASH Codeine (Verified Allergy, Unknown, 2000 codeine after gallbladder sug = rash, red, & swelled up, 09/30/17) Meperidine (Verified Allergy, Unknown, 09/30/17) Statins (Unverified Allergy, Unknown, unknown, 09/30/17) Physical Exam Vital Signs Date Time Temp Pulse Resp B/P (MAP) Pulse Ox O2 Delivery O2 Flow Rate FiO2 09/30/17 18:12 67 18 149/84 96 Room Air 09/30/17 17:05 60 18 141/71 96 Room Air 09/30/17 16:21 67 09/30/17 15:41 64 20 117/62 97 Room Air 09/30/17 15:17 97 Room Air 09/30/17 14:34 36.3 105 18 155/87 96 Room Air Physical Exam GENERAL: Awake, alert, well-appearing, in no distress HENT: Normocephalic, atraumatic. Oropharynx unremarkable. Blood spots in the mouth. EYES: Normal conjunctiva. Sclera non-icteric. NECK: Supple. No nuchal rigidity. FROM. No masses. RESPIRATORY: Clear to auscultation. No wheezes. CARDIAC: Irregular rate. Normal rhythm. No murmurs. No rubs. Extremities warm and well perfused. Pulses equal. No JVD. GI: Soft, non-distended. No tenderness to palpation. No rebound or guarding. No masses. RECTAL: Deferred. MUSCULOSKELETAL: Atraumatic. Chest examination reveals no tenderness. The back is symmetrical on inspection without obvious abnormality. There is no CVA tenderness to palpation. No joint edema. LOWER EXTREMITIES: Calves are equal size bilaterally and non-tender. No edema. No discoloration. NEURO: Normal sensorium. No sensory or motor deficits noted. SKIN: Bruising to the right forearm. Scattered petechiae on the lower extremities. Medical Decision & Procedures Laboratory Results 09/30/17 15:38 Test 09/30/17 15:38 09/30/17 15:46 Prothrombin Time 12.0 SECONDS (9.0-12.0) Prothromb Time International Ratio 1.1 (0.9-1.1) Activated Partial Thromboplast Time 28.9 SECONDS (21.0-31.0) Partial Thromboplastin Ratio 1.1 Anion Gap 6.0 mmol/L (3-11) Est Creatinine Clear Calc Drug Dose 77.4 ml/min Estimated GFR () 94.6 Estimated GFR (Non- 81.6 BUN/Creatinine Ratio 16.6 (10-20) Calcium Level 8.6 mg/dl (8.5-10.1) Magnesium Level 2.3 mg/dl (1.8-2.4) Total Bilirubin 0.7 mg/dl (0.2-1) Direct Bilirubin 0.2 mg/dl (0-0.2) Aspartate Amino Transf (AST/SGOT) 19 U/L (15-37) Alanine Aminotransferase (ALT/SGPT) 20 U/L (12-78) Alkaline Phosphatase 105 U/L (45-117) Total Protein 6.4 gm/dl (6.4-8.2) Albumin 3.4 gm/dl (3.4-5.0) Lipase 88 U/L (73-393) Thyroid Stimulating Hormone (TSH) 0.785 uIu/ml (0.300-4.500) Urine Color YELLOW Urine Appearance CLEAR (CLEAR) Urine pH 6.5 (4.5-7.5) Urine Specific [place] 1.014 (1.000-1.030) Urine Protein NEG (NEG) Urine Glucose (UA) NEG (NEG) Urine Ketones NEG (NEG) Urine Occult Blood 1+ (NEG) Urine Nitrite NEG (NEG) Urine Bilirubin NEG (NEG) Urine Urobilinogen NEG (NEG) Urine Leukocyte Esterase NEG (NEG) Urine WBC (Auto) 1-5 /hpf (0-5) Urine RBC (Auto) 5-10 /hpf (0-4) Urine Hyaline Casts (Auto) 0 /lpf (0-5) Urine Epithelial Cells (Auto) 0-5 /lpf (0-5) Urine Bacteria (Auto) NEG (NEG) Laboratory results reviewed by me Medications Administered Medications (Trade) Dose Ordered Sig/Rosario Route Start Time Stop Time Status Last Admin Dose Admin Methylprednisolone Sodium Succinate 80 mg/Syringe 1.28 ml @ 1.5 mls/min NOW STAT IV 09/30/17 15:20 09/30/17 15:23 DC 09/30/17 15:58 1.5 MLS/MIN ECG Per My Interpretation Indication: other (thrombocytopenia) Rate (beats per minute): 62 Rhythm: atrial flutter (with 4:1 conduction) Findings: no acute ischemic change, no ectopy ED Course 1528: The patient was evaluated in room C2. A complete history and physical exam was performed. 1520: Methylprednisone Sodium Succinate 80 mg/Syringe 1.28 ml @ 1.5 mls/min IV 1625: Discussed the patient's case. The patient will be evaluated by Dr. Yepez , [facility] Hospitalist for further treatment and disposition. Medical Decision Triage Nursing notes reviewed. The patient's presentation and history were concerning for abnormal labs. Etiologies such as ITP, metabolic, infection, hypo/hyperglycemia, electrolyte abnormalities, cardiac sources, intracerebral event, toxicologic, neurologic, as well as others were entertained. The patient was evaluated. Clinically he was doing well. He had stigmata of thrombocytopenia on examination. I did discuss the case with Dr. Fleming, his mathematics professor. He recommended 1 mg/kg of IV Solu-Medrol and admission to the hospital. Blood work was obtained and was unremarkable except for his thrombocytopenia. Patient was given Solu-Medrol, 80 mg. Consultation was made with the hospitalist service. Patient was evaluated in the Emergency Room and admitted for further treatment. Medication Reconcilliation Current Medication List: was personally reviewed by me Blood Pressure Screening Patient's blood pressure: Elevated blood pressure Blood pressure disposition: Referred to PCP Consults Time Called: 162 Consulting Physician: Dr. Yepez, [facility] Hospitalist Returned Call: [phone] He will further evaluate the patient Impression Primary Impression: Thrombocytopenia Additional Impression: Acute ITP Scribe Attestation The scribe's documentation has been prepared under my direction and personally reviewed by me in its entirety. I confirm that the note above accurately reflects all work, treatment, procedures, and medical decision making performed by me. Departure Information Dispostion Being Evaluated By Hospitalist (Dr. Yepez, [facility] Hospitalist) Referrals Gus Cobos M.D. (PCP) Patient Instructions My [facility] Problem Qualifiers
[2017-09-30 20:00] VITALS: BP 154/104; PULSE 74; TEMP 36.5; O2SAT 94; Ht 190.5 cm; Wt 78.8 kg
[2017-09-30] MEDS ORDERED: PNEUMOCOCCAL ADMINISTRATION CHARGE ONE (20:15)
[2017-09-30] MEDS ORDERED: INFLUENZA VACCINE HIGH DOSE 65+ 0.5 ML SYR IM. ONE (20:15)
[2017-09-30] MEDS ORDERED: INFLUENZA ADMINISTRATION CHARGE ONE (20:15)
[2017-09-30 20:37] VITALS: BP 151/92
[2017-09-30] MEDS ORDERED: [UNRECOGNIZED DRUG - OTHER] PRN (21:15)
[2017-09-30] MEDS ORDERED: [UNRECOGNIZED DRUG - OTHER] PRN (21:15)
[2017-09-30] MEDS ORDERED: NITROGLYCERIN 0.4 MG SL PER TAB CHARGE UT SCH (23:30)
[2017-09-30] MEDS ORDERED: ALBUTEROL HFA 8 GM INHALER INH PRN (23:30)
[2017-10-01] VITALS (21 sets, daily range): BP systolic 110–148; BP diastolic 56–80; PULSE 60–92; TEMP 36.3–37.3; O2SAT 93–98
[2017-10-01] MEDS: LEVOTHYROXINE 100 MCG TAB PO SCH (06:02)
[2017-10-01] MEDS: AVODART~ORDER AWAITING ACTION SCH ×3 (07:28→16:00)
[2017-10-01] MEDS: [UNRECOGNIZED DRUG - OTHER] SCH ×2 (07:28→16:00)
[2017-10-01] MEDS: RESTASIS~ORDER AWAITING ACTION SCH ×3 (07:28→16:00)
[2017-10-01] MEDS: FLUTICASONE PROPIONATE NA SPR 16 GM BTL NAE SCH (07:30)
[2017-10-01] MEDS: ARTIFICIAL TEARS OP SOLN OPB SCH ×2 (07:30→21:11)
[2017-10-01] MEDS: FEXOFENADINE HCL 180 MG TAB PO SCH (07:31)
[2017-10-01] MEDS: CHOLECALCIFEROL 1000 INTER.UNIT TAB PO SCH (07:31)
[2017-10-01] MEDS: MAGNESIUM OXIDE 400 MG TAB PO SCH (07:31)
[2017-10-01] MEDS: DEXAMETHASONE 4 MG TAB PO SCH (07:31)
[2017-10-01] MEDS ORDERED: DEXAMETHASONE 4 MG TAB PO SCH (09:00)
[2017-10-01 09:08] LABS: HEMATOCRIT 39.3 % (42-52); MEAN CORPUSCULAR HEMOGLOBIN 28.4 pg (25-34); RED CELL DISTRIBUTION WIDTH CV 15.2 % (11.5-14.5); RED CELL DISTRIBUTION WIDTH SD 47.9 fL (36.4-46.3)
[2017-10-01 09:25] LABS: MEAN CORPUSCULAR HGB CONC 33.1 g/dl (32-36); PLATELET COUNT 1 K/uL (130-400)
[2017-10-01 09:29] LABS: BASO % 0.2 %; BASO ABS # 0.01 K/uL (0-0.2); IG# 0.07 K/uL (0.00-0.02); LYMPH % 14.3 %; MONO % 8.2 %; MONO ABS # 0.46 K/uL (0.11-0.59); NEUT ABS # 4.26 K/uL (1.4-6.5)
--- NOTE | 2017-10-01 15:18 | Oncology Consultation ---
Oncology/Heme Consultation Date of Consultation: Oct 01, 2017. Attending Physician: Alexis Collins D.O. Reason for Consultation: Mr. 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 He was treated with chemotherapy and Rituxan in 2011 to remission and had been on maintenance Rituxan through 2012. He also has a history of ITP. He was admitted now with a rather severe thrombocytopenia. He also has been having petechiae and bruising. History of Present Illness Mr. Srivastava is an 87-year-old gentleman with a history of marginal B cell zone lymphoma diagnosed in 2011 and treated with cladribine as well as Rituxan. He finished maintenance Rituxan in February 2013. He has done well however he has had intermittent bouts of thrombocytopenia consistent with ITP. CT scans of the chest abdomen and pelvis done in June 2017 who really did not demonstrate any adenopathy. There was a concern however that there were some bladder defects and he states that he was in the midst of having those evaluated by Dr. Velasco. He is admitted now with a platelet count of 1000. He reviews with me that he was treated with Decadron for ITP the third week of June. He denies headache. Denies any fever chills or weight loss. He denies any change in bowel habits. He denies any dysuria or hematuria. Past Medical/Surgical History Medical Problems: (1) Acute bronchitis Status: Acute (2) Exertional chest pain Status: Acute (3) New onset atrial flutter Status: Acute (4) Pneumonia Status: Acute Family History Cancer Heart disease Hypertension Social History Smoking Status: Never Smoker Drug Use: none Marital Status: Housing Status: lives with family Occupation Status: retired Allergies Coded Allergies: Linezolid (Unverified Allergy, Intermediate, ., 09/30/17) Penicillins (Verified Allergy, Intermediate, Rash, 09/30/17) RASH Rofecoxib (Verified Allergy, Intermediate, Rash, 09/30/17) RASH Codeine (Verified Allergy, Unknown, 2000 codeine after gallbladder sug = rash, red, & swelled up, 09/30/17) Meperidine (Verified Allergy, Unknown, 09/30/17) Statins (Unverified Allergy, Unknown, unknown, 09/30/17) Home Medications Scheduled Cholecalciferol (Vitamin D), 2,000 UNIT PO DAILY Cyclosporine (Ophth) (Restasis), 1 DROP OPB BID Dutasteride (Avodart), 0.5 MG PO HS Fexofenadine Hcl (Adriana Allergy), 180 MG PO DAILY Fluticasone Propionate (Fluticasone Propionate), 2 SPRAY GISELL DAILY Levothyroxine Sodium (Levo-T), 100 MCG PO DAILY Magnesium Oxide (Magnesium Oxide), 1 CAP PO DAILY Nitroglycerin (Nitrostat), 0.4 MG UT PRN Ocuvite Preservision (Ocuvite Preservision), 1 TAB PO PM Polyethylene Glycol-Propylene (Systane Ultra), 1 DROPS OPB BID Prednisolone Acetate (Ophth) (Pred Mild 0.12%), 1 DROP OPL 3XWK Scheduled PRN Albuterol Sulfate (Proair Respiclick), 2 PUFF INH Q4 PRN for SOB/Wheezing Current Inpatient Medications Current Inpatient Medications Medications (Trade) Dose Ordered Sig/Rosario Route Start Time Stop Time Status Last Admin Dose Admin Pneumococcal Polysaccharide Vaccine 1 ea PRN PRN N/A 09/30/17 21:15 10/30/17 21:14 Influenza Virus Vacc Triv Types A&B 1 ea PRN PRN N/A 09/30/17 21:15 10/30/17 21:14 Fexofenadine HCl (Adriana Tab) 180 mg DAILY PO 10/01/17 09:00 10/31/17 08:59 10/01/17 07:31 180 MG Fluticasone Propionate (Flonase Nasal [place]) 2 sprays DAILY GISELL 10/01/17 09:00 10/31/17 08:59 Levothyroxine Sodium (Synthroid Tab) 100 mcg DAILYBB PO 10/01/17 06:00 10/31/17 05:59 10/01/17 06:02 100 MCG Nitroglycerin (Nitrostat Tab) 0.4 mg PRN UT 09/30/17 23:30 10/30/17 23:29 Multivitamins/ Minerals (Multivitamin W/ Minerals Tab) 1 tab PM PO 10/01/17 21:00 10/31/17 20:59 Albuterol (Ventolin Hfa Inhaler) 2 puffs Q4 PRN INH 09/30/17 23:30 4/4/18 23:29 Cholecalciferol (Vitamin D Tab) 2,000 inter.unit DAILY PO 10/01/17 09:00 10/31/17 08:59 10/01/17 07:31 2,000 INTER.UNIT Miscellaneous Information (Order Awaiting Action) 1 ea QS N/A 10/01/17 00:00 10/31/17 00:00 10/01/17 07:28 1 EA Miscellaneous Information (Order Awaiting Action) 1 ea QS N/A 10/01/17 00:00 10/31/17 00:00 10/01/17 07:28 1 EA Magnesium Oxide (Mag-Ox Tab) 400 mg DAILY PO 10/01/17 09:00 10/31/17 08:59 10/01/17 07:31 400 MG Artificial Tears (Artificial Tears) 1 drops BID OPB 10/01/17 09:00 10/31/17 08:59 10/01/17 07:30 1 DROPS Miscellaneous Information (Order Awaiting Action) 1 ea QS N/A 10/01/17 08:00 10/31/17 07:59 10/01/17 07:28 1 EA Dexamethasone (Decadron Tab) 40 mg DAILY PO 10/01/17 09:00 10/31/17 08:59 10/01/17 07:31 40 MG Review of Systems Constitutional: Negative for weight loss, night sweats, or fever. However he states that he was treated recently for pneumonia with an antibiotic. There was also a need for about 10 days of Tamiflu due to his developing the flu in July. Eyes: Negative for event change of vision ENT: Negative for epistaxis, nasal discharge, sore throat, or deafness. He noticed blood blisters in his mouth a few days ago. Cardiovascular: Negative for chest pain, palpitations, dizziness, diaphoresis Respiratory: Negative for new shortness of breath,hemoptysis, or purulent cough Gastrointestinal: Negative for diarrhea, hematemesis, melena, nausea, vomiting , or dyspepsia Integumentary (skin): Negative for rash or jaundice discoloration. He has developed petechiae or his abdomen periumbilically. Genitourinary: Negative for urinary frequency, hematuria, or dysuria Neurological: Negative for weakness, seizure activity, headache, or dizziness Lymphatic/Hematologic: Negative for petechiae, bleeding or new adenopathy Musculoskeletal: Negative for new joint or back pain Allergic/Immunologic: Negative for unusual rash or pruritis. Physical Exam Date Time Temp Pulse Resp B/P (MAP) Pulse Ox O2 Delivery O2 Flow Rate FiO2 10/01/17 12:00 37.3 72 20 110/59 (76) 97 Room Air 10/01/17 12:00 96 Room Air 10/01/17 08:00 96 Room Air 10/01/17 07:50 36.9 84 20 131/64 (86) 98 Room Air 10/01/17 04:00 94 Room Air 10/01/17 03:51 36.9 74 18 117/71 (86) 94 Room Air 10/01/17 00:18 36.8 72 18 124/64 (84) 95 10/01/17 00:00 94 Room Air 09/30/17 20:37 151/92 (111) 09/30/17 20:00 36.5 74 18 154/104 94 Room Air 09/30/17 18:12 67 18 149/84 96 Room Air 09/30/17 17:05 60 18 141/71 96 Room Air 09/30/17 16:21 67 09/30/17 15:41 64 20 117/62 97 Room Air 09/30/17 15:17 97 Room Air Constitutional: vitals are stable. Pleasant delightful elderly gentleman Eyes: Eyes are BARI EOMI without conjuctival erythema or icterus. ENT: External examination was negative for masses. He does have some ecchymotic areas in the mouth Neck: Negative for masses or palpable thyromegaly Respiratory: Lung sounds were generally clear bilaterally Cardiovascular: Heart was RRR without significant murmur (though apparently has a history of atrial fibrillation), no gallops or rubs Gastrointestinal: No palpable hepatic or splenomegaly. The abdomen was soft with normal bowel sounds. Lymphatic system: there was no palpable peripheral lymphadenopathy Musculoskeletal System: The musculoskeletal system seemed concordant with age. Skin: The skin was negative for jaundice. Petechiae are noted particularly periumbilically. Neurologic exam: The exam was negative for any focal findings. Deep tendon reflexes were equal and symmetrical. Psychiatric exam: Was essentially negative with normal mood and effect. Extremities: negative for edema or definite petechiae. Laboratory Results Last 24 Hours Test 09/30/17 15:38 09/30/17 15:46 10/01/17 08:37 Prothrombin Time 12.0 SECONDS Prothromb Time International Ratio 1.1 Activated Partial Thromboplast Time 28.9 SECONDS Partial Thromboplastin Ratio 1.1 Sodium Level 140 mmol/L Potassium Level 4.1 mmol/L Chloride Level 105 mmol/L Carbon Dioxide Level 29 mmol/L Anion Gap 6.0 mmol/L Blood Urea Nitrogen 13 mg/dl Creatinine 0.77 mg/dl Est Creatinine Clear Calc Drug Dose 77.4 ml/min Estimated GFR () 94.6 Estimated GFR (Non- 81.6 BUN/Creatinine Ratio 16.6 Random Glucose 84 mg/dl Calcium Level 8.6 mg/dl Magnesium Level 2.3 mg/dl Total Bilirubin 0.7 mg/dl Direct Bilirubin 0.2 mg/dl Aspartate Amino Transf (AST/SGOT) 19 U/L Alanine Aminotransferase (ALT/SGPT) 20 U/L Alkaline Phosphatase 105 U/L Total Protein 6.4 gm/dl Albumin 3.4 gm/dl Lipase 88 U/L Thyroid Stimulating Hormone (TSH) 0.785 uIu/ml Urine Color YELLOW Urine Appearance CLEAR Urine pH 6.5 Urine Specific [place] 1.014 Urine Protein NEG Urine Glucose (UA) NEG Urine Ketones NEG Urine Occult Blood 1+ Urine Nitrite NEG Urine Bilirubin NEG Urine Urobilinogen NEG Urine Leukocyte Esterase NEG Urine WBC (Auto) 1-5 /hpf Urine RBC (Auto) 5-10 /hpf Urine Hyaline Casts (Auto) 0 /lpf Urine Epithelial Cells (Auto) 0-5 /lpf Urine Bacteria (Auto) NEG White Blood Count 5.60 K/uL Red Blood Count 4.57 M/uL Hemoglobin 13.0 g/dL Hematocrit 39.3 % Mean Corpuscular Volume 86.0 fL Mean Corpuscular Hemoglobin 28.4 pg Mean Corpuscular Hemoglobin Concent 33.1 g/dl Platelet Count 1 K/uL Neutrophils (%) (Auto) 76.0 % Lymphocytes (%) (Auto) 14.3 % Monocytes (%) (Auto) 8.2 % Eosinophils (%) (Auto) 0.0 % Basophils (%) (Auto) 0.2 % Neutrophils # (Auto) 4.26 K/uL Lymphocytes # (Auto) 0.80 K/uL Monocytes # (Auto) 0.46 K/uL Eosinophils # (Auto) 0.00 K/uL Basophils # (Auto) 0.01 K/uL RDW Standard Deviation 47.9 fL RDW Coefficient of Variation 15.2 % Immature Granulocyte % (Auto) 1.3 % Immature Granulocyte # (Auto) 0.07 K/uL Platelet Estimate SIGNIFIC DECREASED Assessment & Plan 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 Review of the peripheral smear shows a white cells to be normal in morphology. The red cells are banal in appearance. Platelets are decreased all consistent with unilineage thrombocytopenia that is most likely AITP. I understand that a cystoscopy was being planned the third week of September. He is 87 years old with a 1000 platelet number. Decadron has been started and would agree with that of 40 mg a day for 4 days. However I believe the addition of IV gammaglobulin would be warranted. The dose would be 1 g/kg per day. He is approximately 80 kg and subsequently I will prescribe 40 today and perhaps 40 tomorrow. This was reviewed with Dr. Collins. May have to consider Rituxan as an outpatient to keep him out of thrombocytopenia trouble
[2017-10-01] MEDS ORDERED: METHYLPREDNISOLONE IV STA (15:40)
--- NOTE | 2017-10-01 15:40 | Progress Note ---
Subjective Date of Service: Oct 01, 2017. Subjective Pt evaluation today including: conversation w/ patient, conversation w/ family , physical exam, lab review, conversation w/ [facility] health consultant, review of inpatient medication list Pain: no pain PO Intake: adequate Voiding: no voiding problems platelets only 1000 this AM discussed with Dr. Hoffmann, will start IVIG patient doing well, no bleeding, has some bruising on arm Problem List Medical Problems: (1) Acute bronchitis Status: Acute (2) Exertional chest pain Status: Acute (3) New onset atrial flutter Status: Acute (4) Pneumonia Status: Acute Review of Systems Constitutional: + weakness, + fatigue Skin: + problem reported (bruising) All Other Systems: Reviewed and Negative Medications Current Inpatient Medications Medications (Trade) Dose Ordered Sig/Rosario Route Start Time Stop Time Status Last Admin Dose Admin Pneumococcal Polysaccharide Vaccine 1 ea PRN PRN N/A 09/30/17 21:15 10/30/17 21:14 Influenza Virus Vacc Triv Types A&B 1 ea PRN PRN N/A 09/30/17 21:15 10/30/17 21:14 Fexofenadine HCl (Adriana Tab) 180 mg DAILY PO 10/01/17 09:00 10/31/17 08:59 10/01/17 07:31 180 MG Fluticasone Propionate (Flonase Nasal [place]) 2 sprays DAILY GISELL 10/01/17 09:00 10/31/17 08:59 Levothyroxine Sodium (Synthroid Tab) 100 mcg DAILYBB PO 10/01/17 06:00 10/31/17 05:59 10/01/17 06:02 100 MCG Nitroglycerin (Nitrostat Tab) 0.4 mg PRN UT 09/30/17 23:30 10/30/17 23:29 Multivitamins/ Minerals (Multivitamin W/ Minerals Tab) 1 tab PM PO 10/01/17 21:00 10/31/17 20:59 Albuterol (Ventolin Hfa Inhaler) 2 puffs Q4 PRN INH 09/30/17 23:30 10/30/17 23:29 Cholecalciferol (Vitamin D Tab) 2,000 inter.unit DAILY PO 10/01/17 09:00 10/31/17 08:59 10/01/17 07:31 2,000 INTER.UNIT Miscellaneous Information (Order Awaiting Action) 1 ea QS N/A 10/01/17 00:00 10/31/17 00:00 10/01/17 07:28 1 EA Miscellaneous Information (Order Awaiting Action) 1 ea QS N/A 10/01/17 00:00 10/31/17 00:00 10/01/17 07:28 1 EA Magnesium Oxide (Mag-Ox Tab) 400 mg DAILY PO 10/01/17 09:00 10/31/17 08:59 10/01/17 07:31 400 MG Artificial Tears (Artificial Tears) 1 drops BID OPB 10/01/17 09:00 10/31/17 08:59 10/01/17 07:30 1 DROPS Miscellaneous Information (Order Awaiting Action) 1 ea QS N/A 10/01/17 08:00 10/31/17 07:59 10/01/17 07:28 1 EA Dexamethasone (Decadron Tab) 40 mg DAILY PO 10/01/17 09:00 10/31/17 08:59 10/01/17 07:31 40 MG Immune Globulin 40 gm/Empty Bag 400 ml @ 0 mls/hr TODAY IV 10/01/17 15:30 10/31/17 15:29 UNV Objective Vital Signs Date Time Temp Pulse Resp B/P (MAP) Pulse Ox O2 Delivery O2 Flow Rate FiO2 10/01/17 12:00 37.3 72 20 110/59 (76) 97 Room Air 10/01/17 12:00 96 Room Air 10/01/17 08:00 96 Room Air 10/01/17 07:50 36.9 84 20 131/64 (86) 98 Room Air 10/01/17 04:00 94 Room Air 10/01/17 03:51 36.9 74 18 117/71 (86) 94 Room Air 10/01/17 00:18 36.8 72 18 124/64 (84) 95 10/01/17 00:00 94 Room Air 09/30/17 20:37 151/92 (111) 09/30/17 20:00 36.5 74 18 154/104 94 Room Air 09/30/17 18:12 67 18 149/84 96 Room Air 09/30/17 17:05 60 18 141/71 96 Room Air 09/30/17 16:21 67 09/30/17 15:41 64 20 117/62 97 Room Air Physical Exam General Appearance: WD/WN, no apparent distress Eyes: normal inspection, EOMI, sclerae normal ENT: normal ENT inspection, hearing grossly normal, pharynx normal Neck: supple, no adenopathy, no JVD, trachea midline Respiratory/Chest: chest non-tender, lungs clear, normal breath sounds, no respiratory distress, no accessory muscle use Cardiovascular: regular rate, rhythm, no edema, no gallop, no JVD, no murmur Abdomen: normal bowel sounds, non tender, soft, no organomegaly Extremities: normal range of motion, non-tender, normal inspection, no pedal edema, no calf tenderness, pelvis stable Neurologic/Psychiatric: translator II-XII nml as tested, no motor/sensory deficits, alert, normal mood/affect, oriented x 3 Skin: + pertinent finding (bruising) Lymphatic: no adenopathy Laboratory Results Last 24 Hours Test 09/30/17 15:38 09/30/17 15:46 10/01/17 08:37 Prothrombin Time 12.0 SECONDS Prothromb Time International Ratio 1.1 Activated Partial Thromboplast Time 28.9 SECONDS Partial Thromboplastin Ratio 1.1 Sodium Level 140 mmol/L Potassium Level 4.1 mmol/L Chloride Level 105 mmol/L Carbon Dioxide Level 29 mmol/L Anion Gap 6.0 mmol/L Blood Urea Nitrogen 13 mg/dl Creatinine 0.77 mg/dl Est Creatinine Clear Calc Drug Dose 77.4 ml/min Estimated GFR () 94.6 Estimated GFR (Non- 81.6 BUN/Creatinine Ratio 16.6 Random Glucose 84 mg/dl Calcium Level 8.6 mg/dl Magnesium Level 2.3 mg/dl Total Bilirubin 0.7 mg/dl Direct Bilirubin 0.2 mg/dl Aspartate Amino Transf (AST/SGOT) 19 U/L Alanine Aminotransferase (ALT/SGPT) 20 U/L Alkaline Phosphatase 105 U/L Total Protein 6.4 gm/dl Albumin 3.4 gm/dl Lipase 88 U/L Thyroid Stimulating Hormone (TSH) 0.785 uIu/ml Urine Color YELLOW Urine Appearance CLEAR Urine pH 6.5 Urine Specific [place] 1.014 Urine Protein NEG Urine Glucose (UA) NEG Urine Ketones NEG Urine Occult Blood 1+ Urine Nitrite NEG Urine Bilirubin NEG Urine Urobilinogen NEG Urine Leukocyte Esterase NEG Urine WBC (Auto) 1-5 /hpf Urine RBC (Auto) 5-10 /hpf Urine Hyaline Casts (Auto) 0 /lpf Urine Epithelial Cells (Auto) 0-5 /lpf Urine Bacteria (Auto) NEG White Blood Count 5.60 K/uL Red Blood Count 4.57 M/uL Hemoglobin 13.0 g/dL Hematocrit 39.3 % Mean Corpuscular Volume 86.0 fL Mean Corpuscular Hemoglobin 28.4 pg Mean Corpuscular Hemoglobin Concent 33.1 g/dl Platelet Count 1 K/uL Neutrophils (%) (Auto) 76.0 % Lymphocytes (%) (Auto) 14.3 % Monocytes (%) (Auto) 8.2 % Eosinophils (%) (Auto) 0.0 % Basophils (%) (Auto) 0.2 % Neutrophils # (Auto) 4.26 K/uL Lymphocytes # (Auto) 0.80 K/uL Monocytes # (Auto) 0.46 K/uL Eosinophils # (Auto) 0.00 K/uL Basophils # (Auto) 0.01 K/uL RDW Standard Deviation 47.9 fL RDW Coefficient of Variation 15.2 % Immature Granulocyte % (Auto) 1.3 % Immature Granulocyte # (Auto) 0.07 K/uL Platelet Estimate SIGNIFIC DECREASED Assessment and Plan Mr. Rivera is an 86 year old gentleman with a past medical history of non- Hodgkin's lymphoma, atrial flutter, dyslipidemia, hypertension, CAD s/p NSTEMI ( January 2015) who was sent to [facility] due to thrombocytopenia. 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 Hoffmann, will start IVIG follow platelet count daily Atrial flutter - HR controlled, no anticoagulation due to thrombocytopenia - transfer off tele Hypothyroidism - continue levothyroxine Bladder tumors: has cystoscopy scheduled later this month, would hold unless platelets recover PT/OT consults, transfer to medical floor
[2017-10-01] MEDS ORDERED: ACETAMINOPHEN 325 MG TAB PO ONE (15:45)
[2017-10-01] MEDS ORDERED: DiphenhydrAMINE HCL 50 MG/ML VIAL IV ONE (15:45)
[2017-10-01] MEDS: CycloSPORINE 0.05% 0.4 ML 30 UDV/BOX OPB SCH (21:12)
[2017-10-01] MEDS: CEROVITE ADV FORMULA TAB PO SCH (21:13)
[2017-10-02] MEDS: LEVOTHYROXINE 100 MCG TAB PO SCH (05:53)
[2017-10-02 07:33] VITALS: BP 111/65; PULSE 55; TEMP 36.5; O2SAT 98
[2017-10-02 07:45] LABS: HEMATOCRIT 39.8 % (42-52); HEMOGLOBIN 13.2 g/dL (14.0-18.0); MEAN CELL VOLUME 86.7 fL (80-100); MEAN CORPUSCULAR HEMOGLOBIN 28.8 pg (25-34); MEAN CORPUSCULAR HGB CONC 33.2 g/dl (32-36); RED CELL DISTRIBUTION WIDTH CV 15.6 % (11.5-14.5); RED CELL DISTRIBUTION WIDTH SD 49.1 fL (36.4-46.3); WHITE BLOOD COUNT 8.72 K/uL (4.8-10.8)
[2017-10-02 07:46] LABS: BASO % 0.1 %; BASO ABS # 0.01 K/uL (0-0.2); IG# 0.28 K/uL (0.00-0.02); LYMPH % 11.8 %; LYMPH ABS # 1.03 K/uL (1.2-3.4); MONO ABS # 0.87 K/uL (0.11-0.59); NEUT % 74.9 %; NEUT ABS # 6.53 K/uL (1.4-6.5); PLATELET COUNT 8 K/uL (130-400)
[2017-10-02 07:53] LABS: CALCIUM 9.2 mg/dl (8.5-10.1); CREATININE 0.77 mg/dl (0.60-1.40); POTASSIUM 3.7 mmol/L (3.5-5.1)
[2017-10-02] MEDS: FLUTICASONE PROPIONATE NA SPR 16 GM BTL NAE SCH (08:00)
[2017-10-02] MEDS: ARTIFICIAL TEARS OP SOLN OPB SCH ×2 (08:08→19:07)
[2017-10-02] MEDS: FEXOFENADINE HCL 180 MG TAB PO SCH (08:08)
[2017-10-02] MEDS: MAGNESIUM OXIDE 400 MG TAB PO SCH (08:08)
[2017-10-02] MEDS: DEXAMETHASONE 4 MG TAB PO SCH (08:09)
[2017-10-02] MEDS: CHOLECALCIFEROL 1000 INTER.UNIT TAB PO SCH (08:09)
[2017-10-02] MEDS: DUTASTERIDE 0.5MG PO SCH (08:10)
[2017-10-02] MEDS: CycloSPORINE 0.05% 0.4 ML 30 UDV/BOX OPB SCH ×2 (08:10→19:08)
[2017-10-02] MEDS ORDERED: PREDNISOLONE ACETATE 0.12% OPL SCH (09:00)
--- NOTE | 2017-10-02 12:17 | Hematology/Oncology Prog Note ---
Hematology/Onc Progress Note Date of Service Oct 02, 2017. Diagnoses ITP History of marginal zone lymphoma Medications Medications Administered Medications (Trade) Dose Ordered Sig/Rosario Route Start Time Stop Time Status Last Admin Dose Admin Methylprednisolone Sodium Succinate 80 mg/Syringe 1.28 ml @ 1.5 mls/min NOW STAT IV 09/30/17 15:20 09/30/17 15:23 DC 09/30/17 15:58 1.5 MLS/MIN Fexofenadine HCl (Adriana Tab) 180 mg DAILY PO 10/01/17 09:00 10/31/17 08:59 10/02/17 08:08 180 MG Levothyroxine Sodium (Synthroid Tab) 100 mcg DAILYBB PO 10/01/17 06:00 10/31/17 05:59 10/02/17 05:53 100 MCG Multivitamins/ Minerals (Multivitamin W/ Minerals Tab) 1 tab PM PO 10/01/17 20:00 10/31/17 20:59 10/01/17 21:13 1 TAB Cholecalciferol (Vitamin D Tab) 2,000 inter.unit DAILY PO 10/01/17 09:00 10/31/17 08:59 10/02/17 08:09 2,000 INTER.UNIT Miscellaneous Information (Order Awaiting Action) 1 ea QS N/A 10/01/17 00:00 10/01/17 18:51 DC 10/01/17 07:28 1 EA Miscellaneous Information (Order Awaiting Action) 1 ea QS N/A 10/01/17 00:00 10/01/17 18:25 DC 10/01/17 07:28 1 EA Magnesium Oxide (Mag-Ox Tab) 400 mg DAILY PO 10/01/17 09:00 10/31/17 08:59 10/02/17 08:08 400 MG Artificial Tears (Artificial Tears) 1 drops BID OPB 10/01/17 09:00 10/31/17 08:59 10/02/17 08:08 1 DROPS Miscellaneous Information (Order Awaiting Action) 1 ea QS N/A 10/01/17 08:00 10/01/17 18:44 DC 10/01/17 07:28 1 EA Dexamethasone (Decadron Tab) 40 mg DAILY PO 10/01/17 09:00 10/31/17 08:59 10/02/17 08:09 40 MG Immune Globulin 20 gm/Empty Bag 200 ml @ 0 mls/hr TODAY@1600,1800 IV 10/01/17 16:00 10/01/17 20:00 DC 10/01/17 20:25 80 MLS/HR Diphenhydramine HCl (Benadryl Inj) 25 mg NOW ONCE IV 10/01/17 15:45 10/01/17 15:47 DC 10/01/17 16:28 25 MG Acetaminophen (Tylenol Tab) 650 mg NOW ONCE PO 10/01/17 15:45 10/01/17 15:47 DC 10/01/17 16:28 650 MG Methylprednisolone Sodium Succinate 50 mg/Syringe 0.8 ml @ 1.5 mls/min NOW STAT IV 10/01/17 15:40 10/01/17 15:41 DC 10/01/17 16:27 1.5 MLS/MIN Dutasteride (Avodart) 0.5 mg DAILY PO 10/02/17 08:00 11/01/17 07:59 10/02/17 08:10 0.5 MG Prednisolone Acetate (Pred Mild 0.12%) 1 ml MoWeFr@0900 OPL 10/02/17 09:00 11/01/17 08:59 10/02/17 08:08 1 ML Cyclosporine (Restasis) 1 drops BID OPB 10/01/17 20:00 10/31/17 19:59 10/02/17 08:10 1 DROPS Subjective He is doing well. He denies any bleeding. Tolerated yesterday's IV gammaglobulin quite well. Review of Systems: Constitutional: Negative for night sweats, or fever Eyes: Negative for event change of vision ENT: Negative for epistaxis, nasal discharge, sore throat, or deafness Cardiovascular: Negative for chest pain, palpitations, dizziness, diaphoresis Respiratory: Negative for new shortness of breath,hemoptysis, or purulent cough Gastrointestinal: Negative for diarrhea, hematemesis, melena, nausea, vomiting , or dyspepsia Integumentary (skin): Negative for rash or jaundice discoloration Neurological: Negative for weakness, seizure activity, headache, or dizziness Lymphatic/Hematologic: Negative for petechiae, bleeding or new adenopathy Musculoskeletal: Negative for new joint or back pain Allergic/Immunologic: Negative for unusual rash or pruritis. Vital Signs Vital Signs Past 12 Hours Date Time Temp Pulse Resp B/P (MAP) Pulse Ox O2 Delivery O2 Flow Rate FiO2 10/02/17 08:30 Room Air 10/02/17 07:33 36.5 55 20 111/65 (80) 98 Room Air Physical Exam Constitutional: vitals are stable. Eyes: Eyes are BARI EOMI without conjuctival erythema or icterus. ENT: External examination was negative for masses. Neck: Negative for masses or palpable thyromegaly Respiratory: Lung sounds were generally clear bilaterally Cardiovascular: Heart was RRR without significant murmur, gallops aoe rubs Gastrointestinal: No palpable hepatic or splenomegaly. The abdomen was soft with normal bowel sounds. Lymphatic system: there was no palpable peripheral lymphadenopathy Musculoskeletal System: The musculoskeletal system seemed concordant with age. Skin: The skin was negative for jaundice. Occasional petechiae that are not new is seen on lower extremities as well as periumbilically Neurologic exam: The exam was negative for any focal findings. Deep tendon reflexes were equal and symmetrical. Psychiatric exam: Was essentially negative with normal mood and effect. Laboratory Last 24 Hours Test 10/02/17 06:34 White Blood Count 8.72 K/uL Red Blood Count 4.59 M/uL Hemoglobin 13.2 g/dL Hematocrit 39.8 % Mean Corpuscular Volume 86.7 fL Mean Corpuscular Hemoglobin 28.8 pg Mean Corpuscular Hemoglobin Concent 33.2 g/dl Platelet Count 8 K/uL Neutrophils (%) (Auto) 74.9 % Lymphocytes (%) (Auto) 11.8 % Monocytes (%) (Auto) 10.0 % Eosinophils (%) (Auto) 0.0 % Basophils (%) (Auto) 0.1 % Neutrophils # (Auto) 6.53 K/uL Lymphocytes # (Auto) 1.03 K/uL Monocytes # (Auto) 0.87 K/uL Eosinophils # (Auto) 0.00 K/uL Basophils # (Auto) 0.01 K/uL RDW Standard Deviation 49.1 fL RDW Coefficient of Variation 15.6 % Immature Granulocyte % (Auto) 3.2 % Immature Granulocyte # (Auto) 0.28 K/uL Platelet Estimate SIGNIFIC DECREASED Sodium Level 138 mmol/L Potassium Level 3.7 mmol/L Chloride Level 102 mmol/L Carbon Dioxide Level 30 mmol/L Anion Gap 6.0 mmol/L Blood Urea Nitrogen 22 mg/dl Creatinine 0.77 mg/dl Est Creatinine Clear Calc Drug Dose 75.3 ml/min Estimated GFR () 94.6 Estimated GFR (Non- 81.6 BUN/Creatinine Ratio 27.9 Random Glucose 128 mg/dl Calcium Level 9.2 mg/dl Assessment & Plan Platelet count today is 8000. I will ask for another dose of IV gammaglobulin today. Decadron 40 mg a day will continue for 4 days. Today will be his final planned dose of IVIG. If in fact tomorrow's platelet count is much better than we can anticipate discharge and follow-up in our clinic with Dr. Fleming.
[2017-10-02] MEDS ORDERED: ACETAMINOPHEN 325 MG TAB PO SCH (13:00)
[2017-10-02] MEDS ORDERED: DiphenhydrAMINE HCL 50 MG/ML VIAL IV SCH (13:00)
[2017-10-02] MEDS ORDERED: METHYLPREDNISOLONE IV SCH (13:30)
--- NOTE | 2017-10-02 15:28 | Progress Note ---
Subjective Date of Service: Oct 02, 2017. Subjective Pt evaluation today including: conversation w/ patient, conversation w/ family , physical exam, lab review, conversation w/ optimization consultant, review of inpatient medication list Pain: no pain PO Intake: adequate Voiding: no voiding problems patient feeling well platelets are 8k discussed case with Dr. Hoffmann Problem List Medical Problems: (1) Acute bronchitis Status: Acute (2) Exertional chest pain Status: Acute (3) New onset atrial flutter Status: Acute (4) Pneumonia Status: Acute Review of Systems Constitutional: + weakness, + fatigue All Other Systems: Reviewed and Negative Medications Current Inpatient Medications Medications (Trade) Dose Ordered Sig/Rosario Route Start Time Stop Time Status Last Admin Dose Admin Pneumococcal Polysaccharide Vaccine 1 ea PRN PRN N/A 09/30/17 21:15 10/30/17 21:14 Influenza Virus Vacc Triv Types A&B 1 ea PRN PRN N/A 09/30/17 21:15 10/30/17 21:14 Fexofenadine HCl (Adriana Tab) 180 mg DAILY PO 10/01/17 09:00 10/31/17 08:59 10/02/17 08:08 180 MG Fluticasone Propionate (Flonase Nasal [place]) 2 sprays DAILY GISELL 10/01/17 09:00 10/31/17 08:59 Levothyroxine Sodium (Synthroid Tab) 100 mcg DAILYBB PO 10/01/17 06:00 10/31/17 05:59 10/02/17 05:53 100 MCG Nitroglycerin (Nitrostat Tab) 0.4 mg PRN UT 09/30/17 23:30 10/30/17 23:29 Multivitamins/ Minerals (Multivitamin W/ Minerals Tab) 1 tab PM PO 10/01/17 20:00 10/31/17 20:59 10/01/17 21:13 1 TAB Albuterol (Ventolin Hfa Inhaler) 2 puffs Q4 PRN INH 09/30/17 23:30 10/30/17 23:29 Cholecalciferol (Vitamin D Tab) 2,000 inter.unit DAILY PO 10/01/17 09:00 10/31/17 08:59 10/02/17 08:09 2,000 INTER.UNIT Magnesium Oxide (Mag-Ox Tab) 400 mg DAILY PO 10/01/17 09:00 10/31/17 08:59 10/02/17 08:08 400 MG Artificial Tears (Artificial Tears) 1 drops BID OPB 10/01/17 09:00 10/31/17 08:59 10/02/17 08:08 1 DROPS Dexamethasone (Decadron Tab) 40 mg DAILY PO 10/01/17 09:00 10/31/17 08:59 10/02/17 08:09 40 MG Dutasteride (Avodart) 0.5 mg DAILY PO 10/02/17 08:00 11/01/17 07:59 10/02/17 08:10 0.5 MG Prednisolone Acetate (Pred Mild 0.12%) 1 ml MoWeFr@0900 OPL 10/02/17 09:00 11/01/17 08:59 10/02/17 08:08 1 ML Cyclosporine (Restasis) 1 drops BID OPB 10/01/17 20:00 10/31/17 19:59 10/02/17 08:10 1 DROPS Objective Vital Signs Date Time Temp Pulse Resp B/P (MAP) Pulse Ox O2 Delivery O2 Flow Rate FiO2 10/02/17 08:30 Room Air 10/02/17 07:33 36.5 55 20 111/65 (80) 98 Room Air 10/02/17 00:11 Room Air 10/01/17 23:37 36.6 62 18 148/71 (96) 98 Room Air 10/01/17 21:30 Room Air 10/01/17 21:15 36.7 67 18 137/65 (89) Room Air 10/01/17 20:19 36.3 65 18 136/74 (94) 94 Room Air 10/01/17 19:52 36.7 60 18 114/69 (84) 95 Room Air 10/01/17 19:24 36.4 66 18 122/68 (86) 95 Room Air 10/01/17 18:45 36.6 61 133/56 (81) 95 Room Air 10/01/17 18:15 36.4 73 18 134/80 (98) 95 Room Air 10/01/17 18:00 36.3 66 18 122/70 (87) 93 Room Air 10/01/17 17:30 92 130/65 (86) 94 Room Air 10/01/17 17:15 82 135/62 (86) 94 Room Air 10/01/17 17:00 36.8 81 20 131/76 (94) 95 Room Air 10/01/17 16:50 36.9 81 20 142/77 (98) 95 Room Air 10/01/17 16:30 36.7 89 20 126/76 (93) 96 Room Air 10/01/17 16:00 36.5 84 20 130/71 (90) 96 Room Air 10/01/17 16:00 Room Air Physical Exam General Appearance: WD/WN, no apparent distress Eyes: normal inspection, EOMI, sclerae normal ENT: normal ENT inspection, hearing grossly normal, pharynx normal Neck: supple, no adenopathy, no JVD, trachea midline Respiratory/Chest: chest non-tender, lungs clear, normal breath sounds, no respiratory distress, no accessory muscle use Cardiovascular: regular rate, rhythm, no edema, no gallop, no JVD, no murmur Abdomen: normal bowel sounds, non tender, soft, no organomegaly Extremities: normal range of motion, non-tender, normal inspection, no pedal edema, no calf tenderness, pelvis stable Neurologic/Psychiatric: salt grinder II-XII nml as tested, no motor/sensory deficits, alert, normal mood/affect, oriented x 3 Skin: + pertinent finding (bruising on arms) Laboratory Results Last 24 Hours Test 10/02/17 06:34 White Blood Count 8.72 K/uL Red Blood Count 4.59 M/uL Hemoglobin 13.2 g/dL Hematocrit 39.8 % Mean Corpuscular Volume 86.7 fL Mean Corpuscular Hemoglobin 28.8 pg Mean Corpuscular Hemoglobin Concent 33.2 g/dl Platelet Count 8 K/uL Neutrophils (%) (Auto) 74.9 % Lymphocytes (%) (Auto) 11.8 % Monocytes (%) (Auto) 10.0 % Eosinophils (%) (Auto) 0.0 % Basophils (%) (Auto) 0.1 % Neutrophils # (Auto) 6.53 K/uL Lymphocytes # (Auto) 1.03 K/uL Monocytes # (Auto) 0.87 K/uL Eosinophils # (Auto) 0.00 K/uL Basophils # (Auto) 0.01 K/uL RDW Standard Deviation 49.1 fL RDW Coefficient of Variation 15.6 % Immature Granulocyte % (Auto) 3.2 % Immature Granulocyte # (Auto) 0.28 K/uL Platelet Estimate SIGNIFIC DECREASED Sodium Level 138 mmol/L Potassium Level 3.7 mmol/L Chloride Level 102 mmol/L Carbon Dioxide Level 30 mmol/L Anion Gap 6.0 mmol/L Blood Urea Nitrogen 22 mg/dl Creatinine 0.77 mg/dl Est Creatinine Clear Calc Drug Dose 75.3 ml/min Estimated GFR () 94.6 Estimated GFR (Non- 81.6 BUN/Creatinine Ratio 27.9 Random Glucose 128 mg/dl Calcium Level 9.2 mg/dl Assessment and Plan Mr. Rivera is an 86 year old gentleman with a past medical history of non- Hodgkin's lymphoma, atrial flutter, dyslipidemia, hypertension, CAD s/p NSTEMI ( January 2015) who was sent to [facility] due to thrombocytopenia. Thrombocytopenia, ITP platelets improved to 8k today after IVIG yesterday d/w Dr. Hoffmann, will give IVIG again today but that will be last dose for now continue Decadron 40mg PO daily for 4 days total, today is day 2 follow platelet count daily, if up significantly tomorrow then could go home Atrial flutter - HR controlled, no anticoagulation due to thrombocytopenia - needs to follow up with Dr. Almodovar once platelets higher to discuss resuming Xarelto Hypothyroidism - continue levothyroxine Bladder tumors: has cystoscopy scheduled later this month with Dr. Velasco trying to get platelet counts higher so he can have procedure H/o NHL: will follow up with Dr. Fleming to discuss whether he needs Rituxan again hopeful for d/c home tomorrow as long as platelets going up
[2017-10-02 15:50] VITALS: BP 104/44; PULSE 61; TEMP 36.6; O2SAT 98
[2017-10-02 16:00] VITALS: O2SAT 98
[2017-10-02] MEDS: CEROVITE ADV FORMULA TAB PO SCH (20:09)
[2017-10-02 23:56] VITALS: BP 122/65; PULSE 62; TEMP 36.4; O2SAT 96
[2017-10-03] MEDS: LEVOTHYROXINE 100 MCG TAB PO SCH (06:18)
[2017-10-03 07:13] VITALS: BP 145/66; PULSE 56; TEMP 36.2; O2SAT 98
[2017-10-03] MEDS: FLUTICASONE PROPIONATE NA SPR 16 GM BTL NAE SCH (08:00)
[2017-10-03] MEDS: MAGNESIUM OXIDE 400 MG TAB PO SCH (08:11)
[2017-10-03] MEDS: CHOLECALCIFEROL 1000 INTER.UNIT TAB PO SCH (08:11)
[2017-10-03] MEDS: ARTIFICIAL TEARS OP SOLN OPB SCH (08:12)
[2017-10-03] MEDS: FEXOFENADINE HCL 180 MG TAB PO SCH (08:12)
[2017-10-03] MEDS: DEXAMETHASONE 4 MG TAB PO SCH (08:12)
[2017-10-03] MEDS: DUTASTERIDE 0.5MG PO SCH (08:13)
[2017-10-03] MEDS: CycloSPORINE 0.05% 0.4 ML 30 UDV/BOX OPB SCH (08:13)
[2017-10-03 08:45] LABS: HEMATOCRIT 41.9 % (42-52); HEMOGLOBIN 13.5 g/dL (14.0-18.0); MEAN CELL VOLUME 86.7 fL (80-100); MEAN CORPUSCULAR HGB CONC 32.2 g/dl (32-36); PLATELET COUNT 22 K/uL (130-400); RED CELL DISTRIBUTION WIDTH CV 15.7 % (11.5-14.5); WHITE BLOOD COUNT 7.14 K/uL (4.8-10.8)
[2017-10-03 08:46] LABS: LYMPH % 15.1 %; LYMPH ABS # 1.08 K/uL (1.2-3.4); MONO % 12.3 %; MONO ABS # 0.88 K/uL (0.11-0.59); NEUT % 69.8 %; NEUT ABS # 4.98 K/uL (1.4-6.5)
[2017-10-03] MEDS ORDERED: DXM4 PO (10:32)
--- NOTE | 2017-10-03 10:34 | Discharge Instructions ---
Discharge Instructions Date of Service Oct 03, 2017. Admission Reason for Admission: Acute Itp Discharge Discharge Diagnosis / Problem: Acute ITP Discharge Goals Goal(s): Improve function, Improve disease control Activity Recommendations Activity Limitations: resume your previous activity . Instructions / Follow-Up Instructions / Follow-Up Medication: - DEXAMETHASONE: 40mg tomorrow, last dose ITP: platelet count up to 22k today, no further IVIG planned during this admission, another dose of Dexamethasone 40mg tomorrow, last dose follow up closely with Dr. Fleming next week, his office should call with appointment, call them if you do not hear by Saturday get CBC on Saturday 10/07 Current Hospital Diet Patient's current hospital diet: Regular Diet Discharge Diet Recommended Diet: Regular Diet Pending Studies Studies pending at discharge: no Medical Emergencies . Who to Call and When: Medical Emergencies: If at any time you feel your situation is an emergency, please call 911 immediately. . Non-Emergent Contact Non-Emergency issues call your: Oncologist Call Non-Emergent contact if: you have a fever, you have any medication questions . . "Provider Documentation" section prepared by Alexis Collins. . [place] Drug Monitoring Program Search Results: no issues identified
[2017-10-03 10:38] VITALS: BP 145/66; PULSE 56; TEMP 36.2; O2SAT 98
--- NOTE | 2017-10-03 11:45 | Hematology/Oncology Prog Note ---
Hematology/Onc Progress Note Date of Service Oct 03, 2017. Diagnoses ITP History of marginal zone lymphoma Medications Medications Administered Medications (Trade) Dose Ordered Sig/Rosario Route Start Time Stop Time Status Last Admin Dose Admin Methylprednisolone Sodium Succinate 80 mg/Syringe 1.28 ml @ 1.5 mls/min NOW STAT IV 09/30/17 15:20 09/30/17 15:23 DC 09/30/17 15:58 1.5 MLS/MIN Fexofenadine HCl (Adriana Tab) 180 mg DAILY PO 10/01/17 09:00 10/31/17 08:59 10/03/17 08:12 180 MG Levothyroxine Sodium (Synthroid Tab) 100 mcg DAILYBB PO 10/01/17 06:00 10/31/17 05:59 10/03/17 06:18 100 MCG Multivitamins/ Minerals (Multivitamin W/ Minerals Tab) 1 tab PM PO 10/01/17 20:00 10/31/17 20:59 10/02/17 20:09 1 TAB Cholecalciferol (Vitamin D Tab) 2,000 inter.unit DAILY PO 10/01/17 09:00 10/31/17 08:59 10/03/17 08:11 2,000 INTER.UNIT Miscellaneous Information (Order Awaiting Action) 1 ea QS N/A 10/01/17 00:00 10/01/17 18:51 DC 10/01/17 07:28 1 EA Miscellaneous Information (Order Awaiting Action) 1 ea QS N/A 10/01/17 00:00 10/01/17 18:25 DC 10/01/17 07:28 1 EA Magnesium Oxide (Mag-Ox Tab) 400 mg DAILY PO 10/01/17 09:00 10/31/17 08:59 10/03/17 08:11 400 MG Artificial Tears (Artificial Tears) 1 drops BID OPB 10/01/17 09:00 10/31/17 08:59 10/03/17 08:12 1 DROPS Miscellaneous Information (Order Awaiting Action) 1 ea QS N/A 10/01/17 08:00 10/01/17 18:44 DC 10/01/17 07:28 1 EA Dexamethasone (Decadron Tab) 40 mg DAILY PO 10/01/17 09:00 10/31/17 08:59 10/03/17 08:12 40 MG Immune Globulin 20 gm/Empty Bag 200 ml @ 0 mls/hr TODAY@1600,1800 IV 10/01/17 16:00 10/01/17 20:00 DC 10/01/17 20:25 80 MLS/HR Diphenhydramine HCl (Benadryl Inj) 25 mg NOW ONCE IV 10/01/17 15:45 10/01/17 15:47 DC 10/01/17 16:28 25 MG Acetaminophen (Tylenol Tab) 650 mg NOW ONCE PO 10/01/17 15:45 10/01/17 15:47 DC 10/01/17 16:28 650 MG Methylprednisolone Sodium Succinate 50 mg/Syringe 0.8 ml @ 1.5 mls/min NOW STAT IV 10/01/17 15:40 10/01/17 15:41 DC 10/01/17 16:27 1.5 MLS/MIN Dutasteride (Avodart) 0.5 mg DAILY PO 10/02/17 08:00 11/01/17 07:59 10/03/17 08:13 0.5 MG Prednisolone Acetate (Pred Mild 0.12%) 1 ml MoWeFr@0900 OPL 10/02/17 09:00 11/01/17 08:59 10/02/17 08:08 1 ML Cyclosporine (Restasis) 1 drops BID OPB 10/01/17 20:00 10/31/17 19:59 10/03/17 08:13 1 DROPS Immune Globulin 20 gm/Empty Bag 200 ml @ 0 mls/hr 1330,1430 IV 10/02/17 13:30 10/02/17 14:31 DC 10/02/17 18:29 80 MLS/HR Methylprednisolone Sodium Succinate 50 mg/Syringe 0.8 ml @ 1.5 mls/min TODAY@1330 IV 10/02/17 13:30 10/02/17 13:31 DC 10/02/17 13:20 1.5 MLS/MIN Acetaminophen (Tylenol Tab) 650 mg TODAY@1300 PO 10/02/17 13:00 10/02/17 13:01 DC 10/02/17 13:20 650 MG Diphenhydramine HCl (Benadryl Inj) 25 mg TODAY@1300 IV 10/02/17 13:00 10/02/17 13:01 DC 10/02/17 13:21 25 MG Subjective Platelet count today is 22,000. He continues to do well. No overt bleeding. Review of Systems: Constitutional: Negative for night sweats, or fever Eyes: Negative for event change of vision ENT: Negative for epistaxis, nasal discharge, sore throat, or deafness Cardiovascular: Negative for chest pain, palpitations, dizziness, diaphoresis Respiratory: Negative for new shortness of breath,hemoptysis, or purulent cough Gastrointestinal: Negative for diarrhea, hematemesis, melena, nausea, vomiting , or dyspepsia Integumentary (skin): Negative for rash or jaundice discoloration Neurological: Negative for weakness, seizure activity, headache, or dizziness Lymphatic/Hematologic: Negative for petechiae, bleeding or new adenopathy Musculoskeletal: Negative for new joint or back pain Allergic/Immunologic: Negative for unusual rash or pruritis. Vital Signs Vital Signs Past 12 Hours Date Time Temp Pulse Resp B/P (MAP) Pulse Ox O2 Delivery O2 Flow Rate FiO2 10/03/17 10:38 36.2 56 20 98 Room Air 10/03/17 08:45 Room Air 10/03/17 07:13 36.2 56 20 145/66 (92) 98 Room Air 10/03/17 00:00 Room Air 10/02/17 23:56 36.4 62 18 122/65 (84) 96 Room Air Physical Exam Constitutional: vitals are stable. Eyes: Eyes are BARI EOMI without conjuctival erythema or icterus. ENT: External examination was negative for masses. Neck: Negative for masses or palpable thyromegaly Respiratory: Lung sounds were generally clear bilaterally Cardiovascular: Heart was RRR without significant murmur, gallops aoe rubs Gastrointestinal: No palpable hepatic or splenomegaly. The abdomen was soft with normal bowel sounds. Lymphatic system: there was no palpable peripheral lymphadenopathy Musculoskeletal System: The musculoskeletal system seemed concordant with age. Skin: The skin was negative for jaundice. Neurologic exam: The exam was negative for any focal findings. Deep tendon reflexes were equal and symmetrical. Psychiatric exam: Was essentially negative with normal mood and effect. Laboratory Last 24 Hours Test 10/03/17 08:09 White Blood Count 7.14 K/uL Red Blood Count 4.83 M/uL Hemoglobin 13.5 g/dL Hematocrit 41.9 % Mean Corpuscular Volume 86.7 fL Mean Corpuscular Hemoglobin 28.0 pg Mean Corpuscular Hemoglobin Concent 32.2 g/dl Platelet Count 22 K/uL Neutrophils (%) (Auto) 69.8 % Lymphocytes (%) (Auto) 15.1 % Monocytes (%) (Auto) 12.3 % Eosinophils (%) (Auto) 0.0 % Basophils (%) (Auto) 0.0 % Neutrophils # (Auto) 4.98 K/uL Lymphocytes # (Auto) 1.08 K/uL Monocytes # (Auto) 0.88 K/uL Eosinophils # (Auto) 0.00 K/uL Basophils # (Auto) 0.00 K/uL RDW Standard Deviation 50.0 fL RDW Coefficient of Variation 15.7 % Immature Granulocyte % (Auto) 2.8 % Immature Granulocyte # (Auto) 0.20 K/uL Hypersegmented Polys 1+ Platelet Estimate SIGNIFIC DECREASED Assessment & Plan Platelet count 22,000. He continues on high-dose Decadron. I believe this is day 3 of 40 mg a day. I suspect he can be discharged with another dose of 40 mg of Decadron tomorrow. He knows to return should bleeding occur and we did review what petechiae look like. He will have a follow-up with Dr. Fleming in 1 week.
--- NOTE | 2017-10-03 15:24 | Discharge Summary ---
Discharge Summary Date of Service Oct 03, 2017. Discharge Summary Admission Date: Sep 30, 2017 at 19:01 Discharge Date: Oct 03, 2017 Discharge Disposition: Home Principal Diagnosis: ITP Problems/Secondary Diagnoses: Atrial flutter Hypothyroidism H/o NHL Bladder tumors Immunizations: Have You Had Influenza Vaccine: Yes Influenza Vaccine Date: May 12, 2006 History of Tetanus Vaccine?: Yes History of Pneumococcal: Yes Pneumococcal Date: May 12, 2006 History of Hepatitis B Vaccine: No Procedures: none Consultations: Oncology Medication Reconciliation New Medications: Dexamethasone (Dexamethasone) 4 Mg Tab 40 MG PO DAILY, #10 TAB 0 Refills Continued Medications: Albuterol Sulfate (Proair Respiclick) 108 Mcg/Act Aer 2 PUFF INH Q4 PRN for SOB/Wheezing Cholecalciferol (Vitamin D) 2,000 Unit Tab 2000 UNIT PO DAILY Cyclosporine (Ophth) (Restasis) 0.05 % Emu 1 DROP OPB BID Dutasteride (Avodart) 0.5 Mg Cap 0.5 MG PO HS, CAP Fexofenadine Hcl (Adriana Allergy) 180 Mg Tab 180 MG PO DAILY Fluticasone Propionate (Fluticasone Propionate) 120 Sprays/6000 Mcg Inha 2 SPRAY GISELL DAILY, #16 Levothyroxine Sodium (Levo-T) 100 Mcg Tab 100 MCG PO DAILY Magnesium Oxide (Magnesium Oxide) 400 Mg Cap 1 CAP PO DAILY for 90 Days, #90 CAP 3 Refills Nitroglycerin (Nitrostat) 0.4 Mg Tab 0.4 MG UT PRN, BTL Ocuvite Preservision (Ocuvite Preservision) 1 Tab Tab 1 TAB PO PM Polyethylene Glycol-Propylene (Systane Ultra) 1 Annette Annette 1 DROPS OPB BID Prednisolone Acetate (Ophth) (Pred Mild 0.12%) 0.12 % Aye 1 DROP OPL 3XWK USE ON MON/WED/FRI Discharge Exam patient feeling well, reviewed that platelets up to 22k today. discussed with Dr. Hoffmann, he is okay with discharge, will follow up with Dr. Fleming Review of Systems: Constitutional: No fever, No chills, No sweats, No weight loss, No weakness , No fatigue, No problem reported Eyes: No worsening of vision, No eye pain, No redness, No discharge, No diplopia, No problem reported ENT: No hearing loss, No unusual epistaxis, No nasal symptoms, No sore throat, No tinnitus, No dental problems, No trouble swallowing, No problem reported Respiratory: No cough, No sputum, No wheezing, No shortness of breath, No dyspnea on exertion, No dyspnea at rest, No hemoptysis, No problem reported Cardiovascular: No chest pain, No orthopnea, No PND, No edema, No claudication, No palpitations, No problem reported Abdomen: No pain, No nausea, No vomiting, No diarrhea, No constipation, No GI bleeding, No problem reported Musculoskeletal: No joint pain, No muscle pain, No swelling, No calf pain, No problem reported Genitourinary - Male: No hematuria, No dysuria, No urinary frequency, No urinary urgency Neurologic: No memory loss, No paralysis, No weakness, No numbness/tingling , No vertigo, No balance problems, No problem reported Psychiatric: No depression symptoms, No anhedonism, No anxiety, No insomnia , No substance abuse, No problem reported Hematologic / Lymphatic: No abnormal bleeding/bruising, No clotting problems , No swollen lymph nodes, No night sweats, No problem reported Integumentary: + problem reported (bruising on arms and legs), No rash, No itch, No new/changing skin lesions, No color change, No bleeding Physical Exam: General Appearance: WD/WN, no apparent distress Eyes: normal inspection, EOMI, sclerae normal ENT: normal ENT inspection, hearing grossly normal, pharynx normal Neck: supple, no adenopathy, no JVD, trachea midline Respiratory/Chest: chest non-tender, lungs clear, normal breath sounds, no respiratory distress, no accessory muscle use Cardiovascular: regular rate, rhythm, no edema, no gallop, no JVD, no murmur , normal peripheral pulses Abdomen / GI: normal bowel sounds, non tender, soft, no organomegaly Extremities: normal inspection, no calf tenderness, normal capillary refill , no pedal edema, normal range of motion, pelvis stable Neurologic/Psychiatric: 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 Rivera is an 86 year old gentleman with a past medical history of non- Hodgkin's lymphoma, atrial flutter, dyslipidemia, hypertension, CAD s/p NSTEMI ( January 2015) who was sent to [facility] due to thrombocytopenia. Thrombocytopenia, ITP platelets improved to 22k today after IVIG for two days d/w rosalia Coronado for d/c today, complete one more day of Decadron tomorrow will check CBC on 10/07 and follow up with Dr. Fleming in the office next week Atrial flutter - HR controlled, no anticoagulation due to thrombocytopenia - needs to follow up with Dr. Almodovar once platelets higher to discuss resuming Xarelto Hypothyroidism - continue levothyroxine Bladder tumors: has cystoscopy scheduled later this month with Dr. Velasco trying to get platelet counts higher so he can have procedure only 22k today, not high enough discussed with patient that he needs to make Dr. Velasco aware H/o NHL: will follow up with Dr. Fleming to discuss whether he needs Rituxan again Total Time Spent: Greater than 30 minutes This includes examination of the patient, discharge planning, medication reconciliation, and communication with other providers. Discharge Instructions Please refer to the electronic Patient Visit Report (Discharge Instructions) for additional information. Follow-Up Dr. Fleming next week Dr. Gus Cobos in two weeks Additional Copies To Gus Cobos M.D.; Evelio Fleming MD
== END 2017-10-03 11:10 | disposition home or self-care (01) | DRG 813 ==
LOC: C.EDB 14:34 → EDBEDREQSVC 18:57 → C.2E 19:01 → ENRESERV 19:18 → C.MS4W 10-01 17:59
PROVIDERS: ADMIT Internal Medicine Sports Medicine; ATTEND Internal Medicine
DX: D69.3 Immune thrombocytopenic purpura (principal); I48.92 Unspecified atrial flutter; C85.90 Non-Hodgkin lymphoma, unspecified, unspecified site; I12.9 Hypertensive chronic kidney disease with stage 1 through stage 4 chronic kidney disease, or unspecified chronic kidney disease; N18.9 Chronic kidney disease, unspecified; E78.5 Hyperlipidemia, unspecified; K21.9 Gastro-esophageal reflux disease without esophagitis; I25.2 Old myocardial infarction; D41.4 Neoplasm of uncertain behavior of bladder; I25.10 Atherosclerotic heart disease of native coronary artery without angina pectoris; E03.9 Hypothyroidism, unspecified; Z79.899 Other long term (current) drug therapy; Z88.0 Allergy status to penicillin; Z88.5 Allergy status to narcotic agent; Z88.6 Allergy status to analgesic agent

== ENCOUNTER → 2017-09-30 | Outpatient (CLI) | payer BC ==
[~2017-09-30] MED LIST changes: -CYCL0.052 OP; +CYCL0.052 OPB; +DXM4 PO; -LEVO-366 PO; -POLY1SOL6 OP; +POLY1SOL6 OPB
--- NOTE | 2017-09-30 10:06 | DIAGNOSTIC IMAGING REPORT ---
CHEST 2 VIEWS ROUTINE CLINICAL HISTORY: 87 years-old Male presenting with J18.9 Community acquired [id number]. TECHNIQUE: PA and lateral views of the chest were obtained. COMPARISON: 09/02/[address] from 07/16/2017. FINDINGS: Atherosclerosis of aortic arch. Cardiac silhouette mildly enlarged. Unchanged right middle lobe opacity. No new focal infiltrate. No pleural effusion or pneumothorax. Degenerative changes of the thoracic spine. Cholecystectomy clips noted. IMPRESSION: 1. Persistent right middle lobe opacity, likely scarring or atelectasis. This is unchanged. No new focal infiltrate to suggest acute cardiopulmonary disease. Electronically signed by: Gus Pham M.D. 09/30/2017 10:05 AM Dictated Date/Time: 09/30/2017 10:02 AM
[2017-09-30 14:02] LABS: HEMATOCRIT 41.1 % (42-52); HEMOGLOBIN 13.4 g/dL (14.0-18.0); MEAN CELL VOLUME 86.9 fL (80-100); MEAN CORPUSCULAR HEMOGLOBIN 28.3 pg (25-34); MEAN CORPUSCULAR HGB CONC 32.6 g/dl (32-36); RED CELL DISTRIBUTION WIDTH CV 15.6 % (11.5-14.5); WHITE BLOOD COUNT 6.29 K/uL (4.8-10.8)
[2017-09-30 14:06] LABS: BASO % 0.5 %; BASO ABS # 0.03 K/uL (0-0.2); EOS % 13.4 %; EOS ABS # 0.84 K/uL (0-0.5); IG# 0.04 K/uL (0.00-0.02); LYMPH % 18.3 %; LYMPH ABS # 1.15 K/uL (1.2-3.4); MONO % 12.1 %; MONO ABS # 0.76 K/uL (0.11-0.59); NEUT % 55.1 %; NEUT ABS # 3.47 K/uL (1.4-6.5); PLATELET COUNT 3 K/uL (130-400)
== END | disposition home or self-care (01) ==
LOC: C.RADBC 09:21
PROVIDERS: ATTEND Internal Medicine Hematology & Oncology
DX: J18.9 Pneumonia, unspecified organism (principal); C85.10 Unspecified B-cell lymphoma, unspecified site

== ENCOUNTER → 2017-10-08 | Outpatient (CLI) | payer BC ==
[~2017-10-08] MED LIST changes: +DXM4 PO; +TRMO2580 TOP
== END | disposition home or self-care (01) ==
LOC: C.LABSPEC 10:37
PROVIDERS: ATTEND Urology
DX: C67.9 Malignant neoplasm of bladder, unspecified (principal)

== ENCOUNTER → 2017-10-17 | Day surgery (SDC) | payer BC, OTHER ==
[2017-10-16 08:37] VITALS: BMI 22.0
--- NOTE | 2017-10-16 09:00 | PAT Medication Instructions ---
Service Date Oct 16, 2017. Current Home Medication List Albuterol Sulfate (Proair Respiclick), 2 PUFF INH Q4 PRN for SOB/Wheezing Cholecalciferol (Vitamin D), 2,000 UNIT PO QAM Cyclosporine (Ophth) (Restasis), 1 DROP OPB BID Dutasteride (Avodart), 0.5 MG PO HS Fexofenadine Hcl (Adriana Allergy), 180 MG PO QPM Fluticasone Propionate (Fluticasone Propionate), Unknown Dose GISELL UD PRN for sinus congestion Levothyroxine Sodium (Levo-T), 100 MCG PO QAM Magnesium Oxide (Magnesium Oxide), 1 CAP PO QDD Nitroglycerin (Nitrostat), 0.4 MG UT PRN Ocuvite Preservision (Ocuvite Preservision), 1 TAB PO PM Polyethylene Glycol-Propylene (Systane Ultra), 1 DROPS OPB BID Prednisolone Acetate (Ophth) (Pred Mild 0.12%), 1 DROP OPL 3XWK Triamcinolone Acetonide (Topic (Triamcinolone Acet 0.025%), Unknown Dose TOP UD PRN for prn Medication Instructions For Your Scheduled Surgery - Continue as directed: Prednisolone Acetate (Ophth) (Pred Mild 0.12%), 1 DROP OPL 3XWK - Hold the following medications 24 hours prior to surgery: Triamcinolone Acetonide (Topic (Triamcinolone Acet 0.025%), Unknown Dose TOP UD PRN for prn - Hold the following medications the morning of surgery: Cholecalciferol (Vitamin D), 2,000 UNIT PO QAM - Take the following medications the morning of surgery with a sip of water: Polyethylene Glycol-Propylene (Systane Ultra), 1 DROPS OPB BID Nitroglycerin (Nitrostat), 0.4 MG UT PRN (if needed) Levothyroxine Sodium (Levo-T), 100 MCG PO QAM Fluticasone Propionate (Fluticasone Propionate), Unknown Dose GISELL UD PRN for sinus congestion (if needed) Cyclosporine (Ophth) (Restasis), 1 DROP OPB BID Albuterol Sulfate (Proair Respiclick), 2 PUFF INH Q4 PRN for SOB/Wheezing (if needed) - Take the following medications as scheduled the night before surgery: Polyethylene Glycol-Propylene (Systane Ultra), 1 DROPS OPB BID Ocuvite Preservision (Ocuvite Preservision), 1 TAB PO PM Nitroglycerin (Nitrostat), 0.4 MG UT PRN (if needed) Magnesium Oxide (Magnesium Oxide), 1 CAP PO QDD Fluticasone Propionate (Fluticasone Propionate), Unknown Dose GISELL UD PRN for sinus congestion (if needed) Fexofenadine Hcl (Adriana Allergy), 180 MG PO QPM Dutasteride (Avodart), 0.5 MG PO HS Cyclosporine (Ophth) (Restasis), 1 DROP OPB BID Albuterol Sulfate (Proair Respiclick), 2 PUFF INH Q4 PRN for SOB/Wheezing (if needed) If you have any questions please call us at [phone] or [phone] or [phone]
[2017-10-16 10:21] LABS: HEMATOCRIT 40.9 % (42-52); HEMOGLOBIN 13.5 g/dL (14.0-18.0); MEAN CELL VOLUME 87.4 fL (80-100); MEAN CORPUSCULAR HEMOGLOBIN 28.8 pg (25-34); RED CELL DISTRIBUTION WIDTH CV 16.3 % (11.5-14.5); WHITE BLOOD COUNT 4.55 K/uL (4.8-10.8)
[2017-10-16 10:33] LABS: INR 1.1 (0.9-1.1); PTT PATIENT 27.5 SECONDS (21.0-31.0)
[2017-10-16 10:40] LABS: PLATELET COUNT 92 K/uL (130-400)
[2017-10-16 11:06] LABS: BASO % 0.2 %; BASO ABS # 0.01 K/uL (0-0.2); EOS % 7.9 %; EOS ABS # 0.36 K/uL (0-0.5); IG# 0.03 K/uL (0.00-0.02); LYMPH ABS # 0.73 K/uL (1.2-3.4); NEUT % 64.2 %; NEUT ABS # 2.92 K/uL (1.4-6.5)
[2017-10-16 11:48] LABS: CALCIUM 8.8 mg/dl (8.5-10.1); CREATININE 0.82 mg/dl (0.60-1.40); POTASSIUM 4.2 mmol/L (3.5-5.1)
[~2017-10-17] VITALS: Ht 190.5 cm; Wt 76.3 kg
[~2017-10-17] MED LIST changes: +ATROPINE SULFATE 0.1 MG/ML 5ML SYR IV PRN; +CIPROFLOXACIN / D5W 400 MG IV SCH; +DEXAMETHASONE SOD INJ 4 MG/ML VIAL ONE; -DXM4 PO; +FENTANYL CITRATE INJ 50 MCG/1 ML 2 ML VIAL IV PRN; +FENTANYL CITRATE INJ 50 MCG/1 ML 2 ML VIAL ONE; +LACTATED RINGER'S 1000ML 1,000 ML IV SCH; +LIDOCAINE HCL 2% 2 ML VIAL (20MG/ML) ONE; +NITR1CAP33 PO; +ONDANSETRON INJ 2 MG/ML 2 ML VIAL IV PRN; +ONDANSETRON INJ 2 MG/ML 2 ML VIAL ONE; +PHENYLEPHRINE 100MCG/ML 5ML SYR ONE; +PROPOFOL IV EMULSION 10 MG/ML 20 ML VIAL IV ONE
[2017-10-17 08:49] VITALS: BMI 21.0
[2017-10-17 08:50] VITALS: BP 127/66; PULSE 62; TEMP 36.5; Ht 190.5 cm; Wt 76.3 kg
[2017-10-17 09:26] LABS: HEMATOCRIT 40.7 % (42-52); HEMOGLOBIN 13.3 g/dL (14.0-18.0); MEAN CELL VOLUME 87.9 fL (80-100); MEAN CORPUSCULAR HEMOGLOBIN 28.7 pg (25-34); RED CELL DISTRIBUTION WIDTH CV 16.1 % (11.5-14.5); RED CELL DISTRIBUTION WIDTH SD 52.3 fL (36.4-46.3)
[2017-10-17 09:47] LABS: MEAN CORPUSCULAR HGB CONC 32.7 g/dl (32-36); MEAN PLATELET VOLUME 9.9 fL (7.4-10.4); PLATELET COUNT 78 K/uL (130-400)
--- NOTE | 2017-10-17 10:35 | History & Physical Bridge Note ---
H&P Re-Evaluation Bridge Note: I have examined the patient, reviewed the History & Physical and in the interval since the performance of the History & Physical I have noted the following changes of clinical significance: No changes noted
--- NOTE | 2017-10-17 11:51 | [facility] Post Operative Brief Note ---
Immediate Operative Summary Operative Date Oct 17, 2017. Pre-Operative Diagnosis Bladder cancer Post-Operative Diagnosis Bladder cancer Procedure(s) Performed Cystoscopy, Transurethral Resection of Bladder Tumor, Bladder Tumor Biopsy Surgeon Dr. James Velasco Dictaphone Mechanic Surgeon(s) None Estimated Blood Loss 20 ml Findings Consistent with Post-Op Diagnosis 3 cm tumor l bladder wall Specimens Permanent specimens A: Bladder tumor Drains 20 espino Anesthesia Type General Complication(s) none Disposition Disposition: Recovery Room / PACU
--- NOTE | 2017-10-17 11:56 | Discharge Instructions ---
Discharge Instructions Date of Service Oct 17, 2017. Visit Reason for Visit: Bladder Tumor Discharge Discharge Diagnosis / Problem: post op turbt Discharge Goals Goal(s): Decrease discomfort, Improve function, Increase independence, Improve disease control Activity Recommendations Activity Limitations: per Instructions/Follow-up section (light activity ) Anesthesia . Post Anesthesia Instructions: If you have had General Anesthesia or IV Sedation: * Do not drive today. * Resume driving when surgeon permits. * Do not make important decisions or sign legal documents today. * Call surgeon for: 1. Temperature elevations greater than 101 degrees F. 2. Uncontrollable pain. 3. Excessive bleeding. 4. Persistent nausea and vomiting. 5. Medication intolerance (nausea, vomiting or rash). * For nausea and vomiting use only clear liquids such as: tea, soda, bouillon until nausea subsides, then gradually increase diet as tolerated. * If you have any concerns or questions, call your surgeon's office. If physician is unavailable and it is an emergency, call 911 or go to the nearest emergency room. . Diet Recommendations Recommended Home Diet: resume previous diet Procedures Procedures Performed: Cystoscopy, Transurethral Resection of Bladder Tumor, Bladder Tumor Biopsy Pending Studies Studies pending at discharge: no Medical Emergencies . Who to Call and When: Medical Emergencies: If at any time you feel your situation is an emergency, please call 911 immediately. . Non-Emergent Contact Non-Emergency issues call your: Oncologist, Urologist Call Non-Emergent contact if: temperature is above 100.5 . . "Provider Documentation" section prepared by James Velasco. .
--- NOTE | 2017-10-17 12:08 | GENITOURINARY CONSULTATION ---
DATE OF CONSULTATION: 10/17/2017 PROCEDURE PERFORMED: TURBT, medium. PREOPERATIVE DIAGNOSIS: Bladder cancer. POSTOPERATIVE DIAGNOSIS: Same. INDICATIONS AND HISTORY OF PRESENTATION: The patient is an 87-year-old male who presented with hematuria, had a workup that showed a bladder tumor. The patient has been having significant problems with platelet count because of underlying clotting problems and we checked his platelet count yesterday was 90, so we have a window to remove this bladder tumor. DESCRIPTION OF PROCEDURE: He was taken to the operating room today where using a cold biopsy forceps and a Bugbee. He had 20 fulguration. The tumor was completely removed and the rest of bladder was carefully examined with 30 and 70 degree lens and there was no evidence of any tumor. There was no stricture in the urethra. Prostate was moderately obstructing and there was a small amount of bleeding. At the end the procedure, there was no bleeding from the base of the tumor. A 20-Korean coude catheter was placed with pinkish urine from this and he was transferred to recovery room in stable condition.
[2017-10-17 13:03] VITALS: BP 134/72; PULSE 57; TEMP 36.4; O2SAT 100
[2017-10-17 13:33] VITALS: BP 142/76; PULSE 71; TEMP 36.4; O2SAT 100
--- NOTE | 2017-10-17 14:07 | Anesthesiology Progress Note ---
Anesthesia Post Op Note Date & Time Oct 17, 2017 at 14:07 Vital Signs Pain Intensity: 0 Vital Signs Past 12 Hours Date Time Temp Pulse Resp B/P (MAP) Pulse Ox O2 Delivery O2 Flow Rate FiO2 10/17/17 13:33 36.4 71 18 142/76 100 Room Air 10/17/17 13:03 36.4 57 18 134/72 100 Room Air 10/17/17 12:47 57 14 95 10/17/17 12:47 57 14 10/17/17 12:46 129/66 10/17/17 12:42 58 14 10/17/17 12:42 58 14 100 10/17/17 12:41 145/72 10/17/17 12:37 58 13 10/17/17 12:37 58 13 99 10/17/17 12:36 134/73 10/17/17 12:32 58 21 142/62 100 10/17/17 12:32 56 21 10/17/17 12:27 58 15 100 10/17/17 12:27 58 15 10/17/17 12:26 36.8 61 16 132/69 (89) 100 Room Air Oxymask 10/17/17 12:26 147/69 10/17/17 12:22 58 12 10/17/17 12:22 58 12 100 10/17/17 12:21 132/69 10/17/17 12:21 132/69 10/17/17 12:18 58 14 10/17/17 12:18 58 14 100 10/17/17 12:18 58 14 100 10/17/17 12:18 58 14 10/17/17 12:16 127/68 10/17/17 12:16 127/68 10/17/17 12:13 58 19 100 10/17/17 12:13 58 19 100 10/17/17 12:13 59 19 10/17/17 12:13 59 19 10/17/17 12:11 132/69 10/17/17 12:11 132/69 10/17/17 12:08 58 15 100 10/17/17 12:08 58 15 100 10/17/17 12:08 59 15 10/17/17 12:08 59 15 10/17/17 12:06 129/65 10/17/17 12:06 129/65 10/17/17 12:03 59 9 10/17/17 12:03 59 9 100 10/17/17 12:03 59 9 10/17/17 12:03 59 9 100 10/17/17 12:01 143/68 10/17/17 12:01 143/68 10/17/17 11:58 59 13 10/17/17 11:58 59 13 10/17/17 11:58 59 13 100 10/17/17 11:58 59 13 100 10/17/17 11:56 129/69 10/17/17 11:56 129/69 10/17/17 11:53 59 17 100 10/17/17 11:53 59 17 10/17/17 11:53 59 17 10/17/17 11:53 59 17 100 10/17/17 11:51 137/68 10/17/17 11:51 137/68 10/17/17 11:50 36.8 49 16 115/70 (82) 100 Oxymask 10 10/17/17 11:49 115/70 10/17/17 11:49 115/70 10/17/17 11:48 59 100 10/17/17 11:48 59 100 10/17/17 11:48 59 10/17/17 11:48 59 10/17/17 08:50 36.5 62 20 127/66 (86) Room Air Notes Mental Status: alert / awake / arousable, participated in evaluation Pt Amnestic to Procedure: Yes Nausea / Vomiting: adequately controlled Pain: adequately controlled Airway Patency, RR, SpO2: stable & adequate BP & HR: stable & adequate Hydration State: stable & adequate Anesthetic Complications: no major complications apparent
== END | disposition home or self-care (01) ==
LOC: C.ACU 08:11
PROVIDERS: ATTEND Urology
DX: C67.9 Malignant neoplasm of bladder, unspecified (principal); J45.909 Unspecified asthma, uncomplicated; I25.10 Atherosclerotic heart disease of native coronary artery without angina pectoris; I48.92 Unspecified atrial flutter; I48.91 Unspecified atrial fibrillation; N40.1 Benign prostatic hyperplasia with lower urinary tract symptoms; E78.5 Hyperlipidemia, unspecified; I10 Essential (primary) hypertension; E03.9 Hypothyroidism, unspecified; D69.3 Immune thrombocytopenic purpura; R33.9 Retention of urine, unspecified; M48.061 Spinal stenosis, lumbar region without neurogenic claudication; G62.9 Polyneuropathy, unspecified; Z90.49 Acquired absence of other specified parts of digestive tract; Z79.01 Long term (current) use of anticoagulants; Z96.649 Presence of unspecified artificial hip joint; Z88.0 Allergy status to penicillin; Z88.5 Allergy status to narcotic agent

== ENCOUNTER 2018-11-25 08:30 | Observation (INO) ==
--- OUTSIDE RECORDS SUMMARY | 2018-11-25 08:33 | External Medical Summary | Continuity of Care Document ---
:1930 Author Name Rosa Jones, Provider Address Unavailable Unavailable , Care Team Providers Name Role Phone Juve Ramos PA-C Unavailable [email or web address] Chandrika Jones Unavailable [email or web address] Stevie Almodovar M.D. Unavailable [email or web address] Lidya HUDSON Unavailable [email or web address] Angeles HUDSON Unavailable 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9) Peripheral neuropathy (356.9) (G62.9) Lumbar spinal stenosis (724.02) (M48.061) Incomplete bladder emptying (788.21) (R33.9) Hearing loss (389.9) (H91.90) Right inguinal hernia (550.90) (K40.90) 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) Fatigue, unspecified type (780.79) (R53.83) JENKINS (dyspnea on exertion) (786.09) (R06.09) Dependent edema (782.3) (R60.9) Atrial flutter, paroxysmal (427.32) (I48.92) Anemia of chronic disease (285.29) (D63.8) Functional Status Hearing loss Allergies and Adverse Reactions Bactrim TABS (Adverse Event) Onset: 11-Aug-2018 Reaction: N ausea Codeine Derivatives (Allergy) Penicillins (Allergy) Reaction: Rash Statins (Allergy) Vioxx TABS (Allergy) Medications MiraLax POWD Refills: 0 levoFLOXacin 500 MG Oral Tablet; TAKE 1 TABLET Daily x 10 days TRISTAN Bose Start: 13-Nov-2018 Quantity: 10 Refills: 0 Pred Mild 0.12 % Ophthalmic Suspension; INSTILL ONE DROP EVERY OTHER DAY IN THE LEFT EYE Refills: 0 predniSONE 10 MG Oral Tablet; 4 tablets daily for 2 days, 3 tablets daily for 2 days, 2 tablets daily for 2 days, one tablet daily for 2 days, then discontinue. TRISTAN Bose Start: 13-Nov-2018 Quantity: 21 Refills: 1 Vitamin D 2000 UNIT Oral Tablet; Take 1 tablet by mouth dewayne yGay Refills: 0 Dutasteride 0.5 MG Oral Capsule; TAKE ONE CAPSULE BY [facility] DAILY. TRISTAN Reynoso Lynne Van Start: 15-Feb-2016 Quantity: 90 Refills: 2 Fluticasone Propionate 50 MCG/ACT Nasal Suspension; USE 2 SPRAYS IN EACH NASAL PASSAGE PRN Start: 15-Aug-2016 Refills: 0 PreserVision AREDS Oral Tablet; Take 1 tablet daily Start: 26-Feb-2017 Refills: 0 Benzonatate 200 MG Oral Capsule; TAKE 1 CAPSULE 3 TIME S DAILY NEEDED. Robert Cobos Start: 26-Feb-2017 Quantity: 21 Refills: 2 Vitamin B12 100 MCG Oral Tablet; TAKE 1 TABLET DAILY A S DIRECTED. Robert Cobos Start: 23-Apr-2018 Refills: 0 Magnesium 400 MG Oral Tablet; Take 1 tablet daily Start: 18-Jul-2017 Refills: 0 Adriana TABS; TAKE 1 TABLET DAILY. Refills: 0 Nitrostat 0.4 MG Sublingual Tablet Subli ngual; DISSOLVE 1 TABLET UNDER THE TONGUE NEEDED FOR CHEST PAIN. ELY Ramos Quantity: 30 Refills: 3 Levothyroxine Sodium 100 MCG Oral Tablet; TAKE ONE TAB LET BY MOUTH DAILY Robert Cobos Start: 13-Jan-2018 Quantity: 90 Refills: 3 Metoprolol Succinate ER 25 MG Oral Table t Extended Release 24 Hour; TAKE 1 TABLET DAILY. Robert Almodovar Start: 08-May-2018 Quantity: 3 100 Tablet Bottle Refills: 3 Retaine CMC 0.5 % Ophthalmic Solution; 1 DROP EACH EYE AT BE DTIME Start: 25-Jul-2018 Refills: 0 Procedures Bronchoscopy Date: 13-Nov-2018 CBC With DIFF Date: 20-Nov-2018 History of Appendectomy Status: Complete d History of Cholecystotomy Status: Comple nataly History of Hip Replacement Status: Compl eted History of Cataract Surgery Status: Comp leted History of Blepharoplasty Upper Lid W/ Excessive Status: Completed Skin History of Cornea Transplant Status: Com pleted Immunizations Zostavax 72972 UNT/0.65ML Subcutaneous Solution Reconstitute d On: 2011 Influenza On: 04-May-2013 9:14 Lot #: [id number], [employer] Fluzone High-Dose Intramuscular Suspension On: 10-May-2014 9 :51 Lot #: [id number], [employer] Prevnar 13 Intramuscular Suspension On: 03-Sep-2014 8:43 Lot #: [id number], [employer] Fluzone High-Dose Intramuscular Suspension On: 20-May-2015 1 2:56 Lot #: [id number], [employer] Pneumococcal polysaccharide vaccine, 23 valent On: 6 8:25 Lot #: [id number], [employer] Fluzone High-Dose Intramuscular Suspension On: 25-May-2016 1 0:30 Lot #: [id number], [employer] Fluzone High-Dose Intramuscular Suspension On: 30-Apr-2017 10 :07 Lot #: [id number], [employer] Fluzone High-Dose 0.5 ML Intramuscular Suspension Pref illed Syringe On: 08-Apr-2018 16:02 Lot #: [id number], [employer] Family History Mother Family history of Hypertension (V17.49) Status: Active Social History - Smoking Status Never smoker Plan of Treatment Planned Encounters Appointment; Gus Cobos M.D. Start: 24-Apr-2019 10:45 R equest Planned Observations Planned Goals not documented Results CT chest wo con Laboratory: [facility] Diagnostic Imaging [address] [facility] 13-Nov-2018 8:46 CT chest wo con [facility], [place] [phone] CT Scan Report Patient: ILDEFONSO GUERRERO Admit Date: 11/13/18 MR#: [id number] Address1: [address] [place] [address] Acct ID:[id number] Address2: [address] Date: 1930 [facility] Zip: [place] [address] Age: 88 Location: CT Sex: M Room/Bed: Att Phy: Aguila Martin PA-C Diagnosis: P ULMONARY NODULES Krissy Phy: Gus Cobos MD Service Date: [facility] Phy: Gus Cobos MD Interpreting Phy: Nate Lomeli MD Admit Phy: Ordering Phy: Aguila Martin PA-C cc: CT chest wo con CT DOSE: 232.41 mGy.cm HISTORY: Follow-up PULMONARY NODULES TECHNIQUE: Multiaxial CT images of the chest were performed without contrast. A dose lowering technique was utilized adhering to the principles of ALARA. COMPARISON: Chest CT 05/06/2018. FINDINGS: Mild respiratory motion artifact. The central airways are patent. No pneumothorax. Trace bilateral pleural effusions. The heart remains enlarged. The unenhanced liver, spleen, and adrenal glands are unremarkable. Hypodense bilateral renal lesions are partially visualized. Normal esophagus. The heart remains enlarged. Normal caliber thoracic aorta. No mediastinal or hilar lymphadenopathy. No suspicious lytic or blastic osseous lesions. Small patchy areas of consolidationwithin the lung bases have progressed. There are also multiple new scattered irregular nodular densities seen throughout the lungs. The majorities demonstrate a groundglass halo and favor infectious change. Mild bronchial wall thickening is noted. Dominant nodule within the right middle lobe on image 180 measures 8 mm. Patchy groundglass densities within the left upper lobe posteriorlyare also new from the prior study. IMPRESSION: 1. Interval progression of the patchy bibasilar densities, multiple scattered irregular nodules, and left upper lobe groundglass airspace opacities. This likely represents an atypical infectious process. Follow-up pulmonary consultation recommended. 2. Trace bilateral pleural effusions. 3. Stable cardiomegaly. Electronically signed by: Nate Lomeli M.D. 11/13/2018 8:53 AM Dictated: 11/13/18 0846 Transcribed: 11/13/18 0846 PT/INR Laboratory: [facility] Laboratory [address] [facility] [address] tel: 13-Nov-2018 11:50 Prothrombin Time 11.9 {Seconds} Range: 9.0-12.0 Seconds INR 1.2 (above high threshold) Range: 0 .9-1.1 PTT Laboratory: [facility] [address] [facility] [address] tel: 13-Nov-2018 11:50 PTT PATIENT 28.3 {Seconds} Range: 21.0- 31.0 Seconds Comments: Therapeuti c APTT range is 46.0 - 66.4 seconds PARTIAL THROMBOPLASTIN RATIO 1.0 CBC With DIFF Laboratory: [facility] Laboratory [address] [facility] [address] tel: 13-Nov-2018 11:50 WBC 3.72 K/uL (below low threshold) Rang e: 4.8-10.8 K/uL RBC 4.27 {M/uL} (below low Range: 4.7-6 .1 M/uL threshold) HEMOGLOBIN 11.5 g/dL (below low Range: 14.0-18.0 g/dL threshold) HEMATOCRIT 36.2 % (below low Range: 42- 52 % threshold) MCV 84.8 fL Range: 80-100 fL MCH 26.9 pg Range: 25-34 pg MEAN CORPUSCULAR HGB CONC 31.8 g/dL Rang e: 32-36 g/dL (below low threshold) RED CELL DISTRIBUTION WIDTH SD 48.6 Rang e: 36.4-46.3 fL fL (above high threshold) RED CELL DISTRIBUTION WIDTH CV 15.8 Rang e: 11.5-14.5 % % (above high threshold) PLATELET COUNT 73 K/uL (below low Range: 130-400 K/uL threshold) MEAN PLATELET VOLUME 10.0 fL Range: 7.4 -10.4 fL NEUT % 58.1 % Range: % LYMPH % 24.7 % Range: % MONO % 13.2 % Range: % EOS % 3.2 % Range: % BASO % 0.0 % Range: % IG% 0.8 % Range: % Comments: IG paramet er reflects the combination of Metas, Myelos andPromyelocytes. Neutrophils (Auto) 2.16 K/uL Range: 1. 4-6.5 K/uL LYMPH ABS # 0.92 K/uL (below low Range: 1.2-3.4 K/uL threshold) MONO ABS # 0.49 K/uL Range: 0.11-0.59 K /uL EOS ABS # 0.12 K/uL Range: 0-0.5 K/uL BASO ABS # 0.00 K/uL Range: 0-0.2 K/uL IG# 0.03 K/uL (above high threshold) Ran ge: 0.00-0.02 K/uL PLATELET ESTIMATE Decreased Range: Norm al Comp Metabolic Panel Laboratory: [facility] Laboratory [address] [facility] [address] tel: 13-Nov-2018 11:50 SODIUM 139 mmol/L Range: 136-145 mmol /L POTASSIUM 4.1 mmol/L Range: 3.5-5.1 mmo l/L CHLORIDE 106 mmol/L Range: 98-107 mmol/ L CARBON DIOXIDE 29 mmol/L Range: 21-32 m mol/L ANION GAP 4.0 Range: 3-11 BLOOD UREA NITROGEN 14 mg/dl Range: 7-1 8 mg/dl CREATININE 0.71 mg/dl Range: 0.6-1.4 mg /dl Estimated GFR () Comment s: Units: ml/min per 97.1 1.73 meters squaredT he estimated GFR (CKD-E PI equation) has not be en validatedfor inpatie nt settings and may not be an accurate reflectiono f renal function in critical ly ill patients or those withrapidly changing renal function (e.g. NATALI). Estimated GFR (Non-) Com ments: Units: ml/min per 83.8 1.73 meters squaredT he estimated GFR (CKD-E PI equation) has not be en validatedfor inpatie nt settings and may not be an accurate reflectiono f renal function in critical ly ill patients or those withrapidly changing renal function (e.g. NATALI). BUN/CREATININE RATIO 20.2 (above Range: 10-20 high threshold) GLUCOSE 78 mg/dl Range: 70-99 mg/dl CALCIUM 8.7 mg/dl Range: 8.5-10.1 mg/ dl Bilirubin, Total 0.4 mg/dl Range: 0.2-1 mg/dl AST/SGOT 18 U/L Range: 15-37 U/L ALT/SGPT 17 U/L Range: 12-78 U/L TOTAL PROTEIN 6.0 {gm/dl} (below low Ran ge: 6.4-8.2 gm/dl threshold) ALBUMIN 3.1 {gm/dl} (below low Range: 3 .4-5.0 gm/dl threshold) GLOBULIN 2.9 {gm/dl} Range: 2.5-4.0 gm/ dl ALB/GLOB RATIO 1.1 Range: 0.9-2 ALKALINE PHOSPHATASE 105 U/L Range: 45- 117 U/L Vital Signs 13-Nov-2018 11:01 Systolic 122 mm[Hg] Diastolic 60 mm[Hg] Respiration 18 /min Heart Rate 60 /min O2 Saturation 96 % Comments: Source: RA Temperature 97.6 f Weight 175.4375 lb BMI Calculated 21.93 kg/m2 BSA Calculated 2.08 m2 Encounters Appointment; Lidya BethTRISTAN Mallory 13-Nov-2018 11:00 Encounter Diagnosis: Problem not documented Appointment; Gus Cobos M.D. 23-Oct-2018 10:45 Encounter Diagnosis: Problem not documented Appointment; Anthony Morris Au.D.|[facility] 17-Sep-2018 9:40 Encounter Diagnosis: Problem not documented Appointment; James Velasco M.D. 16-Sep-2018 9:50 Encounter Diagnosis: Problem not documented Appointment; Urology, Room 8 16-Sep-2018 9:40 Encounter Diagnosis: Problem not documented Appointment; Anthony Morris Au.D.|[facility] 02-Sep-2018 11:20 Encounter Diagnosis: Problem not documented Appointment; Matt Almodovar M.D. 28-Aug-2018 14:15 Encounter Diagnosis: Problem not documented Appointment; Aguila Martin PA-C 27-Aug-2018 14:00 Encounter Diagnosis: Problem not documented Appointment; Jumana Dodson PA-C 19-Aug-2018 11:00 Encounter Diagnosis: Problem not documented Appointment; Anthony Morris Au.D.|[facility] 25-Jul-2018 15:00 Encounter Diagnosis: Problem not documented Appointment; Lizzette Steward M.D. 25-Jul-2018 10:30 Encounter Diagnosis: Problem not documented Appointment; Anthony Morris Au.D.|[facility] 07-Jul-2018 13:20 Encounter Diagnosis: Problem not documented Appointment; James Velasco M.D. 24-Jun-2018 9:20 Encounter Diagnosis: Problem not documented Appointment; Urology, Room 8 24-Jun-2018 9:05 Encounter Diagnosis: Problem not documented Appointment; Anthony Morris Au.D.|[facility] 13-Jun-2018 9:00 Encounter Diagnosis: Problem not documented Appointment; Gus Cobos M.D. 12-Jun-2018 12:00 Encounter Diagnosis: Problem not documented Appointment; Aguila Martin PA-C 10-Jun-2018 8:30 Encounter Diagnosis: Problem not documented Appointment; Pulmonary, Funct Testing 05-Jun-2018 8:30 Encounter Diagnosis: Problem not documented Appointment; Matt Almodovar M.D. 22-May-2018 10:00 Encounter Diagnosis: Problem not documented Appointment; Anthony Morris Au.D.|[facility] 20-May-2018 8:40 Encounter Diagnosis: Problem not documented Appointment; Aguila Martin PA-C 16-May-2018 10:00 Encounter Diagnosis: Problem not documented Appointment; Fiona Benitez PA-C 08-May-2018 13:30 Encounter Diagnosis: Problem not documented Appointment; Stress, Echocardiogram 1 08-May-2018 13:00 Encounter Diagnosis: Problem not documented Appointment; Gus Cobos M.D. 07-May-2018 11:45 Encounter Diagnosis: Problem not documented Appointment; Matt Almodovar M.D. 21-Apr-2018 11:00 Encounter Diagnosis: Problem not documented Appointment; Gus Cobos M.D. 18-Apr-2018 11:15 Encounter Diagnosis: Problem not documented Appointment; Gus Cobos M.D. 08-Apr-2018 15:45 Encounter Diagnosis: Problem not documented Appointment; Matt Almodovar M.D. 20-Mar-2018 10:30 Encounter Diagnosis: Problem not documented Appointment; RESIDENT, CARDIO 20-Mar-2018 10:00 Encounter Diagnosis: Problem not documented Appointment; James Velsaco M.D. 04-Feb-2018 9:50 Encounter Diagnosis: Problem not documented Appointment; Urology, Room 8 04-Feb-2018 9:45 Encounter Diagnosis: Problem not documented Appointment; James Velasco M.D. 05-Nov-2017 10:40 Encounter Diagnosis: Problem not documented Appointment; James Velasco M.D. 17-Oct-2017 10:00 Encounter Diagnosis: Problem not documented Appointment; Gus Cobos M.D. 09-Oct-2017 16:15 Encounter Diagnosis: Problem not documented Appointment; James Velasco M.D. 08-Oct-2017 16:00 Encounter Diagnosis: Problem not documented Appointment; Matt Almodovar M.D. 20-Sep-2017 10:00 Encounter Diagnosis: Problem not documented Appointment; Gus Cobos M.D. 19-Sep-2017 7:45 Encounter Diagnosis: Problem not documented Appointment; James Velasco M.D. 05-Sep-2017 9:40 Encounter Diagnosis: Problem not documented Appointment; Jumana Dodson PA-C 02-Sep-2017 11:00 Encounter Diagnosis: Problem not documented Appointment; Gus Cobos M.D. 15-Aug-2017 8:15 Encounter Diagnosis: Problem not documented Appointment; Eliu Herbert DO 08-Aug-2017 16:20 Encounter Diagnosis: Problem not documented Appointment; James Velasco M.D. 26-Jul-2017 9:50 Encounter Diagnosis: Problem not documented Appointment; Jumana Dodson PA-C 23-Jul-2017 8:30 Encounter Diagnosis: Problem not documented Appointment; Gus Cobos M.D. 12-Jul-2017 14:45 Encounter Diagnosis: Problem not documented Appointment; Alex Guevara M.D. 06-Jun-2017 10:45 Encounter Diagnosis: Problem not documented Appointment; Alex Guevara M.D. 15-May-2017 9:30 Encounter Diagnosis: Problem not documented Appointment; Pulmonary, Funct Testing 15-May-2017 8:45 Encounter Diagnosis: Problem not documented Appointment; [facility] 30-Apr-2017 9:45 Encounter Diagnosis: Problem not documented Appointment; Alex Guevara M.D. 04-Apr-2017 13:00 Encounter Diagnosis: Problem not documented Appointment; Juve Ramos PA-C 20-Mar-2017 9:30 Encounter Diagnosis: Problem not documented Appointment; Gus Cobos M.D. 14-Mar-2017 8:30 Encounter Diagnosis: Problem not documented Appointment; James Velasco M.D. 05-Mar-2017 15:20 Encounter Diagnosis: Problem not documented Appointment; Gus Cobos M.D. 26-Feb-2017 8:30 Encounter Diagnosis: Problem not documented Appointment; Zena Mackay PA-C 09-Jan-2017 10:15 Encounter Diagnosis: Problem not documented Appointment; Gus Cobos M.D. 24-Apr-2019 10:45 Encounter Diagnosis: Problem not documented"
[2018-11-25 09:05] LABS: Hematocrit (blood only) 39.2 % (42-52); Hemoglobin 12.7 g/dL (14.0-18.0); Mean Corpuscular Volume 83.9 fL (80-100); RDW Coefficient of Variation 16.1 % (11.5-14.5); RDW Standard Deviation 48.7 fL (36.4-46.3); Red Blood Count 4.67 M/uL (4.7-6.1); White Blood Count 4.42 K/uL (4.8-10.8)
[2018-11-25 09:12] LABS: Mean Corpuscular Hgb Conc 32.4 g/dL (32-36); Mean Platelet Volume 9.9 fL (7.4-10.4); Platelet Count 92 K/uL (130-400)
[2018-11-25 09:24] LABS: Basophils # (auto) 0.01 K/uL (0-0.2); Basophils % (auto) 0.2 %; Eosinophils # (auto) 0.23 K/uL (0-0.5); Eosinophils % (auto) 5.2 %; Immature Granulocytes # (auto) 0.02 K/uL (0.00-0.02); Immature Granulocytes % (auto) 0.5 %; Lymphocytes # (auto) 1.01 K/uL (1.2-3.4); Lymphocytes % (auto) 22.9 %; Monocytes # (auto) 0.56 K/uL (0.11-0.59); Monocytes % (auto) 12.7 %; Neutrophils # (auto) 2.59 K/uL (1.4-6.5); Neutrophils % (auto) 58.5 %
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
[2018-11-25] MEDS ORDERED: POLYETHYLENE (MIRALAX) 17 GM PACK PO PRN ×2 (12:18)
[2018-11-25] MEDS ORDERED: NITROGLYCERIN SL 0.4 MG/TAB TAB SL PRN (12:18)
[2018-11-25] MEDS ORDERED: TRIAMCINOLONE ACET 0.1% CR 15 GM TUBE TOP PRN (12:18)
[2018-11-25] MEDS ORDERED: FLUTICASONE PROPIONATE NA SPR 16 GM BTL PRN (12:18)
[2018-11-25] MEDS ORDERED: BENZONATATE 100 MG CAPSULE PO PRN (12:18)
[2018-11-25 13:13] LABS: Alanine Aminotransferase 14 U/L (12-78); Albumin Level 3.1 gm/dl (3.4-5.0); Blood Urea Nitrogen 13 mg/dl (7-18); Calcium 8.6 mg/dl (8.5-10.1); Carbon Dioxide 32 mmol/L (21-32); Chloride 108 mmol/L (98-107); Creatinine Clr Calc Pharmacy 75.3 ml/min; Est GFR (African American) 97.1; Est GFR (Non-African American) 83.8; Glucose 98 mg/dl (70-99); Potassium 4.9 mmol/L (3.5-5.1); Sodium 139 mmol/L (136-145)
[2018-11-25] MEDS: LIDOCAINE 5% 1 PATCH TD SCH (13:17)
[2018-11-25] MEDS: ACETAMINOPHEN 500 MG TAB PO SCH ×2 (13:18→20:15)
--- NOTE | 2018-11-25 13:18 | XRay Report ---
RIGHT SHOULDER 3 VIEWS HISTORY: Right shoulder pain COMPARISON: Right shoulder 02/19/2014. FINDINGS: No fracture or dislocation within the right shoulder. There is a large spur along the under surface of the acromion. This remains unchanged. There is narrowing of the subacromial space with bon e-on-bone articulation which has progressed. This is consistent with chronic rotator cuff tear. There is moderate to severe degenerative changes at the acromioclavicular and glenohumeral joint, unchange d. No radiopaque foreign bodies. IMPRESSION: 1. No fracture or dislocation within the right shoulder. 2. Moderate to severe degenerative changes as described above. 3. Progressive subacromial space narrowing consistent with chronic rotator cuff injury. Electronically signed by: Nate Lomeli M.D. 11/25/2018 1:16 PM
[2018-11-25 13:20] LABS: Alkaline Phosphatase 90 U/L (45-117); Aspartate Aminotransferase 16 U/L (15-37); Bilirubin,Total 0.6 mg/dl (0.2-1); Globulin 3.1 gm/dl (2.5-4.0); Total Protein 6.2 gm/dl (6.4-8.2); Troponin I < 0.015 ng/ml (0-0.045)
[2018-11-25] MEDS ORDERED: ACETAMINOPHEN 325 MG TAB PO SCH (14:00)
--- NOTE | 2018-11-25 15:06 | Consultation Report ---
DATE OF CONSULTATION: 11/25/2018 TIME: 10:00 REASON FOR BRONCHOSCOPY: Waxing and waning/multifocal ground-glass opacities with pulmonary nodules and chronic cough. PROCEDURE: The patient was evaluated in ASU 1 prior to carrying out the bronchoscopic procedure. The patient's CBC, diff and platelet count was rechecked and his platelets were greater than 90,000 and he was not on anticoagulant therapy. The patient complained of right anterior and posterior shoulder pain radiating up his neck and down his right arm since Saturday and was having no symptoms currently. He had a cough that was nonproductive. He denied running a fever. The patient has had a recent admission for small-bowel obstruction, right lower lobe pneumonia and had a residual cough. He completed a course of 10 days of antibiotics and prednisone therapy prior to consideration for the bronchoscopy. He has a history of aortic stenosis and paroxysmal atrial flutter and fibrillation that was not felt to be a good candidate for anticoagulation because of his ITP. He has a history of B cell non-Hodgkin's lymphoma and dyslipidemia and in 01/2015 had a prolonged episode of left-sided chest pressure associated with exertional dyspnea and elevated troponin levels. He was diagnosed with NSTEMI. He was last seen by Dr. Almodovar on 08/28/2018. He underwent stress echocardiography in 2014, which revealed normal left ventricular size and function with an LVEF of 60% and moderate LVH with mild to moderate aortic stenosis and mild aortic insufficiency. At that time was exercised using the standard Juarez protocol and had no exercise-induced chest pain, but post-stress echo images showed myocardial ischemia in the mid to distal LAD territory and conservative medical management was entertained. He was treated with beta blockade. Symptoms of CHF were treated with diuretics. He also had a pericardial effusion that resolved. He has had type 2 LV diastolic dysfunction in the past. He was admitted in 09/2016 for chest pain and dyspnea and was in atrial flutter at that time. He was started on anticoagulant therapy. He had mild to moderate mitral and tricuspid regurgitation and the aortic valve gradient was 12.4 mmHg. He has been admitted for thrombocytopenia in the past with platelet counts that has depressed to 33,000 and was treated with steroid therapy. That was in 06/2017 and his aspirin and Xarelto were discontinued. He also had a history of papillary bladder tumor, which was resected in 09/2017. In 07/2017, diagnosed with right mid lung pneumonia, treated with antibiotic therapy. He was restarted on anticoagulant therapy in 02/2018 with Pradaxa 150 mg p.o. b.i.d. That was chosen because it can be reversed if needed with [employer]. It was subsequently discontinued. He has had exertional fatigue and dyspnea. He underwent standard Juarez protocol, exercising close to 4 minutes in 04/2018, but had to stop due to dyspnea. He had significant ST segment depressions with exercise. In July, he was admitted for 3 days for partial small-bowel obstruction and right lower lobe pneumonia. Today he was found in to be in atrial flutter, 4:1 conduction block with a rate in the 60s without overt ischemic changes. This in concert with his chest discomfort and a decision was made to cancel the bronchoscopic evaluation and have admitted onto the Hospitalist Service at [facility] Hospitalist Service with Dr. Alexis Collins. For details of past medical history, medications, family and social history, I refer you to current and past record. PHYSICAL EXAMINATION: GENERAL: Elderly white male in no obvious distress, but complaining of right anterior and posterior shoulder and chest discomfort. VITAL SIGNS: Pulse 64 and regular, respiratory rate 20, temperature was 36.4, O2 sat was 98% on room air, blood pressure 131/65. SKIN: Ecchymoses on the forearms. HEENT: Atraumatic, normocephalic. PERRLA. LUNGS: Scattered rhonchi. Distant P and A. CARDIAC: Irregularly irregular rhythm. Grade 2/6 systolic murmur heard in the aortic region. Grade 1/6 diastolic murmur heard at the lower left sternal border and a grade 2/6 systolic murmur heard at the apex. No S3. ABDOMEN: Soft, scaphoid. No evidence for hepatosplenomegaly. EXTREMITIES: No pedal edema, clubbing or cyanosis. NEUROLOGIC: Intact. No lateralizing signs. LABORATORY DATA: CT scan of the chest on 11/13/2018 compared to 05/06/2018 showed interval progression of the patchy bibasilar densities, multiple scattered irregular nodules and left upper lobe ground-glass airspace opacities, trace bilateral pleural effusions and cardiomegaly are noted. H and H 12.7 and 39.2, white count 4400, platelet count 92,000, 5.2% eosinophils, slight left shift. BUN 14, creatinine 0.7. OVERALL ASSESSMENT: An 88-year-old with past history of anemia, non-Hodgkin's lymphoma, atrial fibrillation/flutter, hypertension, coronary artery disease (no previous catheterization), ITP, chronic obstructive pulmonary disease and restrictive lung disease, pulmonary nodules with progressive ground-glass opacities, aortic stenosis, BPH,, nocturnal oxygen desaturation, peripheral neuropathy and recently diagnosed bladder carcinoma, who now presents with 2-day history of atypical right anterior chest and posterior subscapular pain radiating down the right arm and up to neck associated with atrial flutter with 4:1 AV block with a rate in the 60s and hemodynamically stable. Given the history of ITP as well as paroxysmal atrial flutter and the relatively new 48-hour history of atypical chest pain, I felt it is best to cancel the bronchoscopic procedure and admit the patient to [facility] Service with Cardiology consultation certainly to rule out an acute infarction and to address the atrial flutter, which may very well just require treatment with current beta blockade. Certainly, the patient needs a followup chest x-ray or even CT scan of the chest to see his progression of these multifocal areas of pneumonia and pulmonary nodulosis. MTDD
[2018-11-25] MEDS: DUTASTERIDE - ORDER AWAITING ACTION SCH ×2 (16:22→23:09)
[2018-11-25] MEDS ORDERED: CEROVITE ADV FORMULA TAB PO SCH (16:30)
[2018-11-25] MEDS: DOCUSATE SODIUM 100 MG CAP PO SCH (20:14)
[2018-11-25] MEDS ORDERED: SODIUM CHLORIDE 5% OP SOLN 15 ML BTL OPB SCH (21:00)
[2018-11-25] MEDS ORDERED: FEXOFENADINE HCL 180 MG TAB PO SCH (21:00)
[2018-11-25] MEDS ORDERED: TRAMADOL HCL 50 MG TABLET PO PRN (23:19)
[2018-11-25] MEDS ORDERED: TRAMADOL HCL 50 MG TABLET ONE (23:27)
[2018-11-26] MEDS ORDERED: LEVOTHYROXINE SODIUM 100 MCG TABLET PO SCH (06:30)
[2018-11-26] MEDS: ACETAMINOPHEN 500 MG TAB PO SCH ×2 (06:35→14:26)
[2018-11-26] MEDS: DUTASTERIDE - ORDER AWAITING ACTION SCH (08:27)
[2018-11-26] MEDS: DOCUSATE SODIUM 100 MG CAP PO SCH ×2 (08:29→08:35)
[2018-11-26] MEDS: LIDOCAINE 5% 1 PATCH TD SCH (08:30)
[2018-11-26] MEDS ORDERED: METOPROLOL SUCC 25MG EXT REL TAB PO SCH (09:00)
[2018-11-26] MEDS ORDERED: prednisoLONE acetate 1% OP SUSP 5 ML BTL OPL SCH (09:00)
[2018-11-26] MEDS ORDERED: MAGNESIUM OXIDE 400 MG TAB PO SCH (09:00)
[2018-11-26] MEDS ORDERED: CHOLECALCIFEROL 1,000 UNITS TAB PO SCH (09:00)
[2018-11-26] MEDS ORDERED: CYANOCOBALAMIN 500 MCG TABLET (VITAMIN B-12) PO SCH (09:00)
[2018-11-26] MEDS ORDERED: ARTIFICIAL TEARS OPB SCH (09:00)
--- NOTE | 2018-11-26 12:53 | Cardiology Progress Note ---
Date of Service November 26, 2018 Assessment & Plan (1) Atrial flutter: Fortunately, the patient's ventricular response is well controlled on low- dose metoprolol succinate. Unable to use chronic anticoagulation due to his significant thrombocytopenia. He does carry history of paroxysmal atrial f ibrillation in the past. (2) Shoulder pain: Right shoulder pain is likely musculoskeletal. Improved this morning. (3) CAD (coronary artery disease): Has a history of a non ST elevation ID in January 2015. No cardiac catheterization was performed at that time due to his thrombocytopenia. Conservative measures advised. Does also carry history chronic stable angina pectoris which has been stable on his medical regimen. No aspirin due to his thrombocytopenia. He is intolerant to statins. Subjective Mr. Rivera is resting comfortably in bed without complaints of chest pain, dyspnea, palpitations, syncope, or presyncope. Physical Exam Physical Exam: In general is a thin, elderly white male in no acute distress. HEENT exam is negative. Neck is supple with full carotid upstrokes. No carotid bruits. Jugular venous pressure is flat at 90 degrees. There is no thyromegaly. Cardiovascular exam reveals a regular rhythm with normal S1-S2. Heart sounds are distant. No obvious murmurs. Lungs are clear without rales, rhonchi, or wheezes. Abdomen is soft without bruits. Extremities reveal intact radial artery pulses bilaterally. There is no peripheral edema. Results & Data Vital Signs (Past 12 Hours) Vital Signs Temp Pulse Pulse Resp BP Pulse Ox 11/26/18 11:35 36.5 C 59 L 18 129/74 95 11/26/18 08:00 59 L 11/26/18 07:01 36.7 C 60 19 132/74 97 11/26/18 03:33 36.4 C L 57 L 18 121/64 98 Diagnostic Findings traffic monitor specialist notes atrial flutter with a controlled ventricular response.
--- NOTE | 2018-11-26 13:48 | Discharge Summary ---
Date of Service November 26, 2018 Admission HPI Per Admitting Provider Mr. Rivera is an 88 year old man who was scheduled for a same day surgery bronchoscopy but began to complain of pain in his right chest, shoulder, neck and arm. An EKG was performed and he was found to be in a rate controlled A.flutter. At the time of my assessment he does say he feels an occasional pain in his chest. His right chest and radiating pain has been ongoing since Saturday. He was working in his garden on Saturday but doesn't remember any specific injury. No numbness or tingling in the right extremity. No diaphoresis, nausea, lightheadedness. Pmhx: CAD, ITP, paroxysmal A.fib without anticoagulation due to chronic anemia, remote hx non hodgkins lymphoma, bladder cancer, Social hx: , never smoker Principal Diagnosis Chest pain, A. flutter Discharge Exam Constitutional WD/WN, vitals as above Respiratory normal respiratory effort, lungs clear to auscultation Cardiovascular RRR, no murmur, no edema Gastrointestinal (Abdomen) normal bowel sounds, soft, nontender, no hepatosplenomegaly Musculoskeletal no cyanosis or clubbing, extremities motor strength 5/5 Skin no rashes, warm and dry Neurologic deep tendon reflexes 2+ bilaterally and awake Discharge Data Allergies Allergy/AdvReac Type Severity Reaction Status Date / Time codeine Allergy Intermediate rash, Verified 11/25/18 08:51 redness, & swelling linezolid Allergy Intermediate unknown Verified 11/25/18 08:51 Penicillins Allergy Intermediate Rash Verified 11/25/18 08:51 rofecoxib Allergy Intermediate Rash Verified 11/25/18 08:51 Twowazn-Oco-Vwg Reductase Allergy Mild pt reports Verified 11/25/18 08:51 Inhibitor " i just felt bad" Consultations 11/25/18 09:34 Consult Hospitalist Routine 11/25/18 12:18 Consult Cardiology Routine Consult Case Management - Discharge Planning Routine Consult Pulmonology Routine Procedures Performed Operation Date: 11/25/18 09:00 Actual Procedures p Procedure cancelled due to Medical Issues - Alex Guevara MD Hospital Course (1) Atrial flutter: Rate in the 60s. A.flutter on EKG in same day surgery. Per outpatient notes, he has been A.flutter in the past, notably in a 2017 admission which was managed medically. At that time he was started on anticoagulation but a few months later his platelets dropped to 4000 and again platelets dropped in September 2017 and March 2018 as well as anemia so anticoagulation was discontinued. - echo showed progression of his aortic stenosis, EF 60%, no RWMA -troponins normal x 3 - continue metoprolol - consulted cardiology - no further intervention at this time, patient is ok for discharge from their standpoint. (2) Atrial fibrillation: paroxysmal, see above (3) Shoulder pain: Right shoulder. - Xray 2 view - chronic rotator cuff injury and degenerative changes - lidocaine patch - 1g tylenol q8h, tramadol - May want to consider steroid injection/ pain regimen with his pcp (4) CAD (coronary artery disease): Stress echo 2014 showed normal LV and systolic function, EF 60%, moderate concentric LVH, mildly dilated left atrium. Mild to moderate aortic stenosis, mild aortic insufficiency, moderate pulmonic insufficiency, trace MR, trace TR, evidence of FL in the mid to distal LAD territory which was medically managed. - continue metoprolol. Cardiology does not recommend ASA given this history. Patient doesn't tolerate statins - echo as above (5) SOB (shortness of breath): Patient initially was in same day surgery for bronchoscopy with Dr. Guevara for ongoing sob. Recent CT 11/13 showed interval progression of the patchy bibasilar densities, multiple scattered irregular nodules, and left upper lobe groundglass airspace opacities. This likely represents an atypical infectious process. Trace bilateral pleural effusions. - consulted pulmonology - recommends repeat CT or CXR to reassess nodules in follow up. Patient will need to follow up with pulm to reschedule bronch and continue workup (6) Hypothyroid: continue levothyroxine (7) Rash: chronic rash on back that he uses triamcinolone for (8) DVT prophylaxis: SCDS, chemoprophylaxis contraindicated Total Time Total Time Spent Total Time Spent (In Minutes): greater than 30 minutes Discharge Plan Discharge Items Patient Disposition: Home - Self-Care Reason For Visit: ABN CHEST CT, CHRONIC COUGH, LUNG NODULE, PULMONAR Discharge Diagnosis: Shoulder arthritis, Atrial flutter Discharge Goals: Decrease discomfort and Improve disease control Activity: Resume your previous activity Activity Comment: gradually as tolerated Non-emergency contact: Primary Care Provider, Pattern Attendant and Lead Quality Technician Call non-emergency contact if: you have any medication questions, your symptoms worsen, your pain is not controlled, your pain is worsening and you have a fever Follow-up/Referrals: Gus Cobos MD [Primary Care Provider] - Diet: Regular Addtl Provider Instructions: Please follow up with Dr. Cobos's office within about a week. Please follow up with Dr. Guevara concerning when to reschedule your bronchoscopy. You were admitted for chest pain and Atrial Flutter. Your heart rate is well controlled and your chest pain seems to be coming from your shoulder chronic rotator cuff injury/arthritis. Cardiology does not feel that you need further investigation of your heart. I will send you with a few more days of tramadol but you should talk to Dr. Cobos about a pain regimen going forward. You can also continue to take Tylenol 1000 mg every 8 hours (do not exceed 3000 mg per day). Prescriptions: New tramadol 50 mg Tablet 50 mg PO Q6H PRN (Reason: pain) Qty: 12 RF: 0 lidocaine 5 % Adhesive Patch,Medicated 1 patch transdermal QAM Qty: 30 RF: 0 Continued benzonatate 200 mg Capsule 200 mg PO TID PRN (Reason: Cough) RF: 0 fexofenadine [Adriana Allergy] 180 mg Tablet 180 mg PO QPM RF: 0 triamcinolone acetonide 0.1 % Cream 1 applic TOPICAL DAILY PRN (Reason: skin irritatiion) RF: 0 levothyroxine [Levoxyl] 100 mcg Tablet 100 mcg PO QAM RF: 0 nitroglycerin [Nitrostat] 0.4 mg Tablet, Sublingual 1 tab Sublingual DIRECTED PRN (Reason: Chest Pain) RF: 0 metoprolol succinate 25 mg Tablet Extended Release 24 Hr 25 mg PO QAM RF: 0 fluticasone propionate 50 mcg/actuation [place],Suspension 2 spray INTRANASAL DAILY PRN (Reason: Sinus Symptoms) RF: 0 dutasteride 0.5 mg Capsule 0.5 mg PO QPM RF: 0 cholecalciferol (vitamin D3) [Vitamin D3] 2,000 unit Capsule 2,000 unit PO QAM RF: 0 PreserVision AREDS [id number] Tablet 1 tab PO QDD RF: 0 cyanocobalamin (vitamin B-12) 1,000 mcg PO DAILY RF: 0 prednisolone acetate 0.12 % drops,suspension 1 drp OPL .MON/WED/FRI RF: 0 sodium chloride [Retaine NaCl] 5 % Drops 1 drp OPB QPM RF: 0 Systane Complete 0.6 % Drops 1 drp OPB QAM RF: 0 docusate sodium 100 mg capsule 100 mg PO BID Qty: 60 RF: 0 polyethylene glycol 3350 [Miralax] 17 gram powder in packet 17 gm PO DAILY PRN (Reason: Constipation) RF: 0 magnesium oxide 250 mg magnesium tablet 250 mg PO PM RF: 0 Stand-Alone Forms: [facility] Discharge Orders: Discharge Order (Routine); Ordered 11/26/18 Ordered By: Beth Cobos Admission Data Admit Date/Time: 11/25/18 09:54 Attending Provider: Walter Herbert Admit Provider: Dennis Heath Primary Care Provider: Gus Cobos Other Providers: Saul Altamirano ; Madina Vargas ; Louis Paul ; Jc Vance ; Amada Evnas ; Dennis Heath ; Hero Fitzpatrick ; Alexis Collins ; Anthony Lui ; Slava Islas ; Gely Henao ; Maria Elena Gonsales ; Dorie Dent ; Mo Ovalle ; Mariajose Mancilla ; Walter Herbert ; José Miguel Angeles ; Lucho Sullivan ; Tracy Thakkar ; Jaqueline Zimmer ; Beth Cobos ; Alphonse Dodson ; Hector Delgado ; Raz Duvall ; Mei Trent ; Kevon Yepez ; Alex De La Vega ; Alex Guevara Service: Telemetry
== END 2018-11-26 14:55 | disposition home or self-care (01) ==
LOC: 2S 08:30 → ASU 08:30 → SUATTDRO 09:54 → 2S 19:26

== ENCOUNTER 2019-02-06 10:29 | Inpatient (IN) ==
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
[2019-02-06] MEDS ORDERED: ACETAMINOPHEN 325 MG TAB PO PRN (10:45)
[2019-02-06] MEDS ORDERED: ONDANSETRON INJ 2 MG/ML 2 ML VIAL IV PRN (10:45)
[2019-02-06] MEDS ORDERED: LEVALBUTEROL 1.25MG/0.5ML NEB NEB SCH (10:45)
[2019-02-06 11:32] LABS: Base Excess ABG -1.9 mEq/L (-9-1.8); HCO3 ABG 19 mmol/L (19-24); Oxygen Saturation ABG 98.7 % (90-95); PCO2 ABG 24 mmHg (35-46); PO2 ABG 118 mm/Hg (80-95)
[2019-02-06 11:34] LABS: Allen Test Pos (Pos)
[2019-02-06 11:35] LABS: pH ABG 7.53 (7.35-7.45)
[2019-02-06 11:42] LABS: Basophils # (auto) 0.01 K/uL (0-0.2); Basophils % (auto) 0.2 %; Eosinophils # (auto) 0.02 K/uL (0-0.5); Eosinophils % (auto) 0.3 %; Hematocrit (blood only) 32.9 % (42-52); Hemoglobin 10.3 g/dL (14.0-18.0); Immature Granulocytes # (auto) 0.09 K/uL (0.00-0.02); Immature Granulocytes % (auto) 1.4 %; Lymphocytes # (auto) 0.84 K/uL (1.2-3.4); Lymphocytes % (auto) 13.2 %; Mean Corpuscular Volume 82.9 fL (80-100); Mean Platelet Volume 9.9 fL (7.4-10.4); Monocytes # (auto) 0.48 K/uL (0.11-0.59); Monocytes % (auto) 7.6 %; Neutrophils % (auto) 77.3 %; Platelet Count 102 K/uL (130-400); RDW Coefficient of Variation 19.2 % (11.5-14.5); RDW Standard Deviation 58.1 fL (36.4-46.3); Red Blood Count 3.97 M/uL (4.7-6.1); White Blood Count 6.34 K/uL (4.8-10.8)
[2019-02-06] MEDS ORDERED: ARTIFICIAL TEARS OP PRN (11:55)
[2019-02-06] MEDS: LACTATED RINGER'S 1,000 ML IV SCH (11:55)
[2019-02-06] MEDS ORDERED: FLUTICASONE PROPIONATE NA SPR 16 GM BTL NAE PRN (11:55)
[2019-02-06] MEDS ORDERED: NITROGLYCERIN SL 0.4 MG/TAB TAB SL PRN (11:55)
[2019-02-06] MEDS ORDERED: TRIAMCINOLONE ACET 0.1% CR 15 GM TUBE TOP PRN (11:55)
[2019-02-06] MEDS: PATIENT'S HEIGHT AND/OR WEIGHT NEEDED SCH ×4 (11:56→15:33)
[2019-02-06 11:58] LABS: Mean Corpuscular Hgb Conc 31.3 g/dL (32-36)
[2019-02-06 11:59] LABS: BUN Creatinine Ratio 17.4 (10-20); Blood Urea Nitrogen 13 mg/dl (7-18); Calcium 8.7 mg/dl (8.5-10.1); Carbon Dioxide 25 mmol/L (21-32); Chloride 106 mmol/L (98-107); Est GFR (African American) 95.5; Est GFR (Non-African American) 82.4; Glucose 113 mg/dl (70-99); Potassium 3.8 mmol/L (3.5-5.1); Sodium 137 mmol/L (136-145)
[2019-02-06] MEDS ORDERED: LEVOFLOXACIN/D5W 750 MG/150 ML BAG IV SCH (12:00)
[2019-02-06] MEDS ORDERED: QUETIAPINE FUMARATE 25 MG TABLET PO PRN (13:02)
[2019-02-06] MEDS: cefTRIAXone SODIUM 1,000 MG in DEXTROSE 5% 50 ML IV SCH (13:04)
[2019-02-06] MEDS ORDERED: PROMETHAZINE HCL SYRUP 6.25 MG/5 ML PO PRN (13:32)
[2019-02-06] MEDS: LEVALBUTEROL HCL 1.25 MG/3 ML NEB NEB SCH ×2 (13:39→19:02)
--- NOTE | 2019-02-06 14:06 | Consultation Report ---
DATE OF CONSULTATION: 02/06/2019 PULMONARY MEDICINE CONSULTATION REASON FOR CONSULTATION: Multifocal pneumonia. HISTORY OF PRESENT ILLNESS: An 88-year-old white male well known to me in the past having seen him in consultation during this admission in November of 2018. Was admitted from our clinic to the hospitalist service today because of worsening cough, weakness and multifocal pneumonia. The patient has a complex history of ischemic cardiac disease, paroxysmal atrial fibrillation and flutter, non-Hodgkin's B-cell lymphoma in remission followed by Dr. Evelio Fleming, pulmonary nodules, asthma/COPD, peripheral neuropathy. The patient has had a history of both chronic and acute cough, night sweats, chills, and generalized ill feeling associated with dyspnea with exertion. He was scheduled in November to undergo bronchoscopic evaluation and was found to be in atrial fibrillation and had to be admitted. I did see patient in consultation at that time, I refer you to that notation. The patient has a chronic history of thrombocytopenia and thus is not on anticoagulant therapy. At that time, he had bilateral shoulder discomfort and a right lower lobe pneumonia with a residual cough. He completed 10 days of outpatient antibiotics with prednisone. He does have a history of aortic stenosis and paroxysmal atrial fibrillation and flutter and ITP. In January 2015, he had a prolonged episode of left-sided chest pressure with elevated troponin levels and was diagnosed with an NSTEMI and is followed by Dr. Almodovar. Stress echocardiography in 2014 showed normal LVEF with moderate aortic stenosis, mild aortic insufficiency with no exercise-induced chest pain at that time, but post-stress echo images showing myocardial ischemia in the [id number] LAD and conservative medical management was entertained. He has been on beta blockade. He has been treated for CHF with diuretics in the past as well. For details of the course of his anticoagulant therapy and discontinuance, I refer you to previous notation. I have been asked to see patient in consultation this admission because of an abnormal chest x-ray and symptomatology. He has been started on IV ceftriaxone and IV doxycycline by Dorie Dent physician assistant property manager. For details of past medical history, medications, family and social history, I refer you to current and past record. PHYSICAL EXAMINATION: GENERAL: Reveals an elderly white male appearing stable at rest. No obvious signs of respiratory distress. CURRENT VITAL SIGNS: Blood pressure 115/69, pulse 74 and irregular, respiratory rate 18, temperature 36.3, O2 sat 92% on room air. SKIN: Without lesion. HEENT: Atraumatic, normocephalic. PERRLA. LUNGS: Scattered rales on forced expiration, audible wheeze left base. CARDIAC: Irregularly irregular rhythm. A grade 2/6 aortic murmur heard in the second right intercostal space. No S3. ABDOMEN: Soft, scaphoid. No evidence of hepatosplenomegaly. EXTREMITIES: No pedal edema, clubbing, cyanosis. NEUROLOGICAL: Intact. No lateralizing signs. LABORATORY DATA: EKG shows atrial flutter with a controlled ventricular response. H and H 10.3 and 32.9, white count 6300, platelet count 102,000. ABGs, pH 7.53, pCO2 of 24, pO2 of 118 on room air? BUN and creatinine 13 and 0.7, direct platelet bound IgG antibody in 2017 was positive. Quantitative Gold negative in 2018. Chest CT done today reviewed and compared to previous chest radiograph of yesterday and chest CT of 11/13/2018, shows multifocal airspace opacities throughout the lungs, most of them in the right middle and lower lobes suggesting multifocal pneumonia. These areas have increased when compared to October. There is also a 3.5 cm right upper lobe irregular opacity favoring pneumonia, cardiomegaly, and trace right pleural effusion noted. OVERALL ASSESSMENT AND PLAN: Elderly 88-year-old white male with a history of non-Hodgkin's lymphoma treated in the remote past, history of chronic obstructive pulmonary disease, probably a degree of chronic bronchiectasis with mucoid impaction and persistent cough, generalized ill health certainly over the past several months with persistent multifocal areas of pneumonia that have become progressive. Everything that I see looks more inflammatory than neoplastic, even the 3.5 cm increased opacity involving the right upper lobe. At this point in time, I have scheduled the patient for bronchoscopic intervention on Saturday. I agree with current antibiotic selection and suspect we are dealing with a chronic indolent infection, perhaps MAC or Aspergillus versus other etiology.
[2019-02-06 14:07] LABS: Immunoglobulin A 33.3 mg/dl (70-400)
--- NOTE | 2019-02-06 15:27 | Fluoroscopy Report ---
MODIFIED BARIUM SWALLOW CLINICAL HISTORY: assess for aspiration COMPARISON STUDY: None. FLUOROSCOPY TIME: 2.3 minutes. TECHNIQUE: A modified barium swallow was performed in conjunction with Speech Pathology. The patient ingested varying consistencies of barium containing material. Video fluoroscopy was performed. FINDINGS: No aspiration was identified with thin liquids by spoon or single swallow. There was a smal l amount of silent tracheal aspiration with serial swallows of thin liquids. There is no aspiration w ith nectar thick liquids, pudding or crackers with paste. There is a probable tiny Zenker's diverticu lum. IMPRESSION: 1. Small amount of silent tracheal aspiration with serial swallows of thin liquids. No aspiration wit h the remainder of the consistencies. 2. Probable tiny Zenker's diverticulum. 3. Full recommendations by speech pathology to follow. Electronically signed by: Sharan Fisher M.D. 02/06/2019 3:26 PM
[2019-02-06] MEDS: DUTASTERIDE ~ ORDER AWAITING ACTION SCH (15:31)
[2019-02-06] MEDS: [UNRECOGNIZED DRUG - OTHER] SCH (15:32)
[2019-02-06] MEDS: CEROVITE ADV FORMULA TAB PO SCH (15:33)
[2019-02-06] MEDS: BENZONATATE 100 MG CAPSULE PO SCH ×2 (15:33→20:48)
[2019-02-06] MEDS: SODIUM CHLORIDE 5% OP SOLN 15 ML BTL OPB SCH (20:47)
[2019-02-06] MEDS: guaiFENesin 600 MG TABCR PO SCH (20:48)
[2019-02-06] MEDS: DOXYCYCLINE HYCLATE 100 MG in DEXTROSE 5% 100 ML IV SCH (20:49)
[2019-02-06] MEDS: MAGNESIUM OXIDE 400 MG TAB PO SCH (20:50)
[2019-02-06] MEDS: FEXOFENADINE HCL 180 MG TAB PO SCH (20:50)
[2019-02-06] MEDS: CYANOCOBALAMIN 500 MCG TABLET (VITAMIN B-12) PO SCH (20:51)
[2019-02-07] MEDS: DUTASTERIDE ~ ORDER AWAITING ACTION SCH ×4 (00:05→21:57)
[2019-02-07] MEDS: [UNRECOGNIZED DRUG - OTHER] SCH ×4 (00:05→21:57)
[2019-02-07] MEDS: LACTATED RINGER'S 1,000 ML IV SCH ×2 (01:40→13:23)
[2019-02-07] MEDS: LEVALBUTEROL HCL 1.25 MG/3 ML NEB NEB SCH ×4 (02:19→19:18)
[2019-02-07 06:21] LABS: Hematocrit (blood only) 31.4 % (42-52); Hemoglobin 9.7 g/dL (14.0-18.0); Mean Corpuscular Hgb Conc 30.9 g/dL (32-36); RDW Coefficient of Variation 19.3 % (11.5-14.5); RDW Standard Deviation 59.4 fL (36.4-46.3); Red Blood Count 3.74 M/uL (4.7-6.1); White Blood Count 3.11 K/uL (4.8-10.8)
[2019-02-07] MEDS: LEVOTHYROXINE SODIUM 100 MCG TABLET PO SCH (06:21)
[2019-02-07 06:55] LABS: Albumin Level 2.3 gm/dl (3.4-5.0); BUN Creatinine Ratio 14.8 (10-20); Calcium 8.6 mg/dl (8.5-10.1); Est GFR (African American) 98.8; Est GFR (Non-African American) 85.3; Potassium 3.8 mmol/L (3.5-5.1)
[2019-02-07 06:58] LABS: Albumin Globulin Ratio 0.6 (0.9-2); Bilirubin,Total 1.4 mg/dl (0.2-1); Globulin 3.6 gm/dl (2.5-4.0); Total Protein 5.9 gm/dl (6.4-8.2)
[2019-02-07 07:18] LABS: Mean Platelet Volume 9.7 fL (7.4-10.4); Platelet Count 83 K/uL (130-400); Platelet Estimate Decreased (Normal)
[2019-02-07] MEDS: guaiFENesin 600 MG TABCR PO SCH ×2 (08:42→20:29)
[2019-02-07] MEDS: BENZONATATE 100 MG CAPSULE PO SCH ×3 (08:42→20:30)
[2019-02-07] MEDS: CHOLECALCIFEROL 1,000 UNITS TAB PO SCH (08:42)
[2019-02-07] MEDS: DOXYCYCLINE HYCLATE 100 MG in DEXTROSE 5% 100 ML IV SCH ×2 (08:46→20:28)
--- NOTE | 2019-02-07 08:48 | Hospitalist Progress Note ---
Date of Service February 07, 2019 Assessment & Plan (1) Pneumonia: -Multifocal consolidations in the RML and RLL -CT performed as an outpatient this morning, . CXR from 02/05 reviewed -Consult pulmonology - Dr. Guevara, for possible bronchoscopy scheduled for Friday 02/09 -Pulmonary toilet, Mucinex, flutter, incentive spirometry, tessalon pearls -IV ceftriaxone and doxycycline -MRSA swab negative -Question if the pt may be aspirating with hx of indigestion and needing PPI/[id number]? No zosyn with pcn allergy. -Speech eval, small amount of silent aspiration recommend good bedside techniques, possible small zenkers (2) Pulmonary nodule: - Follows with pulm as an outpatient outpatient he is a lifelong non- smoker scheduled for bronchoscopy as mentioned above - (3) Atrial fibrillation: - Resolved, not on rate controlling medications (4) Atrial flutter: - Continue Imdur 30 mg daily - EKG - shows aflutter, rate controlled. (5) CAD (coronary artery disease): - Stable (6) Hypertension: -Not on antihypertensive medications (7) HLD (hyperlipidemia): - No statin therapy (8) Aortic stenosis: - Noted remains asymptomatic (9) B-cell lymphoma: - In remission, follows with Dr. Fleming as an outpatient (10) Anemia of chronic disease: -hgb remains in the 9-10 range (11) Bladder cancer: - Stable (12) Benign prostatic hyperplasia with lower urinary tract symptoms: - Follows with urology as an outpatient, denies LUTS (13) DVT prophylaxis: - Teds, scd, no chemical prophylaxis with hx of thrombocytopenia. Subjective Patient has no complaints or problems his cough is somewhat improved Review of Systems Review of Systems: ROS: well nourished well developed. No double vision blurry vision No problems with speech or swallowing No palpitations, chest pain or pressure Coughing and shortness of breath No abdominal pain nausea vomiting diarrhea changes in appetite or weight No burning urine urine frequency or changes in color No focal joint pain or muscle pain No skin rashes or oral lesions No unusual bruising or bleeding No focused back pain or numbness or loss of strength No changes in memory or confusion Physical Exam Physical Exam: The patient appeared well nourished and normally developed. Vital signs as documented. Head exam is unremarkable. normocephalic, atraumatic Neck is without jugular venous distension, thyromegaly, or lymphademopathy Lungs are coarse breath sounds bilaterally right side greater than left Cardiac exam reveals Rhythm is regular. First and second heart sounds normal. Abdominal exam reveals normal bowel sounds, no masses, no organomegaly Extremities are nonedematous and both pedal pulses are present Neurologic exam is A&Ox3, no focal deficits, strength is equal bilateral Psychologically seems neither anxious or depressed Skin is warm Dry without bruises or lesions Results & Data Vital Signs (Past 12 Hours) Vital Signs Temp Pulse Resp BP BP Pulse Ox 02/07/19 08:44 36.4 C L 20 117/72 97 02/07/19 07:30 71 17 97 02/06/19 23:24 36.9 C 62 18 81/43 L 103/58 L 96 PG Care Time/CCT Total # of Minutes Spent Total Time Spent with Patient: Total time spent is greater than 50% in coordination of care (as documented) at patient's floor/unit and/or counseling patient: (1) Atrial fibrillation Atrial fibrillation type: paroxysmal Qualified Code(s): I48.0 - Paroxysmal atrial fibrillation (2) HLD (hyperlipidemia) Hyperlipidemia type: unspecified Qualified Code(s): E78.5 - Hyperlipidemia, unspecified (3) Hypertension Hypertension type: essential hypertension Qualified Code(s): I10 - Essential (primary) hypertension (4) Pneumonia Laterality: right Lung location: middle lobe of lung Pneumonia type: due to unspecified organism Qualified Code(s): J18.1 - Lobar pneumonia, unspecified organism
[2019-02-07] MEDS: cefTRIAXone SODIUM 1,000 MG in DEXTROSE 5% 50 ML IV SCH (13:23)
[2019-02-07] MEDS: CEROVITE ADV FORMULA TAB PO SCH (18:29)
[2019-02-07] MEDS: MAGNESIUM OXIDE 400 MG TAB PO SCH (20:29)
[2019-02-07] MEDS: CYANOCOBALAMIN 500 MCG TABLET (VITAMIN B-12) PO SCH (20:30)
[2019-02-07] MEDS: FEXOFENADINE HCL 180 MG TAB PO SCH (20:30)
[2019-02-07] MEDS: SODIUM CHLORIDE 5% OP SOLN 15 ML BTL OPB SCH (20:30)
[2019-02-08] MEDS: LACTATED RINGER'S 1,000 ML IV SCH ×2 (00:59→14:33)
[2019-02-08] MEDS: LEVALBUTEROL HCL 1.25 MG/3 ML NEB NEB SCH ×4 (02:15→19:07)
[2019-02-08] MEDS: LEVOTHYROXINE SODIUM 100 MCG TABLET PO SCH (05:42)
[2019-02-08 05:54] LABS: Hematocrit (blood only) 30.3 % (42-52); Hemoglobin 9.5 g/dL (14.0-18.0); Mean Corpuscular Hgb Conc 31.4 g/dL (32-36); Mean Corpuscular Volume 84.2 fL (80-100); RDW Coefficient of Variation 19.1 % (11.5-14.5); RDW Standard Deviation 58.9 fL (36.4-46.3); White Blood Count 2.81 K/uL (4.8-10.8)
[2019-02-08 05:56] LABS: Mean Platelet Volume 9.7 fL (7.4-10.4); Platelet Count 80 K/uL (130-400)
[2019-02-08 06:30] LABS: Albumin Level 2.4 gm/dl (3.4-5.0); BUN Creatinine Ratio 14.6 (10-20); Calcium 8.8 mg/dl (8.5-10.1); Creatinine Clr Calc Pharmacy 81.9 ml/min; Est GFR (African American) 103.3; Est GFR (Non-African American) 89.2; Potassium 3.9 mmol/L (3.5-5.1)
[2019-02-08 06:38] LABS: Albumin Globulin Ratio 0.7 (0.9-2); Bilirubin,Total 0.9 mg/dl (0.2-1); Globulin 3.3 gm/dl (2.5-4.0); Total Protein 5.7 gm/dl (6.4-8.2)
[2019-02-08] MEDS: DUTASTERIDE ~ ORDER AWAITING ACTION SCH ×2 (07:44→15:43)
[2019-02-08] MEDS: [UNRECOGNIZED DRUG - OTHER] SCH ×2 (07:45→15:43)
[2019-02-08] MEDS: guaiFENesin 600 MG TABCR PO SCH ×2 (07:46→20:31)
[2019-02-08] MEDS: BENZONATATE 100 MG CAPSULE PO SCH ×3 (07:46→20:31)
[2019-02-08] MEDS: CHOLECALCIFEROL 1,000 UNITS TAB PO SCH (07:46)
[2019-02-08] MEDS: DOXYCYCLINE HYCLATE 100 MG in DEXTROSE 5% 100 ML IV SCH ×2 (09:53→20:40)
--- NOTE | 2019-02-08 12:25 | Hospitalist Progress Note ---
Date of Service February 08, 2019 Assessment & Plan (1) Pneumonia: -Multifocal consolidations in the RML and RLL -CT performed as an outpatient this morning, . CXR from 02/05 reviewed -Consult pulmonology - Dr. Guevara, for possible bronchoscopy scheduled for Friday 02/09 -Pulmonary toilet, Mucinex, flutter, incentive spirometry, tessalon pearls -IV ceftriaxone and doxycycline -MRSA swab negative -Question if the pt may be aspirating with hx of indigestion and needing PPI/E2rhidqliu? No zosyn with pcn allergy. -Speech eval, small amount of silent aspiration recommend good bedside techniques, possible small zenkers (2) Pulmonary nodule: - Follows with pulm as an outpatient outpatient he is a lifelong non- smoker scheduled for bronchoscopy as mentioned above - (3) Atrial fibrillation: - Resolved, not on rate controlling medications (4) Atrial flutter: - Continue Imdur 30 mg daily - EKG - shows aflutter, rate controlled. (5) CAD (coronary artery disease): - Stable (6) Hypertension: -Not on antihypertensive medications (7) HLD (hyperlipidemia): - No statin therapy (8) Aortic stenosis: - Noted remains asymptomatic (9) B-cell lymphoma: - In remission, follows with Dr. Fleming as an outpatient (10) Anemia of chronic disease: -hgb remains in the 9-10 range (11) Bladder cancer: - Stable (12) Benign prostatic hyperplasia with lower urinary tract symptoms: - Follows with urology as an outpatient, denies LUTS (13) DVT prophylaxis: - Teds, scd, no chemical prophylaxis with hx of thrombocytopenia. Subjective Patient has no complaints his coughing is improving his constipation was relieved after eating prunes he is awaiting bronchoscopy on 02/09 Review of Systems Review of Systems: ROS: well nourished well developed. No double vision blurry vision No problems with speech or swallowing No palpitations, chest pain or pressure No Wheezing mild cough occasional production of sputum No abdominal pain nausea vomiting diarrhea changes in appetite or weight No burning urine urine frequency or changes in color No focal joint pain or muscle pain No skin rashes or oral lesions No unusual bruising or bleeding No focused back pain or numbness or loss of strength No changes in memory or confusion Physical Exam Physical Exam: The patient appeared well nourished and normally developed. Vital signs as documented. Head exam is unremarkable. normocephalic, atraumatic Neck is without jugular venous distension, thyromegaly, or lymphademopathy Lungs are clear to auscultation occasional scant rales which clear with deep inspiration Cardiac exam reveals Rhythm is regular. First and second heart sounds normal. Abdominal exam reveals normal bowel sounds, no masses, no organomegaly Extremities are nonedematous and both pedal pulses are present Neurologic exam is A&Ox3, no focal deficits, strength is equal bilateral Psychologically seems neither anxious or depressed Skin is warm Dry without bruises or lesions Results & Data Vital Signs (Past 12 Hours) Vital Signs Temp Pulse Resp BP Pulse Ox 02/08/19 08:06 36.3 C L 70 20 127/86 97 02/08/19 07:22 65 16 98 PG Care Time/CCT Total # of Minutes Spent Total Time Spent with Patient: Total time spent is greater than 50% in coordination of care (as documented) at patient's floor/unit and/or counseling patient: (1) Pneumonia Laterality: right Lung location: middle lobe of lung Pneumonia type: due to unspecified organism Qualified Code(s): J18.1 - Lobar pneumonia, unspecified organism (2) Atrial fibrillation Atrial fibrillation type: paroxysmal Qualified Code(s): I48.0 - Paroxysmal atrial fibrillation (3) Hypertension Hypertension type: essential hypertension Qualified Code(s): I10 - Essential (primary) hypertension (4) HLD (hyperlipidemia) Hyperlipidemia type: unspecified Qualified Code(s): E78.5 - Hyperlipidemia, unspecified
[2019-02-08] MEDS: cefTRIAXone SODIUM 1,000 MG in DEXTROSE 5% 50 ML IV SCH (12:32)
[2019-02-08] MEDS: CEROVITE ADV FORMULA TAB PO SCH (16:18)
[2019-02-08] MEDS: MAGNESIUM OXIDE 400 MG TAB PO SCH (20:31)
[2019-02-08] MEDS: FEXOFENADINE HCL 180 MG TAB PO SCH (20:32)
[2019-02-08] MEDS: CYANOCOBALAMIN 500 MCG TABLET (VITAMIN B-12) PO SCH (20:32)
[2019-02-08] MEDS: SODIUM CHLORIDE 5% OP SOLN 15 ML BTL OPB SCH (20:33)
[2019-02-09] MEDS: DUTASTERIDE ~ ORDER AWAITING ACTION SCH ×4 (00:03→23:21)
[2019-02-09] MEDS: [UNRECOGNIZED DRUG - OTHER] SCH ×4 (00:03→23:21)
[2019-02-09] MEDS: LACTATED RINGER'S 1,000 ML IV SCH ×2 (02:02→15:15)
[2019-02-09] MEDS: LEVALBUTEROL HCL 1.25 MG/3 ML NEB NEB SCH ×4 (02:23→19:13)
[2019-02-09] MEDS: LEVOTHYROXINE SODIUM 100 MCG TABLET PO SCH (05:42)
[2019-02-09 06:04] LABS: Hematocrit (blood only) 35.4 % (42-52); Hemoglobin 10.9 g/dL (14.0-18.0); Mean Corpuscular Hgb Conc 30.8 g/dL (32-36); Mean Corpuscular Volume 85.5 fL (80-100); Mean Platelet Volume 10.3 fL (7.4-10.4); Platelet Count 102 K/uL (130-400); RDW Coefficient of Variation 18.9 % (11.5-14.5); RDW Standard Deviation 59.7 fL (36.4-46.3); Red Blood Count 4.14 M/uL (4.7-6.1); White Blood Count 3.08 K/uL (4.8-10.8)
[2019-02-09 06:37] LABS: Albumin Level 2.7 gm/dl (3.4-5.0); BUN Creatinine Ratio 11.1 (10-20); Calcium 8.9 mg/dl (8.5-10.1); Creatinine Clr Calc Pharmacy 71.5 ml/min; Est GFR (African American) 97.1; Est GFR (Non-African American) 83.8; Potassium 4.1 mmol/L (3.5-5.1)
[2019-02-09 06:39] LABS: Albumin Globulin Ratio 0.8 (0.9-2); Bilirubin,Total 0.5 mg/dl (0.2-1); Globulin 3.5 gm/dl (2.5-4.0); Total Protein 6.2 gm/dl (6.4-8.2)
--- NOTE | 2019-02-09 07:03 | History & Physical Bridge Note ---
Date of Service February 09, 2019 History & Physical Bridge Note I have examined the patient, reviewed the History & Physical and in the interval since the performance of the History & Physical I have noted the following changes of clinical significance: no changes noted Supervising Physician Co-Signing Physician Notes PA Physician Supervision Note: I interviewed and examined the patient. Discussed with Dorie MILLS and agree with findings and plan as documented in the note. Any exceptions or clarifications are listed here: None Patient direct admission to the office with progressive hypoxia he is multifocal pneumonia with bilateral infiltrates she is previously had groundglass infiltrates has been well-known to Dr. Guevara. Patient improved somewhat as an outpatient while on a Z-Иван for dental infection however he is subacutely worsened since that time. Doxycycline is may have some GI upset Vitals are stable he is no longer hypoxic at rest Lungs have bilateral rhonchorous breath sounds chest x-ray looks like he has changes of hyperinflation Treat for multifocal pneumonia covering broadly with IV doxy and Rocephin pulmonary consultation consider steroids Documented By: Dennis Heath
--- NOTE | 2019-02-09 07:04 | Pre Anesthesia Assessment ---
Date of Service February 09, 2019 Pre Sedation Assessment Vital Signs Temp Pulse Resp BP BP Pulse Ox 02/09/19 03:56 36.3 C L 69 20 116/71 96 02/08/19 23:18 36.3 C L 72 18 131/78 95 02/08/19 19:16 36.6 C 62 20 130/65 96 02/08/19 19:10 70 18 96 02/08/19 17:08 36.7 C 63 19 114/49 L 97 02/08/19 13:52 63 18 98 02/08/19 08:06 36.3 C L 70 20 127/86 97 02/08/19 07:22 65 16 98 Cardiovascular RRR, no murmur, no edema + peripheral pulses normal Respiratory normal respiratory effort, lungs clear to auscultation Pre-Sedation Airway Assessment Smoking Status: Never smoker Hx Sleep Apnea: No Hx Difficult Intubation: No Short, Thick Neck: No Thyromental Distance: > or= 3.5 Finger Breadths Oral Cavity: + WNL Mallampati Class: II ASA: ASA3 Procedure Planning Contraindications for Sedation: none Current Medications Reviewed: Yes Notes The planned sedation has been discussed with the patient. Informed Consent was obtained. I have identified the patient, determined the appropriateness of sedation and have assessed the patient immediately prior to the procedure. All medicine(s) and interventions are by my order. Supervising Physician Co-Signing Physician Notes PA Physician Supervision Note: I interviewed and examined the patient. Discussed with Dorie Dent PAC and agree with findings and plan as documented in the note. Any exceptions or clarifications are listed here: None Patient direct admission to the office with progressive hypoxia he is multifocal pneumonia with bilateral infiltrates she is previously had groundglass infiltrates has been well-known to Dr. Guevara. Patient improved somewhat as an outpatient while on a Z-Иван for dental infection however he is subacutely worsened since that time. Doxycycline is may have some GI upset Vitals are stable he is no longer hypoxic at rest Lungs have bilateral rhonchorous breath sounds chest x-ray looks like he has changes of hyperinflation Treat for multifocal pneumonia covering broadly with IV doxy and Rocephin pulmonary consultation consider steroids Documented By: Dennis Heath
[2019-02-09] MEDS: SODIUM CHLORIDE 0.9% 1000ML 1,000 ML IV SCH (07:45)
[2019-02-09] MEDS ORDERED: LIDOCAINE 4% INH SOLN 4 ML BTL NAE ONE (08:13)
[2019-02-09] MEDS ORDERED: OXYMETAZOLINE 0.05% 30 ML BTL ONE (08:13)
[2019-02-09] MEDS ORDERED: LIDOCAINE HCL VISCOUS SOLN 2% 15 ML UDC TOP ONE (08:32)
[2019-02-09] MEDS ORDERED: fentaNYL citrate 100 MCG/2 ML VIAL IV ONE (08:32)
[2019-02-09] MEDS ORDERED: LIDOCAINE HCL 2% (LOCAL) INJ 50 ML VIAL INFIL STA (08:32)
[2019-02-09] MEDS ORDERED: MIDAZOLAM HCL 1 MG/ML 2ML VIAL IV STA (08:32)
[2019-02-09] MEDS ORDERED: LEVALBUTEROL HCL 1.25 MG/3 ML NEB NEB STA (08:32)
--- NOTE | 2019-02-09 08:51 | Post Anesthesia Assessment ---
Date of Service February 09, 2019 Post Sedation Assessment Vital Signs Temp Pulse Pulse Resp BP Pulse Ox 02/09/19 08:43 65 14 98/52 L 100 02/09/19 08:40 61 14 106/53 L 100 02/09/19 08:35 68 14 102/55 L 100 02/09/19 08:30 59 L 14 122/68 98 02/09/19 08:25 67 14 123/79 100 02/09/19 08:20 63 14 150/73 H 100 02/09/19 08:00 63 146/77 H 97 02/09/19 03:56 36.3 C L 69 20 116/71 96 02/08/19 23:18 36.3 C L 72 18 131/78 95 02/08/19 19:16 36.6 C 62 20 130/65 96 02/08/19 19:10 70 18 96 02/08/19 17:08 36.7 C 63 19 114/49 L 97 02/08/19 13:52 63 18 98 Recovery Score Activity: Moves 4 extremities Respiration: Deep Breath/Cough Circulation: +/-20% PreAnes Value Consciousness: Arouseable (by name) Oxygen Saturation: O2 needed for >90% Post Anesthesia Score: 8 Discharge Sedation Level of Care: Fast Track Phase II Post Sedation Plan On clinical assessment, the patient appears to have tolerated the sedation without complications. Patient is recovering as anticipated. Patient will continue to be monitored by nursing and may be discharged when sedation discharge criteria are met per below protocol. Upon Completions of procedure and additional 15 minutes continue every 5 minute vital signs and the P.A.R. score; then discharge to a Phase I or Fast Track to Phase II per the following guidelines: * Discharge Patient to appropriate Phase II area if PAR is 8 or greater or return to pre- procedure baseline. The post - procedure orders will be as directed. * If PAR score is less than 8 or not return to pre-procedure baseline then patient will follow Phase I monitoring till PAR is reached for Phase II. The Phase I may be done in procedure room or may call to secure a Phase I area. * If naloxone or flumazenil are used for reversal, hold in Phase I for continued monitoring from when last reversal dose was given for a minimum of 60 minutes or longer pending the nurse and/or physician discretion of patient condition before discharge to Phase II. Please call the Sedation Physician to re-evaluate and complete post-note for discharge to Phase II area. Do NOT discharge from procedure sedation or Phase 1 until post- sedation evaluation note is complete by procedure /sedation MD Sedation Discharge Instructions to be given to the patient at discharge to home. Supervising Physician Co-Signing Physician Notes [place] Physician Supervision Note: I interviewed and examined the patient. Discussed with Dorie Dent PAC and agree with findings and plan as documented in the note. Any exceptions or clarifications are listed here: None Patient direct admission to the office with progressive hypoxia he is multifocal pneumonia with bilateral infiltrates she is previously had groundglass infiltrates has been well-known to Dr. Guevara. Patient improved somewhat as an outpatient while on a Z-Иван for dental infection however he is subacutely worsened since that time. Doxycycline is may have some GI upset Vitals are stable he is no longer hypoxic at rest Lungs have bilateral rhonchorous breath sounds chest x-ray looks like he has changes of hyperinflation Treat for multifocal pneumonia covering broadly with IV doxy and Rocephin pulmonary consultation consider steroids Documented By: Dennis Heath
--- NOTE | 2019-02-09 08:52 | Post Operative Brief Note ---
Immediate Post Op Note v1 Date of Surgery February 09, 2019 Pre & Post Diagnosis Operation Date: 02/09/19 08:00 Pre-Op Diagnosis: Multifocal Pneumonia Post-Op Diagnosis: Multifocal Pneumonia w mucoid impaction Procedure Operation Date: 02/09/19 08:00 Actual Procedures p Bronchoscopy Radiology(Bilateral) - Alex Guevara MD Surgeon Alex Guevara MD Service Mechanic none Estimated Blood Loss 0 Findings Consistent with Post-Op Diagnosis Multifocal pneumonia w mucoid impaction Complications none Disposition Accompanied Patient To Recovery: No Overlapping Procedure I was present for: the critical portions of procedure. I was immediately available: during the entire case. Back up surgeon: was not required during procedure.
--- NOTE | 2019-02-09 09:11 | Hospitalist Progress Note ---
Date of Service February 09, 2019 Assessment & Plan (1) Pneumonia: -Multifocal consolidations in the RML and RLL -CT and CXR from admission -Underwent bronch by Dr. Guevara on 02/09 -showed mucoid impaction involving the superior segment of RLL, RML, and 2 of the 3 segments of the RUL. -Pulmonary toilet, Mucinex, flutter, incentive spirometry, tessalon pearls -IV ceftriaxone and doxycycline - likely can d/c with oral abx (start date was 02/06) -MRSA swab negative -Speech eval, small amount of silent aspiration recommend good bedside techniques, possible small zenkers. Discussed with pt and his , he understands speech recs: small sips, no straws, sit up while eating, wait 30 minutes before lying flat. (2) Pulmonary nodule: - Follows with pulm as an outpt - Lifelong non-smoker (3) Atrial fibrillation: - Resolved from past hospitalization (4) Atrial flutter: - Continue Imdur 30 mg daily - will need to encourage medication compliance prior to discharge due to - EKG - shows aflutter, rate controlled. (5) CAD (coronary artery disease): - Stable (6) Hypertension: - Imdur as above (started during this admission d/t not starting as outpt prior to this) (7) HLD (hyperlipidemia): - No statin therapy (8) Aortic stenosis: - Noted remains asymptomatic (9) B-cell lymphoma: - In remission, follows with Dr. Fleming as an outpatient (10) Anemia of chronic disease: -hgb remains in the 9-10 range (11) Bladder cancer: - Stable (12) Benign prostatic hyperplasia with lower urinary tract symptoms: - Follows with urology as an outpatient, denies LUTS (13) DVT prophylaxis: - Teds, scd, no chemical prophylaxis with hx of thrombocytopenia. (14) Pancytopenia: due to prior lymphoma? check b12/folate to be complete. recent TSH was wnl. CBCs, despite the pancytopenia, have been stable. Supervising Physician Co-Signing Physician Notes Attending Attestation - Chart reviewed, care plan d/w [place] Dent. I agree w/ the blanco components of her documentation. Patient with RML/RLL pneumonia. Significant mucoid impaction noted on bronch today s/p lavage w/ removal by Dr Guevara. Video swallow results noted. Given silent aspiration and location of pneumonia along with mucous plugs - this could be aspiration pneumonia. Cont current abx. Stop IVF. B12/folate in am. Louis Paul MD Subjective The patient was seen and examined this morning. Pt and his are present in the room. He feels well today s/p bronchoscopy with Dr. Guevara. He reports his breathing is much improved from when I last saw him on Saturday, still with a cough with productive clear sputum at times. He denies feeling acutely short of breath with ambulation to the bathroom in the room. He denies fever, chills or sweats. Review of Systems Review of Systems: Constitutional: No fever, sweats or chills Eyes: No diplopia, no worsening or blurred vision ENT: normal hearing, no trouble swallowing Respiratory: As per HPI: + cough, +sputum, no dyspnea at rest, + mild exertion with ambulation Cardiovascular: No chest pain, tightness or palpitations Abdomen: No pain, nausea, vomiting, diarrhea or constipation Musculoskeletal: No joint pain, calf pain, swelling Neurologic: No weakness, numbness/tingling, or balance problems Psychiatric: No anxiety or depression Skin: No rash or itch Physical Exam Physical Exam: General: awake, alert, no apparent distress, + thin Head: Normocephalic, atraumatic ENT: PERRL, EOMI, no pharyngeal exudate, mucous membranes moist Chest: On 2 L via NC, + coarse breath sounds in the LLL, much improved aeration in the R garza without crackles or wheezing. + cough with deep breaths occasionally Cardiac: Irregular but rate controlled, + MICHAELLE, no JVD, normal peripheral pulses Abdominal: NABS x 4 quadrants, soft, nontender to palpation, no rebound, guarding or tenderness Extremities: Normal inspection, no peripheral edema or erythema, calfs nontender to palpation Psych: Normal mood and affect Neuro: AAO x 3, no motor deficits, speech is clear Results & Data Vital Signs (Past 12 Hours) Vital Signs Temp Pulse Pulse Resp BP Pulse Ox 02/09/19 08:43 65 14 98/52 L 100 02/09/19 08:40 61 14 106/53 L 100 02/09/19 08:35 68 14 102/55 L 100 02/09/19 08:30 59 L 14 122/68 98 02/09/19 08:25 67 14 123/79 100 02/09/19 08:20 63 14 150/73 H 100 02/09/19 08:00 63 146/77 H 97 02/09/19 03:56 36.3 C L 69 20 116/71 96 02/08/19 23:18 36.3 C L 72 18 131/78 95 PG Care Time/CCT Total # of Minutes Spent Total Time Spent with Patient: Total time spent is greater than 50% in coordination of care (as documented) at patient's floor/unit and/or counseling patient: (1) Atrial fibrillation Atrial fibrillation type: paroxysmal Qualified Code(s): I48.0 - Paroxysmal atrial fibrillation (2) HLD (hyperlipidemia) Hyperlipidemia type: unspecified Qualified Code(s): E78.5 - Hyperlipidemia, unspecified (3) Hypertension Hypertension type: essential hypertension Qualified Code(s): I10 - Essential (primary) hypertension (4) Pneumonia Laterality: right Lung location: middle lobe of lung Pneumonia type: due to unspecified organism Qualified Code(s): J18.1 - Lobar pneumonia, unspecified organism
--- NOTE | 2019-02-09 09:24 | Progress Note ---
DATE: 02/09/2019 PULMONARY MEDICINE PROGRESS NOTE Chart reviewed, the patient examined The patient underwent bronchoscopy this morning. Significant mucoid impaction was seen especially involving the superior segment of right lower lobe, right middle lobe and 2 of the 3 segments of the right upper lobe. The specimen was sent for appropriate studies. The patient tolerated the procedure well and will await both serology and identification on whether this represents ABPA or other etiology. ANJANA
[2019-02-09] MEDS: BENZONATATE 100 MG CAPSULE PO SCH ×3 (09:47→20:27)
[2019-02-09] MEDS: DOXYCYCLINE HYCLATE 100 MG in DEXTROSE 5% 100 ML IV SCH ×2 (09:47→20:26)
[2019-02-09] MEDS: cefTRIAXone SODIUM 1,000 MG in DEXTROSE 5% 50 ML IV SCH (12:59)
[2019-02-09] MEDS: CHOLECALCIFEROL 1,000 UNITS TAB PO SCH (13:00)
[2019-02-09] MEDS: guaiFENesin 600 MG TABCR PO SCH ×2 (13:00→20:27)
--- NOTE | 2019-02-09 15:45 | Operative Report ---
DATE OF OPERATION: 02/09/2019 PROCEDURE: Fiberoptic bronchoscopy with bronchoalveolar lavage. INDICATIONS: Multifocal pneumonia. ANESTHESIA PREOPERATIVELY: None. ANESTHESIA DURING PROCEDURE: IV Versed 3 mg, IV fentanyl 25 mcg, 20 mL 2% Xylocaine spray above and below the cords, 4% viscous Xylocaine intranasally. Moderate conscious sedation was implemented at 0818, completed at 0832. DESCRIPTION OF PROCEDURE: Fiberoptic bronchoscope was inserted into the right naris with minimal difficulty and passed to the level of the true vocal cords. The cords appeared to approximate normally with phonation without evidence for lesions or paralysis. The area was anesthetized with 2% Xylocaine spray and the scope was then introduced into the trachea and right and left tracheobronchial tree. The simon was sharp. The right main stem bronchus was explored initially and no endobronchial lesions were seen. Right upper lobe, the apical posterior and anterior segments showed a moderate amount of mucoviscous secretion that was lavaged until clear. No endobronchial lesions seen. Bronchus intermedius, right middle lobe, the medial and lateral segments and all basilar segments of right lower lobe were free of endobronchial lesions. However, the superior segment appeared to be totally occluded with thick mucoviscous secretion that was lavaged until clear. Left tracheobronchial tree was explored and similar findings were noted. No endobronchial lesions seen. Left upper lobe, lingual subdivision and left lower lobe were free of endobronchial lesions down to the subsegmental bronchi, but numerous segmental bronchi involving the left lower lobe bronchial anatomy were occluded with thick mucoviscous secretion that was lavaged until clear. Mucus pitting with bronchial crypts and clefts were seen throughout the right and left tracheobronchial tree. No brushings or biopsies were deemed necessary. Fluoroscopy was not utilized. The procedure was terminated and the aspirate sent for appropriate studies. Will await for microbiological and cytologic examination. OVERALL ASSESSMENT: Multifocal pneumonia with mucoid impaction. The patient was then given a nebulizer treatment with Xopenex 1.25 mg and transferred back to the medical floor, hemodynamically stable with no further signs of respiratory embarrassment. Clinical correlation is needed. I attest to the content of the Intraoperative Record and any orders documented therein. Any exception s are noted below.
[2019-02-09] MEDS: CEROVITE ADV FORMULA TAB PO SCH (16:11)
[2019-02-09] MEDS: MAGNESIUM OXIDE 400 MG TAB PO SCH (20:26)
[2019-02-09] MEDS: CYANOCOBALAMIN 500 MCG TABLET (VITAMIN B-12) PO SCH (20:26)
[2019-02-09] MEDS: SODIUM CHLORIDE 5% OP SOLN 15 ML BTL OPB SCH (20:27)
[2019-02-09] MEDS: FEXOFENADINE HCL 180 MG TAB PO SCH (20:27)
[2019-02-10] MEDS: LEVALBUTEROL HCL 1.25 MG/3 ML NEB NEB SCH ×3 (01:58→13:41)
[2019-02-10] MEDS: LEVOTHYROXINE SODIUM 100 MCG TABLET PO SCH (05:45)
[2019-02-10] MEDS: SODIUM CHLORIDE 0.9% 1000ML 1,000 ML IV SCH (07:47)
[2019-02-10] MEDS: DUTASTERIDE ~ ORDER AWAITING ACTION SCH (07:47)
[2019-02-10] MEDS: [UNRECOGNIZED DRUG - OTHER] SCH (07:47)
[2019-02-10] MEDS: guaiFENesin 600 MG TABCR PO SCH (07:51)
[2019-02-10] MEDS: CHOLECALCIFEROL 1,000 UNITS TAB PO SCH (07:51)
[2019-02-10] MEDS: BENZONATATE 100 MG CAPSULE PO SCH ×2 (07:52→15:04)
[2019-02-10] MEDS: DOXYCYCLINE HYCLATE 100 MG in DEXTROSE 5% 100 ML IV SCH (07:57)
[2019-02-10 08:27] LABS: Folate (Folic Acid) 11.47 ng/ml (>5.38)
[2019-02-10] MEDS ORDERED: ISOSORBIDE MONO EXTENDED REL 30 MG TABCR PO SCH (09:00)
--- NOTE | 2019-02-10 09:13 | Pulmonology Progress Note ---
Date of Service February 10, 2019 Assessment & Plan (1) Pneumonia: The pneumonia actually involves all 3 lobes of the right lung. The exact etiology is not clear. We are still awaiting results from bronchoscopy. Would continue with current antibiotics. That includes doxycycline and ceftriaxone. The patient clinically is much improved and looks like he may be ready for discharge. The antibiotics could be changed to oral. He will need follow-up in the pulmonary office in approximately 1 week. Laterality: right Lung location: middle lobe of lung Pneumonia type: due to unspecified organism Qualified Code(s): J18.1 - Lobar pneumonia, unspecified organism (2) COPD (chronic obstructive pulmonary disease): The patient in the hospital is receiving nebulizer treatments with levalbuterol. It is not clear to me if he is taking any bronchodilator therapy at home. In light of the fact he has noticed improvement in his breathing even before bronchoscopy, perhaps the bronchodilators are helping. If he does not have any bronchodilators as an outpatient consideration could be given to a trial of Combivent Respimat 1 puff 3-4 times per day. There would need to be follow-up to be sure this was not aggravating his atrial fibrillation at all. If he is already on inhaled bronchodilators at home could continue the same. Subjective The patient is being seen for a pulmonary follow-up regarding multifocal pneumonia. Yesterday he underwent bronchoscopy by Dr. Guevara. A significant amount of secretions were cleared. The patient indicates his cough has diminished quite a bit since the bronchoscopy. It may have been getting better somewhat even before the scope. He does not feel short of breath but he has not been doing any significant activity other than walking in his room or going to the bathroom. He is not had any chest pains. He did not have any chills fevers or sweats post bronchoscopy. He implied that this is the best he has felt for several weeks or even a few months. He has no chest pains. He does not feel any palpitations. Review of Systems Review of Systems: Negative except as noted above. Physical Exam Physical Exam: The patient is a pleasant 88-year-old male who looks younger than his chronologic age. He was cooperative, alert, and oriented. He did not cough at all during this examination. Temperature is 36.4. Weight is 69.4 kg. Eye exam showed evidence of prior cataract surgery bilaterally. The patient states that he sees better out of his right eye than his left eye. His pupils did react. They were slightly unequal. Nares were clear. Mouth exam unremarkable. Palpation of the neck reveals no lymph nodes. Cardiac rate is 82/min. The rhythm was irregular. Blood pressure 111/62. Lung garza revealed mild rales at the right base greater than left base. Respiratory rate 16 breaths/min and not labored. Saturation 98% on room air. Abdomen was soft. Bowel sounds present. Extremities showed no cyanosis clubbing or edema. Results & Data Vital Signs (Past 12 Hours) Vital Signs Temp Pulse Resp BP Pulse Ox 02/10/19 07:17 82 16 98 02/10/19 07:12 36.4 C L 63 18 111/62 96 02/10/19 04:00 36.8 C 92 H 17 121/62 91 02/09/19 22:54 36.4 C L 89 18 95/59 L 96 Laboratory Results BUN was 8 with a creatinine 0.71.CBC done 02/09/2019 showed a white count of 3.08. Hemoglobin 10.9. Platelets 102,000. The patient has some degree of pancytopenia based on these results. This is not acute. Electrolytes done 02/09/2019 showed sodium 142, potassium 4.1, chloride 107, bicarb 30. Fungal smear from bronchial washings showed no yeast or hyphae. Acid-fast smear from bronchial washings showed no acid-fast bacilli. Cultures of course take 6 to 8 weeks. Gram stain from bronchial washings showed many WBCs with rare bacteria. Cytology from bronchial washings is still pending.
[2019-02-10] MEDS: cefTRIAXone SODIUM 1,000 MG in DEXTROSE 5% 50 ML IV SCH (13:38)
--- NOTE | 2019-02-10 17:04 | Discharge Summary ---
Date of Service February 10, 2019 Admission HPI Per Admitting Provider This is an 88 yo M with PMHx of CAD, afib/aflutter, HLD, [place] B cell lymphoma in remission, pulmonary nodules, anemia, asthma, vitamin D deficiency, hearing loss and peripheral neuropathy who presents directly from the pulmonology clinic for acute cough, sweats, chills and generalized ill feeling. Pt reports feeling ill since the end of December, and that the cough is productive with white sputum for about the last week. He is significantly short of breath with minimal exertion, but is ok at rest. He has felt so ill that he has not really taken PO meds for a week. Pt notes his stomach feels upset all day, but has been able to eat and drink. He denies any vomiting. Pt notes that he felt more upset stomach since yesterday, but could not determine if this was due to doxycycline. In regards to cardiology follow up from his last hospital stay (11/25/18-11/26/18) where he developed afib on top of chronic aflutter, he has not been taking any cardiac medications. He was on metoprolol but that was stopped due to developing a rash and supposed to start Imdur, however still has not started this medication. No anticoagulation due to hx of throbocytopenia. He states he's tried 4 antihypertensives in the past, but all have had some adverse effect. He denies flutter, palpitation, or chest pain currently. Patient had a CT of the chest completed this morning which shows a multifocal pneumonia in the RML and RLL. He was hypoxic on room air 88% in the clinic and was sent as a direct admission. He typically does not wear any supplemental O2. The patient was previously placed on a Z-Иван by a dentist due to swollen gums within the past month, and then yesterday he was started by PCP on a course of doxycycline, and has taken 2 doses so far. Admission Exam Per Admitting Provider General: awake, alert, no apparent distress Head: Normocephalic, atraumatic ENT: PERRL, EOMI, no pharyngeal exudate, mucous membranes moist Chest: + Diminished breath sounds and faint crackles in RML and RLL, on room air. Cardiac: Irregular, rate controlled,+ MICHAELLE, no JVD, normal peripheral pulses, good capillary refill Abdominal: NABS x 4 quadrants, soft, nontender to palpation, no rebound, guarding or tenderness Extremities: + Right wrist with bandage c/d/i s/p Mohs surgery, otherwise normal inspection, no peripheral edema or erythema, calfs nontender to palpation Psych: Normal mood and affect Neuro: AAO x 3, no motor deficits, speech is clear, no peripheral sensory deficits Principal Diagnosis Pneumonia Discharge Exam General: Resting comfortably HEENT: NC/AT; PERRLA with EOMI; [place] conjunctiva, MMM. No erythema of posterior pharynx Neck: Supple and nontender Cardiac: RRR Lungs: Crackles in bilat lung bases, otherwise clear throughout Abdomen: Bowel normoactive X 4; Nontender to palpation Extremities: Warm. No edema present Neuro: No focal weakness Skin: No rash Discharge Data Allergies Allergy/AdvReac Type Severity Reaction Status Date / Time codeine Allergy Intermediate rash, Verified 02/13/19 14:24 redness, & swelling linezolid Allergy Intermediate unknown Verified 02/13/19 14:24 Penicillins Allergy Intermediate Rash Verified 02/13/19 14:24 rofecoxib Allergy Intermediate Rash Verified 02/13/19 14:24 Hgtlayi-Llq-Rlr Reductase Allergy Mild pt reports Verified 02/13/19 14:24 Inhibitor " i just felt bad" metoprolol AdvReac Rash Verified 02/13/19 14:24 sulfamethoxazole AdvReac Verified 02/13/19 14:24 [From Bactrim] trimethoprim [From Bactrim] AdvReac Verified 02/13/19 14:24 Consultations 02/06/19 10:46 Consult Pulmonology Routine Procedures Performed Operation Date: 02/09/19 08:00 Actual Procedures p Bronchoscopy Radiology(Bilateral) - Alex Guevara MD Ordered Studies 02/05/19 CXR 02/06/19 14:30 FL video swallow Routine Chest CT Swallow study Hospital Course (1) Pneumonia: Multifocal consolidations in the RML and RLL on chest imaging at admission. S/p bronch by Dr. Guevara on 02/09, showed mucoid impaction involving the superior segment of RLL, RML, and 2 of the 3 segments of the RUL. Cultures are pending. Pulmonary toilet, Mucinex, flutter, incentive spirometry, tessalon pearls ceftriaxone and doxycycline as inpt; will convert to Levaquin/Flagyl for coverage of PNA, including aspiration and atypical, at discharge. Speech eval, small amount of silent aspiration recommend good bedside techniques, possible small zenkers. Discussed with pt and his , he understands speech recs: small sips, no straws, sit up while eating, wait 30 minutes before lying flat. Will f/u with pulm in 1 week along with PCP as outpt. (2) Pulmonary nodule: Follows with pulm as an outpt Lifelong non-smoker (3) Atrial fibrillation: Resolved from past hospitalization (4) Atrial flutter: Imdur 30 mg daily restarted as inpt -- pt. was non compliant with med at home. Has f/u with cardiology at end of January. (5) CAD (coronary artery disease): Stable, continued home meds. (6) Hypertension: Imdur as above (started during this admission d/t not starting as outpt prior to this) (7) HLD (hyperlipidemia): Not currently on statin. (8) Aortic stenosis: Noted, remains asymptomatic, (9) B-cell lymphoma: In remission, follows with Dr. Fleming as an outpatient (10) Anemia of chronic disease: Hgb remained stable. (11) Bladder cancer: Stable. (12) Benign prostatic hyperplasia with lower urinary tract symptoms: Follows with urology as an outpatient, denies LUTS (13) Pancytopenia: Monitor as outpatient. Stable for discharge to home on 02/10/19. Total Time Total Time Spent Total Time Spent (In Minutes): >30 minutes Total Time Includes: Examination of the Patient, Discharge Planning, Medication Reconciliation, Communication With Other Providers and Other Discharge Plan Discharge Items Patient Disposition: Home - Self-Care Reason For Visit: PNEUMONIA,HYPOXIA IN OFFICE Discharge Diagnosis: Multi-lobular Pneumonia Condition: Good Discharge Goals: Decrease discomfort, Improve disease control, Improve function, Increase independence and Prevent disease Activity: As commented below Exercise/Sports: Wait until after follow-up appointment Non-emergency contact: Primary Care Provider Call non-emergency contact if: you have any medication questions, your symptoms worsen, your pain is not controlled, your pain is worsening, your pain is unusual for you, your pain is concerning for you and you have a fever Follow-up/Referrals: Alex Guevara MD [Physician] - 02/17/19 11:30 am (Please follow up at [facility] Pulmonology Office with Dr. Guevara's associate, Beth HUDSON, on SaturdayFebruary 17 at 11:30 am. *If you need to change this appointment, call their office at [phone].) Gus Cobos MD [Primary Care Provider] - 02/13/19 2:30 pm (Please, follow up at Dr. Gus Cobos's office with his associate, Dr. Steward, on SaturdayFebruary 13 at 2:30 pm. *If you need to change this appointment, call the office at [phone].) Diet: Heart Healthy Addtl Provider Instructions: 1. Pneumonia/COPD * Continue Levaquin/Flagyl to complete a 3 day course of antibiotics. * Combivent Respimat has been prescribed -- please use this inhaler 3-4 times per day. * Please follow up with pulmonary in 1 week to discuss bronchoscopy results. * Please schedule an appointment with your primary care provider in 7-10 days to discuss this admission. * You can also continue over the counter products, such as Mucinex twice daily, for cough. * Continue diet as follows: small sips, no straws, sit up while eating. 2. A Fib/Flutter * Please continue home medications, including Imdur 30 mg daily. * Please follow up with cardiology as scheduled at the end of January for evaluation. Prescriptions: New guaifenesin [Mucinex] 600 mg Tablet Extended Release 12hr 1,200 mg PO Q12 Qty: 1 RF: 0 Combivent Respimat 20-100 mcg/actuation mist 1 puffs INH Q6H Qty: 4 RF: 1 Continued levothyroxine [Levoxyl] 100 mcg tablet 100 mcg PO QAM Qty: 90 RF: 3 benzonatate 200 mg capsule 200 mg PO TID PRN (Reason: Cough) Qty: 21 RF: 0 Retaine HPMC (PF) 0.3 % drops 1 drops OP DAILY PRN (Reason: Dry Eyes) RF: 0 fexofenadine [Adriana Allergy] 180 mg Tablet 180 mg PO QPM RF: 0 triamcinolone acetonide 0.1 % Cream 1 applic TOPICAL DAILY PRN (Reason: skin irritatiion) RF: 0 nitroglycerin [Nitrostat] 0.4 mg Tablet, Sublingual 1 tab Sublingual DIRECTED PRN (Reason: Chest Pain) RF: 0 fluticasone propionate 50 mcg/actuation [place],Suspension 2 spray INTRANASAL DAILY PRN (Reason: Sinus Symptoms) RF: 0 cholecalciferol (vitamin D3) [Vitamin D3] 2,000 unit Capsule 2,000 unit PO QAM RF: 0 PreserVision AREDS [id number],160-113-100 [id number] Tablet 1 tab PO QDD RF: 0 cyanocobalamin (vitamin B-12) [Vitamin B-12] 1,000 mcg Tablet 1,000 mcg PO HS RF: 0 prednisolone acetate 0.12 % drops,suspension 1 drp OPL [id number] RF: 0 sodium chloride [Retaine NaCl] 5 % Drops 1 drp OPB QPM RF: 0 magnesium oxide 250 mg magnesium tablet 250 mg PO HS RF: 0 Discontinued doxycycline hyclate 100 mg capsule 100 mg PO BID Qty: 14 RF: 0 No Action isosorbide mononitrate 30 mg tablet extended release 24 hr 30 mg PO QAM RF: 0 dutasteride 0.5 mg capsule 0.5 mg PO QPM RF: 0 Stand-Alone Forms: [facility] Discharge Orders: Discharge Order (Routine); Ordered 02/10/19 Ordered By: Jaqueline Medina Admission Data Admit Date/Time: 02/06/19 11:05 Attending Provider: Louis Paul Admit Provider: Dennis Heath Primary Care Provider: Gus Cobos Other Providers: Alex Guevara Service: Medical Other Interventions: Discharge Summary Assessment (RN) Last Done: 02/10/19 12:17 Pending Studies at Discharge: Yes Studies:: Bronch cultures. DC Date/Time DO NOT enter until pt leaves facility: 02/10/19 17:34 Supervising Physician Co-Signing Physician Notes Attending Discharge Note & Attestation - Pt seen/examined, chart reviewed, discharge care plan d/w LA Medina. I agree with the blanco components of her discharge summary. 88yo male with history of CAD, COPD, , prior B-cell lymphoma, paroxysmal a flutter - presented with lingering cough of several weeks duration. CT chest with extensive RML/RLL pneumonia. Concern for aspiration as etiology as video swallow showed silent aspiration with thin liquids only. He will complete a few more days of antibiotics post-discharge. Discharge exam - gen- thin, NAD mouth- MMM heart- RRR, s1, s2 lungs- mild rales right base, otherwise CTA abd- soft NT ND ext- no edema Patient noted to have pancytopenia during the stay but it appears chronic. Will need to have routine surveillance of such to ensure stability. Louis Paul MD
[2019-02-12 19:05] LABS: Aspergillus Ag Index 0.04 (<0.50); Aspergillus Antigen, Serum Not Detected (Not Detected); Aspergillus Flavus Negative (Negative); Aspergillus Niger Negative (Negative); Fungitell (1-3)-B-D-Glucan <31 pg/mL; Immunoglobulin IgE <2 KU/L (<115)
--- NOTE | 2019-02-26 07:54 | Coding Query ---
CODING QUERY To promote full compliance with coding requirements relating to patient care, provider participation is requested in all cases of motor vehicle dispatcher uncertainty. Please assist us with the question(s) below: Coding Question(s): There is documentation of Pneumonia with CT chest with extensive RML/RLL pneumonia and concern for aspiration a etiology as video swallow showed silent aspiration with thin liquids. Please clarify below regarding the Pneumonia. ( x ) Patient was treated for possibly both Aspiration Pneumonia and Lobular Pneumonia ( ) Patient was treated for possible Aspiration Pneumonia ( ) Patient was treated for Lobular Pneumonia ( ) Patient was treated for other Pneumonia, Please Specify Physician's Response(s): Thank you Magali Cameron Principal Diagnosis: "that condition established after study, to be chiefly responsible for occasioning the admission of the patient to the hospital for care." Co-Existing Principal Diagnosis: "when two or more diagnoses equally meet the criteria for principal diagnosis as determined by the circumstances of admission, diagnostic work up, and/or therapy provided, and the Alphabetic Index, Tabular List, or another coding guideline does not provide sequencing direction, any one of the diagnoses may be sequenced first." "When the physician has documented what appears to be a current diagnosis in the body of the record, but has not included the diagnosis in the final diagnostic statement, the physician should be asked whether the diagnosis should be added." (Source Coding Clinic 2 QTR90. p3-4) ANJANA
== END 2019-02-10 17:34 | disposition home or self-care (01) | DRG 166 ==
LOC: 4E 11:05 → SUATTDRO 11:05

== ENCOUNTER 2019-07-03 05:20 | Inpatient (IN) ==
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
[2019-07-03 05:58] LABS: Basophils # (auto) 0.02 K/uL (0-0.2); Basophils % (auto) 0.4 %; Eosinophils # (auto) 0.62 K/uL (0-0.5); Eosinophils % (auto) 12.6 %; Hematocrit (blood only) 38.3 % (42-52); Hemoglobin 11.5 g/dL (14.0-18.0); Immature Granulocytes # (auto) 0.03 K/uL (0.00-0.02); Immature Granulocytes % (auto) 0.6 %; Lymphocytes # (auto) 1.36 K/uL (1.2-3.4); Lymphocytes % (auto) 27.6 %; Mean Corpuscular Hemoglobin 23.9 pg (25-34); Mean Corpuscular Volume 79.6 fL (80-100); Mean Platelet Volume 10.2 fL (7.4-10.4); Monocytes # (auto) 0.45 K/uL (0.11-0.59); Monocytes % (auto) 9.1 %; Neutrophils # (auto) 2.45 K/uL (1.4-6.5); Neutrophils % (auto) 49.7 %; Platelet Count 123 K/uL (130-400); RDW Coefficient of Variation 18.6 % (11.5-14.5); RDW Standard Deviation 54.6 fL (36.4-46.3); Red Blood Count 4.81 M/uL (4.7-6.1); White Blood Count 4.93 K/uL (4.8-10.8)
[2019-07-03] MEDS ORDERED: CLINDAMYCIN 900 MG / 50ML D5W IV SCH (06:00)
[2019-07-03] MEDS ORDERED: LR 15ML/HR IV SCH (06:00)
[2019-07-03 06:35] LABS: Echinocytes 1+
[2019-07-03] MEDS ORDERED: PROPOFOL IV EMULSION 10 MG/ML 20 ML VIAL IV ONE (06:57)
[2019-07-03] MEDS ORDERED: LIDOCAINE HCL 2% 2 ML VIAL/AMP(20MG/ML) INFIL ONE (06:57)
[2019-07-03] MEDS ORDERED: ONDANSETRON INJ 2 MG/ML 2 ML VIAL ONE (06:57)
[2019-07-03] MEDS ORDERED: ROCURONIUM BROMIDE 10 MG/ML 5 ML VIAL ONE (06:57)
[2019-07-03] MEDS ORDERED: MIDAZOLAM HCL 1 MG/ML 2ML VIAL ONE (06:58)
[2019-07-03] MEDS ORDERED: fentaNYL citrate 100 MCG/2 ML VIAL ONE (06:58)
--- NOTE | 2019-07-03 06:59 | History & Physical Bridge Note ---
Date of Service July 03, 2019 History & Physical Bridge Note I have examined the patient, reviewed the History & Physical and in the interval since the performance of the History & Physical I have noted the following changes of clinical significance: no changes noted cbc/platelets still pending. d/w Dr. Leslie...as long as platelets over 50,000 we can proceed.
[2019-07-03] MEDS ORDERED: BUPIVACAINE 0.25% 30 ML VIAL ONE (07:05)
[2019-07-03] MEDS ORDERED: BUPIVACAINE/EPINEPHRINE 0.5% MPF 1:200,000 10 ML VIAL ONE (07:13)
[2019-07-03] MEDS ORDERED: GLYCOPYRROLATE 0.2 MG/ML VIAL ONE (08:18)
[2019-07-03] MEDS ORDERED: NEOSTIGMINE METHYLSULFATE 5 MG/5 ML SYR ONE (08:18)
[2019-07-03] MEDS ORDERED: PHENYLEPHRINE HCL 10 MG/ML VIAL ONE (08:18)
[2019-07-03] MEDS ORDERED: ePHEDrine sulfate 50 MG/ML AMP IV PRN (09:03)
[2019-07-03] MEDS ORDERED: ATROPINE SULFATE 0.1 MG/ML 10ML SYR IV PRN (09:03)
[2019-07-03] MEDS ORDERED: ONDANSETRON INJ 2 MG/ML 2 ML VIAL IV PRN (09:03)
--- NOTE | 2019-07-03 09:28 | Post Operative Brief Note ---
PG Immediate Post Op with CF Date of Surgery July 03, 2019 Pre & Post Diagnosis Operation Date: 07/03/19 07:15 Pre-Op Diagnosis: Adenocarcinoma Colon Post-Op Diagnosis: Adenocarcinoma Colon I identified the patient and participated in the time-out.: Yes Procedure Operation Date: 07/03/19 07:15 Actual Procedures p Right Open Extended Hemicolectomy; enterolysis - Ned Allen DO Surgeon Ned Allen DO Inspector Filters natali Drummond Estimated Blood Loss 20 Findings Consistent with Post-Op Diagnosis Specimens Specimen Description: Fresh Specimen: A.) Cecum, Right Colon, Portion of Transverse Colon, Additional Transverse Colon Drains Gray Catheter (16 [place]UG[place]E 10ML BALLOON)
[2019-07-03] MEDS: fentaNYL citrate 100 MCG/2 ML VIAL IV PRN ×4 (09:42→10:05)
--- NOTE | 2019-07-03 10:45 | Anesthesiology Progress Note ---
Date of Service July 03, 2019 Anesthesia Post Procedure Vital Signs Vital Signs: Temp Pulse Pulse Resp BP BP Pulse Ox 07/03/19 10:30 37.0 C 72 15 128/64 119/48 L 100 07/03/19 10:20 37.0 C 73 26 H 125/60 108/45 L 100 07/03/19 10:10 37.0 C 70 18 118/55 L 111/47 L 99 07/03/19 10:00 37.0 C 69 19 125/65 114/46 L 97 07/03/19 09:50 36.1 C L 66 15 116/64 110/43 L 100 07/03/19 09:40 36.1 C L 66 24 123/82 123/48 L 100 07/03/19 09:30 36.1 C L 71 29 H 107/51 L 142/89 H 100 07/03/19 09:22 36.1 C L 107 H 15 142/89 H 99 07/03/19 05:52 36.4 C L 84 20 115/84 94 Pain Intensity Right Abdomen: Pain Intensity: 3 Transfer of Care Handoff Completed per policy Notes Mental Status: alert / awake / arousable Patient Amnestic to Procedure: Yes Nausea / Vomiting: adequately controlled Pain: adequately controlled Airway Patency, RR, SpO2: stable & adequate BP & HR: stable & adequate Hydration State: stable & adequate Anesthetic Complications: no major complications apparent Notes: blocks working well in pacu
--- NOTE | 2019-07-03 11:03 | Operative Report ---
PG Post Operative Report Pre & Post Diagnosis Operation Date: 07/03/19 07:15 Pre-Op Diagnosis: Adenocarcinoma Colon Post-Op Diagnosis: Adenocarcinoma Colon;adhesions I identified the patient and participated in the time-out.: Yes Procedure Operation Date: 07/03/19 07:15 Actual Procedures p Right Open Extended Hemicolectomy; enterolysis - Ned Allen DO Surgeon Ned Allen, Equipment Associate natali Drummond Estimated Blood Loss 20 Findings Consistent with Post-Op Diagnosis Specimens terminal ileum, cecum, right colon, portion of transverse colon Description of Procedure After informed consent was obtained the patient was taken to the operating room placed in supine position. After successful intubation a TAP block was performed by anesthesia. Once this was completed a Gray catheter was placed and the abdomen was shaved and sterilely prepped and draped in usual fashion. I began by making a midline incision from below the umbilicus up and around the umbilicus to the xiphoid process using a 10 blade scalpel. This was carried down through the soft tissue using cautery. The anterior fascia was opened in the midline using cautery. We elevated the peritoneum using hemostats and opened it using a Metzenbaum scissor. We then extended this to both poles using cautery. There were some adhesions from the transverse colon and omentum to the falciform ligament. I took these down using the LigaSure device. There also some adhesions from the terminal ileum to the right lower quadrant sidewall. These were taken down using blunt dissection with small amounts of cautery. Once in the abdomen the colon mass was easily palpable in the cecum. We did used a Bookwalter retractor throughout the case to help with our exposure. We began by mobilizing the cecum and right colon along the white line of Toldt using small amounts of cautery and blunt finger fractionation. There was a colon polyp that was not marked but came back as dysplastic versus a small foci of adenocarcinoma in the transverse colon and therefore we tried to include as much of the transverse colon as we safely could. Initially we began by dividing the colon just proximal to a branch of the middle colic artery using a NIKOLAY linear stapler. Because of the transverse colon polyp I opted to take a little more transverse colon and ultimately we would end up going one arcade more distal and transected the colon there using a NIKOLAY brown cartridge linear stapler. Therefore we actually sent two colon specimens one involving the cecum right colon and proximal transverse colon and one involving the midportion of the transverse colon. Once we did that we transected the terminal ileum several inches proximal to the ileocecal valve again using a NIKOLAY brown cartridge linear stapler. We mobilized the hepatic flexure using finger fractionation and small amounts of cautery. We were able to visualize the duodenum to keep it out of harm's way. We then took down the mesentery of the terminal ileum cecum right colon and transverse colon using the LigaSure device. Eventually we were able to pass off the 2 previously mentioned specimens. Transverse colon did have a good visible blood supply and was nice and warm and pink. We therefore performed a side to side ileotransverse anastomosis using a NIKOLAY brown cartridge 60 mm stapler. We used a second firing of the same stapler to even further open up the anastomosis. The common enterotomy was closed using a TA stapling device. 3-[address] was [address] to [address] a crotch stitch. The anastomosis was viable and widely patent. We closed the mesenteric defect using 2-0 Vicryl in a running fashion. Next we changed our gloves. We thoroughly irrigated the entire abdomen. There is adequate hemostasis. There was no abnormalities or gross metastatic disease on the liver or peritoneal surfaces. I saw no pathologically enlarged lymph nodes. We did one final irrigation. We then closed the fascia using 0-looped PDS starting at either pole and running them and securing them in the midline. Soft tissue was irrigated and skin was closed using skin chastity. A silver dressing was applied. The patient was awakened, extubated and transferred to recovery in stable condition. My physician miller head assistant wet process was present to the entire case. He helped prep the patient. He helped with retraction and with assistance throughout the entire case as well as with wound closure and dressing placement. I attest to the content of the Intraoperative Record and any orders documented therein. Any exceptions are noted below.
[2019-07-03] MEDS ORDERED: FLUTICASONE PROPIONATE NA SPR 16 GM BTL NAE PRN (11:43)
[2019-07-03] MEDS ORDERED: NITROGLYCERIN SL 0.4 MG/TAB TAB SL PRN (11:43)
[2019-07-03] MEDS ORDERED: TRIAMCINOLONE ACET 0.1% CR 15 GM TUBE TOP PRN (11:43)
[2019-07-03] MEDS: HYDROmorphone INJ 0.5 MG/0.5 ML SYR IV PRN (11:57)
[2019-07-03] MEDS ORDERED: ARTIFICIAL TEARS OP PRN (12:00)
[2019-07-03] MEDS: LACTATED RINGER'S 1,000 ML IV SCH ×2 (12:26→21:49)
[2019-07-03] MEDS: IPRATROPIUM BROMIDE/ALBUTEROL respimat INH INH SCH ×2 (13:04→17:56)
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
[2019-07-03] MEDS: CLINDAMYCIN 600 MG in DEXTROSE 5% 50 ML IV SCH (14:54)
[2019-07-03] MEDS: ONDANSETRON INJ 2 MG/ML 2 ML VIAL IV PRN ×2 (14:54→19:34)
[2019-07-03] MEDS: HYDROmorphone INJ 1 MG/ML SYRINGE IV PRN (19:35)
[2019-07-03] MEDS: FEXOFENADINE HCL 180 MG TAB PO SCH ×2 (19:43→19:46)
[2019-07-03] MEDS: PANTOprazole 40 MG TAB PO SCH ×2 (19:43→19:46)
[2019-07-04] MEDS: IPRATROPIUM BROMIDE/ALBUTEROL respimat INH INH SCH ×4 (01:31→18:24)
[2019-07-04] MEDS: HYDROmorphone INJ 1 MG/ML SYRINGE IV PRN (05:30)
[2019-07-04] MEDS: ONDANSETRON INJ 2 MG/ML 2 ML VIAL IV PRN ×3 (05:31→18:24)
[2019-07-04] MEDS: LEVOTHYROXINE SODIUM 100 MCG TABLET PO SCH (05:31)
[2019-07-04 06:29] LABS: Basophils # (auto) 0.01 K/uL (0-0.2); Basophils % (auto) 0.2 %; Eosinophils % (auto) 2.3 %; Hematocrit (blood only) 34.7 % (42-52); Hemoglobin 10.5 g/dL (14.0-18.0); Immature Granulocytes # (auto) 0.04 K/uL (0.00-0.02); Immature Granulocytes % (auto) 0.9 %; Lymphocytes # (auto) 1.42 K/uL (1.2-3.4); Lymphocytes % (auto) 32.6 %; Mean Corpuscular Hemoglobin 24.1 pg (25-34); Mean Corpuscular Hgb Conc 30.3 g/dL (32-36); Mean Corpuscular Volume 79.8 fL (80-100); Mean Platelet Volume 9.8 fL (7.4-10.4); Monocytes # (auto) 0.45 K/uL (0.11-0.59); Monocytes % (auto) 10.3 %; Neutrophils # (auto) 2.34 K/uL (1.4-6.5); Neutrophils % (auto) 53.7 %; Platelet Count 114 K/uL (130-400); RDW Coefficient of Variation 18.8 % (11.5-14.5); RDW Standard Deviation 55.2 fL (36.4-46.3); Red Blood Count 4.35 M/uL (4.7-6.1); White Blood Count 4.36 K/uL (4.8-10.8)
[2019-07-04] MEDS: CLINDAMYCIN 600 MG in DEXTROSE 5% 50 ML IV SCH ×2 (06:50)
[2019-07-04 06:55] LABS: BUN Creatinine Ratio 12.6 (10-20); Calcium 8.3 mg/dl (8.5-10.1); Creatinine Clr Calc Pharmacy 57.1 ml/min; Est GFR (African American) 89.7; Est GFR (Non-African American) 77.4; Potassium 4.1 mmol/L (3.5-5.1)
[2019-07-04] MEDS: PANTOprazole 40 MG TAB PO SCH ×2 (07:53→21:05)
[2019-07-04] MEDS: LACTATED RINGER'S 1,000 ML IV SCH ×2 (07:54→18:23)
--- NOTE | 2019-07-04 09:41 | Hospitalist Progress Note ---
Date of Service July 04, 2019 Assessment & Plan (1) Adenocarcinoma, colon: s/p right hemicolectomy on 07/03/19 pain control and diet per general surgery still has espino catheter, d/w RN that this should also be managed per surgery Hb down to 10.5 from 11.5, vitals stable will monitor, repeat labs tomorrow Zofran PRN for nausea (2) Post-operative state: S/p Right Open Extended Hemicolectomy with Dr. Allen today see above (3) Atrial flutter, paroxysmal: aflutter on tele monitor, rates in 60's while sitting in bed No chest pain or cardiac symptoms Per records anticoagulation was attempted in 2017 but a few months later his platelets dropped to 4000 and again platelets dropped in September 2017 and March 2018 as well as anemia so anticoagulation was discontinued. (4) Chronic ITP (idiopathic thrombocytopenia): Does not tolerate anticoagulation platelets stable 118 (5) Anemia: Hb down slightly to 10.5 as expected repeat CBC am (6) Arteriosclerotic coronary artery disease: Continue nitro as needed Unable to tolerate ASA Allergic to statins and metoprolol no chest pain or pressure today (7) Hypertension: does not appear to be on any antihypertensives at home Blood pressure stable this morning (8) BPH (benign prostatic hyperplasia): continue dutasteride espino per general surgery, will let them d/c when appropriate (9) COPD (chronic obstructive pulmonary disease): Continue combivent Subjective patient doing okay this morning had some pain, received Dilaudid which helped the pain but made him nauseated, did not vomit then go Zofran which helped a little, was offered Protonix but he refused breathing comfortably, no chest pain/pressure, no fever/chills reviewed labs, WBC 4k, Hb 10.5 (11.5 pre op), platelets 118 BMP with stable renal function and normal electrolytes updated his at the bedside Review of Systems Review of Systems: All systems reviewed & are unremarkable except as noted in HPI & below Constitutional: + fatigue and + weakness; no fever, no chills and no sweats Respiratory: no cough and no dyspnea Cardiovascular: no chest pain, no palpitations and no edema Gastrointestinal: + abdominal pain, + bloating, + nausea and + constipation; no vomiting, no diarrhea/loose stools and no blood in stools Physical Exam Constitutional: WD/WN, vitals as above Eyes: PERRL, conjunctivae normal, anicteric sclerae ENMT: external ear and nose normal, oropharynx normal Neck: trachea midline, no thyromegaly Respiratory: normal respiratory effort, lungs clear to auscultation Cardiovascular: Rate/Rhythm: regular rate and + irregularly irregular Heart Sounds: normal S1, normal S2 and + murmur (soft, systolic) Vessels: no JVD Extremities: normal capillary refill; no edema Gastrointestinal (Abdomen): Inspection/Auscultation: normal bowel sounds and + abdominal surgical incision (midline, dressed, minimal drainage) Percuss ion/Palpation: + abdomen tender and abdomen soft; no guarding and abdomen not rigid Musculoskeletal: no cyanosis or clubbing, extremities motor strength 5/5 Skin: no rashes, warm and dry Neurologic: patellar DTR's 2+ bilat, sensation intact and PERRL, EOMI, accommodation nl, no face palsy, no dysarthria Psychiatric: A+Ox3, euthymic affect Lymphatic: no cervical or axillary lymphadenopathy Results & Data Vital Signs (Past 12 Hours) Vital Signs Temp Pulse Pulse Resp BP Pulse Ox 07/04/19 08:00 71 07/04/19 07:51 36.4 C L 73 18 146/78 H 100 07/04/19 04:18 36.3 C L 60 16 116/63 90 07/04/19 00:29 71 07/03/19 23:37 36.4 C L 56 L 16 143/83 H 100 Laboratory Results Laboratory Results - last 24 hr 07/04/19 07/04/19 05:56 05:56 WBC 4.36 L RBC 4.35 L Hgb 10.5 L Hct 34.7 L MCV 79.8 L MCH 24.1 L MCHC 30.3 L RDW Std Deviation 55.2 H RDW Coeff of Lillie 18.8 H Plt Count 114 L MPV 9.8 Immature Gran % (Auto) 0.9 Neut % (Auto) 53.7 Lymph % (Auto) 32.6 [place] % (Auto) 10.3 Eos % (Auto) 2.3 Baso % (Auto) 0.2 Immature Gran # (Auto) 0.04 H Neut # (Auto) 2.34 Lymph # (Auto) 1.42 [place] # (Auto) 0.45 Eos # (Auto) 0.10 Baso # (Auto) 0.01 Sodium 138 Potassium 4.1 Chloride 104 Carbon Dioxide 27 Anion Gap 7.0 BUN 11 Creatinine 0.86 Est Cr Clr Drug Dosing 57.1 Est GFR ( Amer) 89.7 Est GFR (Non-Af Amer) 77.4 BUN/Creatinine Ratio 12.6 Glucose 98 Calcium 8.3 L Medications Administered Current Inpatient Medications Albuterol (Combivent Respimat) 1 puffs INH Q6H [facility] Stop: 08/02/19 11:59 Last Admin: 07/04/19 05:31 Dose: 1 puffs Documented by: Artificial Tears (Artificial Tears) 1 drops OP HS PRN PRN Reason: DRY EYES Stop: 08/02/19 11:59 Fexofenadine HCl (Adriana) 180 mg PO QPM [facility] Stop: 08/02/19 20:59 Last Admin: 07/03/19 19:46 Dose: Not Given Documented by: Fluticasone Propionate (Flonase) 2 sprays GISELL DAILY PRN PRN Reason: Sinus Symptoms Stop: 08/02/19 11:42 Hydromorphone HCl (Dilaudid) 0.5 mg IV Q1H PRN PRN Reason: MILD Pain (Scale 1,2,3) Stop: 07/17/19 11:42 Last Admin: 07/03/19 11:57 Dose: 0.5 mg Documented by: Hydromorphone HCl (Dilaudid) 1 mg IV Q3H PRN PRN Reason: MODERATE Pain (Scale 4,5,6) Stop: 07/17/19 11:42 Last Admin: 07/04/19 05:30 Dose: 1 mg Documented by: Lactated Ringer's (Lr) 1,000 mls @ 100 mls/hr IV .Q10H [facility] Stop: 08/02/19 11:42 Last Admin: 07/04/19 07:54 Dose: 100 mls/hr Documented by: Clindamycin Phosphate 600 mg/ (Dextrose) 54 mls @ 100 mls/hr IV Q8H [facility] Stop: 07/04/19 14:59 Last Infusion: 07/04/19 07:23 Dose: Infused Documented by: Levothyroxine Sodium (Synthroid) 100 mcg PO DAILYBB [facility] Stop: 08/03/19 06:29 Last Admin: 07/04/19 05:31 Dose: 100 mcg Documented by: Miscellaneous (Order Awaiting Action) 1 ea N/A QS ROLLY Stop: 08/02/19 15:59 Last Admin: 07/04/19 07:53 Dose: Not Given Documented by: Nitroglycerin (Nitrostat) 0.4 mg SL UD PRN PRN Reason: Chest Pain Stop: 08/02/19 11:42 Ondansetron HCl (Zofran) 4 mg IV Q4H PRN PRN Reason: Nausea And Vomiting Stop: 08/02/19 11:42 Last Admin: 07/04/19 05:31 Dose: 4 mg Documented by: Pantoprazole Sodium (Protonix) 40 mg PO BID [facility] Stop: 08/02/19 20:59 Last Admin: 07/04/19 07:53 Dose: Not Given Documented by: Triamcinolone Acetonide (Kenalog 0.1%) 1 appln TOP DAILY PRN PRN Reason: skin irritatiion Stop: 08/02/19 11:42 PG Care Time/CCT Total # of Minutes Spent Total Time Spent with Patient: Total time spent is greater than 50% in coordination of care (as documented) at patient's floor/unit and/or counseling patient: (1) Hypertension Hypertension type: essential hypertension Qualified Code(s): I10 - Essential (primary) hypertension
--- NOTE | 2019-07-04 10:16 | Anesthesiology Progress Note ---
Date of Service July 04, 2019 Anesthesia Post Procedure Vital Signs Vital Signs: Temp Pulse Pulse Pulse Resp BP BP 07/04/19 08:00 71 07/04/19 07:51 36.4 C L 73 18 146/78 H 07/04/19 04:18 36.3 C L 60 16 116/63 07/04/19 00:29 71 07/03/19 23:37 36.4 C L 56 L 16 143/83 H 07/03/19 16:00 36.2 C L 61 15 132/80 07/03/19 14:13 36.2 C L 69 15 115/69 07/03/19 13:13 36.2 C L 75 16 121/70 07/03/19 12:05 37.1 C 73 15 109/67 07/03/19 11:35 37.1 C 64 16 111/60 07/03/19 11:21 69 07/03/19 11:20 37.1 C 103 H 14 116/78 07/03/19 10:50 37.0 C 71 21 133/69 07/03/19 10:40 37.0 C 71 16 131/66 121/51 L 07/03/19 10:30 37.0 C 72 15 128/64 119/48 L 07/03/19 10:20 37.0 C 73 26 H 125/60 108/45 L Pulse Ox 07/04/19 08:00 07/04/19 07:51 100 07/04/19 04:18 90 07/04/19 00:29 07/03/19 23:37 100 07/03/19 16:00 99 07/03/19 14:13 98 07/03/19 13:13 98 07/03/19 12:05 97 07/03/19 11:35 98 07/03/19 11:21 07/03/19 11:20 95 07/03/19 10:50 98 07/03/19 10:40 100 07/03/19 10:30 100 07/03/19 10:20 100 Pain Intensity Right Abdomen: Pain Intensity: 0 Medial Abdomen: Pain Intensity: 0 Notes Mental Status: alert / awake / arousable Patient Amnestic to Procedure: Yes Nausea / Vomiting: adequately controlled Pain: adequately controlled Airway Patency, RR, SpO2: stable & adequate BP & HR: stable & adequate Hydration State: stable & adequate Anesthetic Complications: no major complications apparent and Pt Satisfied with anesthetic care
--- NOTE | 2019-07-04 10:29 | Surgery Progress Note ---
Date of Service July 04, 2019 Assessment & Plan (1) Post-operative state: s/p right colectomy. Overall doing well but still with hypoactive bowel tones, mild nausea. Continue on sips of clears today. Increase activity as tolerated. Present on Admission?: Yes Subjective Overall feels OK. Mild nausea this morning for which he took zofran. Some pain this morning responsive to pain meds although the meds did make the "room spin around". Sore throat/ dry mouth. Review of Systems Review of Systems: All systems reviewed & are unremarkable except as noted in HPI & below Physical Exam Constitutional: WD/WN, vitals as above Respiratory: normal respiratory effort, lungs clear to auscultation Cardiovascular: Rate/Rhythm: regular rate and regular rhythm Gastrointestinal (Abdomen): Inspection/Auscultation: abdomen normal to inspection Percussion/Palpation: abdomen soft hypoactive bowel tones, incisional tenderness, dressing dry and intact Neurologic: moves all extremities; no focal motor deficits Psychiatric: A+Ox3, euthymic affect Results & Data Vital Signs (Past 12 Hours) Vital Signs Temp Pulse Pulse Resp BP Pulse Ox 07/04/19 08:00 71 07/04/19 07:51 36.4 C L 73 18 146/78 H 100 07/04/19 04:18 36.3 C L 60 16 116/63 90 07/04/19 00:29 71 07/03/19 23:37 36.4 C L 56 L 16 143/83 H 100
[2019-07-04] MEDS: HYDROmorphone INJ 0.5 MG/0.5 ML SYR IV PRN (15:32)
[2019-07-04] MEDS ORDERED: PROMETHAZINE HCL 12.5 MG in SODIUM CHLORIDE 0.9% 50 ML IV PRN (19:35)
[2019-07-04] MEDS: FEXOFENADINE HCL 180 MG TAB PO SCH (21:05)
[2019-07-05] MEDS: IPRATROPIUM BROMIDE/ALBUTEROL respimat INH INH SCH ×4 (01:00→17:31)
[2019-07-05] MEDS: LACTATED RINGER'S 1,000 ML IV SCH ×3 (04:39→23:32)
[2019-07-05] MEDS: LEVOTHYROXINE SODIUM 100 MCG TABLET PO SCH (04:40)
[2019-07-05 06:03] LABS: Basophils # (auto) 0.01 K/uL (0-0.2); Basophils % (auto) 0.2 %; Eosinophils # (auto) 0.25 K/uL (0-0.5); Eosinophils % (auto) 5.3 %; Hematocrit (blood only) 34.7 % (42-52); Hemoglobin 10.5 g/dL (14.0-18.0); Immature Granulocytes # (auto) 0.03 K/uL (0.00-0.02); Immature Granulocytes % (auto) 0.6 %; Lymphocytes # (auto) 1.44 K/uL (1.2-3.4); Lymphocytes % (auto) 30.4 %; Mean Corpuscular Hemoglobin 24.1 pg (25-34); Mean Corpuscular Hgb Conc 30.3 g/dL (32-36); Mean Corpuscular Volume 79.6 fL (80-100); Monocytes # (auto) 0.44 K/uL (0.11-0.59); Monocytes % (auto) 9.3 %; Neutrophils # (auto) 2.56 K/uL (1.4-6.5); Neutrophils % (auto) 54.2 %; Platelet Count 118 K/uL (130-400); RDW Coefficient of Variation 18.8 % (11.5-14.5); RDW Standard Deviation 54.7 fL (36.4-46.3); Red Blood Count 4.36 M/uL (4.7-6.1); White Blood Count 4.73 K/uL (4.8-10.8)
[2019-07-05 06:29] LABS: Giant Platelets 1+; Toxic Vacuolation 1+
[2019-07-05 06:39] LABS: BUN Creatinine Ratio 11.2 (10-20); Calcium 8.5 mg/dl (8.5-10.1); Est GFR (African American) 89.7; Est GFR (Non-African American) 77.4
[2019-07-05] MEDS: PANTOprazole 40 MG TAB PO SCH ×2 (08:47→20:26)
--- NOTE | 2019-07-05 09:44 | Hospitalist Progress Note ---
Date of Service July 05, 2019 Assessment & Plan (1) Adenocarcinoma, colon: s/p right hemicolectomy on 07/03/19 pain control and diet per general surgery, still NPO as not passing flatus Hb stable at 10.5, no signs of bleeding Zofran PRN for nausea transfer to surgical floor today bowels are still hypoactive consulted therapy to try to increase activity (2) Post-operative state: S/p Right Open Extended Hemicolectomy with Dr. Allen 07/03 see above (3) Atrial flutter, paroxysmal: aflutter on tele monitor, rates in 60's while sitting in bed No chest pain or cardiac symptoms Per records anticoagulation was attempted in 2016 but a few months later his platelets dropped to 4000 and again platelets dropped in September 2017 and March 2018 as well as anemia so anticoagulation was discontinued. sine rates are stable on monitor, will transfer off tele today (4) Chronic ITP (idiopathic thrombocytopenia): Does not tolerate anticoagulation platelets stable at 118 today (5) Anemia: Hb stable at 10.5 (6) Arteriosclerotic coronary artery disease: Continue nitro as needed Unable to tolerate ASA Allergic to statins and metoprolol no chest pain or pressure today (7) Hypertension: does not appear to be on any antihypertensives at home Blood pressure stable this morning (8) BPH (benign prostatic hyperplasia): continue dutasteride espino per general surgery, will let them d/c when appropriate (9) COPD (chronic obstructive pulmonary disease): Continue combivent Subjective patient denies any pain in abdomen or nausea still NPO, not passing any flatus, management by surgery no chest pain, no dyspnea, no cough got OOB last night in chair, felt a little light headed, will ask therapy to see no events on monitor, safe to transfer to surgical floor labs reviewed, Hb stable at 10.5, BUN/Cr and electrolytes stable updated at the bedside discussed with zev England with transfer to surgical floor Review of Systems Review of Systems: All systems reviewed & are unremarkable except as noted in HPI & below Physical Exam Constitutional: WD/WN, vitals as above Eyes: PERRL, conjunctivae normal, anicteric sclerae ENMT: external ear and nose normal, oropharynx normal Neck: trachea midline, no thyromegaly Respiratory: normal respiratory effort, lungs clear to auscultation Cardiovascular: Rate/Rhythm: regular rate and + irregularly irregular Heart Sounds: normal S1, normal S2 and + murmur (soft, systolic) Vessels: no JVD Extremities: normal capillary refill; no edema Gastrointestinal (Abdomen): Inspection/Auscultation: + abdominal surgical incision (midline, dressed, minimal drainage) and + hypoactive bowel sounds Percussion/Palpation: abdomen soft; abdomen nontender, no guarding and abdomen not rigid Musculoskeletal: no cyanosis or clubbing, extremities motor strength 5/5 Skin: no rashes, warm and dry Neurologic: patellar DTR's 2+ bilat, sensation intact and PERRL, EOMI, accommodation nl, no face palsy, no dysarthria Psychiatric: A+Ox3, euthymic affect Lymphatic: no cervical or axillary lymphadenopathy Results & Data Vital Signs (Past 12 Hours) Vital Signs Temp Pulse Pulse Resp BP Pulse Ox 07/05/19 02:45 36.5 C 59 L 19 112/65 97 07/04/19 23:22 79 07/04/19 23:06 36.4 C L 96 H 19 103/64 97 Laboratory Results Laboratory Results - last 24 hr 07/05/19 07/05/19 05:39 05:39 WBC 4.73 L RBC 4.36 L Hgb 10.5 L Hct 34.7 L MCV 79.6 L MCH 24.1 L MCHC 30.3 L RDW Std Deviation 54.7 H RDW Coeff of Lillie 18.8 H Plt Count 118 L MPV 10.0 Immature Gran % (Auto) 0.6 Neut % (Auto) 54.2 Lymph % (Auto) 30.4 [place] % (Auto) 9.3 Eos % (Auto) 5.3 Baso % (Auto) 0.2 Immature Gran # (Auto) 0.03 H Neut # (Auto) 2.56 Lymph # (Auto) 1.44 [place] # (Auto) 0.44 Eos # (Auto) 0.25 Baso # (Auto) 0.01 Toxic Vacuolation 1+ Giant Platelets 1+ Sodium 138 Potassium 4.0 Chloride 104 Carbon Dioxide 28 Anion Gap 6.0 BUN 10 Creatinine 0.86 Est Cr Clr Drug Dosing 57.0 Est GFR ( Amer) 89.7 Est GFR (Non-Af Amer) 77.4 BUN/Creatinine Ratio 11.2 Glucose 78 Calcium 8.5 Medications Administered Current Inpatient Medications Albuterol (Combivent Respimat) 1 puffs INH Q6H [facility] Stop: 08/02/19 11:59 Last Admin: 07/05/19 04:39 Dose: 1 puffs Documented by: Artificial Tears (Artificial Tears) 1 drops OP HS PRN PRN Reason: DRY EYES Stop: 08/02/19 11:59 Fexofenadine HCl (Adriana) 180 mg PO QPM [facility] Stop: 08/02/19 20:59 Last Admin: 07/04/19 21:05 Dose: Not Given Documented by: Fluticasone Propionate (Flonase) 2 sprays GISELL DAILY PRN PRN Reason: Sinus Symptoms Stop: 08/02/19 11:42 Hydromorphone HCl (Dilaudid) 0.5 mg IV Q1H PRN PRN Reason: MILD Pain (Scale 1,2,3) Stop: 07/17/19 11:42 Last Admin: 07/04/19 15:32 Dose: 0.5 mg Documented by: Hydromorphone HCl (Dilaudid) 1 mg IV Q3H PRN PRN Reason: MODERATE Pain (Scale 4,5,6) Stop: 07/17/19 11:42 Last Admin: 07/04/19 05:30 Dose: 1 mg Documented by: Lactated Ringer's (Lr) 1,000 mls @ 100 mls/hr IV .Q10H [facility] Stop: 08/02/19 11:42 Last Admin: 07/05/19 04:39 Dose: 100 mls/hr Documented by: Promethazine HCl 12.5 mg/ (Sodium Chloride) 50.5 mls @ 202 mls/hr IV Q6H PRN PRN Reason: Nausea And Vomiting Stop: 08/03/19 19:34 Levothyroxine Sodium (Synthroid) 100 mcg PO DAILYBB [facility] Stop: 08/03/19 06:29 Last Admin: 07/05/19 04:40 Dose: 100 mcg Documented by: Miscellaneous (Order Awaiting Action) 1 ea N/A QS [facility] Stop: 08/02/19 15:59 Last Admin: 07/04/19 23:18 Dose: Not Given Documented by: Nitroglycerin (Nitrostat) 0.4 mg SL UD PRN PRN Reason: Chest Pain Stop: 08/02/19 11:42 Ondansetron HCl (Zofran) 4 mg IV Q4H PRN PRN Reason: Nausea And Vomiting Stop: 08/02/19 11:42 Last Admin: 07/04/19 18:24 Dose: 4 mg Documented by: Pantoprazole Sodium (Protonix) 40 mg PO BID [facility] Stop: 08/02/19 20:59 Last Admin: 07/05/19 08:47 Dose: 40 mg Documented by: Triamcinolone Acetonide (Kenalog 0.1%) 1 appln TOP DAILY PRN PRN Reason: skin irritatiion Stop: 08/02/19 11:42 PG Care Time/CCT Total # of Minutes Spent Total Time Spent with Patient: Total time spent is greater than 50% in coordination of care (as documented) at patient's floor/unit and/or counseling patient: (1) Hypertension Hypertension type: essential hypertension Qualified Code(s): I10 - Essential (primary) hypertension
--- NOTE | 2019-07-05 10:17 | Surgery Progress Note ---
Date of Service July 05, 2019 Assessment & Plan (1) Post-operative state: s/p right colectomy. Overall doing well - no flatus yet. Will trial clear liquids. Increase activity. change dressing daily., OK to transfer to med/ surg floor. pt eval ordered by medicine. Present on Admission?: Yes Subjective Overall feels well. Some nausea yesterday but none overnight. No flatus yet. No bowel movement. On sips only. Review of Systems Constitutional: + weakness Physical Exam Constitutional: WD/WN, vitals as above Respiratory: normal respiratory effort, lungs clear to auscultation Cardiovascular: Rate/Rhythm: regular rate and regular rhythm Gastrointestinal (Abdomen): Inspection/Auscultation: abdomen normal to inspection, + abdomen distended (mild) and normal bowel sounds Percussion/Palpation: abdomen soft incision clean, dressing changed Neurologic: moves all extremities; no focal motor deficits Psychiatric: A+Ox3, euthymic affect Results & Data Vital Signs (Past 12 Hours) Vital Signs Temp Pulse Pulse Resp BP Pulse Ox 07/05/19 02:45 36.5 C 59 L 19 112/65 97 07/04/19 23:22 79 07/04/19 23:06 36.4 C L 96 H 19 103/64 97
[2019-07-05] MEDS: ACETAMINOPHEN 325 MG TAB PO PRN (20:24)
[2019-07-05] MEDS: FEXOFENADINE HCL 180 MG TAB PO SCH (20:26)
[2019-07-06] MEDS: IPRATROPIUM BROMIDE/ALBUTEROL respimat INH INH SCH ×4 (00:15→17:22)
[2019-07-06 05:29] LABS: Basophils # (auto) 0.01 K/uL (0-0.2); Basophils % (auto) 0.2 %; Eosinophils # (auto) 0.31 K/uL (0-0.5); Eosinophils % (auto) 6.9 %; Hematocrit (blood only) 32.9 % (42-52); Hemoglobin 10.1 g/dL (14.0-18.0); Immature Granulocytes # (auto) 0.04 K/uL (0.00-0.02); Immature Granulocytes % (auto) 0.9 %; Lymphocytes # (auto) 1.29 K/uL (1.2-3.4); Lymphocytes % (auto) 28.5 %; Mean Corpuscular Hemoglobin 24.1 pg (25-34); Mean Corpuscular Hgb Conc 30.7 g/dL (32-36); Mean Corpuscular Volume 78.5 fL (80-100); Mean Platelet Volume 9.7 fL (7.4-10.4); Monocytes # (auto) 0.57 K/uL (0.11-0.59); Monocytes % (auto) 12.6 %; Neutrophils % (auto) 50.9 %; Platelet Count 106 K/uL (130-400); RDW Coefficient of Variation 18.5 % (11.5-14.5); RDW Standard Deviation 53.2 fL (36.4-46.3); Red Blood Count 4.19 M/uL (4.7-6.1); White Blood Count 4.52 K/uL (4.8-10.8)
[2019-07-06 05:58] LABS: BUN Creatinine Ratio 10.8 (10-20); Calcium 8.1 mg/dl (8.5-10.1); Creatinine Clr Calc Pharmacy 72.1 ml/min; Est GFR (African American) 98.8; Est GFR (Non-African American) 85.3; Potassium 3.7 mmol/L (3.5-5.1)
[2019-07-06] MEDS: LEVOTHYROXINE SODIUM 100 MCG TABLET PO SCH (06:13)
[2019-07-06 06:24] LABS: Giant Platelets 1+
--- NOTE | 2019-07-06 07:50 | Anesthesiology Progress Note ---
Date of Service July 06, 2019 Anesthesia Post Procedure Vital Signs Vital Signs: Temp Pulse Pulse Pulse Pulse Resp BP 07/05/19 23:07 36.3 C L 83 16 125/69 07/05/19 16:00 86 07/05/19 15:11 36.4 C L 107 H 16 125/73 07/05/19 15:07 07/05/19 13:40 36.7 C 61 16 126/72 07/05/19 12:07 36.3 C L 86 18 154/75 H 07/05/19 08:00 36.3 C L 76 63 18 128/68 Pulse Ox 07/05/19 23:07 94 07/05/19 16:00 07/05/19 15:11 91 07/05/19 15:07 96 07/05/19 13:40 98 07/05/19 12:07 99 07/05/19 08:00 96 Pain Intensity Right Abdomen: Pain Intensity: 0 Medial Abdomen: Pain Intensity: 2 Notes Mental Status: alert / awake / arousable and participated in evaluation Patient Amnestic to Procedure: Yes Pain: adequately controlled Airway Patency, RR, SpO2: stable & adequate BP & HR: stable & adequate Anesthetic Complications: no major complications apparent
--- NOTE | 2019-07-06 08:04 | Surgery Progress Note ---
Date of Service July 06, 2019 Assessment & Plan (1) Colon cancer: pod 4 doing well will advance to full liquids increase activity d/c planning in next 24-48 hours Subjective pt doing well. no complaints. denies pain. +multiple bm's overnight Physical Exam Physical Exam: alert. nad abd: soft. incision looks good. no drainage. +bs's Results & Data Vital Signs (Past 12 Hours) Vital Signs Temp Pulse Resp BP Pulse Ox 07/05/19 23:07 36.3 C L 83 16 125/69 94 PG Care Time/CCT Total # of Minutes Spent Total Time Spent with Patient: Total time spent is greater than 50% in coordination of care (as documented) at patient's floor/unit and/or counseling patient:
[2019-07-06] MEDS ORDERED: HYDROCODONE/ACETAMOPHEN 5/325MG TAB PO PRN ×2 (08:16)
[2019-07-06] MEDS: PANTOprazole 40 MG TAB PO SCH ×2 (08:33→20:54)
[2019-07-06] MEDS: ACETAMINOPHEN 325 MG TAB PO PRN (09:45)
--- NOTE | 2019-07-06 11:15 | Hospitalist Progress Note ---
Date of Service July 06, 2019 Assessment & Plan (1) Adenocarcinoma, colon: s/p right hemicolectomy on 07/03/19 pain control and diet per general surgery now passing flatus and 5 small BM diet will be advanced per surgery Hb stable at 10.1, no signs of bleeding Zofran PRN for nausea (no episodes in 24 hours) continue therapy patient doing well, hoping to go home late tomorrow or Sat (2) Post-operative state: S/p Right Open Extended Hemicolectomy with Dr. Allen 07/03 see above doing much better today (3) Atrial flutter, paroxysmal: aflutter on tele monitor, rates in 60's while sitting in bed No chest pain or cardiac symptoms Per records anticoagulation was attempted in 2016 but a few months later his platelets dropped to 4000 and again platelets dropped in September 2017 and March 2018 as well as anemia so anticoagulation was discontinued. transferred to surgical floor on . (4) Chronic ITP (idiopathic thrombocytopenia): Does not tolerate anticoagulation platelets stable at 106 today (5) Anemia: Hb stable at 10.1 (6) Arteriosclerotic coronary artery disease: Continue nitro as needed Unable to tolerate ASA Allergic to statins and metoprolol no chest pain or pressure today (7) Hypertension: does not appear to be on any antihypertensives at home Blood pressure stable this morning (8) BPH (benign prostatic hyperplasia): continue dutasteride espino per general surgery, will let them d/c when appropriate (9) COPD (chronic obstructive pulmonary disease): Continue combivent MEDICINE will sign off at this time since his medical issues are stable, only needs to tolerate advanced diet prior to discharge do not hestitate to contact Dr. Collins if a new issue arises Subjective patient very happy, reports that he had 5 small stools, they were soft but not loose he is tolerating diet, surgery will advance no abdominal pain, no vomiting denies chest pain, dyspnea, cough, fever/chills, diaphoresis reviewed labs, Hb down very slightly at 10.1, WBC normal, BUN/Cr and electrolytes stable he is hoping to go home tomorrow if he tolerates advancing diet appreciate general surgery note this AM Review of Systems Review of Systems: All systems reviewed & are unremarkable except as noted in HPI & below Respiratory: no cough and no dyspnea Cardiovascular: no chest pain Gastrointestinal: no abdominal pain, no nausea, no vomiting, no constipation (resolved last night and this AM) and no diarrhea/loose stools Physical Exam Constitutional: WD/WN, vitals as above Eyes: PERRL, conjunctivae normal, anicteric sclerae ENMT: external ear and nose normal, oropharynx normal Neck: trachea midline, no thyromegaly Respiratory: normal respiratory effort, lungs clear to auscultation Cardiovascular: Rate/Rhythm: regular rate and + irregularly irregular Heart Sounds: normal S1, normal S2 and + murmur (soft, systolic) Vessels: no JVD Extremities: normal capillary refill; no edema Gastrointestinal (Abdomen): Inspection/Auscultation: normal bowel sounds and + abdominal surgical incision (midline, dressed, minimal drainage) Percussion/Palpation: abdomen soft; abdomen nontender, no guarding and abdomen not rigid Musculoskeletal: no cyanosis or clubbing, extremities motor strength 5/5 Skin: no rashes, warm and dry Neurologic: patellar DTR's 2+ bilat, sensation intact and PERRL, EOMI, accommodation nl, no face palsy, no dysarthria Psychiatric: A+Ox3, euthymic affect Lymphatic: no cervical or axillary lymphadenopathy Results & Data Vital Signs (Past 12 Hours) Vital Signs Temp Pulse Resp BP Pulse Ox 07/06/19 07:25 36.2 C L 72 16 132/60 93 Laboratory Results Laboratory Results - last 24 hr 07/03/19 07/06/19 07/06/19 05:45 05:11 05:11 WBC 4.52 L RBC 4.19 L Hgb 10.1 L Hct 32.9 L MCV 78.5 L MCH 24.1 L MCHC 30.7 L RDW Std Deviation 53.2 H RDW Coeff of Lillie 18.5 H Plt Count 106 L MPV 9.7 Immature Gran % (Auto) 0.9 Neut % (Auto) 50.9 Lymph % (Auto) 28.5 [place] % (Auto) 12.6 Eos % (Auto) 6.9 Baso % (Auto) 0.2 Immature Gran # (Auto) 0.04 H Neut # (Auto) 2.30 Lymph # (Auto) 1.29 [place] # (Auto) 0.57 Eos # (Auto) 0.31 Baso # (Auto) 0.01 Giant Platelets 1+ Sodium 139 Potassium 3.7 Chloride 105 Carbon Dioxide 29 Anion Gap 5.0 BUN 7 Creatinine 0.68 Est Cr Clr Drug Dosing 72.1 Est GFR ( Amer) 98.8 Est GFR (Non-Af Amer) 85.3 BUN/Creatinine Ratio 10.8 Glucose 96 Calcium 8.1 L Crossmatch See Detail Medications Administered Current Inpatient Medications Acetaminophen (Tylenol) 650 mg PO Q4H PRN PRN Reason: Pain or Fever Stop: 08/04/19 19:02 Last Admin: 07/06/19 09:45 Dose: 650 mg Documented by: Hydrocodone Bitart/Acetaminophen (Hematite 5/325) 1 tab PO Q4H PRN PRN Reason: Pain Stop: 07/20/19 08:15 Hydrocodone Bitart/Acetaminophen (Hematite 5/325) 2 tab PO Q4H PRN PRN Reason: Pain Stop: 07/20/19 08:15 Albuterol (Combivent Respimat) 1 puffs INH Q6H [facility] Stop: 08/02/19 11:59 Last Admin: 07/06/19 06:13 Dose: 1 puffs Documented by: Artificial Tears (Artificial Tears) 1 drops OP HS PRN PRN Reason: DRY EYES Stop: 08/02/19 11:59 Diphenhydramine HCl (Benadryl Capsule) 25 mg PO HS PRN PRN Reason: Insomnia Stop: 08/04/19 19:06 Last Admin: 07/05/19 21:50 Dose: 25 mg Documented by: Fexofenadine HCl (Adriana) 180 mg PO QPM [facility] Stop: 08/02/19 20:59 Last Admin: 07/05/19 20:26 Dose: 180 mg Documented by: Fluticasone Propionate (Flonase) 2 sprays GISELL DAILY PRN PRN Reason: Sinus Symptoms Stop: 08/02/19 11:42 Hydromorphone HCl (Dilaudid) 0.5 mg IV Q1H PRN PRN Reason: MILD Pain (Scale 1,2,3) Stop: 07/17/19 11:42 Last Admin: 07/04/19 15:32 Dose: 0.5 mg Documented by: Hydromorphone HCl (Dilaudid) 1 mg IV Q3H PRN PRN Reason: MODERATE Pain (Scale 4,5,6) Stop: 07/17/19 11:42 Last Admin: 07/04/19 05:30 Dose: 1 mg Documented by: Promethazine HCl 12.5 mg/ (Sodium Chloride) 50.5 mls @ 202 mls/hr IV Q6H PRN PRN Reason: Nausea And Vomiting Stop: 08/03/19 19:34 Levothyroxine Sodium (Synthroid) 100 mcg PO DAILYBB [facility] Stop: 08/03/19 06:29 Last Admin: 07/06/19 06:13 Dose: 100 mcg Documented by: Miscellaneous (Order Awaiting Action) 1 ea N/A QS [facility] Stop: 08/02/19 15:59 Last Admin: 07/06/19 08:32 Dose: Not Given Documented by: Nitroglycerin (Nitrostat) 0.4 mg SL UD PRN PRN Reason: Chest Pain Stop: 08/02/19 11:42 Ondansetron HCl (Zofran) 4 mg IV Q4H PRN PRN Reason: Nausea And Vomiting Stop: 08/02/19 11:42 Last Admin: 07/04/19 18:24 Dose: 4 mg Documented by: Pantoprazole Sodium (Protonix) 40 mg PO BID [facility] Stop: 08/02/19 20:59 Last Admin: 07/06/19 08:33 Dose: 40 mg Documented by: Triamcinolone Acetonide (Kenalog 0.1%) 1 appln TOP DAILY PRN PRN Reason: skin irritatiion Stop: 08/02/19 11:42 PG Care Time/CCT Total # of Minutes Spent Total Time Spent with Patient: Total time spent is greater than 50% in coordination of care (as documented) at patient's floor/unit and/or counseling patient: (1) Hypertension Hypertension type: essential hypertension Qualified Code(s): I10 - Essential (primary) hypertension
[2019-07-06] MEDS: FEXOFENADINE HCL 180 MG TAB PO SCH (20:54)
[2019-07-06] MEDS ORDERED: COUGH DROP (SUGAR FREE) LOZ 24 LOZ/1 BOX BUCCAL ONE (23:25)
[2019-07-06] MEDS ORDERED: COUGH DROP (SUGAR FREE) LOZ 24 LOZ/1 BOX BUCCAL STA (23:28)
[2019-07-07] MEDS: IPRATROPIUM BROMIDE/ALBUTEROL respimat INH INH SCH ×3 (01:10→11:46)
[2019-07-07] MEDS: LEVOTHYROXINE SODIUM 100 MCG TABLET PO SCH (05:41)
--- NOTE | 2019-07-07 07:46 | Surgery Progress Note ---
Date of Service July 07, 2019 Assessment & Plan (1) Colon cancer: POD 5 right colectomy low fiber lunch recheck later today, home today or tomorrow as above. doing well path still pending will advance diet pt would like to go home, will evaluate later today for possible d/c. instructions given.... Subjective no c/o, BM this morning, tolerating full liquids Physical Exam Gastrointestinal (Abdomen): Inspection/Auscultation: abdomen not distended Percussion/Palpation: abdomen soft Results & Data Vital Signs (Past 12 Hours) Vital Signs Temp Pulse Pulse Resp BP Pulse Ox 07/07/19 07:36 36.4 C L 81 16 122/77 96 07/06/19 23:31 36.8 C 80 16 124/76 96 PG Care Time/CCT Total # of Minutes Spent Total Time Spent with Patient: Total time spent is greater than 50% in coordination of care (as documented) at patient's floor/unit and/or counseling patient:
[2019-07-07] MEDS: ONDANSETRON INJ 2 MG/ML 2 ML VIAL IV PRN (07:49)
[2019-07-07] MEDS: PANTOprazole 40 MG TAB PO SCH (07:49)
--- NOTE | 2019-07-13 09:31 | Discharge Summary ---
Date of Service July 13, 2019 Principal Diagnosis Colon cancer Discharge Exam Gastrointestinal (Abdomen) Inspection/Auscultation: + abdominal surgical incision (clean, dry, no erythema); abdomen not distended Percussion/Palpation: abdomen soft Discharge Data Allergies Allergy/AdvReac Type Severity Reaction Status Date / Time codeine Allergy Intermediate rash, Verified 07/03/19 05:56 redness, & swelling linezolid Allergy Intermediate unknown Verified 07/03/19 05:56 Penicillins Allergy Intermediate Rash Verified 07/03/19 05:56 rofecoxib Allergy Intermediate Rash Verified 07/03/19 05:56 metoprolol AdvReac Intermediate Rash Verified 07/03/19 05:56 [id number] Reductase AdvReac Mild pt reports Verified 07/03/19 05:56 Inhibitor " i just felt bad" sulfamethoxazole AdvReac Unknown Unknown Verified 07/03/19 05:56 [From Bactrim] trimethoprim [From Bactrim] AdvReac Unknown Unknown Verified 07/03/19 05:56 Consultations 07/03/19 11:43 Consult Internal Medicine Routine Procedures Performed Operation Date: 07/03/19 07:15 Actual Procedures p Right Open Extended Hemicolectomy - Ned Allen, Ordered Studies 07/02/19 14:15 US - OR guided needle placemen Routine Hospital Course (1) Colon cancer: 88 y/o male with adenocarcinoma of the right colon and polyp in the transverse colon taken to the operating room for extended right hemicolectomy. He was transferred to PCU for monitoring given his age and medical history including HTN, atrial flutter and CAD. The hospitalist service was also consulted routinely. Only SCDs were used for DVT prophylaxis given his history of ITP. He had some nausea over the first twenty-four hours which resolved by day two. He was able to begin clear liquids at that time. He was also transferred to the regular surgical bhagat and by day three was having multiple bowel movements. He was able to tolerate an advancing diet and on day four was on a regular diet and having minimal pain. His chronic anemia remained stable with H&H at 10 and 33. He was stable for discharge on postop day 4. Total Time Total Time Spent Total Time Spent (In Minutes): 15 Discharge Plan Discharge Items Patient Disposition: Home - Self-Care Reason For Visit: Adenocarcinoma Colon, Cecal Discharge Diagnosis: right colon resection Activity: As commented below Lifting: No more than 10 pounds Bathing Comment: ok to shower Driving/Machine Use: in 1 week Non-emergency contact: Surgeon Call non-emergency contact if: you have any medication questions, your pain is not controlled, you have a fever, your temperature is above 101.5, your wound has increased redness and your wound has increased drainage Follow-up/Referrals: Gus Cobos MD [Primary Care Provider] - Ned Allen, [Surgeon] - (In 1 week to have chastity removed, call the office if you do not already have an appt) Diet: Regular Addtl Attending Provider Instructions: Pending Studies at Discharge: Yes Studies:: pathology Stand-Alone Forms: My [employer], Smoking Cessation Medications and DC Order Prescriptions: New hydrocodone-acetaminophen [[place]] 5-325 mg tablet 1 - 2 tab PO Q4H PRN (Reason: pain, initial therapy, max 8 tabs daily) Qty: 15 RF: 0 Continued levothyroxine [Levoxyl] 100 mcg tablet 100 mcg PO QAM Qty: 90 RF: 3 pantoprazole 40 mg tablet,delayed release (DR/EC) 40 mg PO BID Qty: 28 RF: 0 Combivent Respimat 20-100 mcg/actuation mist 1 puffs INH Q6H Qty: 4 RF: 5 Retaine HPMC (PF) 0.3 % drops 1 drops OP HS PRN (Reason: Dry Eyes) RF: 0 fexofenadine [Adriana Allergy] 180 mg Tablet 180 mg PO QPM RF: 0 triamcinolone acetonide 0.1 % Cream 1 applic TOPICAL DAILY PRN (Reason: skin irritatiion) RF: 0 nitroglycerin [Nitrostat] 0.4 mg Tablet, Sublingual 1 tab Sublingual DIRECTED PRN (Reason: Chest Pain) RF: 0 fluticasone propionate 50 mcg/actuation [place],Suspension 2 spray INTRANASAL DAILY PRN (Reason: Sinus Symptoms) RF: 0 cholecalciferol (vitamin D3) [Vitamin D3] 2,000 unit Capsule 2,000 unit PO QAM RF: 0 PreserVision AREDS [id number] Tablet 1 tab PO QPM RF: 0 cyanocobalamin (vitamin B-12) [Vitamin B-12] 1,000 mcg Tablet 1,000 mcg PO HS RF: 0 magnesium oxide 250 mg magnesium tablet 250 mg PO HS RF: 0 guaifenesin [Mucinex] 600 mg Tablet Extended Release 12hr 1,200 mg PO Q12 Qty: 1 RF: 0 dutasteride 0.5 mg capsule 0.5 mg PO HS RF: 0 Discharge Orders: Discharge Order (Routine); Ordered 07/07/19 Ordered By: Timo Drummond Jr Admission Data Admit Date/Time: 07/03/19 09:31 Attending Provider: Ned Allen Admit Provider: Ned Allen Primary Care Provider: Gus Cobos Other Providers: Alexis Collins ; Louis Paul Other Interventions: Discharge Summary Assessment (RN) Last Done: 07/07/19 14:14 DC Date/Time DO NOT enter until pt leaves facility: 07/07/19 15:45
== END 2019-07-07 15:45 | disposition home or self-care (01) | DRG 330 ==
LOC: ASU 05:20 → 2S 09:31 → 3N 07-05 09:36